=== PATIENT | male | born 1975 | race Caucasian/White ===

== ENCOUNTER 2019-08-21 09:47 | Inpatient (IN) | payer BC, OTHER ==
[2019-08-21] MEDS ORDERED: ACETAMINOPHEN TAB 500 MG TAB PO STA (10:01)
[2019-08-21] MEDS ORDERED: IPRATROPIUM-ALBUTEROL 3 ML NEB INHALATION STA (10:02)
--- NOTE | 2019-08-21 10:04 | ED ---
General Adult HPI - General Chief complaint: Shortness of Breath Stated complaint: BA Time Seen by Provider: 08/21/19 09:55 Source: patient, EMS, RN notes reviewed Mode of arrival: EMS Limitations: no limitations - History of Present Illness Initial comments: Patient is a pleasant 44-year-old male presenting to the emergency department with difficulty breathing. Symptoms have progressed with the past one week. Occasional cough. Patient denies having fever however states he has been chilled. Patient does have history of hypertension and does take diuretic however has been off his diuretic for the past couple of days. Patient is a smoker. Patient is unclear of any history of COPD. - Related Data Home Medications Medication Instructions Recorded Confirmed amLODIPine BESYLATE/BENAZEPRIL 1 cap PO BID 01/27/17 01/27/17 [Lotrel 5-20 mg Capsule] Previous Rx's Medication Instructions Recorded Omeprazole [PriLOSEC] 40 mg PO AC-BRKFST #14 capsule. 01/17/17 Allergies Allergy/AdvReac Type Severity Reaction Status Date / Time fexofenadine HCl Allergy HIGH BP Verified 08/21/19 10:01 [From Molly-D] pseudoephedrine HCl Allergy High BP Verified 08/21/19 10:01 [From Molly-D] Review of Systems ROS Statement: Those systems with pertinent positive or pertinent negative responses have been documented in the HPI. ROS Other: All systems not noted in ROS Statement are negative. Constitutional: Reports: as per HPI, chills Eyes: Denies: eye pain ENT: Denies: ear pain Respiratory: Reports: dyspnea Cardiovascular: Denies: chest pain Endocrine: Reports: fatigue Gastrointestinal: Denies: abdominal pain Genitourinary: Denies: dysuria Musculoskeletal: Denies: back pain Skin: Denies: rash Neurological: Denies: weakness Past Medical History Past Medical History: Heart Failure, GERD/Reflux, Hypertension, Seizure Disorder Additional Past Medical History / Comment(s): seizure as young child x1., states hospitalized 01/16/17-01/17/17 for blood in stool. denies current bleeding History of Any Multi-Drug Resistant Organisms: None Reported Past Surgical History: Orthopedic Surgery Additional Past Surgical History / Comment(s): right knee arthroscopy. Past Anesthesia/Blood Transfusion Reactions: No Reported Reaction Past Psychological History: No Psychological Hx Reported Smoking Status: Current every day smoker Past Alcohol Use History: Daily Past Drug Use History: Marijuana - Past Family History Mother Family Medical History: Hypertension Additional Family Medical History / Comment(s): from cancer General Exam Limitations: no limitations General appearance: alert Head exam: Present: normocephalic Eye exam: Present: normal appearance ENT exam: Present: normal oropharynx Neck exam: Present: normal inspection Respiratory exam: Present: wheezes Cardiovascular Exam: Present: regular rate, normal rhythm GI/Abdominal exam: Present: soft. Absent: tenderness Extremities exam: Present: pedal edema (+1 bilateral). Absent: calf tenderness Neurological exam: Present: alert Psychiatric exam: Present: normal affect, normal mood Skin exam: Present: normal color Course Vital Signs 08/21/19 08/21/19 08/21/19 09:57 10:17 10:46 Temperature 99.6 F 99.0 F Pulse Rate 99 95 Respiratory 20 24 20 Rate Blood Pressure 136/101 124/80 O2 Sat by Pulse 94 L 92 L Oximetry 08/21/19 08/21/19 10:53 11:02 Temperature Pulse Rate 81 84 Respiratory Rate Blood Pressure O2 Sat by Pulse Oximetry - Reevaluation(s) Reevaluation #1: 08/21/19 11:41 There is concern for sepsis diagnosed at 11:40 AM. Blood culture and lactic acid ordered. IV antibiotics will be ordered. EKG Findings - EKG Comments: EKG Findings:: Normal sinus rhythm 97. OH 134. QRS 94. QT 318. QTC 403. Right axis. Septal Q waves. No acute ST change. Medical Decision Making - Medical Decision Making Patient reevaluated and resting comfortably in bed. Patient updated on results and plan. Case was discussed in detail with Dr. Omalley who will admit. Patient states he does see Dr. Omalley still. Patient also states he has been decreasing alcohol intake recently. Alcohol withdrawal may be present also. There is moderate suspicion for coronavirus. Testing has been ordered. - Lab Data Result diagrams: 08/21/19 10:10 08/21/19 10:10 Lab Results 08/21/19 08/21/19 08/21/19 Range/Units 10:02 10:10 10:10 WBC 6.0 (3.8-10.6) k/uL RBC 6.52 H (4.30-5.90) m/uL Hgb 20.2 H* (13.0-17.5) gm/dL Hct 66.2 H* (39.0-53.0) % MCV 101.6 H (80.0-100.0) fL MCH 31.0 (25.0-35.0) pg MCHC 30.5 L (31.0-37.0) g/dL RDW 17.3 H (11.5-15.5) % Plt Count 192 (150-450) k/uL Neutrophils % 74 % Lymphocytes % 14 % Monocytes % 9 % Eosinophils % 1 % Basophils % 1 % Neutrophils # 4.5 (1.3-7.7) k/uL Lymphocytes # 0.8 L (1.0-4.8) k/uL Monocytes # 0.5 (0-1.0) k/uL Eosinophils # 0.1 (0-0.7) k/uL Basophils # 0.0 (0-0.2) k/uL Manual Slide Review Performed Hypochromasia Moderate Poikilocytosis (manual Present Anisocytosis Slight Macrocytosis Moderate PT (9.0-12.0) sec INR (<1.2) APTT (22.0-30.0) sec Sodium 129 L (137-145) mmol/L Potassium 6.2 H* (3.5-5.1) mmol/L Chloride 86 L (98-107) mmol/L Carbon Dioxide 35 H (22-30) mmol/L Anion Gap 8 mmol/L BUN 23 H (9-20) mg/dL Creatinine 0.64 L (0.66-1.25) mg/dL Est GFR (CKD-EPI)AfAm >90 (>60 ml/min/1.73 sqM) Est GFR (CKD-EPI)NonAf >90 (>60 ml/min/1.73 sqM) Glucose 105 H (74-99) mg/dL Plasma Lactic Acid Tk (0.7-2.0) mmol/L Calcium 9.1 (8.4-10.2) mg/dL Magnesium 2.1 (1.6-2.3) mg/dL Total Bilirubin 1.1 (0.2-1.3) mg/dL AST 28 (17-59) U/L ALT 28 (4-49) U/L Alkaline Phosphatase 51 (38-126) U/L Lactate Dehydrogenase 615 (313-618) U/L C-Reactive Protein 32.1 H (<10.0) mg/L NT-Pro-B Natriuret Pep 2480 pg/mL Total Protein 7.1 (6.3-8.2) g/dL Albumin 4.2 (3.5-5.0) g/dL 08/21/19 08/21/19 Range/Units 10:10 10:54 WBC (3.8-10.6) k/uL RBC (4.30-5.90) m/uL Hgb (13.0-17.5) gm/dL Hct (39.0-53.0) % MCV (80.0-100.0) fL MCH (25.0-35.0) pg MCHC (31.0-37.0) g/dL RDW (11.5-15.5) % Plt Count (150-450) k/uL Neutrophils % % Lymphocytes % % Monocytes % % Eosinophils % % Basophils % % Neutrophils # (1.3-7.7) k/uL Lymphocytes # (1.0-4.8) k/uL Monocytes # (0-1.0) k/uL Eosinophils # (0-0.7) k/uL Basophils # (0-0.2) k/uL Manual Slide Review Hypochromasia Poikilocytosis (manual Anisocytosis Macrocytosis PT 10.1 (9.0-12.0) sec INR 1.0 (<1.2) APTT 22.9 (22.0-30.0) sec Sodium (137-145) mmol/L Potassium (3.5-5.1) mmol/L Chloride (98-107) mmol/L Carbon Dioxide (22-30) mmol/L Anion Gap mmol/L BUN (9-20) mg/dL Creatinine (0.66-1.25) mg/dL Est GFR (CKD-EPI)AfAm (>60 ml/min/1.73 sqM) Est GFR (CKD-EPI)NonAf (>60 ml/min/1.73 sqM) Glucose (74-99) mg/dL Plasma Lactic Acid Tk 1.2 (0.7-2.0) mmol/L Calcium (8.4-10.2) mg/dL Magnesium (1.6-2.3) mg/dL Total Bilirubin (0.2-1.3) mg/dL AST (17-59) U/L ALT (4-49) U/L Alkaline Phosphatase (38-126) U/L Lactate Dehydrogenase (313-618) U/L C-Reactive Protein (<10.0) mg/L NT-Pro-B Natriuret Pep pg/mL Total Protein (6.3-8.2) g/dL Albumin (3.5-5.0) g/dL - Radiology Data Radiology results: image reviewed (Checks x-ray does show by basilar and perihil ar infiltrates.) Critical Care Time Critical Care Time: Yes Total Critical Care Time: 31 Disposition Clinical Impression: Pneumonia, Sepsis Disposition: ADMITTED IP TO THIS [facility] Condition: Serious Is patient prescribed a controlled substance at d/c from ED?: No Referrals: None,Stated [Primary Care Provider] - 1-2 days Decision Time: 11:42
[2019-08-21 10:26] LABS: Anisocytosis Slight; Basophils % (A) 1 %; Eosinophils # (A) 0.1 k/uL (0-0.7); Eosinophils % (A) 1 %; Hypochromasia Moderate; Lymphocytes # (A) 0.8 k/uL (1.0-4.8); Lymphocytes % (A) 14 %; MCHC 30.5 g/dL (31.0-37.0); MCV 101.6 fL (80.0-100.0); Macrocytosis Moderate; Mean Platelet Volume 7.2; Monocytes # (A) 0.5 k/uL (0-1.0); Monocytes % (A) 9 %; Neutrophils # (A) 4.5 k/uL (1.3-7.7); Neutrophils % (A) 74 %; Platelet Count 192 k/uL (150-450); RBC 6.52 m/uL (4.30-5.90); RDW 17.3 % (11.5-15.5)
[2019-08-21 10:43] LABS: HCT 66.2 % (39.0-53.0); HGB 20.2 gm/dL (13.0-17.5)
[2019-08-21 10:54] LABS: ALT 28 U/L (4-49); AST 28 U/L (17-59); African American GFR (CKD) >90 (>60 ml/min/1.73 sqM); Albumin 4.2 g/dL (3.5-5.0); Alkaline Phosphatase 51 U/L (38-126); Anion Gap 8 mmol/L; Blood Urea Nitrogen 23 mg/dL (9-20); C Reactive Protein 32.1 mg/L (<10.0); Calcium 9.1 mg/dL (8.4-10.2); Carbon Dioxide 35 mmol/L (22-30); Chloride 86 mmol/L (98-107); Glucose 105 mg/dL (74-99); LDH 615 U/L (313-618); Magnesium 2.1 mg/dL (1.6-2.3); Non-African American GFR(CKD) >90 (>60 ml/min/1.73 sqM); Sodium 129 mmol/L (137-145); Total Bilirubin 1.1 mg/dL (0.2-1.3); Total Protein 7.1 g/dL (6.3-8.2)
[2019-08-21 10:55] LABS: Poikilocytosis (M) Present
--- NOTE | 2019-08-21 11:07 | XR ---
EXAMINATION TYPE: XR chest 1V portable DATE OF EXAM: 08/21/2019 COMPARISON: 10/02/2010 HISTORY: Chest pain TECHNIQUE: Single frontal view of the chest is obtained. FINDINGS: Perihilar and basilar infiltrates suggested. The cardiac silhouette size is within normal limits. The osseous structures are intact. IMPRESSION: 1. Perihilar and basilar infiltrates suggested. Correlate for developing pneumonia.
[2019-08-21 11:10] LABS: Potassium 6.2 mmol/L (3.5-5.1)
[2019-08-21 11:37] LABS: Prothrombin Time 10.1 sec (9.0-12.0)
[2019-08-21 11:38] LABS: Partial Thromboplastin Time 22.9 sec (22.0-30.0)
[2019-08-21] MEDS ORDERED: IPRATROPIUM-ALBUTEROL 3 ML NEB INHALATION PRN (11:42)
[2019-08-21] MEDS ORDERED: AZITHROMYCIN 500 MG in SODIUM CHLORIDE 0.9% 250 ML IVPB STA (11:42)
[2019-08-21] MEDS ORDERED: PNEUMONIA PROTOCOL UTILIZED 1 EACH MISC PO PRN (11:42)
[2019-08-21] MEDS ORDERED: LORazepam 2 MG/ML INJ IV PRN (11:45)
[2019-08-21] MEDS: SODIUM CHLORIDE 0.9% 1,000 ML IV SCH (12:03)
[2019-08-21] MEDS ORDERED: ONDANSETRON 4 MG/2 ML VIAL IVP STA (13:01)
[2019-08-21] MEDS: LORazepam 2 MG/ML INJ IV PRN ×2 (14:21→15:41)
[2019-08-21 14:53] LABS: Allen Test Performed? Yes
[2019-08-21] MEDS ORDERED: SUCCINYLCHOLINE CHLORIDE VIAL 200 MG/10 ML VIAL IV STA (14:59)
[2019-08-21] MEDS ORDERED: MIDAZOLAM 2 MG/2 ML VIAL IV STA (14:59)
--- NOTE | 2019-08-21 15:33 | ED ---
Medical Decision Making - Medical Decision Making Patient was witnessed diaphoretic and purplish discoloration. Patient was not protecting his airway. He was question if patient possibly had seizure with alcohol withdrawal. Patient was transferred to trauma bay 2 and intubated without difficulty. Case was discussed with Dr. Fish who will consult with critical care. Dr. Omalley has been paged for update. - Lab Data Result diagrams: 08/21/19 10:10 08/21/19 10:10 Lab Results 08/21/19 08/21/19 08/21/19 Range/Units 10:02 10:10 10:10 WBC 6.0 (3.8-10.6) k/uL RBC 6.52 H (4.30-5.90) m/uL Hgb 20.2 H* (13.0-17.5) gm/dL Hct 66.2 H* (39.0-53.0) % MCV 101.6 H (80.0-100.0) fL MCH 31.0 (25.0-35.0) pg MCHC 30.5 L (31.0-37.0) g/dL RDW 17.3 H (11.5-15.5) % Plt Count 192 (150-450) k/uL Neutrophils % 74 % Lymphocytes % 14 % Monocytes % 9 % Eosinophils % 1 % Basophils % 1 % Neutrophils # 4.5 (1.3-7.7) k/uL Lymphocytes # 0.8 L (1.0-4.8) k/uL Monocytes # 0.5 (0-1.0) k/uL Eosinophils # 0.1 (0-0.7) k/uL Basophils # 0.0 (0-0.2) k/uL Manual Slide Review Performed Hypochromasia Moderate Poikilocytosis (manual Present Anisocytosis Slight Macrocytosis Moderate PT (9.0-12.0) sec INR (<1.2) APTT (22.0-30.0) sec Sodium 129 L (137-145) mmol/L Potassium 6.2 H* (3.5-5.1) mmol/L Chloride 86 L (98-107) mmol/L Carbon Dioxide 35 H (22-30) mmol/L Anion Gap 8 mmol/L BUN 23 H (9-20) mg/dL Creatinine 0.64 L (0.66-1.25) mg/dL Est GFR (CKD-EPI)AfAm >90 (>60 ml/min/1.73 sqM) Est GFR (CKD-EPI)NonAf >90 (>60 ml/min/1.73 sqM) Glucose 105 H (74-99) mg/dL Plasma Lactic Acid Tk (0.7-2.0) mmol/L Calcium 9.1 (8.4-10.2) mg/dL Magnesium 2.1 (1.6-2.3) mg/dL Total Bilirubin 1.1 (0.2-1.3) mg/dL AST 28 (17-59) U/L ALT 28 (4-49) U/L Alkaline Phosphatase 51 (38-126) U/L Lactate Dehydrogenase 615 (313-618) U/L C-Reactive Protein 32.1 H (<10.0) mg/L NT-Pro-B Natriuret Pep 2480 pg/mL Total Protein 7.1 (6.3-8.2) g/dL Albumin 4.2 (3.5-5.0) g/dL 08/21/19 08/21/19 Range/Units 10:10 10:54 WBC (3.8-10.6) k/uL RBC (4.30-5.90) m/uL Hgb (13.0-17.5) gm/dL Hct (39.0-53.0) % MCV (80.0-100.0) fL MCH (25.0-35.0) pg MCHC (31.0-37.0) g/dL RDW (11.5-15.5) % Plt Count (150-450) k/uL Neutrophils % % Lymphocytes % % Monocytes % % Eosinophils % % Basophils % % Neutrophils # (1.3-7.7) k/uL Lymphocytes # (1.0-4.8) k/uL Monocytes # (0-1.0) k/uL Eosinophils # (0-0.7) k/uL Basophils # (0-0.2) k/uL Manual Slide Review Hypochromasia Poikilocytosis (manual Anisocytosis Macrocytosis PT 10.1 (9.0-12.0) sec INR 1.0 (<1.2) APTT 22.9 (22.0-30.0) sec Sodium (137-145) mmol/L Potassium (3.5-5.1) mmol/L Chloride (98-107) mmol/L Carbon Dioxide (22-30) mmol/L Anion Gap mmol/L BUN (9-20) mg/dL Creatinine (0.66-1.25) mg/dL Est GFR (CKD-EPI)AfAm (>60 ml/min/1.73 sqM) Est GFR (CKD-EPI)NonAf (>60 ml/min/1.73 sqM) Glucose (74-99) mg/dL Plasma Lactic Acid Tk 1.2 (0.7-2.0) mmol/L Calcium (8.4-10.2) mg/dL Magnesium (1.6-2.3) mg/dL Total Bilirubin (0.2-1.3) mg/dL AST (17-59) U/L ALT (4-49) U/L Alkaline Phosphatase (38-126) U/L Lactate Dehydrogenase (313-618) U/L C-Reactive Protein (<10.0) mg/L NT-Pro-B Natriuret Pep pg/mL Total Protein (6.3-8.2) g/dL Albumin (3.5-5.0) g/dL Disposition Clinical Impression: Pneumonia, Sepsis Disposition: ADMITTED IP TO THIS HOSP Condition: Serious Is patient prescribed a controlled substance at d/c from ED?: No Procedures - [place] Protocol (Time Out) Nurse: Jing Crespo C - Intubation Paralytic: Succinylcholine Laryngoscope: Colon Size: 4 ET Tube Size: 8 Tube Secured Location: lips Tube Placement Confirmation: visualized tube passing through cords, equal breath sounds bilaterally, no breath sounds over epigastrium, confirmation by capnometry Patient Tolerated Procedure: well, no complications
--- NOTE | 2019-08-21 15:48 | XR ---
EXAMINATION TYPE: XR chest 1V portable DATE OF EXAM: 08/21/2019 COMPARISON: 08/21/2019 HISTORY: Chest pain TECHNIQUE: Single frontal view of the chest is obtained. FINDINGS: Patchy perihilar and basilar infiltrates are noted. Endotracheal tube is appropriately placed. NG tub e is seen coursing into the stomach. The cardiac silhouette size is within normal limits. The osseous structures are intact. IMPRESSION: 1. Patchy perihilar and basilar infiltrates are noted. Endotracheal tube is appropriately placed. NG tube is seen coursing into the stomach.
--- NOTE | 2019-08-21 16:33 | CT ---
EXAMINATION TYPE: CT brain wo con DATE OF EXAM: 08/21/2019 COMPARISON: CT brain 09/17/2011 HISTORY: Patient intubated at time of scan CT DLP: 1198 mGycm. Automated Exposure Control for Dose Reduction was Utilized. TECHNIQUE: CT scan of the head is performed without contrast. FINDINGS: There is no acute intracranial hemorrhage, mass effect, or midline shift identified. The ventricles and sulci are within normal limits in size. The globes are intact and the visualized sin uses are are markable show some inflammatory change in the ethmoid air cells, right maxillary sinus. White matter low-attenuation is scattered within supratentorial location. IMPRESSION: Nonspecific white matter demyelination, consider MRI.
[2019-08-21] MEDS ORDERED: CISATRACURIUM 2 MG/ML 5 ML VIAL IV ONE (16:34)
--- NOTE | 2019-08-21 16:36 | CT ---
EXAMINATION TYPE: CT angio chest DATE OF EXAM: 08/21/2019 COMPARISON: Chest x-ray same date HISTORY: Patient intubated at time of scan CT DLP: 862.4 mGycm Automated exposure control for dose reduction was used. CONTRAST: CTA scan of the thorax is performed with IV Contrast, patient injected with 100 mL of Isovue 370, pul monary embolism protocol. MIP images are created and reviewed. 3D reconstructed images are created on an independent workstation and reviewed. FINDINGS: Endotracheal tube is present within the tracheal air column, an NG tube is present, distal tip is coiled within the stomach. There is motion on the exam. LUNGS: There are bilateral pleural effusions, probable dependent atelectatic changes, correlate to ex clude pneumonia, some upper lobe emphysematous changes are present. AORTA: No additional significant abnormality is seen. MEDIASTINUM: There is satisfactory enhancement of the pulmonary artery and its branches, there is no CT evidence for pulmonary embolism. There are no greater than 1 cm hilar or mediastinal lymph nodes. No pericardial effusion is seen. Prominence of pulmonary artery could be indicative of pulmonary h ypertension OTHER: No additional significant abnormality is seen. IMPRESSION: EMPHYSEMA BILATERAL PLEURAL EFFUSIONS, ASSOCIATED ATELECTASIS, CORRELATE TO EXCLUDE PNEUMONIA. POSSIB LE PULMONARY ARTERY HYPERTENSION.
[2019-08-21] MEDS ORDERED: LORazepam 2 MG/ML INJ IV STA ×2 (16:40→16:42)
--- NOTE | 2019-08-21 17:05 | XR ---
EXAMINATION TYPE: XR chest 1V confirm [facility] DATE OF EXAM: 08/21/2019 CLINICAL HISTORY: Line placement. TECHNIQUE: Single AP portable supine view of the chest is obtained. COMPARISON: Chest x-ray and CTA chest from one day earlier. FINDINGS: Stable endotracheal and orogastric tubes. New left internal jugular central venous cathete r terminating in SVC. No pneumothorax identified. Chronic emphysematous and parenchymal fibrotic dodd ges with central vascular congestion and mild cardiomegaly along with mild interstitial edema. No pne umothorax noted after central line placement. IMPRESSION: 1. New left internal jugular central venous catheter terminating in SVC. No pneumothorax noted after placement. 2. Suspect CHF exacerbation as there is mild cardiomegaly with mild central vascular congestion and m ild interstitial edema on background chronic emphysematous and parenchymal fibrotic changes.
--- NOTE | 2019-08-21 17:07 | P.CNPUL ---
History of Present Illness Consult date: 08/21/19 Reason for consult: dyspnea, COPD History of present illness: A 44-year-old male patient, comes in to the ED because of worsening shortness of breath of one-week duration. He had cough increased dyspnea chest tightness and wheezing. He is a chronic smoker. He is also a chronic drinker/alcoholic. He has history of seizures. He has history of hypertension. He has history of COPD. He has never been seen in the office. Not much of information is available on this patient. His white cell count was at 6 with a hemoglobin of 20.2 and note that the patient has history of elevated hemoglobins which has been in the range of 17. He had a sodium of 129 with a potassium level of 6.2 with a serum bicarb of 35 and BUN of 23 with a creatinine of 0.6. His proBNP level is 2480. During his stay in the emergency, the patient became subseque ntly more diaphoretic and purplish and he became significantly unresponsive when he was unable to protect his airway. He was placed on on the percent nonrebreather facemask. A blood gas was done that showed a pCO2 of above 100 and a pH of 7.0. At that point the patient was intubated and placed on a mechanical ventilation. There was a question of seizure activity related to alcohol withdrawal as the patient stated that he was gradually cutting down on his alcohol intake. Nevertheless, this was not witnessed. Post intubation, the patient was given a CAT scan of the brain that showed possibility of nonspecific white matter demyelination. The CT angiogram of the chest showed no this of any pulmonary embolism. However, there is evidence of pulmonary hypertension and atelectatic changes/consolidation of the lung bases with small effusions. His pro calcitonin level is 0.07. The patient is actively bronchospastic and wheezy on a mechanical ventilator. His peak air pressure was around 34. He was an assist-control mode of ventilation at the rate of 12 with tidal volume of 500 and FiO2 of 100% with a PEEP of 5. Chest x-ray post intubation showed some perihilar infiltration. I saw the patient emergency. He was already on propofol running at 50 g per KG per minute. He was in a normal sinus rhythm with a systolic blood pressure in the mid 90s. No significant orotracheal se cretions. He was having excessive drooling and salivation. I did not witness any seizure activity. No posterior neck. No rigidity. No fever. Review of Systems ROS unobtainable: due to endotracheal tube Past Medical History Past Medical History: Heart Failure, GERD/Reflux, Hypertension, Seizure Disorder Additional Past Medical History / Comment(s): seizure as young child x1., states hospitalized 01/16/17-01/17/17 for blood in stool. denies current bleeding History of Any Multi-Drug Resistant Organisms: None Reported Past Surgical History: Orthopedic Surgery Additional Past Surgical History / Comment(s): right knee arthroscopy. Past Anesthesia/Blood Transfusion Reactions: No Reported Reaction Past Psychological History: No Psychological Hx Reported Smoking Status: Current every day smoker Past Alcohol Use History: Daily Past Drug Use History: Marijuana - Past Family History Mother Family Medical History: Hypertension Additional Family Medical History / Comment(s): from cancer Medications and Allergies Home Medications Medication Instructions Recorded Confirmed Type amLODIPine BESYLATE/BENAZEPRIL 1 cap PO BID 01/27/17 08/21/19 History [Lotrel 5-20 mg Capsule] Hydrochlorothiazide [Hydrodiuril] 25 mg PO DAILY 08/21/19 08/21/19 History Allergies Allergy/AdvReac Type Severity Reaction Status Date / Time fexofenadine HCl Allergy HIGH BP Verified 08/21/19 13:00 [From Molly-D] pseudoephedrine HCl Allergy High BP Verified 08/21/19 13:00 [From Molly-D] Physical Exam Vitals: Vital Signs Temp Pulse Resp BP Pulse Ox 08/21/19 16:06 83 20 105/83 98 08/21/19 15:50 97.0 F L 84 20 105/67 99 08/21/19 14:44 89 L 08/21/19 14:29 108 H 22 124/88 88 L 08/21/19 13:55 98.8 F 110 H 22 112/83 70 L 08/21/19 11:39 90 22 131/90 93 L 08/21/19 11:02 84 08/21/19 10:53 81 08/21/19 10:46 99.0 F 95 20 124/80 92 L 08/21/19 10:17 24 08/21/19 09:57 99.6 F 99 20 136/101 94 L Intake and Output 08/21/19 08/21/19 08/21/19 06:59 14:59 22:59 Intake Total 7.133 Output Total 30 Balance -22.867 Intake: Intake, IV Titration 7.133 Amount Propofol 1,000 mg In 7.133 Empty Bag 1 bag @ Titrate IV .Q0M [facility] Rx#: [id number] Output: Urine 30 Uretheral (Nogueira) 30 Other: Weight 83.915 kg The patient is intubated on a mechanical ventilator sedated with propofol. The patient asynchronous with the mechanical ventilator. At times he still gets restless and he was given additional 4 mg of Ativan while insertion of a triple- lumen catheter in his left IJ Head exam was generally normal. There was no scleral icterus or corneal arcus. Mucous membranes were moist. Neck was supple and without jugular venous distension, thyromegaly, or carotid b ruits. Carotids were easily palpable bilaterally. There was no adenopathy. His lips are somewhat cyanotic. He has a left IJ triple catheter in place. Orogastric and orotracheal tube are both in place. Lungs are diminished and there is diffuse expiratory wheezes throughout the lung his bilaterally and scattered expiratory rhonchi Cardiac exam revealed the PMI to be normally situated and sized. The rhythm was regular and no extrasystoles were noted during several minutes of auscultation. The first and second heart sounds were normal and physiologic splitting of the second heart sound was noted. There were no murmurs, rubs, clicks, or gallops. Abdominal exam revealed normal bowel sounds. The abdomen was soft, non-tender, and without masses, organomegaly, or appreciable enlargement of the abdominal aorta. Extremities revealed no edema no cyanosis or clubbing. There is areas of psoriatic patches on his soles groin and palms of the hands. Neurologically the patient is sedated. Pupils are equal and reactive to light. Neck is supple and there is no neck stiffness. Unable to assess any motor or sensory function. DTRs are +1 symmetric in all 4 extremities. No Babinski. No clonus. Results - Laboratory Findings CBC and BMP: 08/21/19 10:10 08/21/19 10:10 PT/INR, D-dimer PT 10.1 sec (9.0-12.0) 08/21/19 10:54 INR 1.0 (<1.2) 08/21/19 10:54 Abnormal lab findings: Abnormal Labs 08/21/19 08/21/19 08/21/19 10:10 10:10 10:55 RBC 6.52 H Hgb 20.2 H* Hct 66.2 H* MCV 101.6 H MCHC 30.5 L RDW 17.3 H Lymphocytes # 0.8 L Sodium 129 L Potassium 6.2 H* Chloride 86 L Carbon Dioxide 35 H BUN 23 H Creatinine 0.64 L Glucose 105 H Ferritin 14.8 L C-Reactive Protein 32.1 H - Diagnostic Findings Chest x-ray: image reviewed Assessment and Plan Plan: 1 acute on chronic hypoxic and hypercapnic respiratory failure. The patient developed severe respiratory acidosis and hypoxemia and he became unresponsive in the emergency department and subsequently was intubated and placed on a mechanical ventilator. CT angios and shows no evidence of any pulmonary embolism. There is lower lobe consolidation along with small bilateral pleural effusion. Consider aspiration pneumonia. Consider seizure activity has another contributing factors to his respiratory failure. Note that he is a COPD exacerbation. He has chronic hypoxic and hypercapnic respiratory failure due to COPD and possible obstructive sleep apnea 2 chronic hypoxemia. There are signs of chronic hypoxemia on this patient including pulmonary hypertension and perihilar fullness indicative of pulmonary hypertension and chronic elevation of the hemoglobin which is consistent with secondary erythrocytosis. The reasons as mentioned above. 3 COPD 4 suspect obstructive sleep apnea 5 chronic hypercapnic respiratory failure with secondary metabolic alkalosis with a serum bicarb of 35 6 secondary erythrocytosis likely secondary chronic hypoxemia 7 mild hypokalemia with a potassium level of 6.2 without any EKG changes 8 suspect right-sided heart failure/pulmonary hypertension/cor pulmonale. ProBNP level is slightly elevated 9 acute COPD exacerbation, currently bronchospastic and wheezy with elevated pea k airway pressures on a mechanical ventilator 10 chronic alcoholism 11 chronic smoking 12 seizures by history. Rule out breakthrough seizures. Currently on propofol drip. 13 hypertension Plan Continue vent support Repeat the blood gases in the ICU Put the patient on DuoNeb nebulized treatment [id number] in addition to IV Solu-Medrol Cover the patient with IV Zosyn for aspiration pneumonia and discontinue the rest of the antibiotics Obtain a 2-D echocardiogram IV fluids with normal state rate of 75 mL an hour. The patient be given a bolus for now and repeat potassium will be obtained accordingly. This will be a bolus of normal saline. This will be a total of 2 L. Check alcohol level Check urine drug screen Neurology consultation regarding the possibility of seizures and obtain an EEG Heparin subcu for DVT prophylaxis Covid 19 nasal swab We'll continue to follow. Condition is critical for now. Time with Patient: Greater than 30
--- NOTE | 2019-08-21 17:09 | P.PCN ---
Date of Procedure: 08/21/19 Preoperative Diagnosis: Acute respiratory failure Postoperative Diagnosis: Acute respiratory failure Procedure(s) Performed: Triple-lumen catheter insertion Anesthesia: local Surgeon: Alphonse Fish Pathology: none sent Condition: critical Disposition: ICU Operative Findings: Indication: Hemodynamic monitoring/Intravenous access. A time-out was completed verifying correct patient, procedure, site, positioning, and implant(s) or special equipment if applicable. The patient was placed in a dependent position appropriate for central line placement based on the vein to be cannulated. The patients left neck was prepped and draped in sterile fashion. 1% Lidocaine was used to anesthetize the surrounding skin area. A triple lumen 9F Cordis catheter was introduced into the left IJ vein using Seldinger technique. The catheter was threaded smoothly over the guide wire and appropriate blood return was obtained. Each lumen of the catheter was evacuated of air and flushed with sterile saline. The catheter was then sutured in place to the skin and a sterile dressing applied. Perfusion to the extremity distal to the point of catheter insertion was checked and found to be adequate. The patient tolerated the procedure well and there were no complications. Chest x-ray shows no evidence of any pneumothorax
[2019-08-21] MEDS: SODIUM CHLORIDE 0.9% 2,000 ML IV ONE ×2 (17:26→17:39)
[2019-08-21] MEDS: CISATRACURIUM 200 MG in SODIUM CHLORIDE 0.9% 180 ML IV SCH (17:40)
[2019-08-21] MEDS: PIPERACILLIN-TAZOBACTAM 3.375 GM in SODIUM CHLORIDE 0.9% 100 ML IVPB SCH ×2 (17:40→23:27)
[2019-08-21 18:25] LABS: Glucose,Whole Blood 83 mg/dL (75-99)
[2019-08-21] MEDS: THIAMINE 100 MG TAB PO SCH (18:25)
[2019-08-21] MEDS: methylPREDNISolone SOD SUCCI 125 MG/2 ML VIAL IV SCH ×2 (18:27→23:26)
[2019-08-21 18:32] LABS: Amphetamine Screen,Urine Not Detected (NotDetected); Barbiturate Screen,Urine Not Detected (NotDetected); Benzodiazepines Screen,Urine Detected (NotDetected); Cocaine Screen,Urine Not Detected (NotDetected); Methadone Screen, Urine Not Detected (NotDetected); Opiate Screen,Urine Not Detected (NotDetected); Oxycodone Screen, Urine Not Detected (NotDetected); Phencyclidine Screen,Urine Not Detected (NotDetected); Tricyclic Antidepressant,Urine Not Detected (NotDetected); Urn Cannabinoid Scrn Detected (NotDetected)
[2019-08-21 19:29] LABS: ABG HCO3 34 mmol/L (21-25); ABG Oxygen Saturation 99.6 % (94-97); ABG PCO2 58 mmHg (35-45); ABG PH 7.38 (7.35-7.45); ABG PO2 106 mmHg (83-108); ABG TCO2 36 mmol/L (19-24); Allen Test Performed? Yes
[2019-08-21 20:02] LABS: ALT 24 U/L (4-49); AST 30 U/L (17-59); African American GFR (CKD) >90 (>60 ml/min/1.73 sqM); Albumin 3.1 g/dL (3.5-5.0); Alkaline Phosphatase 46 U/L (38-126); Anion Gap 4 mmol/L; Blood Urea Nitrogen 23 mg/dL (9-20); Calcium 7.7 mg/dL (8.4-10.2); Carbon Dioxide 33 mmol/L (22-30); Chloride 92 mmol/L (98-107); Glucose 84 mg/dL (74-99); Non-African American GFR(CKD) >90 (>60 ml/min/1.73 sqM); Potassium 5.5 mmol/L (3.5-5.1); Sodium 129 mmol/L (137-145); Total Bilirubin 0.9 mg/dL (0.2-1.3); Total Protein 5.5 g/dL (6.3-8.2)
[2019-08-21] MEDS: BUDESONIDE 1 MG/2 ML NEBU INHALATION SCH (20:35)
[2019-08-21] MEDS: IPRATROPIUM-ALBUTEROL 3 ML NEB INHALATION SCH (20:35)
[2019-08-21] MEDS: FORMOTEROL FUMARATE 20 MCG/2 ML NEBU INHALATION SCH (20:35)
[2019-08-21 21:28] LABS: ABG PCO2 120 mmHg (35-45); ABG PO2 81 mmHg (83-108)
[2019-08-21 21:29] LABS: ABG HCO3 22 mmol/L (21-25); ABG Oxygen Saturation 87.9 % (94-97)
[2019-08-21] MEDS: HEPARIN SODIUM,PORCINE 5,000 UNIT/ML 1 ML VIAL SQ SCH (23:26)
[2019-08-22] MEDS: IPRATROPIUM-ALBUTEROL 3 ML NEB INHALATION SCH ×6 (01:02→19:55)
[2019-08-22 05:49] LABS: ABG Base Excess 7.4 mmol/L; ABG HCO3 33 mmol/L (21-25); ABG Oxygen Saturation 96.3 % (94-97); ABG PCO2 55 mmHg (35-45); ABG PH 7.38 (7.35-7.45); ABG PO2 84 mmHg (83-108); ABG TCO2 34 mmol/L (19-24); Allen Test Performed? Yes
[2019-08-22] MEDS: methylPREDNISolone SOD SUCCI 125 MG/2 ML VIAL IV SCH ×4 (06:06→23:37)
[2019-08-22 06:10] LABS: Glucose,Whole Blood 141 mg/dL (75-99)
[2019-08-22 06:40] LABS: Anisocytosis Slight; Hypochromasia Moderate; MCH 31.8 pg (25.0-35.0); MCHC 31.5 g/dL (31.0-37.0); Macrocytosis Slight; Mean Platelet Volume 7.4; Platelet Count 176 k/uL (150-450); RDW 17.3 % (11.5-15.5); WBC 6.5 k/uL (3.8-10.6)
[2019-08-22 06:45] LABS: HCT 62.6 % (39.0-53.0); HGB 19.7 gm/dL (13.0-17.5)
[2019-08-22 06:50] LABS: African American GFR (CKD) >90 (>60 ml/min/1.73 sqM); Anion Gap 6 mmol/L; Blood Urea Nitrogen 25 mg/dL (9-20); Calcium 8.1 mg/dL (8.4-10.2); Carbon Dioxide 27 mmol/L (22-30); Chloride 96 mmol/L (98-107); Glucose 133 mg/dL (74-99); Magnesium 1.9 mg/dL (1.6-2.3); Non-African American GFR(CKD) >90 (>60 ml/min/1.73 sqM); Phosphorus 3.2 mg/dL (2.5-4.5); Sodium 129 mmol/L (137-145)
[2019-08-22 06:58] LABS: Potassium 5.8 mmol/L (3.5-5.1)
[2019-08-22] MEDS: FORMOTEROL FUMARATE 20 MCG/2 ML NEBU INHALATION SCH ×2 (07:38→19:55)
[2019-08-22] MEDS: BUDESONIDE 1 MG/2 ML NEBU INHALATION SCH ×2 (07:39→19:55)
[2019-08-22] MEDS: THIAMINE 100 MG TAB PO SCH ×2 (08:21→17:41)
[2019-08-22] MEDS: HEPARIN SODIUM,PORCINE 5,000 UNIT/ML 1 ML VIAL SQ SCH ×3 (08:21→23:37)
[2019-08-22] MEDS: PIPERACILLIN-TAZOBACTAM 3.375 GM in SODIUM CHLORIDE 0.9% 100 ML IVPB SCH ×3 (08:21→23:52)
[2019-08-22] MEDS: SODIUM CHLORIDE 0.9% 1,000 ML IV SCH ×3 (08:22→17:49)
[2019-08-22] MEDS: CISATRACURIUM 200 MG in SODIUM CHLORIDE 0.9% 180 ML IV SCH (08:23)
--- NOTE | 2019-08-22 08:45 | XR ---
EXAMINATION TYPE: XR chest 1V portable DATE OF EXAM: 08/22/2019 COMPARISON: 08/21/2019 INDICATION: Tube placement TECHNIQUE: Single frontal view of the chest is obtained. FINDINGS: The heart size is normal. The pulmonary vasculature is normal. There is a right lower lobe infiltrate silhouetting the right diaphragm. Diaphragm is not well visual ized. Costophrenic angle may be out of the [id number]. Endotracheal tube tip is above the farheen. Left central venous catheter tip is in the region of the s uperior vena cava. Nasogastric tube transverses the [id number] with tip within the abdomen. IMPRESSION: 1. Developing right lower lobe atelectasis or pneumonia. 2. Infiltrate within the retrocardiac region. 3. Multiple lines and catheters.
[2019-08-22 08:56] LABS: Amylase 60 U/L (30-110)
[2019-08-22] MEDS ORDERED: AZITHROMYCIN 500 MG TAB PO SCH (09:00)
--- NOTE | 2019-08-22 10:05 | P.CNNES ---
History of Present Illness Consult date: 08/22/19 Requesting physician: Ann Botello Reason for Consult: Possible seizure History of Present Illness: History was obtained from medical records, Since the patient since patient is intubated and on sedation (propofol 50mg/hr and Nimbex was discontinued in AM). This is a 44-year-old gentleman with history of ?seizure disorder, COPD, , HTN, heart failure and chronic heart failure that presented to the emergency departm ent on 08/21/2023 difficulty breathing. He has a cough that increased and dyspnea and chest tightness as well as wheezing. His symptoms as progressed for the past 1 week. He denies any fever but states he has chills. He is a chronic smoker. Per Medical records while the patient was in the emergency department he subsequently became more diaphoretic and purplish and became more significantly unresponsive when he was unable to protect his airway. He was placed on the non-rebreather mask. His ABG was done and shows pCO2 of above 100 and a pH of 7.0. The patient then was intubated and placed on mechanical ventilation. It's reported that it's unsure if this was a seizure activity related to alcohol withdrawal since the patient is gradually cutting down. No seizures were witnessed in the emergency department. CT of the head without contrast was done on 08/21/2019 and was reported as nonspecific white matter mild matter within the supratentorial location, and this nonspecific white matter demyelination and to consider MRI. His initial TEMPERATURE was 99.6. Upon contacting the patient's father he denies that patient has history of seizure but will inquire that information. He stated that his son ran out of diuretic and became short of breath. The patient does have chronic alcohol use per father but he is not sure if he was cutting down or not. Per the patient's ICU nurse, she has not witnessed any seizure activity or any report of seizure activity since he has been in ICU. Review of Systems Review of system: The 12 point system was reviewed and apparent positive and negative per HPI. Past Medical History Past Medical History: Heart Failure, GERD/Reflux, Hypertension, Seizure Disorder Additional Past Medical History / Comment(s): seizure as young child x1., states hospitalized 01/16/17-01/17/17 for blood in stool. denies current bleeding History of Any Multi-Drug Resistant Organisms: None Reported Past Surgical History: Orthopedic Surgery Additional Past Surgical History / Comment(s): right knee arthroscopy. Past Anesthesia/Blood Transfusion Reactions: No Reported Reaction Past Psychological History: No Psychological Hx Reported Past Alcohol Use History: Daily Past Drug Use History: Marijuana - Past Family History Mother Family Medical History: Hypertension Additional Family Medical History / Comment(s): from cancer Medications and Allergies Home Medications Medication Instructions Recorded Confirmed Type amLODIPine BESYLATE/BENAZEPRIL 1 cap PO BID 01/27/17 08/21/19 History [Lotrel 5-20 mg Capsule] Hydrochlorothiazide [Hydrodiuril] 25 mg PO DAILY 08/21/19 08/21/19 History Allergies Allergy/AdvReac Type Severity Reaction Status Date / Time fexofenadine HCl Allergy HIGH BP Verified 08/21/19 13:00 [From IWT] pseudoephedrine HCl Allergy High BP Verified 08/21/19 13:00 [From IWT] Physical Examination - Vital Signs Vital Signs: Vital Signs Temp Pulse Resp BP Pulse Ox 08/22/19 07:40 66 08/22/19 07:00 65 16 102/65 94 L 08/22/19 06:00 72 16 105/68 94 L 08/22/19 05:00 66 16 109/68 96 08/22/19 04:55 69 08/22/19 04:47 71 08/22/19 04:00 98.5 F 68 29 H 101/72 96 08/22/19 03:00 66 16 97/66 94 L 08/22/19 02:00 62 16 99/68 95 08/22/19 01:28 62 08/22/19 01:02 64 08/22/19 01:00 64 16 92/62 96 08/22/19 00:00 98.8 F 66 16 102/72 94 L 08/21/19 23:00 64 16 88/65 96 08/21/19 22:00 64 16 87/61 94 L 08/21/19 21:08 66 16 08/21/19 21:00 98.1 F 66 16 92/69 96 08/21/19 20:57 64 16 08/21/19 20:56 64 16 08/21/19 20:36 64 16 08/21/19 20:00 63 16 104/75 97 08/21/19 19:00 63 16 94/68 99 08/21/19 18:02 98.4 F 66 16 103/69 97 08/21/19 17:44 71 20 105/81 98 08/21/19 17:05 75 97/66 97 08/21/19 16:06 83 20 105/83 98 08/21/19 15:50 97.0 F L 84 20 105/67 99 08/21/19 15:00 124/88 08/21/19 14:44 89 L 08/21/19 14:29 108 H 22 124/88 88 L 08/21/19 13:55 98.8 F 110 H 22 112/83 70 L 08/21/19 12:00 24 131/90 08/21/19 11:39 90 22 131/90 93 L 08/21/19 11:02 84 08/21/19 11:00 89 15 124/80 95 08/21/19 10:53 81 08/21/19 10:46 99.0 F 95 20 124/80 92 L 08/21/19 10:17 24 08/21/19 10:00 136/101 93 L 08/21/19 09:57 99.6 F 99 20 136/101 94 L 08/21/19 09:55 93 L Intake and Output 08/21/19 08/22/19 08/22/19 22:59 06:59 14:59 Intake Total 2667.133 1001.707 187.693 Output Total 290 245 35 Balance 2377.133 756.707 152.693 Intake: IV 300 800 100 Piperacillin-Tazobactam 3 100 .375 gm In Sodium Chloride 0.9% 100 ml @ 25 mls/hr IVPB Q8HR [facility] Rx# :[id number] Sodium Chloride 0.9% 1, 300 700 100 000 ml @ 100 mls/hr IV . Q10H [facility] Rx#:[id number] Intake, IV Titration 2367.133 201.707 87.693 Amount Cisatracurium 200 mg In 101.707 Sodium Chloride 0.9% 180 ml @ 2 MCG/KG/MIN 10.07 mls/hr IV .[id number] [facility] Rx #:[id number] Piperacillin-Tazobactam 3 100 .375 gm In Sodium Chloride 0.9% 100 ml @ 25 mls/hr IVPB Q8HR [facility] Rx# :[id number] Propofol 1,000 mg In 167.133 100 87.693 Empty Bag 1 bag @ Titrate IV .Q0M [facility] Rx#: [id number] Sodium Chloride 0.9% 1, 100 000 ml @ 100 mls/hr IV . Q10H [facility] Rx#:[id number] Sodium Chloride 0.9% 2, 2000 000 ml @ 999 mls/hr IV . Q2H1M [facility] Rx#:[id number] Output: Urine 290 245 35 Uretheral (Nogueira) 30 Other: Voiding Method Indwelling Catheter Indwelling Catheter Weight 103.8 kg - Additional findings Physical Exam: Is limited since patient is intubated and on sedation. Chest: Regular rate and rhythm. No mumur. Respiratory: Clear lungs to auscultation throughout. HEENT: Normocephalic, atraumatic, no kernig sign. Neurological: Comatose and not opening to eyes with painful stimuli. Pupils are 2mm bilaterally and slugishly reactive to light bilaterally. No facial weakness noted. Motor: Could not be assessed because of his condition. No abnormal movement noted throughout. Reflexes: 2+ throughout except at ankles 1+ bilaterally. Plantars: Mute bilaterally. Results - Laboratory Findings CBC and BMP: 08/22/19 06:19 08/22/19 06:19 Abnormal Lab Findings: Abnormal Labs 08/21/19 08/21/19 08/21/19 10:10 10:10 10:55 RBC 6.52 H Hgb 20.2 H* Hct 66.2 H* MCV 101.6 H MCHC 30.5 L RDW 17.3 H Lymphocytes # 0.8 L ABG pH ABG pCO2 ABG pO2 ABG HCO3 ABG Total CO2 ABG O2 Saturation Sodium 129 L Potassium 6.2 H* Chloride 86 L Carbon Dioxide 35 H BUN 23 H Creatinine 0.64 L Glucose 105 H POC Glucose (mg/dL) Calcium Ferritin 14.8 L C-Reactive Protein 32.1 H Total Protein Albumin U Benzodiazepines Scrn U Marijuana (THC) Screen 08/21/19 08/21/19 08/21/19 14:46 17:46 18:10 RBC Hgb Hct MCV MCHC RDW Lymphocytes # ABG pH 7.00 L* ABG pCO2 120 H* ABG pO2 81 L ABG HCO3 ABG Total CO2 ABG O2 Saturation 87.9 L Sodium 129 L Potassium 5.5 H Chloride 92 L Carbon Dioxide 33 H BUN 23 H Creatinine Glucose POC Glucose (mg/dL) Calcium 7.7 L Ferritin C-Reactive Protein Total Protein 5.5 L Albumin 3.1 L U Benzodiazepines Scrn Detected H U Marijuana (THC) Screen Detected H 08/21/19 08/22/19 08/22/19 19:27 05:42 06:09 RBC Hgb Hct MCV MCHC RDW Lymphocytes # ABG pH ABG pCO2 58 H 55 H ABG pO2 ABG HCO3 34 H 33 H ABG Total CO2 36 H 34 H ABG O2 Saturation 99.6 H Sodium Potassium Chloride Carbon Dioxide BUN Creatinine Glucose POC Glucose (mg/dL) 141 H Calcium Ferritin C-Reactive Protein Total Protein Albumin U Benzodiazepines Scrn U Marijuana (THC) Screen 08/22/19 08/22/19 06:19 06:19 RBC 6.20 H Hgb 19.7 H* Hct 62.6 H* MCV 101.0 H MCHC RDW 17.3 H Lymphocytes # ABG pH ABG pCO2 ABG pO2 ABG HCO3 ABG Total CO2 ABG O2 Saturation Sodium 129 L Potassium 5.8 H Chloride 96 L Carbon Dioxide BUN 25 H Creatinine 0.64 L Glucose 133 H POC Glucose (mg/dL) Calcium 8.1 L Ferritin C-Reactive Protein Total Protein Albumin U Benzodiazepines Scrn U Marijuana (THC) Screen - Diagnostic Findings Additional findings: His sodium level during the his hospital visit was initially 129 at it's been 129 throughout throughout this admission his baseline sodium is 136-140 ETOH level less than 10 The cornea virus PCR was not detected. PT is 10.1, INR is 1.0, PTT is 22.9. Chest x-ray on 08/21/2019 showed perihilar and basal infiltrate suggested. Correlate for developing pneumonia. Assessment and Plan Assessment: This is a 44-year-old gentleman with a history of ?seizure disorder that is documented but per patient's father he is not aware patient has history of seizure, chronic alcohol use, COPD, hypertension, heart failure that ran out of diuretic and presented to the emergency department on 08/21/2023 difficulty breathing. Per Medical records while the patient was in the emergency depar tment he subsequently became more diaphoretic and purplish and became more significantly unresponsive when he was unable to protect his airway. It's reported that it's unsure if this was a seizure activity related to alcohol withdrawal since the patient is gradually cutting down. No seizures were witnessed in the emergency department. CT of the head without contrast was done on 08/21/2019 and was reported as nonspecific white matter mild matter within the supratentorial location, and this nonspecific white matter demyelination and to consider MRI. Questionable seizure (non-witnessed) and if it was a seizure, then likely provoked since patient has metabolic deneragement: Has hyponatremia (Na is 129 and baseline is 136-140), hypocalcemia, COPD exacerbation, chronic alcohol use and attempting to cut down. Acute severe COPD exacerbation Acute on chronic hypoxic hypercapnic respiratory failure Chronic hypercapnic respiratory failure was secondary metabolic alkalosis Plan: Recommend correcting the metabolic deneragement. We will obtain EEG to rule out electrographic seizure. Recommend [facility] protocol for alcohol withdrawl,defer to primary team. Regarding the supratentorial lesion seen on the CT of the head, can obtain MRI of the brain once stable. Patient's father will verify with the rest of family if patient does have history of seizure disorder. Patient is on thiamine daily. Regarding the patient's respiratory issues will defer to the pulmonary team. Thank you for the consult. Kaiden Carty MD Neurohospitalist Time with Patient: Less than 30
[2019-08-22] MEDS: LORazepam 2 MG/ML INJ IV PRN ×2 (11:45→23:37)
[2019-08-22 11:54] LABS: Glucose,Whole Blood 150 mg/dL (75-99)
[2019-08-22] MEDS ORDERED: LORazepam 2 MG/ML INJ IV PRN (12:42)
--- NOTE | 2019-08-22 13:43 | ECHOF ---
Referral Reason:shortness of breath, resp failure MEASUREMENTS -------- HEIGHT: 167.6 cm WEIGHT: 103.4 kg BP: 105/68 RVIDd: 5.1 cm (< 3.3) IVSd: 1.0 cm (0.6 - 1.1) LVIDd: 4.3 cm (3.9 - 5.3) LVPWd: 1.2 cm (0.6 - 1.1) IVSs: 1.4 cm LVIDs: 3.1 cm LVPWs: 1.5 cm LAESV Index (A-L): 30.48 ml/m Ao Diam: 3.3 cm (2.0 - 3.7) AV Cusp: 2.3 cm (1.5 - 2.6) MV EXCURSION: 15.892 mm (> 18.000) MV EF SLOPE: 78 mm/s (70 - 150) EPSS: 0.4 cm MV E Sandor: 0.68 m/s MV DecT: 241 ms MV A Sandor: 0.53 m/s MV E/A Ratio: 1.28 RAP: 20.00 mmHg RVSP: 54.92 mmHg FINDINGS -------- Sinus rhythm. This was a technically adequate study. Pt. on a vent. The left ventricular size is normal. There is borderline concentric left ventricular hypertrophy. Overall left ventricular systolic function is normal with, an EF between 55 - 60 %. The right ventricle is severely enlarged. LA is midly dilated 29-33ml/m2. The right atrium is mildly enlarged. Interatrial and interventricular septum intact. The aortic valve is trileaflet, and appears structurally normal. No aortic stenosis or regurgitation. The mitral valve is normal. Mild mitral regurgitation is present. Mild tricuspid regurgitation present. There is moderate pulmonary hypertension. The right ventric ular systolic pressure, as measured by Doppler, is 54.92mmHg. The pulmonic valve was not well visualized. There is no pulmonic regurgitation present. The aortic root size is normal. The inferior vena cava is dilated with no significant inspiratory collapse which is consistent estima madhu right atrial pressure of >20 mmHg. There is no pericardial effusion. CONCLUSIONS -------- 1. Pt. on a vent. 2. There is borderline concentric left ventricular hypertrophy. 3. Overall left ventricular systolic function is normal with, an EF between 55 - 60 %. 4. The right ventricle is severely enlarged. 5. LA is midly dilated 29-33ml/m2. 6. The right atrium is mildly enlarged. 7. The aortic valve is trileaflet, and appears structurally normal. No aortic stenosis or regurgitati on. 8. Mild mitral regurgitation is present. 9. Mild tricuspid regurgitation present. 10. There is moderate pulmonary hypertension. 11. The aortic root size is normal. 12. The inferior vena cava is dilated with no significant inspiratory collapse which is consistent es timated right atrial pressure of >20 mmHg. 13. There is no pericardial effusion. GLOVE CUTTER: Serena Solano RDCS
--- NOTE | 2019-08-22 14:08 | P.PN ---
Subjective Progress Note Date: 08/22/19 A 44-year-old male patient is being seen in follow-up after having respiratory failure, being intubated on a mechanical ventilator. Please refer to my earlier consultation note for further details. This morning, the patient is well sedated with propofol which is running at 50 g per KG per minute. Overnight, the Utilized for paralysis and synchrony with the mechanical ventilator and the patient will be given a paralytic holiday this morning. The patient is currently on normal saline running at 100 mL an hour. He is on a mechanical ventilator. He is on assist control mode at the rate of 16 with tidal volume of 500 and FiO2 of 60% with a PEEP of 5. Peak pressures 29. Static pressures. The patient's blood gases showed pH of 7.38 with a pCO2 of 55 and pO2 of 84. Chest x-ray showing consolidation of the right lower lobe along with some bilateral lower lobe pulmonary infiltrates. ET tube is in a good location. The patient is a left IJ triple-lumen catheter in place. He is afebrile is covered with IV Zosyn. No seizure activity has been noted. The patient had a neurology evaluation. Again, the impression is a questionable seizures as no events were witnessed. EEG was ordered looking for any abnormalities to support the possibility of seizure. CAT scan of the brain was noted earlier. MRI of the brain was also recommended once the patient is more stable. The patient other gaxiola is laying comfortably in bed. No other significant events over the past 24 hours. No significant orotracheal secretions. He is hemoglobin is still elevated at 19.7. White cell count is low at 6.5. Sodium is at 129 and a potassium level is improved down to 5.8. Objective - Vital Signs Vital signs: Vital Signs Temp 98 F 08/22/19 12:00 Pulse 71 08/22/19 13:00 Resp 18 08/22/19 13:00 BP 100/62 08/22/19 13:00 Pulse Ox 94 L 08/22/19 13:00 Intake & Output 08/21/19 08/22/19 08/22/19 18:59 06:59 18:59 Intake Total 2267.133 1401.707 940.226 Output Total 180 355 270 Balance 2087.133 1046.707 670.226 Weight 83.915 kg 103.8 kg 103.8 kg Intake: IV 1100 700 Piperacillin-Tazobactam 3 100 100 .375 gm In Sodium Chloride 0.9% 100 ml @ 25 mls/hr IVPB Q8HR [facility] Rx# :[id number] Sodium Chloride 0.9% 1, 1000 600 000 ml @ 100 mls/hr IV . Q10H [facility] Rx#:[id number] Intake, IV Titration 2267.133 301.707 240.226 Amount Cisatracurium 200 mg In 101.707 36.963 Sodium Chloride 0.9% 180 ml @ 2 MCG/KG/MIN 10.07 mls/hr IV .[id number] [facility] Rx #:[id number] Piperacillin-Tazobactam 3 100 .375 gm In Sodium Chloride 0.9% 100 ml @ 25 mls/hr IVPB Q8HR [facility] Rx# :[id number] Propofol 1,000 mg In 67.133 200 203.263 Empty Bag 1 bag @ Titrate IV .Q0M [facility] Rx#: [id number] Sodium Chloride 0.9% 1, 100 000 ml @ 100 mls/hr IV . Q10H [facility] Rx#:[id number] Sodium Chloride 0.9% 2, 2000 000 ml @ 999 mls/hr IV . Q2H1M [facility] Rx#:[id number] Output: Urine 180 355 270 Uretheral (Nogueira) 30 Other: Voiding Method Indwelling Catheter Indwelling Catheter - Exam The patient is intubated on a mechanical ventilator sedated with propofol and the patient was on Nimbex earlier this morning that was taken off and the patient is currently being given a paralytic holiday.. The patient asynchronous with the mechanical ventilator. At times he still gets restless and he was given additional 4 mg of Ativan while insertion of a triple-lumen catheter in his left IJ Head exam was generally normal. There was no scleral icterus or corneal arcus. Mucous membranes were moist. Neck was supple and without jugular venous distension, thyromegaly, or carotid bruits. Carotids were easily palpable bilaterally. There was no adenopathy. His lips are somewhat cyanotic. He has a left IJ triple catheter in place. Orogastric and orotracheal tube are both in place. Lungs are diminished and there is diffuse expiratory wheezes throughout the lung his bilaterally and scattered expiratory rhonchi Cardiac exam revealed the PMI to be normally situated and sized. The rhythm was regular and no extrasystoles were noted during several minutes of auscultation. The first and second heart sounds were normal and physiologic splitting of the second heart sound was noted. There were no murmurs, rubs, clicks, or gallops. Abdominal exam revealed normal bowel sounds. The abdomen was soft, non-tender, and without masses, organomegaly, or appreciable enlargement of the abdominal aorta. Extremities revealed no edema no cyanosis or clubbing. There is areas of psoriatic patches on his soles groin and palms of the hands. Neurologically the patient is sedated. Pupils are equal and reactive to light. Neck is supple and there is no neck stiffness. Unable to assess any motor or sensory function. DTRs are +1 symmetric in all 4 extremities. No Babinski. No clonus. - Labs CBC & Chem 7: 08/22/19 06:19 08/22/19 06:19 Labs: Abnormal Lab Results - Last 24 Hours (Table) 08/21/19 08/21/19 08/21/19 Range/Units 10:55 14:46 17:46 RBC (4.30-5.90) m/uL Hgb (13.0-17.5) gm/dL Hct (39.0-53.0) % MCV (80.0-100.0) fL RDW (11.5-15.5) % ABG pH 7.00 L* (7.35-7.45) ABG pCO2 120 H* (35-45) mmHg ABG pO2 81 L (83-108) mmHg ABG HCO3 (21-25) mmol/L ABG Total CO2 (19-24) mmol/L ABG O2 Saturation 87.9 L (94-97) % Sodium (137-145) mmol/L Potassium (3.5-5.1) mmol/L Chloride (98-107) mmol/L Carbon Dioxide (22-30) mmol/L BUN (9-20) mg/dL Creatinine (0.66-1.25) mg/dL Glucose (74-99) mg/dL POC Glucose (mg/dL) (75-99) mg/dL Calcium (8.4-10.2) mg/dL Ferritin 14.8 L (22.0-322.0) ng/mL Total Protein (6.3-8.2) g/dL Albumin (3.5-5.0) g/dL U Benzodiazepines Scrn Detected H (NotDetected) U Marijuana (THC) Screen Detected H (NotDetected) 08/21/19 08/21/19 08/22/19 Range/Units 18:10 19:27 05:42 RBC (4.30-5.90) m/uL Hgb (13.0-17.5) gm/dL Hct (39.0-53.0) % MCV (80.0-100.0) fL RDW (11.5-15.5) % ABG pH (7.35-7.45) ABG pCO2 58 H 55 H (35-45) mmHg ABG pO2 (83-108) mmHg ABG HCO3 34 H 33 H (21-25) mmol/L ABG Total CO2 36 H 34 H (19-24) mmol/L ABG O2 Saturation 99.6 H (94-97) % Sodium 129 L (137-145) mmol/L Potassium 5.5 H (3.5-5.1) mmol/L Chloride 92 L (98-107) mmol/L Carbon Dioxide 33 H (22-30) mmol/L BUN 23 H (9-20) mg/dL Creatinine (0.66-1.25) mg/dL Glucose (74-99) mg/dL POC Glucose (mg/dL) (75-99) mg/dL Calcium 7.7 L (8.4-10.2) mg/dL Ferritin (22.0-322.0) ng/mL Total Protein 5.5 L (6.3-8.2) g/dL Albumin 3.1 L (3.5-5.0) g/dL U Benzodiazepines Scrn (NotDetected) U Marijuana (THC) Screen (NotDetected) 08/22/19 08/22/19 08/22/19 Range/Units 06:09 06:19 06:19 RBC 6.20 H (4.30-5.90) m/uL Hgb 19.7 H* (13.0-17.5) gm/dL Hct 62.6 H* (39.0-53.0) % MCV 101.0 H (80.0-100.0) fL RDW 17.3 H (11.5-15.5) % ABG pH (7.35-7.45) ABG pCO2 (35-45) mmHg ABG pO2 (83-108) mmHg ABG HCO3 (21-25) mmol/L ABG Total CO2 (19-24) mmol/L ABG O2 Saturation (94-97) % Sodium 129 L (137-145) mmol/L Potassium 5.8 H (3.5-5.1) mmol/L Chloride 96 L (98-107) mmol/L Carbon Dioxide (22-30) mmol/L BUN 25 H (9-20) mg/dL Creatinine 0.64 L (0.66-1.25) mg/dL Glucose 133 H (74-99) mg/dL POC Glucose (mg/dL) 141 H (75-99) mg/dL Calcium 8.1 L (8.4-10.2) mg/dL Ferritin (22.0-322.0) ng/mL Total Protein (6.3-8.2) g/dL Albumin (3.5-5.0) g/dL U Benzodiazepines Scrn (NotDetected) U Marijuana (THC) Screen (NotDetected) 08/22/19 Range/Units 11:51 RBC (4.30-5.90) m/uL Hgb (13.0-17.5) gm/dL Hct (39.0-53.0) % MCV (80.0-100.0) fL RDW (11.5-15.5) % ABG pH (7.35-7.45) ABG pCO2 (35-45) mmHg ABG pO2 (83-108) mmHg ABG HCO3 (21-25) mmol/L ABG Total CO2 (19-24) mmol/L ABG O2 Saturation (94-97) % Sodium (137-145) mmol/L Potassium (3.5-5.1) mmol/L Chloride (98-107) mmol/L Carbon Dioxide (22-30) mmol/L BUN (9-20) mg/dL Creatinine (0.66-1.25) mg/dL Glucose (74-99) mg/dL POC Glucose (mg/dL) 150 H (75-99) mg/dL Calcium (8.4-10.2) mg/dL Ferritin (22.0-322.0) ng/mL Total Protein (6.3-8.2) g/dL Albumin (3.5-5.0) g/dL U Benzodiazepines Scrn (NotDetected) U Marijuana (THC) Screen (NotDetected) Microbiology - Last 24 Hours (Table) 08/21/19 10:41 Blood Culture - Preliminary Blood No Growth after 24 hours 08/21/19 15:45 Gram Stain - Preliminary Sputum Sputum Culture - Preliminary Assessment and Plan Plan: 1 acute on chronic hypoxic and hypercapnic respiratory failure. The patient developed severe respiratory acidosis and hypoxemia and he became unresponsive in the emergency department and subsequently was intubated and placed on a mechanical ventilator. CT angios and shows no evidence of any pulmonary embolism. He has chronic hypoxic and hypercapnic respiratory failure due to COPD and possible obstructive sleep apnea. Noted the patient has development of a right lower lobe pulmonary for today. He was or the covered with IV Zosyn. Consider an underlying aspiration pneumonia contributing to his respiratory failure. Currently he remains intubated on a mechanical ventilator. He remains bronchus spastic and wheezy. He is sedated with propofol. Overnight he was kept on paralytic that was discontinued this morning. 2 chronic hypoxemia. There are signs of chronic hypoxemia on this patient including pulmonary hypertension and perihilar fullness indicative of pulmonary hypertension and chronic elevation of the hemoglobin which is consistent with secondary erythrocytosis. The reasons as mentioned above. 3 COPD 4 suspect obstructive sleep apnea 5 chronic hypercapnic respiratory failure with secondary metabolic alkalosis with a serum bicarb of 35 6 secondary erythrocytosis likely secondary chronic hypoxemia 7 mild hyperkalemia with a potassium level of 6.2 without any EKG changes, current potassium level is down to 5.8. 8 suspect right-sided heart failure/pulmonary hypertension/cor pulmonale. ProBNP level is slightly elevated 9 acute COPD exacerbation, currently bronchospastic and wheezy with elevated peak airway pressures on a mechanical ventilator 10 chronic alcoholism 11 chronic smoking 12 seizures by history. Rule out breakthrough seizures. Currently on propofol drip. 13 hypertension 14 mild hyponatremia with a sodium level of 129 15 questionable seizures. Plan Continue vent support, will drop the tidal volume down to 450. Check a pro-calcitonin level Continue IV Zosyn Continue bronchodilators [id number] Continue IV Solu-Medrol Awaiting a follow-up echocardiogram IV fluids normal saline today to 75 mL an hour Stop that index He is a propofol Utilize Ativan as needed if patient becomes agitated while off the paralytics Neurology consultation is been appreciated and the patient is going to have an EEG done looking for any abnormality to support the possibility of seizure activity. Heparin subcu for DVT prophylaxis Covid 19 nasal swab was negative Initiate enteral feeding for nutritional support We'll continue to follow. Condition is critical for now. This evaluation was done and more than 30 minutes. There is a critically care evaluation.
--- NOTE | 2019-08-22 15:52 | P.HPIM ---
History of Present Illness H&P Date: 08/22/19 Chief Complaint: Worsening shortness of breath Sulfa 44-year-old gentleman with history of chronic hypoxia, COPD, CHF, hypertension, alcohol and nicotine dependence and multiple other medical issues,presented to the ER with worsening shortness of breath 1 week, occasional cough, quit taking his diuretics 2 days ago. Chest x-rays reporting parahilar and basilar infiltrates, possible developing pneumonia, mild central vascular congestion, possible CHF exacerbation. Coronavirus not detected. Pro- calcitonin 0.07 Echo reporting normal LV function, EF 55-60%, moderate pulmonary hypertension. BNP 2480. EKG reporting normal sinus rhythm mild anterior septal infarct, age undetermined. Troponin pending. Toxicology screen detected benzos, marijuana with serum alcohol less than 10. Coronavirus not detected. Brain CT reporting nonspecific white matter demyelinization with white matter low attenuation scattered within supratentorial. Chest CT reported emphysema, bilateral pleural effusions, associated atelectasis and possible pneumonia, possible pulmonary hypertension, negative for PE. Telemetry sinus rhythm. On admission potassium 6.2 now currently 5.8. After arrival to ER, patient became more hypoxic, purple, unresponsive, placed on nonrebreather, ABGs reflected pH of 7, CO2 120, intubated. CO2 35, BUN 23 creatinine 0.6. Hemoglobin 20.2, now 19.7. No seizure activity reported. Information obtained from medical record. Afebrile, T-max 99.6, normal WBC. Review of Systems Review systems unable to obtain as patient on mechanical ventilation, sedated Past Medical History Past Medical History: Heart Failure, GERD/Reflux, Hypertension, Seizure Disorder Additional Past Medical History / Comment(s): seizure as young child x1., states hospitalized 01/16/17-01/17/17 for blood in stool. denies current bleeding History of Any Multi-Drug Resistant Organisms: None Reported Past Surgical History: Orthopedic Surgery Additional Past Surgical History / Comment(s): right knee arthroscopy. Past Anesthesia/Blood Transfusion Reactions: No Reported Reaction Past Psychological History: No Psychological Hx Reported Past Alcohol Use History: Daily Past Drug Use History: Marijuana - Past Family History Mother Family Medical History: Hypertension Additional Family Medical History / Comment(s): from cancer Medications and Allergies Home Medications Medication Instructions Recorded Confirmed Type amLODIPine BESYLATE/BENAZEPRIL 1 cap PO BID 01/27/17 08/21/19 History [Lotrel 5-20 mg Capsule] Hydrochlorothiazide [Hydrodiuril] 25 mg PO DAILY 08/21/19 08/21/19 History Allergies Allergy/AdvReac Type Severity Reaction Status Date / Time fexofenadine HCl Allergy HIGH BP Verified 08/21/19 13:00 [From DocSend] pseudoephedrine HCl Allergy High BP Verified 08/21/19 13:00 [From DocSend] Physical Exam Vitals: Vital Signs Temp Pulse Resp BP Pulse Ox 08/22/19 08:00 98 F 71 16 127/78 96 08/22/19 07:40 66 08/22/19 07:00 65 16 102/65 94 L 08/22/19 06:00 72 16 105/68 94 L 08/22/19 05:00 66 16 109/68 96 08/22/19 04:55 69 08/22/19 04:47 71 08/22/19 04:00 98.5 F 68 29 H 101/72 96 08/22/19 03:00 66 16 97/66 94 L 08/22/19 02:00 62 16 99/68 95 08/22/19 01:28 62 08/22/19 01:02 64 08/22/19 01:00 64 16 92/62 96 08/22/19 00:00 98.8 F 66 16 102/72 94 L 08/21/19 23:00 64 16 88/65 96 08/21/19 22:00 64 16 87/61 94 L 08/21/19 21:08 66 16 08/21/19 21:00 98.1 F 66 16 92/69 96 08/21/19 20:57 64 16 08/21/19 20:56 64 16 08/21/19 20:36 64 16 08/21/19 20:00 63 16 104/75 97 08/21/19 19:00 63 16 94/68 99 08/21/19 18:02 98.4 F 66 16 103/69 97 08/21/19 17:44 71 20 105/81 98 08/21/19 17:05 75 97/66 97 08/21/19 16:06 83 20 105/83 98 08/21/19 15:50 97.0 F L 84 20 105/67 99 08/21/19 15:00 124/88 08/21/19 14:44 89 L 08/21/19 14:29 108 H 22 124/88 88 L 08/21/19 13:55 98.8 F 110 H 22 112/83 70 L 08/21/19 12:00 24 131/90 08/21/19 11:39 90 22 131/90 93 L 08/21/19 11:02 84 08/21/19 11:00 89 15 124/80 95 08/21/19 10:53 81 08/21/19 10:46 99.0 F 95 20 124/80 92 L 08/21/19 10:17 24 08/21/19 10:00 136/101 93 L 08/21/19 09:57 99.6 F 99 20 136/101 94 L 08/21/19 09:55 93 L Intake and Output 08/21/19 08/22/19 08/22/19 22:59 06:59 14:59 Intake Total 2667.133 1001.707 423.313 Output Total 290 245 95 Balance 2377.133 756.707 328.313 Intake: IV 300 800 300 Piperacillin-Tazobactam 3 100 100 .375 gm In Sodium Chloride 0.9% 100 ml @ 25 mls/hr IVPB Q8HR [facility] Rx# :[id number] Sodium Chloride 0.9% 1, 300 700 200 000 ml @ 100 mls/hr IV . Q10H [facility] Rx#:[id number] Intake, IV Titration 2367.133 201.707 123.313 Amount Cisatracurium 200 mg In 101.707 35.620 Sodium Chloride 0.9% 180 ml @ 2 MCG/KG/MIN 10.07 mls/hr IV .[id number] [facility] Rx #:[id number] Piperacillin-Tazobactam 3 100 .375 gm In Sodium Chloride 0.9% 100 ml @ 25 mls/hr IVPB Q8HR [facility] Rx# :[id number] Propofol 1,000 mg In 167.133 100 87.693 Empty Bag 1 bag @ Titrate IV .Q0M [facility] Rx#: [id number] Sodium Chloride 0.9% 1, 100 000 ml @ 100 mls/hr IV . Q10H [facility] Rx#:[id number] Sodium Chloride 0.9% 2, 2000 000 ml @ 999 mls/hr IV . Q2H1M [facility] Rx#:[id number] Output: Urine 290 245 95 Uretheral (Nogueira) 30 Other: Voiding Method Indwelling Catheter Indwelling Catheter Weight 103.8 kg GENERAL: Patient lying in bed, maintained on mechanical ventilation, sedated on diprovan, paralyzed on Nimbex HEENT: Pupils are round and equally reacting to light. EOMI. No scleral icterus. No conjunctival pallor. Normocephalic, atraumatic. No pharyngeal erythema. No thyromegaly. CARDIOVASCULAR: S1 and S2 present. No murmurs, rubs, or gallops. PULMONARY: Chest is clear to auscultation, diffuse left basilar inspiratory wheeze ABDOMEN: Soft, nontender, nondistended, normoactive bowel sounds. No palpable organomegaly. MUSCULOSKELETAL: No joint swelling or deformity. EXTREMITIES: No cyanosis, clubbing, or pedal edema. NEUROLOGICAL: Unable to assess as patient on mechanical ventilation and sedated SKIN: No rashes. Evidence of psoriasis. Results CBC & Chem 7: 08/22/19 06:19 08/22/19 06:19 Labs: Abnormal Lab Results - Last 24 Hours (Table) 08/21/19 08/21/19 08/21/19 Range/Units 10:10 10:10 10:55 RBC 6.52 H (4.30-5.90) m/uL Hgb 20.2 H* (13.0-17.5) gm/dL Hct 66.2 H* (39.0-53.0) % MCV 101.6 H (80.0-100.0) fL MCHC 30.5 L (31.0-37.0) g/dL RDW 17.3 H (11.5-15.5) % Lymphocytes # 0.8 L (1.0-4.8) k/uL ABG pH (7.35-7.45) ABG pCO2 (35-45) mmHg ABG pO2 (83-108) mmHg ABG HCO3 (21-25) mmol/L ABG Total CO2 (19-24) mmol/L ABG O2 Saturation (94-97) % Sodium 129 L (137-145) mmol/L Potassium 6.2 H* (3.5-5.1) mmol/L Chloride 86 L (98-107) mmol/L Carbon Dioxide 35 H (22-30) mmol/L BUN 23 H (9-20) mg/dL Creatinine 0.64 L (0.66-1.25) mg/dL Glucose 105 H (74-99) mg/dL POC Glucose (mg/dL) (75-99) mg/dL Calcium (8.4-10.2) mg/dL Ferritin 14.8 L (22.0-322.0) ng/mL C-Reactive Protein 32.1 H (<10.0) mg/L Total Protein (6.3-8.2) g/dL Albumin (3.5-5.0) g/dL U Benzodiazepines Scrn (NotDetected) U Marijuana (THC) Screen (NotDetected) 08/21/19 08/21/19 08/21/19 Range/Units 14:46 17:46 18:10 RBC (4.30-5.90) m/uL Hgb (13.0-17.5) gm/dL Hct (39.0-53.0) % MCV (80.0-100.0) fL MCHC (31.0-37.0) g/dL RDW (11.5-15.5) % Lymphocytes # (1.0-4.8) k/uL ABG pH 7.00 L* (7.35-7.45) ABG pCO2 120 H* (35-45) mmHg ABG pO2 81 L (83-108) mmHg ABG HCO3 (21-25) mmol/L ABG Total CO2 (19-24) mmol/L ABG O2 Saturation 87.9 L (94-97) % Sodium 129 L (137-145) mmol/L Potassium 5.5 H (3.5-5.1) mmol/L Chloride 92 L (98-107) mmol/L Carbon Dioxide 33 H (22-30) mmol/L BUN 23 H (9-20) mg/dL Creatinine (0.66-1.25) mg/dL Glucose (74-99) mg/dL POC Glucose (mg/dL) (75-99) mg/dL Calcium 7.7 L (8.4-10.2) mg/dL Ferritin (22.0-322.0) ng/mL C-Reactive Protein (<10.0) mg/L Total Protein 5.5 L (6.3-8.2) g/dL Albumin 3.1 L (3.5-5.0) g/dL U Benzodiazepines Scrn Detected H (NotDetected) U Marijuana (THC) Screen Detected H (NotDetected) 08/21/19 08/22/19 08/22/19 Range/Units 19:27 05:42 06:09 RBC (4.30-5.90) m/uL Hgb (13.0-17.5) gm/dL Hct (39.0-53.0) % MCV (80.0-100.0) fL MCHC (31.0-37.0) g/dL RDW (11.5-15.5) % Lymphocytes # (1.0-4.8) k/uL ABG pH (7.35-7.45) ABG pCO2 58 H 55 H (35-45) mmHg ABG pO2 (83-108) mmHg ABG HCO3 34 H 33 H (21-25) mmol/L ABG Total CO2 36 H 34 H (19-24) mmol/L ABG O2 Saturation 99.6 H (94-97) % Sodium (137-145) mmol/L Potassium (3.5-5.1) mmol/L Chloride (98-107) mmol/L Carbon Dioxide (22-30) mmol/L BUN (9-20) mg/dL Creatinine (0.66-1.25) mg/dL Glucose (74-99) mg/dL POC Glucose (mg/dL) 141 H (75-99) mg/dL Calcium (8.4-10.2) mg/dL Ferritin (22.0-322.0) ng/mL C-Reactive Protein (<10.0) mg/L Total Protein (6.3-8.2) g/dL Albumin (3.5-5.0) g/dL U Benzodiazepines Scrn (NotDetected) U Marijuana (THC) Screen (NotDetected) 08/22/19 08/22/19 Range/Units 06:19 06:19 RBC 6.20 H (4.30-5.90) m/uL Hgb 19.7 H* (13.0-17.5) gm/dL Hct 62.6 H* (39.0-53.0) % MCV 101.0 H (80.0-100.0) fL MCHC (31.0-37.0) g/dL RDW 17.3 H (11.5-15.5) % Lymphocytes # (1.0-4.8) k/uL ABG pH (7.35-7.45) ABG pCO2 (35-45) mmHg ABG pO2 (83-108) mmHg ABG HCO3 (21-25) mmol/L ABG Total CO2 (19-24) mmol/L ABG O2 Saturation (94-97) % Sodium 129 L (137-145) mmol/L Potassium 5.8 H (3.5-5.1) mmol/L Chloride 96 L (98-107) mmol/L Carbon Dioxide (22-30) mmol/L BUN 25 H (9-20) mg/dL Creatinine 0.64 L (0.66-1.25) mg/dL Glucose 133 H (74-99) mg/dL POC Glucose (mg/dL) (75-99) mg/dL Calcium 8.1 L (8.4-10.2) mg/dL Ferritin (22.0-322.0) ng/mL C-Reactive Protein (<10.0) mg/L Total Protein (6.3-8.2) g/dL Albumin (3.5-5.0) g/dL U Benzodiazepines Scrn (NotDetected) U Marijuana (THC) Screen (NotDetected) Microbiology - Last 24 Hours (Table) 08/21/19 15:45 Gram Stain - Preliminary Sputum Sputum Culture - Preliminary Assessment and Plan Assessment: Acute on chronic hypoxic ,hypercapnic respiratory failure, multifactorial secondary to acute COPD exacerbation, possible acute on chronic CHF exacerbation, pneumonia, alcohol abuse; ventilator dependent, status post paralytics Questionable seizures, non-witnessed, possible breakthrough seizures, possible alcohol-related seizures, in a patient with history of seizure disorder. Possible DTs Hyperkalemia Hyponatremia,nild Hypocalcemia Acute COPD exacerbation Metabolic alkalosis Possible Acute on chronic CHF exacerbation, diastolic dysfunction, EF 55-60% Moderate pulmonary hypertension Supratentorial lesion reported per CT, MRI recommended when more stable Possible obstructive sleep apnea Possible right lower lobe pneumonia, suspect aspiration Alcohol dependence, and drinks 8-12 beers several days during the week nicotine dependence Marijuana use Hypertension Gastroesophageal reflux disease Obesity, BMI 36.9 Plan: Continue on current medication regime ,monitoring and symptomatic treatment. Pulmonary and neurology consults in place with recommendations noted and appreciated. EEG pending Paralytic holiday being discussed as per physical geographer. CAMERONPA protocol. Seizure precautions. Continue on nebulized bronchodilators ATC, IV antibiotics of Zosyn. Prognosis guarded given multiple complex medical issues. The impression and plan of care has been dictated as directed. : I performed a history and examination of this patient, discussed the same with the dictator. I agree with the dictator's note ,documented as a scribe. Any additional findings or plans will be noted.
--- NOTE | 2019-08-22 17:02 | EEG ---
ELECTROENCEPHALOGRAM REPORT EEG REPORT: DATE OF SERVICE: 08/22/2019 CLINICAL HISTORY: This is a 44-year-old gentleman with a history of questionable seizure disorder documented which the father denies, history of alcohol use and documented that the patient is cutting down on alcohol who presented to the ED because of shortness of breath. In the ED, there was a questionable subclinical seizure episode. This EEG report is obtained to evaluate for seizure and epileptiform activity. The EEG type is 21 channel routine recording. DESCRIPTION: Wakefulness and drowsiness is obtained. During the wakefulness stage, there is no clear posture dominant rhythm. The background consists of mostly of 6.5 to 7 Hz. That is low voltage. Patient has low to moderate voltage of 0.5 to 1.5 Hz delta activity intermixed with theta activity. There is frequent diffuse 0.5 to 1.5 delta intermixed with theta activity. There is excessive fast activity seen. There is no intra-ictal activity seen. ACTIVATION PROCEDURE: During photic stimulation, it did not evoke a postural driving response. Hyperventilation was not performed because of patient's clinical history. EEG DIAGNOSIS: This is an abnormal routine EEG due to: 1. Frequent diffuse 0.5 to 1.5 delta intermixed with theta activity. 2. Background slowing. 3. Excessive fast activity CLINICAL INTERPRETATION: This is an abnormal drowsy routine EEG that is suggestive of moderate encephalopathy of unspecified etiology. The excessive fast activity is likely due to medication effect. There is no epileptiform or seizure activity during this recording. Clinical correlation is recommended. TERRELL / NAVEEN: [id number] / ABUREY
[2019-08-22 18:04] LABS: Glucose,Whole Blood 147 mg/dL (75-99)
[2019-08-22] MEDS: CHLORHEXIDINE GLUCONATE 15 ML CUP MUCOUS MEM SCH (19:56)
[2019-08-22 23:45] LABS: Glucose,Whole Blood 140 mg/dL (75-99)
[2019-08-23] MEDS: IPRATROPIUM-ALBUTEROL 3 ML NEB INHALATION SCH ×7 (01:16→23:53)
[2019-08-23] MEDS: LORazepam 2 MG/ML INJ IV PRN ×3 (02:43→22:07)
[2019-08-23 04:34] LABS: ALT 19 U/L (4-49); AST 20 U/L (17-59); African American GFR (CKD) >90 (>60 ml/min/1.73 sqM); Alkaline Phosphatase 34 U/L (38-126); Anion Gap 4 mmol/L; Blood Urea Nitrogen 20 mg/dL (9-20); Calcium 8.2 mg/dL (8.4-10.2); Carbon Dioxide 30 mmol/L (22-30); Chloride 97 mmol/L (98-107); Glucose 137 mg/dL (74-99); Non-African American GFR(CKD) >90 (>60 ml/min/1.73 sqM); Potassium 4.9 mmol/L (3.5-5.1); Sodium 131 mmol/L (137-145); Total Bilirubin 0.6 mg/dL (0.2-1.3); Total Protein 5.4 g/dL (6.3-8.2)
[2019-08-23 05:09] LABS: Anisocytosis Slight; Hypochromasia Moderate; MCH 32.5 pg (25.0-35.0); MCV 101.4 fL (80.0-100.0); Macrocytosis Moderate; Mean Platelet Volume 7.9; Platelet Count 162 k/uL (150-450); RBC 5.89 m/uL (4.30-5.90); RDW 17.5 % (11.5-15.5); WBC 7.5 k/uL (3.8-10.6)
[2019-08-23] MEDS: SODIUM CHLORIDE 0.9% 1,000 ML IV SCH ×2 (05:17→13:15)
[2019-08-23 05:18] LABS: HCT 59.7 % (39.0-53.0); HGB 19.1 gm/dL (13.0-17.5)
[2019-08-23] MEDS: methylPREDNISolone SOD SUCCI 125 MG/2 ML VIAL IV SCH ×4 (05:38→23:08)
[2019-08-23 05:43] LABS: Glucose,Whole Blood 141 mg/dL (75-99)
[2019-08-23 05:50] LABS: Lymphocytes # (M) 0.23 k/uL (1.0-4.8); Monocytes # (M) 0.15 k/uL (0-1.0); Neutrophils # (M) 7.13 k/uL (1.3-7.7); Neutrophils % (M) 95 %; Nucleated Red Blood Cells 0 /100 WBC (0-0); Total Cells Counted 100
[2019-08-23 06:04] LABS: ABG Base Excess 10.4 mmol/L; ABG HCO3 36 mmol/L (21-25); ABG PCO2 62 mmHg (35-45); ABG PH 7.37 (7.35-7.45); ABG PO2 95 mmHg (83-108); ABG TCO2 38 mmol/L (19-24); Allen Test Performed? Yes
[2019-08-23] MEDS: THIAMINE 100 MG TAB PO SCH ×2 (06:35→17:16)
--- NOTE | 2019-08-23 07:10 | XR ---
EXAMINATION TYPE: XR chest 1V portable DATE OF EXAM: 08/23/2019 COMPARISON: 08/22/2019 HISTORY: SOB, Follow Up FINDINGS: Indwelling tubes and catheters are unchanged. No change in bibasilar opacities. Stable appearance of the cardio-mediastinal structures at this time. Pleural effusion unchanged. IMPRESSION: 1. Stable portable chest. Clinical correlation and follow up until resolution is recommended.
[2019-08-23] MEDS: BUDESONIDE 1 MG/2 ML NEBU INHALATION SCH ×2 (08:08→20:30)
[2019-08-23] MEDS: FORMOTEROL FUMARATE 20 MCG/2 ML NEBU INHALATION SCH ×2 (08:08→20:30)
[2019-08-23] MEDS: CHLORHEXIDINE GLUCONATE 15 ML CUP MUCOUS MEM SCH ×2 (08:41→19:44)
[2019-08-23] MEDS: PIPERACILLIN-TAZOBACTAM 3.375 GM in SODIUM CHLORIDE 0.9% 100 ML IVPB SCH ×3 (08:41→23:08)
[2019-08-23] MEDS: HEPARIN SODIUM,PORCINE 5,000 UNIT/ML 1 ML VIAL SQ SCH ×3 (08:41→23:08)
--- NOTE | 2019-08-23 13:43 | P.PN ---
Subjective Progress Note Date: 08/23/19 This is a 44-year-old gentleman with history of chronic hypoxia, COPD, CHF, hypertension, alcohol and nicotine dependence and multiple other medical issues,presented to the ER with worsening shortness of breath 1 week, occasional cough, quit taking his diuretics 2 days ago. Chest x-rays reporting parahilar and basilar infiltrates, possible developing pneumonia, mild central vascular congestion, possible CHF exacerbation. Coronavirus not detected. Pro- calcitonin 0.07 Echo reporting normal LV function, EF 55-60%, moderate pulmonary hypertension. BNP 2480. EKG reporting normal sinus rhythm mild anterior septal infarct, age undetermined. Troponin pending. Toxicology screen detected benzos, marijuana with serum alcohol less than 10. Coronavirus not detected. Brain CT reporting nonspecific white matter demyelinization with white matter low attenuation scattered within supratentorial. Chest CT reported emphysema, bilateral pleural effusions, associated atelectasis and possible pneumonia, possible pulmonary hypertension, negative for PE. Telemetry sinus rhythm. On admission potassium 6.2 now currently 5.8. After arrival to ER, patient became more hypoxic, purple, unresponsive, placed on nonrebreather, ABGs reflected pH of 7, CO2 120, intubated. CO2 35, BUN 23 creatinine 0.6. Hemoglobin 20.2, now 19.7. No seizure activity reported. Information obtained from medical record. Afebrile, T-max 99.6, normal WBC. 08/23/2019 sedation holiday this morning with CPAP trial. Patient initially calm, appropriate, moved all extremities, follows commands ,off sedation. developed coughing, gagging, tachycardia, hypertension and hypoxia requiring re- sedation. While off of sedation,mild tremors noted per staff, possible DTs. FiO2 decreased to 40%/+5 PEEP. Chest x-ray reported stable with pleural effusions unchanged. EGD reported abnormal drowsy EEG suggestive of moderate encephalopathy of unspecified etiology, no evidence of former seizure activity. Sodium up to 131, hemoglobin 19. Tolerating tube feeds at goal with minimal to no residuals. Telemetry sinus rhythm to sinus tach. Objective - Vital Signs Vital signs: Vital Signs Temp 98.4 F 08/23/19 04:00 Pulse 80 08/23/19 09:00 Resp 18 08/23/19 09:00 BP 103/63 08/23/19 09:00 Pulse Ox 88 L 08/23/19 09:00 Intake & Output 08/22/19 08/23/19 08/23/19 18:59 06:59 18:59 Intake Total 2094.656 2010 589.884 Output Total 715 1025 155 Balance 1379.656 985 434.884 Weight 103.8 kg 108.9 kg Intake: IV 1400 1260 300 Piperacillin-Tazobactam 3 200 100 .375 gm In Sodium Chloride 0.9% 100 ml @ 25 mls/hr IVPB Q8HR [facility] Rx# :[id number] Sodium Chloride 0.9% 1, 1200 1160 300 000 ml @ 10 mls/hr IV . Q24H [facility] Rx#:[id number] Intake, IV Titration 424.656 300 169.884 Amount Cisatracurium 200 mg In 36.963 Sodium Chloride 0.9% 180 ml @ 2 MCG/KG/MIN 10.07 mls/hr IV .[id number] [facility] Rx #:[id number] Propofol 1,000 mg In 387.693 300 169.884 Empty Bag 1 bag @ Titrate IV .Q0M [facility] Rx#: [id number] Tube Feeding 210 360 90 Other 60 90 30 Output: Urine 715 1025 155 Other: Voiding Method Indwelling Catheter Indwelling Catheter - Exam GENERAL: Patient lying in bed, maintained on mechanical ventilation, sedated on diprovan HEENT: Pupils are round and equally reacting to light. EOMI. No scleral icterus. No conjunctival pallor. Normocephalic, atraumatic. No pharyngeal erythema. No thyromegaly. CARDIOVASCULAR: S1 and S2 present. No murmurs, rubs, or gallops. PULMONARY: Chest is clear to auscultation, bilateral bases diminished. ABDOMEN: Soft, nontender, nondistended, normoactive bowel sounds. No palpable organomegaly. EXTREMITIES: No cyanosis, clubbing, or pedal edema. NEUROLOGICAL: Unable to assess as patient on mechanical ventilation and sedated SKIN: No rashes. Evidence of psoriasis. - Labs CBC & Chem 7: 08/23/19 03:37 08/23/19 03:37 Labs: Abnormal Lab Results - Last 24 Hours (Table) 08/22/19 08/22/19 08/22/19 Range/Units 06:19 11:51 18:02 Hgb (13.0-17.5) gm/dL Hct (39.0-53.0) % MCV (80.0-100.0) fL RDW (11.5-15.5) % Lymphocytes # (Manual) (1.0-4.8) k/uL ABG pCO2 (35-45) mmHg ABG HCO3 (21-25) mmol/L ABG Total CO2 (19-24) mmol/L Sodium (137-145) mmol/L Chloride (98-107) mmol/L Creatinine (0.66-1.25) mg/dL Glucose (74-99) mg/dL POC Glucose (mg/dL) 150 H 147 H (75-99) mg/dL Calcium (8.4-10.2) mg/dL Alkaline Phosphatase (38-126) U/L Total Protein (6.3-8.2) g/dL Albumin (3.5-5.0) g/dL Procalcitonin 0.12 H (0.02-0.09) ng/mL 08/22/19 08/23/19 08/23/19 Range/Units 23:44 03:37 03:37 Hgb 19.1 H* (13.0-17.5) gm/dL Hct 59.7 H* (39.0-53.0) % MCV 101.4 H (80.0-100.0) fL RDW 17.5 H (11.5-15.5) % Lymphocytes # (Manual) 0.23 L (1.0-4.8) k/uL ABG pCO2 (35-45) mmHg ABG HCO3 (21-25) mmol/L ABG Total CO2 (19-24) mmol/L Sodium 131 L (137-145) mmol/L Chloride 97 L (98-107) mmol/L Creatinine 0.49 L (0.66-1.25) mg/dL Glucose 137 H (74-99) mg/dL POC Glucose (mg/dL) 140 H (75-99) mg/dL Calcium 8.2 L (8.4-10.2) mg/dL Alkaline Phosphatase 34 L (38-126) U/L Total Protein 5.4 L (6.3-8.2) g/dL Albumin 3.0 L (3.5-5.0) g/dL Procalcitonin (0.02-0.09) ng/mL 08/23/19 08/23/19 Range/Units 05:42 05:57 Hgb (13.0-17.5) gm/dL Hct (39.0-53.0) % MCV (80.0-100.0) fL RDW (11.5-15.5) % Lymphocytes # (Manual) (1.0-4.8) k/uL ABG pCO2 62 H (35-45) mmHg ABG HCO3 36 H (21-25) mmol/L ABG Total CO2 38 H (19-24) mmol/L Sodium (137-145) mmol/L Chloride (98-107) mmol/L Creatinine (0.66-1.25) mg/dL Glucose (74-99) mg/dL POC Glucose (mg/dL) 141 H (75-99) mg/dL Calcium (8.4-10.2) mg/dL Alkaline Phosphatase (38-126) U/L Total Protein (6.3-8.2) g/dL Albumin (3.5-5.0) g/dL Procalcitonin (0.02-0.09) ng/mL Microbiology - Last 24 Hours (Table) 08/21/19 15:45 Gram Stain - Final Sputum Sputum Culture - Final 08/21/19 10:41 Blood Culture - Preliminary Blood No Growth after 24 hours Assessment and Plan Assessment: Acute on chronic hypoxic ,hypercapnic respiratory failure, multifactorial secondary to acute COPD exacerbation, possible acute on chronic CHF exacerbation, pneumonia, alcohol abuse; ventilator dependent, status post paralytics Questionable seizures, non-witnessed, possible breakthrough seizures, possible alcohol-related seizures, in a patient with history of seizure disorder. Acute metabolic encephalopathy secondary to the above Polycythemia Possible DTs Hyperkalemia Hyponatremia,nild Hypocalcemia Acute COPD exacerbation Metabolic alkalosis Possible Acute on chronic CHF exacerbation, diastolic dysfunction, EF 55-60% Moderate pulmonary hypertension Supratentorial lesion reported per CT, MRI recommended when more stable Possible obstructive sleep apnea Possible right lower lobe pneumonia, suspect aspiration Alcohol dependence, and drinks 8-12 beers several days during the week nicotine dependence Marijuana use Hypertension Gastroesophageal reflux disease Obesity, BMI 36.9 Plan: Continue on current medication regime ,monitoring and symptomatic treatment. Maintain nebulized bronchodilators ATC, IV antibiotics of Zosyn. JAK2 lab ordered regarding polycythemia. Prognosis guarded given multiple complex medical issues. The impression and plan of care has been dictated as directed. : I performed a history and examination of this patient, discussed the same with the dictator. I agree with the dictator's note ,documented as a scribe. Any additional findings or plans will be noted.
--- NOTE | 2019-08-23 14:14 | P.PN ---
Subjective Progress Note Date: 08/23/19 On 08/23/2019, the patient is being seen for a follow-up in the intensive care unit. The patient remains intubated on a mechanical ventilator. The patient remains on assist control mode of ventilation at the rate of 16 with a tidal volume of 450 and FiO2 of 50% and a PEEP of 5. Morning blood gases showed a pH of 7.37 with a pCO2 of 62 and pO2 of 95. The peak airway pressure was around 2016 chest x-ray showing no significant interval changes and there is some limited bilateral pulmonary infiltrates in lung bases right more than left. Still on IV Zosyn. Still bronchospastic and wheezy although less compared to yesterday. No major orotracheal secretions. The patient is on sedation with propofol at the rate of 60 g per KG per minute. IV fluids running at 0.9 saline at the rate of 100 mL an hour. The patient had no seizure activity and the EEG was done that showed no epileptiform focus. The patient's hemoglobin remains elevated above 19. The potassium level is improved. Note that I give the patient aspiration holiday today. He was able to wake up and he was able to follow some simple commands. Nevertheless, he was unable to give me good weaning parameters. Rapid shallow breathing index was quite elevated and the patient was not able to generate enough tidal volume that he was becoming tachypneic and biking and 2. I had recently come back again. The same will be done tomorrow and his weaning parameters will be checked on a daily basis. He remains on a combination of bronchodilators, steroids, and IV Zosyn as a broad- spectrum antibiotic coverage. He is also on enteral feeding for nutritional support and the patient is receiving vital high protein at the rate of 30 mL an hour. Echocardiogram was done and the patient has a normal ejection fraction. Objective - Vital Signs Vital signs: Vital Signs Temp 98.4 F 08/23/19 04:00 Pulse 85 08/23/19 13:00 Resp 16 08/23/19 13:00 BP 108/65 08/23/19 10:00 Pulse Ox 90 L 08/23/19 13:00 Intake & Output 08/22/19 08/23/19 08/23/19 18:59 06:59 18:59 Intake Total 2094.656 2010 806.021 Output Total 715 1025 405 Balance 1379.656 985 401.021 Weight 103.8 kg 108.9 kg Intake: IV 1400 1260 340 Piperacillin-Tazobactam 3 200 100 .375 gm In Sodium Chloride 0.9% 100 ml @ 25 mls/hr IVPB Q8HR [facility] Rx# :[id number] Sodium Chloride 0.9% 1, 1200 1160 340 000 ml @ 10 mls/hr IV . Q24H [facility] Rx#:[id number] Intake, IV Titration 424.656 300 196.021 Amount Cisatracurium 200 mg In 36.963 Sodium Chloride 0.9% 180 ml @ 2 MCG/KG/MIN 10.07 mls/hr IV .[id number] [facility] Rx #:[id number] Propofol 1,000 mg In 387.693 300 196.021 Empty Bag 1 bag @ Titrate IV .Q0M [facility] Rx#: [id number] Tube Feeding 210 360 210 Other 60 90 60 Output: Urine 715 1025 405 Other: Voiding Method Indwelling Catheter Indwelling Catheter ABP, PAP, CO, CI - Last Documented Arterial Blood Pressure 107/57 - Exam The patient is intubated on a mechanical ventilator sedated with propofol and the patient was on Nimbex earlier this morning that was taken off and the patient is currently being given a paralytic holiday.. The patient asynchronous with the mechanical ventilator. At times he still gets restless and he was given additional 4 mg of Ativan while insertion of a triple-lumen catheter in his left IJ Head exam was generally normal. There was no scleral icterus or corneal arcus. Mucous membranes were moist. Neck was supple and without jugular venous distension, thyromegaly, or carotid bruits. Carotids were easily palpable bilaterally. There was no adenopathy. His lips are somewhat cyanotic. He has a left IJ triple catheter in place. Orogastric and orotracheal tube are both in place. Lungs are diminished and there is diffuse expiratory wheezes throughout the lung his bilaterally and scattered expiratory rhonchi Cardiac exam revealed the PMI to be normally situated and sized. The rhythm was regular and no extrasystoles were noted during several minutes of auscultation. The first and second heart sounds were normal and physiologic splitting of the second heart sound was noted. There were no murmurs, rubs, clicks, or gallops. Abdominal exam revealed normal bowel sounds. The abdomen was soft, non-tender, and without masses, organomegaly, or appreciable enlargement of the abdominal aorta. Extremities revealed no edema no cyanosis or clubbing. There is areas of psoriatic patches on his soles groin and palms of the hands. Neurologically the patient is sedated. Pupils are equal and reactive to light. Neck is supple and there is no neck stiffness. Unable to assess any motor or sensory function. DTRs are +1 symmetric in all 4 extremities. No Babinski. No clonus. - Labs CBC & Chem 7: 08/23/19 03:37 08/23/19 03:37 Labs: Abnormal Lab Results - Last 24 Hours (Table) 08/22/19 08/22/19 08/22/19 Range/Units 06:19 18:02 23:44 Hgb (13.0-17.5) gm/dL Hct (39.0-53.0) % MCV (80.0-100.0) fL RDW (11.5-15.5) % Lymphocytes # (Manual) (1.0-4.8) k/uL ABG pCO2 (35-45) mmHg ABG HCO3 (21-25) mmol/L ABG Total CO2 (19-24) mmol/L Sodium (137-145) mmol/L Chloride (98-107) mmol/L Creatinine (0.66-1.25) mg/dL Glucose (74-99) mg/dL POC Glucose (mg/dL) 147 H 140 H (75-99) mg/dL Calcium (8.4-10.2) mg/dL Alkaline Phosphatase (38-126) U/L Total Protein (6.3-8.2) g/dL Albumin (3.5-5.0) g/dL Procalcitonin 0.12 H (0.02-0.09) ng/mL 08/23/19 08/23/19 08/23/19 Range/Units 03:37 03:37 05:42 Hgb 19.1 H* (13.0-17.5) gm/dL Hct 59.7 H* (39.0-53.0) % MCV 101.4 H (80.0-100.0) fL RDW 17.5 H (11.5-15.5) % Lymphocytes # (Manual) 0.23 L (1.0-4.8) k/uL ABG pCO2 (35-45) mmHg ABG HCO3 (21-25) mmol/L ABG Total CO2 (19-24) mmol/L Sodium 131 L (137-145) mmol/L Chloride 97 L (98-107) mmol/L Creatinine 0.49 L (0.66-1.25) mg/dL Glucose 137 H (74-99) mg/dL POC Glucose (mg/dL) 141 H (75-99) mg/dL Calcium 8.2 L (8.4-10.2) mg/dL Alkaline Phosphatase 34 L (38-126) U/L Total Protein 5.4 L (6.3-8.2) g/dL Albumin 3.0 L (3.5-5.0) g/dL Procalcitonin (0.02-0.09) ng/mL 08/23/19 Range/Units 05:57 Hgb (13.0-17.5) gm/dL Hct (39.0-53.0) % MCV (80.0-100.0) fL RDW (11.5-15.5) % Lymphocytes # (Manual) (1.0-4.8) k/uL ABG pCO2 62 H (35-45) mmHg ABG HCO3 36 H (21-25) mmol/L ABG Total CO2 38 H (19-24) mmol/L Sodium (137-145) mmol/L Chloride (98-107) mmol/L Creatinine (0.66-1.25) mg/dL Glucose (74-99) mg/dL POC Glucose (mg/dL) (75-99) mg/dL Calcium (8.4-10.2) mg/dL Alkaline Phosphatase (38-126) U/L Total Protein (6.3-8.2) g/dL Albumin (3.5-5.0) g/dL Procalcitonin (0.02-0.09) ng/mL Microbiology - Last 24 Hours (Table) 08/21/19 10:41 Blood Culture - Preliminary Blood No Growth after 48 hours 08/21/19 15:45 Gram Stain - Final Sputum Sputum Culture - Final Assessment and Plan Plan: 1 acute on chronic hypoxic and hypercapnic respiratory failure. The patient is currently on an acute COPD exacerbation. He is less bronchospastic and wheezy. This patient developed severe respiratory acidosis and hypoxemia and he became unresponsive in the emergency department and subsequently was intubated and placed on a mechanical ventilator. CT angios and shows no evidence of any pulmonary embolism. He has chronic hypoxic and hypercapnic respiratory failure due to COPD and possible obstructive sleep apnea. Noted the patient has development of a right lower lobe pulmonary for today. He was or the covered with IV Zosyn. Consider an underlying aspiration pneumonia contributing to his respiratory failure. The chest x-ray finding shows limited bibasilar pulmonary infiltrates right more than left. Echocardiogram is within normal. The patient is hemodynamically stable. Less focused bronchospastic and wheezy on today's evaluation. 2 chronic hypoxemia. There are signs of chronic hypoxemia on this patient including pulmonary hypertension and perihilar fullness indicative of pulmonary hypertension and chronic elevation of the hemoglobin which is consistent with secondary erythrocytosis. The reasons as mentioned above. 3 COPD, currently in COPD exacerbation. 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 ProBNP level is slightly elevated 9 acute COPD exacerbation, currently bronchospastic and wheezy with elevated peak airway pressures on a mechanical ventilator 10 chronic alcoholism 11 chronic smoking 12 seizures by history. Rule out breakthrough seizures. the EEG was negative for any seizure activity and the patient was given a sedation holiday and he was able to arouse and follow commands. Nevertheless his weaning parameters were poor. Currently , he is back on propofol drip. 13 hypertension 14 mild hyponatremia, improved 15 questionable seizures not verified on EEG. , Plan Daily sedation holidays Daily weaning parameters Unable to wean him any further because of his weak and poor weaning parameters a is the most rated today. Continue IV Zosyn Continue bronchodilators [id number] Continue IV Solu-Medrol echocardiogram was within normal limits. IV fluids normal saline and this will be kept on a 10 mL an hour. He is a propofol for sedation Neurology is on the case and the EEG was negative for any seizure activity Enteral feeding for nutritional support through vital high protein which is currently at goal Heparin subcu for DVT prophylaxis Covid 19 nasal swab was negative Check the JAK2 2 mutation Initiate enteral feeding for nutritional support We'll continue to follow. Condition is critical for now. This evaluation was done and more than 30 minutes. There is a critically care evaluation. Time with Patient: Greater than 30
--- NOTE | 2019-08-23 16:46 | P.PCN ---
Date of Procedure: 08/23/19 Preoperative Diagnosis: Respiratory failure Postoperative Diagnosis: Respiratory failure Procedure(s) Performed: Arterial line insertion Anesthesia: local Surgeon: Alphonse Fish Estimated Blood Loss (ml): 0 Pathology: none sent Condition: critical Disposition: ICU Operative Findings: Indication: Hemodynamic monitoring. A time-out was completed verifying correct patient, procedure, site, positioning, and implant(s) or special equipment if applicable. Allens test was performed to ensure adequate perfusion. The patients LEFT wrist was prepped and draped in sterile fashion. 1% Lidocaine was used to anesthetize the area. An 18G Arrow arterial line was introduced into the left radial artery. The catheter was threaded over the guide wire and the needle was removed with appropriate pulsatile blood return. Blood loss was minimal. The catheter was then sutured in place to the skin and a sterile dressing applied. Perfusion to the extremity distal to the point of catheter insertion was checked and found to be adequate. The patient tolerated the procedure well and there were no complications.
--- NOTE | 2019-08-23 19:39 | P.PN ---
Subjective Progress Note Date: 08/23/19 Principal diagnosis: possible seizure, alcohol use and possible withdrawll The patient was seen at bedside. He remains to be intubated and currently on sedations, IV Propofol 60mcg/kg/min. Per the patient's nurse when the patient was off sedation he acknowledged his name and was following commands. There were some brief tremors in upper extremities, or shoulder or feet that happened while on or off sedation that were rate and lasted 30 seconds that nurse stated resolved on its own. No jerking of extremities. Objective - Vital Signs Vital signs: Vital Signs Temp 98.4 F 08/23/19 04:00 Pulse 92 08/23/19 10:00 Resp 17 08/23/19 10:00 BP 108/65 08/23/19 10:00 Pulse Ox 90 L 08/23/19 10:00 Intake & Output 08/22/19 08/23/19 08/23/19 18:59 06:59 18:59 Intake Total 2094.656 2010 616.021 Output Total 715 1025 155 Balance 1379.656 985 461.021 Weight 103.8 kg 108.9 kg Intake: IV 1400 1260 300 Piperacillin-Tazobactam 3 200 100 .375 gm In Sodium Chloride 0.9% 100 ml @ 25 mls/hr IVPB Q8HR [facility] Rx# :[id number] Sodium Chloride 0.9% 1, 1200 1160 300 000 ml @ 10 mls/hr IV . Q24H [facility] Rx#:[id number] Intake, IV Titration 424.656 300 196.021 Amount Cisatracurium 200 mg In 36.963 Sodium Chloride 0.9% 180 ml @ 2 MCG/KG/MIN 10.07 mls/hr IV .[id number] [facility] Rx #:[id number] Propofol 1,000 mg In 387.693 300 196.021 Empty Bag 1 bag @ Titrate IV .Q0M [facility] Rx#: [id number] Tube Feeding 210 360 90 Other 60 90 30 Output: Urine 715 1025 155 Other: Voiding Method Indwelling Catheter Indwelling Catheter - Exam Is limited since patient is intubated and on sedation. Chest: Regular rate and rhythm. No mumur. Respiratory: Clear lungs to auscultation throughout. HEENT: Normocephalic, atraumatic, no kernig sign. Neurological: Comatose and not opening to eyes with painful stimuli. Pupils are 2mm bilaterally and slugishly reactive to light bilaterally. No facial weakness noted. Motor: Could not be assessed because of his condition. No abnormal movement noted throughout. Reflexes: 2+ throughout except at ankles 1+ bilaterally. Plantars: Mute bilaterally. - Labs CBC & Chem 7: 08/23/19 03:37 08/23/19 03:37 Labs: Abnormal Lab Results - Last 24 Hours (Table) 08/22/19 08/22/19 08/22/19 Range/Units 06:19 11:51 18:02 Hgb (13.0-17.5) gm/dL Hct (39.0-53.0) % MCV (80.0-100.0) fL RDW (11.5-15.5) % Lymphocytes # (Manual) (1.0-4.8) k/uL ABG pCO2 (35-45) mmHg ABG HCO3 (21-25) mmol/L ABG Total CO2 (19-24) mmol/L Sodium (137-145) mmol/L Chloride (98-107) mmol/L Creatinine (0.66-1.25) mg/dL Glucose (74-99) mg/dL POC Glucose (mg/dL) 150 H 147 H (75-99) mg/dL Calcium (8.4-10.2) mg/dL Alkaline Phosphatase (38-126) U/L Total Protein (6.3-8.2) g/dL Albumin (3.5-5.0) g/dL Procalcitonin 0.12 H (0.02-0.09) ng/mL 08/22/19 08/23/19 08/23/19 Range/Units 23:44 03:37 03:37 Hgb 19.1 H* (13.0-17.5) gm/dL Hct 59.7 H* (39.0-53.0) % MCV 101.4 H (80.0-100.0) fL RDW 17.5 H (11.5-15.5) % Lymphocytes # (Manual) 0.23 L (1.0-4.8) k/uL ABG pCO2 (35-45) mmHg ABG HCO3 (21-25) mmol/L ABG Total CO2 (19-24) mmol/L Sodium 131 L (137-145) mmol/L Chloride 97 L (98-107) mmol/L Creatinine 0.49 L (0.66-1.25) mg/dL Glucose 137 H (74-99) mg/dL POC Glucose (mg/dL) 140 H (75-99) mg/dL Calcium 8.2 L (8.4-10.2) mg/dL Alkaline Phosphatase 34 L (38-126) U/L Total Protein 5.4 L (6.3-8.2) g/dL Albumin 3.0 L (3.5-5.0) g/dL Procalcitonin (0.02-0.09) ng/mL 08/23/19 08/23/19 Range/Units 05:42 05:57 Hgb (13.0-17.5) gm/dL Hct (39.0-53.0) % MCV (80.0-100.0) fL RDW (11.5-15.5) % Lymphocytes # (Manual) (1.0-4.8) k/uL ABG pCO2 62 H (35-45) mmHg ABG HCO3 36 H (21-25) mmol/L ABG Total CO2 38 H (19-24) mmol/L Sodium (137-145) mmol/L Chloride (98-107) mmol/L Creatinine (0.66-1.25) mg/dL Glucose (74-99) mg/dL POC Glucose (mg/dL) 141 H (75-99) mg/dL Calcium (8.4-10.2) mg/dL Alkaline Phosphatase (38-126) U/L Total Protein (6.3-8.2) g/dL Albumin (3.5-5.0) g/dL Procalcitonin (0.02-0.09) ng/mL Microbiology - Last 24 Hours (Table) 08/21/19 15:45 Gram Stain - Final Sputum Sputum Culture - Final 08/21/19 10:41 Blood Culture - Preliminary Blood No Growth after 24 hours Assessment and Plan Assessment: This is a 44-year-old gentleman with a history of ?seizure disorder that is d ocumented but per patient's father he is not aware patient has history of seizure, chronic alcohol use, COPD, hypertension, heart failure that ran out of diuretic and presented to the emergency department on 08/21/2023 difficulty breathing. Per Medical records while the patient was in the emergency department he subsequently became more diaphoretic and purplish and became more significantly unresponsive when he was unable to protect his airway. It's reported that it's unsure if this was a seizure activity related to alcohol withdrawal since the patient is gradually cutting down. No seizures were witnessed in the emergency department. CT of the head without contrast was done on 08/21/2019 and was reported as nonspecific white matter mild matter within the supratentorial location, and this nonspecific white matter demyelination and to consider MRI. Questionable seizure (non-witnessed) and if it was a seizure, then likely provoked since patient has metabolic deneragement: Has hyponatremia (Na is 129 and baseline is 136-140), hypocalcemia, COPD exacerbation, chronic alcohol use and attempting to cut down. Routine EEG (08/22/2019): Moderate encephalopathy of unspecified etiology. Excessive fast activity likely due medication. No epileptiform or seizure noted. Acute severe COPD exacerbation Acute on chronic hypoxic hypercapnic respiratory failure Chronic hypercapnic respiratory failure was secondary metabolic alkalosis Plan: -Routine EEG (08/22/2019): Moderate encephalopathy of unspecified etiology. Excessive fast activity likely due medication. No epileptiform or seizure noted. Per nurse once off sedation patient was altert, was aware of self and following commands. There was questionable tremor of bilateral upper and lower extremity that is brief lasting about 30 seconds. Notifed nurse if further episode to notify me. If continues to have these ?tremor or any jerking then we will get another EEG. Recommend correcting the metabolic deneragement. Recommend CIWA protocol for alcohol withdrawl,defer to primary team. Regarding the supratentorial lesion seen on the CT of the head, can obtain MRI of the brain once stable. Patient's father will verify with the rest of family if patient does have history of seizure disorder. Patient is on thiamine daily. Regarding the patient's respiratory issues will defer to the pulmonary team.Recommend correcting the metabolic deneragement. Recommend CIWA protocol for alcohol withdrawl,defer to primary team. Regarding the supratentorial lesion seen on the CT of the head, can obtain MRI of the brain once stable. Patient's father will verify with the rest of family if patient does have history of seizure disorder. Patient is on thiamine daily. Regarding the patient's respiratory issues will defer to the pulmonary team. Time with Patient: Greater than 30
[2019-08-23 23:25] LABS: Glucose,Whole Blood 116 mg/dL (75-99)
[2019-08-24] MEDS: LORazepam 2 MG/ML INJ IV PRN ×2 (00:09→02:12)
[2019-08-24] MEDS: IPRATROPIUM-ALBUTEROL 3 ML NEB INHALATION SCH ×6 (03:54→23:23)
[2019-08-24 05:13] LABS: Anisocytosis Slight; Basophils % (A) 0 %; Eosinophils # (A) 0.1 k/uL (0-0.7); Eosinophils % (A) 1 %; Hypochromasia Moderate; Lymphocytes # (A) 0.3 k/uL (1.0-4.8); Lymphocytes % (A) 3 %; MCH 32.1 pg (25.0-35.0); MCHC 31.6 g/dL (31.0-37.0); MCV 101.7 fL (80.0-100.0); Macrocytosis Moderate; Mean Platelet Volume 7.1; Monocytes # (A) 0.5 k/uL (0-1.0); Monocytes % (A) 5 %; Neutrophils # (A) 9.2 k/uL (1.3-7.7); Neutrophils % (A) 91 %; Platelet Count 177 k/uL (150-450); RDW 17.5 % (11.5-15.5); WBC 10.1 k/uL (3.8-10.6)
[2019-08-24 05:14] LABS: HGB 19.2 gm/dL (13.0-17.5)
[2019-08-24 05:20] LABS: ABG Base Excess 12.3 mmol/L; ABG HCO3 37 mmol/L (21-25); ABG Oxygen Saturation 94.9 % (94-97); ABG PCO2 60 mmHg (35-45); ABG PO2 77 mmHg (83-108); ABG TCO2 39 mmol/L (19-24); Allen Test Performed? Yes
[2019-08-24 05:38] LABS: African American GFR (CKD) >90 (>60 ml/min/1.73 sqM); Anion Gap 3 mmol/L; Blood Urea Nitrogen 20 mg/dL (9-20); Calcium 8.6 mg/dL (8.4-10.2); Carbon Dioxide 34 mmol/L (22-30); Chloride 97 mmol/L (98-107); Glucose 124 mg/dL (74-99); Non-African American GFR(CKD) >90 (>60 ml/min/1.73 sqM); Sodium 134 mmol/L (137-145)
[2019-08-24] MEDS: methylPREDNISolone SOD SUCCI 125 MG/2 ML VIAL IV SCH ×4 (05:48→23:04)
[2019-08-24] MEDS: THIAMINE 100 MG TAB PO SCH ×2 (06:16→16:54)
[2019-08-24 07:12] LABS: Glucose,Whole Blood 118 mg/dL (75-99)
--- NOTE | 2019-08-24 07:39 | XR ---
EXAMINATION TYPE: XR chest 1V portable DATE OF EXAM: 08/24/2019 COMPARISON: Prior chest x-ray 08/23/2019 HISTORY: Intubated TECHNIQUE: Single frontal view of the chest is obtained. FINDINGS: Endotracheal tube and NG tube are overlying appropriate positions, left jugular central ve nous catheter is noted with the distal tip overlying the superior cava. There is no pneumothorax. Bib asilar increased density persists with perihilar vascular indistinctness, heart size is stable. IMPRESSION: Findings are similar to prior exam. Correlate for volume overload, congestive heart fail ure, pneumonia, possible small effusions.
[2019-08-24] MEDS: FORMOTEROL FUMARATE 20 MCG/2 ML NEBU INHALATION SCH ×2 (07:53→19:53)
[2019-08-24] MEDS: BUDESONIDE 1 MG/2 ML NEBU INHALATION SCH ×2 (07:53→19:53)
[2019-08-24] MEDS ORDERED: FUROSEMIDE 10 MG/ML 4 ML VIAL IV STA (08:17)
[2019-08-24] MEDS: PIPERACILLIN-TAZOBACTAM 3.375 GM in SODIUM CHLORIDE 0.9% 100 ML IVPB SCH ×3 (09:07→23:17)
[2019-08-24] MEDS: HEPARIN SODIUM,PORCINE 5,000 UNIT/ML 1 ML VIAL SQ SCH ×3 (09:08→23:04)
[2019-08-24] MEDS: CHLORHEXIDINE GLUCONATE 15 ML CUP MUCOUS MEM SCH (10:39)
[2019-08-24 11:50] LABS: Glucose,Whole Blood 119 mg/dL (75-99)
[2019-08-24] MEDS: SODIUM CHLORIDE 0.9% 1,000 ML IV SCH (12:27)
--- NOTE | 2019-08-24 12:57 | P.PN ---
Subjective Progress Note Date: 08/24/19 On 08/23/2019, the patient is being seen for a follow-up in the intensive care unit. The patient remains intubated on a mechanical ventilator. The patient remains on assist control mode of ventilation at the rate of 16 with a tidal volume of 450 and FiO2 of 50% and a PEEP of 5. Morning blood gases showed a pH of 7.37 with a pCO2 of 62 and pO2 of 95. The peak airway pressure was around 2016 chest x-ray showing no significant interval changes and there is some limited bilateral pulmonary infiltrates in lung bases right more than left. Still on IV Zosyn. Still bronchospastic and wheezy although less compared to yesterday. No major orotracheal secretions. The patient is on sedation with propofol at the rate of 60 g per KG per minute. IV fluids running at 0.9 saline at the rate of 100 mL an hour. The patient had no seizure activity and the EEG was done that showed no epileptiform focus. The patient's hemoglobin remains elevated above 19. The potassium level is improved. Note that I give the patient aspiration holiday today. He was able to wake up and he was able to follow some simple commands. Nevertheless, he was unable to give me good weaning parameters. Rapid shallow breathing index was quite elevated and the patient was not able to generate enough tidal volume that he was becoming tachypneic and biking and 2. I had recently come back again. The same will be done tomorrow and his weaning parameters will be checked on a daily basis. He remains on a combination of bronchodilators, steroids, and IV Zosyn as a broad- spectrum antibiotic coverage. He is also on enteral feeding for nutritional support and the patient is receiving vital high protein at the rate of 30 mL an hour. Echocardiogram was done and the patient has a normal ejection fraction. On 08/24/2019, the patient remains intubated on a mechanical ventilator. This morning, the patient seems to be quite comfortable. He is on propofol running at maintenance KG per minute. I kept on his IV fluids to KVO yesterday. His assist-control mode of ventilation at the rate of 16 with a tidal volume of 450 with an FiO2 of 40% and a PEEP of 5. Peak air pressure was around 28 with metastatic tumor pressure of 15. The blood gases from today showed a pH of 7.4 with a pCO2 of 60 and pO2 of 77. The chest x-ray shows stable bilateral pulmonary infiltrates unchanged compared to yesterday. The patient is tolerating enteral feeding for nutritional support. No fever. Cultures of been all negative for now. Hemodynamically stable on no pressors. Echo of the heart was within normal limits. No other significant events overnight. Objective - Vital Signs Vital signs: Vital Signs Temp 99.1 F 08/24/19 00:00 Pulse 104 H 08/24/19 12:07 Resp 29 H 08/24/19 10:00 BP 111/71 08/24/19 07:00 Pulse Ox 90 L 08/24/19 10:00 Intake & Output 08/23/19 08/24/19 08/24/19 18:59 06:59 18:59 Intake Total 5352.688 8281.281 347.863 Output Total 625 1005 1905 Balance 701.021 89.281 -1557.137 Weight 106.8 kg Intake: IV 580 290 180 Piperacillin-Tazobactam 3 100 100 100 .375 gm In Sodium Chloride 0.9% 100 ml @ 25 mls/hr IVPB Q8HR [facility] Rx# :[id number] Sodium Chloride 0.9% 1, 480 190 80 000 ml @ 10 mls/hr IV . Q24H [facility] Rx#:[id number] Intake, IV Titration 296.021 354.281 77.863 Amount Propofol 1,000 mg In 296.021 354.281 77.863 Empty Bag 1 bag @ Titrate IV .Q0M [facility] Rx#: [id number] Tube Feeding 360 360 60 Other 90 90 30 Output: Urine 625 1005 1905 Other: Voiding Method Indwelling Catheter Indwelling Catheter ABP, PAP, CO, CI - Last Documented Arterial Blood Pressure 132/70 - Exam The patient is intubated on a mechanical ventilator sedated with propofol and the patient was on Nimbex earlier this morning that was taken off and the patient is currently being given a paralytic holiday.. The patient asynchronous with the mechanical ventilator. At times he still gets restless and he was given additional 4 mg of Ativan while insertion of a triple-lumen catheter in his left IJ Head exam was generally normal. There was no scleral icterus or corneal arcus. Mucous membranes were moist. Neck was supple and without jugular venous distension, thyromegaly, or carotid bruits. Carotids were easily palpable bilaterally. There was no adenopathy. His lips are somewhat cyanotic. He has a left IJ triple catheter in place. Orogastric and orotracheal tube are both in place. Lungs are diminished and there is diffuse expiratory wheezes throughout the lung his bilaterally and scattered expiratory rhonchi Cardiac exam revealed the PMI to be normally situated and sized. The rhythm was regular and no extrasystoles were noted during several minutes of auscultation. The first and second heart sounds were normal and physiologic splitting of the second heart sound was noted. There were no murmurs, rubs, clicks, or gallops. Abdominal exam revealed normal bowel sounds. The abdomen was soft, non-tender, and without masses, organomegaly, or appreciable enlargement of the abdominal aorta. Extremities revealed no edema no cyanosis or clubbing. There is areas of psoriatic patches on his soles groin and palms of the hands. Neurologically the patient is sedated. Pupils are equal and reactive to light. Neck is supple and there is no neck stiffness. Unable to assess any motor or sensory function. DTRs are +1 symmetric in all 4 extremities. No Babinski. No clonus. - Labs CBC & Chem 7: 08/24/19 04:45 08/24/19 04:45 Labs: Abnormal Lab Results - Last 24 Hours (Table) 08/23/19 08/24/19 08/24/19 Range/Units 23:22 04:45 04:45 RBC 6.00 H (4.30-5.90) m/uL Hgb 19.2 H* (13.0-17.5) gm/dL Hct 61.0 H* (39.0-53.0) % MCV 101.7 H (80.0-100.0) fL RDW 17.5 H (11.5-15.5) % Neutrophils # 9.2 H (1.3-7.7) k/uL Lymphocytes # 0.3 L (1.0-4.8) k/uL ABG pCO2 (35-45) mmHg ABG pO2 (83-108) mmHg ABG HCO3 (21-25) mmol/L ABG Total CO2 (19-24) mmol/L Sodium 134 L (137-145) mmol/L Chloride 97 L (98-107) mmol/L Carbon Dioxide 34 H (22-30) mmol/L Creatinine 0.54 L (0.66-1.25) mg/dL Glucose 124 H (74-99) mg/dL POC Glucose (mg/dL) 116 H (75-99) mg/dL 08/24/19 08/24/19 08/24/19 Range/Units 05:15 07:10 11:48 RBC (4.30-5.90) m/uL Hgb (13.0-17.5) gm/dL Hct (39.0-53.0) % MCV (80.0-100.0) fL RDW (11.5-15.5) % Neutrophils # (1.3-7.7) k/uL Lymphocytes # (1.0-4.8) k/uL ABG pCO2 60 H (35-45) mmHg ABG pO2 77 L (83-108) mmHg ABG HCO3 37 H (21-25) mmol/L ABG Total CO2 39 H (19-24) mmol/L Sodium (137-145) mmol/L Chloride (98-107) mmol/L Carbon Dioxide (22-30) mmol/L Creatinine (0.66-1.25) mg/dL Glucose (74-99) mg/dL POC Glucose (mg/dL) 118 H 119 H (75-99) mg/dL Microbiology - Last 24 Hours (Table) 08/21/19 10:41 Blood Culture - Preliminary Blood No Growth after 72 hours Assessment and Plan Plan: 1 acute on chronic hypoxic and hypercapnic respiratory failure. The patient is currently on an acute COPD exacerbation. CT angios and shows no evidence of any pulmonary embolism. He has chronic hypoxic and hypercapnic respiratory failure due to COPD and possible obstructive sleep apnea. Echo of the heart was within normal limits. The patient on IV Zosyn. The patient is on a combination of bronchodilators and steroids. The patient will be given a sedation holiday. Weaning parameters will be checked and his candidacy for weaning will be further assessed. I'm going to start him also on Lasix and a dose of 40 mg of the given to him today. 2 chronic hypoxemia. There are signs of chronic hypoxemia on this patient including pulmonary hypertension and perihilar fullness indicative of pulmonary hypertension and chronic elevation of the hemoglobin which is consistent with secondary erythrocytosis. The reasons as mentioned above. 3 COPD, currently in COPD exacerbation, improving 4 suspect obstructive sleep apnea 5 chronic hypercapnic respiratory failure with secondary metabolic alkalosis 6 secondary erythrocytosis likely secondary chronic hypoxemia 7 mild hyperkalemia , improved 8 hypertension 9 chronic alcoholism 11 chronic smoking 12 history of seizures, EEG has been negative during this current admission patient is being seen by neurology. Plan We'll proceed with sedation holiday and check weaning parameters for the possibility of extubation today. Review the dose of Lasix 40 mg IV push Continue IV Zosyn Continue bronchodilators [id number] Continue IV Solu-Medrol echocardiogram was within normal limits. IV fluids normal saline and this will be kept on a 10 mL an hour Neurology is on the case and the EEG was negative for any seizure activity Enteral feeding for nutritional support through vital high protein which is currently at goal Heparin subcu for DVT prophylaxis Covid 19 nasal swab was negative Check the JAK2 2 mutation and we are awaiting the results Possible extubation today and keep the tube feeds on hold We'll continue to follow. Condition is critical for now. This evaluation was done and more than 30 minutes. There is a critically care evaluation. Time with Patient: Greater than 30
--- NOTE | 2019-08-24 16:36 | EEG ---
ELECTROENCEPHALOGRAM REPORT DATE OF SERVICE: 08/24/2019. TECHNIQUE: This is a 21-channel EEG with EKG and with time-lock video. CLINICAL DATA: This is a 44-year-old gentleman with reported history of heavy alcohol use and tobacco use who presented to the hospital on 08/21/2019 for shortness of breath. The patient had worsening of his breathing in the ED and there was a question of seizure, but no clinical seizure was witnessed. This EEG was ordered to evaluate for seizure activity. DESCRIPTION: Wakefulness, drowsiness and stage II are obtained. During wakefulness, there is a poorly modulated, low to moderate voltage of 6 to 7 Hz that is symmetrical and poorly sustained. During drowsiness, there is attenuation of the background. Stage II sleep was captured during this study. There are runs of moderate to high voltage of 1 to 1.5 Hz generalized rhythmic delta activity with frontal predominance. There are also occasional runs of diffuse 1 to 2 Hz of low-voltage delta slowing during the study. There is also excessive fast activity recorded. There is also rare sharply contoured theta activity that is followed by delta slowing that looks suspicious but does not fit the criteria for epileptiform discharge. Interictal and ictal are not seen. ACTIVATION PROCEDURE: Photic stimulation did not produce a driving response. Hyperventilation was not done. EEG DIAGNOSIS: This is an abnormal routine EEG due to the presence of: 1. Occasional diffuse 1 to 2 Hz delta slowing. 2. Runs of generalized rhythmic delta activity with frontal predominance. 3. Background slowing. CLINICAL INTERPRETATION: This is an abnormal routine awake, drowsy and asleep EEG and is suggestive of moderate encephalopathy of unspecified etiology. The excessive fast activity is likely due to medication effect. There is no epileptiform or seizure noted on the study. RECOMMENDATION: Recommend repeating a routine EEG within one week. MMODL / IJN: [id number] /
--- NOTE | 2019-08-24 17:44 | P.PN ---
Subjective Progress Note Date: 08/24/19 This is a 44-year-old gentleman with history of chronic hypoxia, COPD, CHF, hypertension, alcohol and nicotine dependence and multiple other medical issues,presented to the ER with worsening shortness of breath 1 week, occasional cough, quit taking his diuretics 2 days ago. Chest x-rays reporting parahilar and basilar infiltrates, possible developing pneumonia, mild central vascular congestion, possible CHF exacerbation. Coronavirus not detected. Pro- calcitonin 0.07 Echo reporting normal LV function, EF 55-60%, moderate pulmonary hypertension. BNP 2480. EKG reporting normal sinus rhythm mild anterior septal infarct, age undetermined. Troponin pending. Toxicology screen detected benzos, marijuana with serum alcohol less than 10. Coronavirus not detected. Brain CT reporting nonspecific white matter demyelinization with white matter low attenuation scattered within supratentorial. Chest CT reported emphysema, bilateral pleural effusions, associated atelectasis and possible pneumonia, possible pulmonary hypertension, negative for PE. Telemetry sinus rhythm. On admission potassium 6.2 now currently 5.8. After arrival to ER, patient became more hypoxic, purple, unresponsive, placed on nonrebreather, ABGs reflected pH of 7, CO2 120, intubated. CO2 35, BUN 23 creatinine 0.6. Hemoglobin 20.2, now 19.7. No seizure activity reported. Information obtained from medical record. Afebrile, T-max 99.6, normal WBC. 08/23/2019 sedation holiday this morning with CPAP trial. Patient initially calm, appropriate, moved all extremities, follows commands ,off sedation. developed coughing, gagging, tachycardia, hypertension and hypoxia requiring re- sedation. While off of sedation,mild tremors noted per staff, possible DTs. FiO2 decreased to 40%/+5 PEEP. Chest x-ray reported stable with pleural effusions unchanged. EGD reported abnormal drowsy EEG suggestive of moderate encephalopathy of unspecified etiology, no evidence of former seizure activity. Sodium up to 131, hemoglobin 19. Tolerating tube feeds at goal with minimal to no residuals. Telemetry sinus rhythm to sinus tach. 08/24/2019 evaluated by neurology with recommendations noted. Scheduled for repeat EEG. Remains vent dependent with FiO2 40%/+5 of PEEP continues on diprovan drip. Tolerating tube feeds at goal with minimal to no residuals. Chest x-ray similar to prior. Afebrile, sputum and blood cultures negative. Objective - Vital Signs Vital signs: Vital Signs Temp 98.4 F 08/24/19 12:00 Pulse 98 08/24/19 16:07 Resp 16 08/24/19 16:00 BP 144/99 08/24/19 16:00 Pulse Ox 97 08/24/19 16:00 Intake & Output 08/23/19 08/24/19 08/24/19 18:59 06:59 18:59 Intake Total 8026.530 2552.281 427.863 Output Total 625 1005 2955 Balance 701.021 89.281 -2527.137 Weight 106.8 kg Intake: IV 580 290 260 Piperacillin-Tazobactam 3 100 100 100 .375 gm In Sodium Chloride 0.9% 100 ml @ 25 mls/hr IVPB Q8HR [facility] Rx# :[id number] Sodium Chloride 0.9% 1, 480 190 160 000 ml @ 10 mls/hr IV . Q24H [facility] Rx#:[id number] Intake, IV Titration 296.021 354.281 77.863 Amount Propofol 1,000 mg In 296.021 354.281 77.863 Empty Bag 1 bag @ Titrate IV .Q0M [facility] Rx#: [id number] Tube Feeding 360 360 60 Other 90 90 30 Output: Urine 625 1005 2955 Other: Voiding Method Indwelling Catheter Indwelling Catheter Indwelling Catheter ABP, PAP, CO, CI - Last Documented Arterial Blood Pressure 124/71 - Exam GENERAL: Patient lying in bed, maintained on mechanical ventilation, sedated on diprovan HEENT: Pupils are round and equally reacting to light. EOMI. No scleral icterus. No conjunctival pallor. Normocephalic, atraumatic. No pharyngeal erythema. No thyromegaly. CARDIOVASCULAR: S1 and S2 present. No murmurs, rubs, or gallops. PULMONARY: Chest is clear to auscultation, bilateral bases diminished, scattered rhonchi with occasional expiratory wheezing. ABDOMEN: Soft, nontender, nondistended, normoactive bowel sounds. No palpable organomegaly. EXTREMITIES: Trace edema all extremities , wearing boots NEUROLOGICAL: Unable to assess as patient on mechanical ventilation and sedated SKIN: No rashes. Warm and dry. Microbiology 08/21/19 10:41 Blood Blood Culture - Preliminary No Growth after 72 hours 08/21/19 15:45 Sputum Gram Stain - Final 08/21/19 15:45 Sputum Sputum Culture - Final - Labs CBC & Chem 7: 08/24/19 04:45 08/24/19 04:45 Labs: Abnormal Lab Results - Last 24 Hours (Table) 08/23/19 08/24/19 08/24/19 Range/Units 23:22 04:45 04:45 RBC 6.00 H (4.30-5.90) m/uL Hgb 19.2 H* (13.0-17.5) gm/dL Hct 61.0 H* (39.0-53.0) % MCV 101.7 H (80.0-100.0) fL RDW 17.5 H (11.5-15.5) % Neutrophils # 9.2 H (1.3-7.7) k/uL Lymphocytes # 0.3 L (1.0-4.8) k/uL ABG pCO2 (35-45) mmHg ABG pO2 (83-108) mmHg ABG HCO3 (21-25) mmol/L ABG Total CO2 (19-24) mmol/L Sodium 134 L (137-145) mmol/L Chloride 97 L (98-107) mmol/L Carbon Dioxide 34 H (22-30) mmol/L Creatinine 0.54 L (0.66-1.25) mg/dL Glucose 124 H (74-99) mg/dL POC Glucose (mg/dL) 116 H (75-99) mg/dL 08/24/19 08/24/19 08/24/19 Range/Units 05:15 07:10 11:48 RBC (4.30-5.90) m/uL Hgb (13.0-17.5) gm/dL Hct (39.0-53.0) % MCV (80.0-100.0) fL RDW (11.5-15.5) % Neutrophils # (1.3-7.7) k/uL Lymphocytes # (1.0-4.8) k/uL ABG pCO2 60 H (35-45) mmHg ABG pO2 77 L (83-108) mmHg ABG HCO3 37 H (21-25) mmol/L ABG Total CO2 39 H (19-24) mmol/L Sodium (137-145) mmol/L Chloride (98-107) mmol/L Carbon Dioxide (22-30) mmol/L Creatinine (0.66-1.25) mg/dL Glucose (74-99) mg/dL POC Glucose (mg/dL) 118 H 119 H (75-99) mg/dL Microbiology - Last 24 Hours (Table) 08/21/19 10:41 Blood Culture - Preliminary Blood No Growth after 72 hours Assessment and Plan Assessment: Acute on chronic hypoxic ,hypercapnic respiratory failure, multifactorial secondary to acute COPD exacerbation, possible acute on chronic CHF exacerbation, pneumonia, alcohol abuse; ventilator dependent, status post paralytics Questionable seizures, non-witnessed, possible breakthrough seizures, possible alcohol-related seizures, in a patient with history of seizure disorder. Acute metabolic encephalopathy secondary to the above Polycythemia Possible DTs Hyperkalemia Hyponatremia,nild Hypocalcemia Acute COPD exacerbation Metabolic alkalosis Possible Acute on chronic CHF exacerbation, diastolic dysfunction, EF 55-60% Moderate pulmonary hypertension Supratentorial lesion reported per CT, MRI recommended when more stable Possible obstructive sleep apnea Possible right lower lobe pneumonia, suspect aspiration Alcohol dependence, and drinks 8-12 beers several days during the week nicotine dependence Marijuana use Hypertension Gastroesophageal reflux disease Obesity, BMI 36.9 Plan: Continue on current medication regime ,monitoring and symptomatic treatment. Repeat EEG pending . Neuro recommending MRI when stable .Sedation holiday being discussed by prep cook. Continue on nebulized bronchodilators , IV steroids, antibiotics. Prognosis guarded given multiple complex medical is sues. The impression and plan of care has been dictated as directed. : I performed a history and examination of this patient, discussed the same with the dictator. I agree with the dictator's note ,documented as a scribe. Any additional findings or plans will be noted.
[2019-08-24 17:58] LABS: Glucose,Whole Blood 141 mg/dL (75-99)
--- NOTE | 2019-08-24 19:08 | P.PN ---
Subjective Progress Note Date: 08/24/19 Principal diagnosis: Possible seizure, alcohol use and possible withdrawll The patient was seen at bedside. He remains to be intubated and currently on sedations, IV Propofol 60mcg/kg/min. Per the patient's nurse patient had no further episode of tremors of the upper and lower extremity or shoulder from the night nurse the patient sedation was stopped in the morning and he is planned to be extubated. Patient nodded no to him having history of seizures. He did not the that he was a heavy drinker and that he was tried cutting down recently. And that he is not on any seizure medication. Objective - Vital Signs Vital signs: Vital Signs Temp 98.4 F 08/24/19 12:00 Pulse 103 H 08/24/19 18:00 Resp 14 08/24/19 18:00 BP 136/109 08/24/19 18:00 Pulse Ox 90 L 08/24/19 18:00 Intake & Output 08/23/19 08/24/19 08/24/19 18:59 06:59 18:59 Intake Total 7651.283 1152.281 607.863 Output Total 625 1005 3230 Balance 701.021 89.281 -2622.137 Weight 106.8 kg Intake: IV 580 290 440 Piperacillin-Tazobactam 3 100 100 200 .375 gm In Sodium Chloride 0.9% 100 ml @ 25 mls/hr IVPB Q8HR [facility] Rx# :[id number] Sodium Chloride 0.9% 1, 480 190 240 000 ml @ 10 mls/hr IV . Q24H [facility] Rx#:[id number] Intake, IV Titration 296.021 354.281 77.863 Amount Propofol 1,000 mg In 296.021 354.281 77.863 Empty Bag 1 bag @ Titrate IV .Q0M [facility] Rx#: [id number] Tube Feeding 360 360 60 Other 90 90 30 Output: Urine 625 1005 3230 Other: Voiding Method Indwelling Catheter Indwelling Catheter Indwelling Catheter ABP, PAP, CO, CI - Last Documented Arterial Blood Pressure 124/71 - Exam Sedation was stopped: Chest: Regular rate and rhythm. No mumur. Respiratory: Intubated. Clear lungs to auscultation throughout. HEENT: Normocephalic, atraumatic. Neurological: Patient was appropriately nodding or showing a thumbs up to questions. He critically nods to his name the president of the [employer], in the state we are currently in. He was able to follow simple commands opening his eyes gripping my fingers. Pupils are 2-3mm bilaterally and slugishly reactive to light bilaterally. No facial weakness noted. Motor: Gait defered. Was moving all extremities [id number] without any difficulty. No abnormal movement noted throughout. Reflexes: 2+ throughout except at ankles 1+ bilaterally. Plantars: Mute bilaterally. - Labs CBC & Chem 7: 08/24/19 04:45 08/24/19 04:45 Labs: Abnormal Lab Results - Last 24 Hours (Table) 08/23/19 08/24/19 08/24/19 Range/Units 23:22 04:45 04:45 RBC 6.00 H (4.30-5.90) m/uL Hgb 19.2 H* (13.0-17.5) gm/dL Hct 61.0 H* (39.0-53.0) % MCV 101.7 H (80.0-100.0) fL RDW 17.5 H (11.5-15.5) % Neutrophils # 9.2 H (1.3-7.7) k/uL Lymphocytes # 0.3 L (1.0-4.8) k/uL ABG pCO2 (35-45) mmHg ABG pO2 (83-108) mmHg ABG HCO3 (21-25) mmol/L ABG Total CO2 (19-24) mmol/L Sodium 134 L (137-145) mmol/L Chloride 97 L (98-107) mmol/L Carbon Dioxide 34 H (22-30) mmol/L Creatinine 0.54 L (0.66-1.25) mg/dL Glucose 124 H (74-99) mg/dL POC Glucose (mg/dL) 116 H (75-99) mg/dL 08/24/19 08/24/19 08/24/19 Range/Units 05:15 07:10 11:48 RBC (4.30-5.90) m/uL Hgb (13.0-17.5) gm/dL Hct (39.0-53.0) % MCV (80.0-100.0) fL RDW (11.5-15.5) % Neutrophils # (1.3-7.7) k/uL Lymphocytes # (1.0-4.8) k/uL ABG pCO2 60 H (35-45) mmHg ABG pO2 77 L (83-108) mmHg ABG HCO3 37 H (21-25) mmol/L ABG Total CO2 39 H (19-24) mmol/L Sodium (137-145) mmol/L Chloride (98-107) mmol/L Carbon Dioxide (22-30) mmol/L Creatinine (0.66-1.25) mg/dL Glucose (74-99) mg/dL POC Glucose (mg/dL) 118 H 119 H (75-99) mg/dL 08/24/19 Range/Units 17:57 RBC (4.30-5.90) m/uL Hgb (13.0-17.5) gm/dL Hct (39.0-53.0) % MCV (80.0-100.0) fL RDW (11.5-15.5) % Neutrophils # (1.3-7.7) k/uL Lymphocytes # (1.0-4.8) k/uL ABG pCO2 (35-45) mmHg ABG pO2 (83-108) mmHg ABG HCO3 (21-25) mmol/L ABG Total CO2 (19-24) mmol/L Sodium (137-145) mmol/L Chloride (98-107) mmol/L Carbon Dioxide (22-30) mmol/L Creatinine (0.66-1.25) mg/dL Glucose (74-99) mg/dL POC Glucose (mg/dL) 141 H (75-99) mg/dL Microbiology - Last 24 Hours (Table) 08/21/19 10:41 Blood Culture - Preliminary Blood No Growth after 72 hours Assessment and Plan Assessment: This is a 44-year-old gentleman with a history of chronic heavy alcohol use and tobacco use that has been cutting down on his alcohol recently. He does not have history of seizure. Per Medical records while the patient was in the emergency department he subsequently became more diaphoretic and purplish and became more significantly unresponsive when he was unable to protect his airway. It's reported that it's unsure if this was a seizure activity related to al cohol withdrawal since the patient is gradually cutting down. No seizures were witnessed in the emergency department. CT of the head without contrast was done on 08/21/2019 and was reported as nonspecific white matter mild matter within the supratentorial location, and this nonspecific white matter demyelination and to consider MRI. Questionable seizure (non-witnessed) and if it was a seizure, then likely provoked since patient has metabolic deneragement: Has hyponatremia (Na is 129 and baseline is 136-140), hypocalcemia, COPD exacerbation, chronic alcohol use and attempting to cut down. Routine EEG (08/22/2019): Moderate encephalopathy of unspecified etiology. Excessive fast activity likely due medication. No epileptiform or seizure noted. Acute severe COPD exacerbation Acute on chronic hypoxic hypercapnic respiratory failure Chronic hypercapnic respiratory failure was secondary metabolic alkalosis Plan: -Routine EEG (08/22/2019): Moderate encephalopathy of unspecified etiology. Excessive fast activity likely due medication. No epileptiform or seizure noted. Per nurse once off sedation patient was altert, was aware of self and following commands. There was questionable tremor of bilateral upper and lower extremity that is brief lasting about 30 seconds and was following commands during episodes. We will get another routine EEG today. EtOH withdrawl management: defer to primary team. Regarding the supratentorial lesion seen on the CT of the head, can obtain MRI of the brain once stable. Patient's father will verify with the rest of family if patient does have history of seizure disorder. Patient is on thiamine daily. Regarding the patient's respiratory issues will defer to the pulmonary team.Recommend correcting the metabolic deneragement. We will continue to follow Kaiden Carty MD Neurohospitalist Time with Patient: Greater than 30
[2019-08-25] MEDS: IPRATROPIUM-ALBUTEROL 3 ML NEB INHALATION SCH ×5 (02:48→19:09)
[2019-08-25] MEDS: THIAMINE 100 MG TAB PO SCH ×2 (05:43→17:29)
[2019-08-25] MEDS: methylPREDNISolone SOD SUCCI 125 MG/2 ML VIAL IV SCH (05:43)
[2019-08-25 05:50] LABS: Glucose,Whole Blood 123 mg/dL (75-99)
[2019-08-25 05:55] LABS: Anisocytosis Slight; Basophils # (A) 0.1 k/uL (0-0.2); Basophils % (A) 1 %; Eosinophils # (A) 0.1 k/uL (0-0.7); Eosinophils % (A) 1 %; Hypochromasia Moderate; Lymphocytes # (A) 0.3 k/uL (1.0-4.8); Lymphocytes % (A) 3 %; MCH 30.7 pg (25.0-35.0); MCHC 30.6 g/dL (31.0-37.0); MCV 100.3 fL (80.0-100.0); Macrocytosis Slight; Mean Platelet Volume 7.1; Monocytes # (A) 0.4 k/uL (0-1.0); Monocytes % (A) 4 %; Neutrophils # (A) 8.1 k/uL (1.3-7.7); Neutrophils % (A) 90 %; Platelet Count 152 k/uL (150-450); RBC 6.23 m/uL (4.30-5.90); RDW 17.4 % (11.5-15.5); WBC 8.9 k/uL (3.8-10.6)
[2019-08-25 06:04] LABS: African American GFR (CKD) >90 (>60 ml/min/1.73 sqM); Anion Gap 2 mmol/L; Blood Urea Nitrogen 24 mg/dL (9-20); Calcium 8.4 mg/dL (8.4-10.2); Carbon Dioxide 38 mmol/L (22-30); Chloride 94 mmol/L (98-107); Glucose 115 mg/dL (74-99); Non-African American GFR(CKD) >90 (>60 ml/min/1.73 sqM); Potassium 5.2 mmol/L (3.5-5.1); Sodium 134 mmol/L (137-145)
[2019-08-25 06:08] LABS: HCT 62.5 % (39.0-53.0); HGB 19.1 gm/dL (13.0-17.5)
[2019-08-25] MEDS: BUDESONIDE 1 MG/2 ML NEBU INHALATION SCH ×2 (07:17→19:09)
[2019-08-25] MEDS: FORMOTEROL FUMARATE 20 MCG/2 ML NEBU INHALATION SCH ×2 (07:17→19:08)
[2019-08-25] MEDS ORDERED: FUROSEMIDE 10 MG/ML 2 ML VIAL IV ONE (07:56)
--- NOTE | 2019-08-25 07:59 | XR ---
EXAMINATION TYPE: XR chest 1V portable DATE OF EXAM: 08/25/2019 COMPARISON: 08/24/2019 INDICATION: Tube placement TECHNIQUE: Single frontal view of the chest is obtained. FINDINGS: The heart size is normal. The pulmonary vasculature is normal. Small left pleural effusion is present. Increasing from comparison mild left lower lobe infiltrate ma y be present. IMPRESSION: 1. Small increasing left pleural effusion with mild left lower lobe infiltrate.
[2019-08-25] MEDS: HEPARIN SODIUM,PORCINE 5,000 UNIT/ML 1 ML VIAL SQ SCH ×2 (08:15→17:28)
[2019-08-25] MEDS: PIPERACILLIN-TAZOBACTAM 3.375 GM in SODIUM CHLORIDE 0.9% 100 ML IVPB SCH ×2 (08:15→17:29)
--- NOTE | 2019-08-25 09:46 | P.PN ---
Subjective Progress Note Date: 08/25/19 Principal diagnosis: Questionable seizure, alcohol use and possible withdrawll The patient was extubated yesterday. He is doing better. No shaking or jerking episodes noted by nursing staff and he is appropriately following commands. Patient feels he is doing well. He did acknowledge that he was trying to cut down on alcohol. Again acknowledge he did not have history of seizure. Denies headache, vision change, weakness and numbness. Objective - Vital Signs Vital signs: Vital Signs Temp 97.8 F 08/25/19 08:00 Pulse 96 08/25/19 08:00 Resp 22 08/25/19 08:00 BP 129/95 08/25/19 08:00 Pulse Ox 91 L 08/25/19 08:00 Intake & Output 08/24/19 08/25/19 08/25/19 18:59 06:59 18:59 Intake Total 607.863 510 10 Output Total 3230 895 90 Balance -2622.137 -385 -80 Weight 103.2 kg Intake: IV 440 270 10 Piperacillin-Tazobactam 3 200 100 .375 gm In Sodium Chloride 0.9% 100 ml @ 25 mls/hr IVPB Q8HR [facility] Rx# :[id number] Sodium Chloride 0.9% 1, 240 170 10 000 ml @ 10 mls/hr IV . Q24H [facility] Rx#:[id number] Intake, IV Titration 77.863 Amount Propofol 1,000 mg In 77.863 Empty Bag 1 bag @ Titrate IV .Q0M [facility] Rx#: [id number] Oral 240 Tube Feeding 60 Other 30 Output: Urine 3230 895 90 Other: Voiding Method Indwelling Catheter Indwelling Catheter ABP, PAP, CO, CI - Last Documented Arterial Blood Pressure 124/71 - Exam GENERAL: The patient is lying in bed and is not in acute distress. CHEST: The heart rate is regular rate rhythm. No murmurs to auscultation. LUNG: Clear to auscultation bilaterally no wheezing noted throughout. Not labored breathing. ABDOMEN/GI: Bowel sounds present in all 4 quadrants. No tenderness to palpation throughout. NEUROLOGICAL: Higher mental function: The patient is awake, alert, oriented to self, place and time. Patient is following commands. No aphasia and no neglect. Cranial nerves: The pupils are round, equal and reactive to light and accommodation. Visual [place] are full to confrontation throughout. Extraocular movement is intact no nystagmus is noted. Facial sensation is normal to touch throughout. The facial strength is normal throughout. Hearing is normal bilaterally to hand rub. Tongue is midline and moved [id number] without any difficulty. No dysarthria is noted. Shoulder shrug is normal bilaterally. Motor: The strength is 5 over 5 throughout. Normal tone and bulk. Cerebellum: Normal finger to nose bilaterally. Sensation: Sensation is normal to touch throughout. Reflexes (right/left): 2+ throughout.. Plantars are downgoing bilaterally. - Labs CBC & Chem 7: 08/25/19 05:38 08/25/19 05:38 Labs: Abnormal Lab Results - Last 24 Hours (Table) 08/24/19 08/24/19 08/25/19 Range/Units 11:48 17:57 05:38 RBC 6.23 H (4.30-5.90) m/uL Hgb 19.1 H* (13.0-17.5) gm/dL Hct 62.5 H* (39.0-53.0) % MCV 100.3 H (80.0-100.0) fL MCHC 30.6 L (31.0-37.0) g/dL RDW 17.4 H (11.5-15.5) % Neutrophils # 8.1 H (1.3-7.7) k/uL Lymphocytes # 0.3 L (1.0-4.8) k/uL Sodium (137-145) mmol/L Potassium (3.5-5.1) mmol/L Chloride (98-107) mmol/L Carbon Dioxide (22-30) mmol/L BUN (9-20) mg/dL Creatinine (0.66-1.25) mg/dL Glucose (74-99) mg/dL POC Glucose (mg/dL) 119 H 141 H (75-99) mg/dL 08/25/19 08/25/19 Range/Units 05:38 05:48 RBC (4.30-5.90) m/uL Hgb (13.0-17.5) gm/dL Hct (39.0-53.0) % MCV (80.0-100.0) fL MCHC (31.0-37.0) g/dL RDW (11.5-15.5) % Neutrophils # (1.3-7.7) k/uL Lymphocytes # (1.0-4.8) k/uL Sodium 134 L (137-145) mmol/L Potassium 5.2 H (3.5-5.1) mmol/L Chloride 94 L (98-107) mmol/L Carbon Dioxide 38 H (22-30) mmol/L BUN 24 H (9-20) mg/dL Creatinine 0.53 L (0.66-1.25) mg/dL Glucose 115 H (74-99) mg/dL POC Glucose (mg/dL) 123 H (75-99) mg/dL Microbiology - Last 24 Hours (Table) 08/21/19 10:41 Blood Culture - Preliminary Blood No Growth after 72 hours Assessment and Plan Assessment: This is a 44-year-old gentleman with a history of chronic heavy alcohol use and tobacco use that has been cutting down on his alcohol recently. He does not have history of seizure. Per Medical records while the patient was in the emergency department he subsequently became more diaphoretic and purplish and became more significantly unresponsive when he was unable to protect his airway. It's reported that it's unsure if this was a seizure activity related to alcohol withdrawal since the patient is gradually cutting down. No seizures were witnessed in the emergency department. CT of the head without contrast was done on 08/21/2019 and was reported as nonspecific white matter mild matter within the supratentorial location, and this nonspecific white matter demy elination and to consider MRI. Questionable seizure (non-witnessed) and if it was a seizure, then likely provoked since patient has metabolic deneragement: Has hyponatremia (Na is 129 and baseline is 136-140), hypocalcemia, COPD exacerbation, chronic alcohol use and attempting to cut down. Patient does not have history of prior seizure (confirmed by patient and his PCP). Hyponatremia--improving (currently 134) Acute severe COPD exacerbation Acute on chronic hypoxic hypercapnic respiratory failure Chronic hypercapnic respiratory failure was secondary metabolic alkalosis Plan: -Routine EEG (08/22/2019): Moderate encephalopathy of unspecified etiology. Excessive fast activity likely due medication. No epileptiform or seizure noted. - Routine EEG (08/24/2019): Moderate encephalopathy of unspecified etiology. No epileptiform or seizure activity. Recommend repeating within one week. EtOH withdrawl management: defer to primary team. Regarding the supratentorial lesion seen on the CT of the head and reported as nonspecific demylination. I have reviewed the images and I did not see anything alarming. We can obtain MRI of the brain once stable. If cannot be done as inpatient then can be obtained as outpatient. Patient is on thiamine daily. Regarding the patient's respiratory issues will defer to the pulmonary team. We will continue to follow Kaiden Carty MD Neurohospitalist Time with Patient: Greater than 30
[2019-08-25 10:28] VITALS: BMI 36.7
--- NOTE | 2019-08-25 11:00 | P.PN ---
Subjective Progress Note Date: 08/25/19 This is a 44-year-old gentleman with history of chronic hypoxia, COPD, CHF, hypertension, alcohol and nicotine dependence and multiple other medical issues,presented to the ER with worsening shortness of breath 1 week, occasional cough, quit taking his diuretics 2 days ago. Chest x-rays reporting parahilar and basilar infiltrates, possible developing pneumonia, mild central vascular congestion, possible CHF exacerbation. Coronavirus not detected. Pro- calcitonin 0.07 Echo reporting normal LV function, EF 55-60%, moderate pulmonary hypertension. BNP 2480. EKG reporting normal sinus rhythm mild anterior septal infarct, age undetermined. Troponin pending. Toxicology screen detected benzos, marijuana with serum alcohol less than 10. Coronavirus not detected. Brain CT reporting nonspecific white matter demyelinization with white matter low attenuation scattered within supratentorial. Chest CT reported emphysema, bilateral pleural effusions, associated atelectasis and possible pneumonia, possible pulmonary hypertension, negative for PE. Telemetry sinus rhythm. On admission potassium 6.2 now currently 5.8. After arrival to ER, patient became more hypoxic, purple, unresponsive, placed on nonrebreather, ABGs reflected pH of 7, CO2 120, intubated. CO2 35, BUN 23 creatinine 0.6. Hemoglobin 20.2, now 19.7. No seizure activity reported. Information obtained from medical record. Afebrile, T-max 99.6, normal WBC. 08/23/2019 sedation holiday this morning with CPAP trial. Patient initially calm, appropriate, moved all extremities, follows commands ,off sedation. developed coughing, gagging, tachycardia, hypertension and hypoxia requiring re- sedation. While off of sedation,mild tremors noted per staff, possible DTs. FiO2 decreased to 40%/+5 PEEP. Chest x-ray reported stable with pleural effusions unchanged. EGD reported abnormal drowsy EEG suggestive of moderate encephalopathy of unspecified etiology, no evidence of former seizure activity. Sodium up to 131, hemoglobin 19. Tolerating tube feeds at goal with minimal to no residuals. Telemetry sinus rhythm to sinus tach. 08/24/2019 evaluated by neurology with recommendations noted. Scheduled for repeat EEG. Remains vent dependent with FiO2 40%/+5 of PEEP continues on diprovan drip. Tolerating tube feeds at goal with minimal to no residuals. Chest x-ray similar to prior. Afebrile, sputum and blood cultures negative. 08/25/2019 extubated yesterday, maintaining O2 sats in the 90s on 5 L nasal cannula. Significant clinical improvement. No tremors, no shakiness. Following commands, moving all extremities. No seizure activity reported. Denies lightheadedness, dizziness or focal deficits. Repeat EEG reported moderate encephalopathy of unspecified etiology, excessive fast activity likely due to medication effect with no seizure activity noted. Telemetry sinus rhythm. Denies chest pain, palpitations or shortness of breath. Reports he lost his insurance coverage around March, social work to be consulted to assist. Patient denies history of seizures. Denies excessive alcohol intake, no recreational drug use with the exception of occasional THC. Objective - Vital Signs Vital signs: Vital Signs Temp 98.8 F 08/25/19 04:00 Pulse 78 08/25/19 07:35 Resp 14 08/25/19 07:00 BP 127/90 08/25/19 07:00 Pulse Ox 91 L 08/25/19 07:00 Intake & Output 08/24/19 08/25/19 08/25/19 18:59 06:59 18:59 Intake Total 607.863 510 10 Output Total 3230 895 90 Balance -2622.137 -385 -80 Weight 103.2 kg Intake: IV 440 270 10 Piperacillin-Tazobactam 3 200 100 .375 gm In Sodium Chloride 0.9% 100 ml @ 25 mls/hr IVPB Q8HR [facility] Rx# :[id number] Sodium Chloride 0.9% 1, 240 170 10 000 ml @ 10 mls/hr IV . Q24H [facility] Rx#:[id number] Intake, IV Titration 77.863 Amount Propofol 1,000 mg In 77.863 Empty Bag 1 bag @ Titrate IV .Q0M [facility] Rx#: [id number] Oral 240 Tube Feeding 60 Other 30 Output: Urine 3230 895 90 Other: Voiding Method Indwelling Catheter Indwelling Catheter ABP, PAP, CO, CI - Last Documented Arterial Blood Pressure 124/71 - Exam GENERAL: Patient sitting up in bed, no acute distress, alert and oriented 3, speech fluent and appropriate, no tremors. HEENT: Pupils are round and equally reacting to light. EOMI. No scleral icterus. No conjunctival pallor. Normocephalic, atraumatic. Oral mucosa moist CARDIOVASCULAR: S1 and S2 present. No murmurs, rubs, or gallops. PULMONARY: Chest is clear to auscultation, bilateral bases diminished ABDOMEN: Soft, nontender, nondistended, normoactive bowel sounds. No palpable organomegaly. EXTREMITIES: Trace edema all extremities , wearing boots NEUROLOGICAL: Cranial nerves II through XII grossly intact, moves all extremities, strength and sensation grossly intact SKIN: No rashes. Warm and dry. - Labs CBC & Chem 7: 08/25/19 05:38 08/25/19 05:38 Labs: Abnormal Lab Results - Last 24 Hours (Table) 08/24/19 08/24/19 08/25/19 Range/Units 11:48 17:57 05:38 RBC 6.23 H (4.30-5.90) m/uL Hgb 19.1 H* (13.0-17.5) gm/dL Hct 62.5 H* (39.0-53.0) % MCV 100.3 H (80.0-100.0) fL MCHC 30.6 L (31.0-37.0) g/dL RDW 17.4 H (11.5-15.5) % Neutrophils # 8.1 H (1.3-7.7) k/uL Lymphocytes # 0.3 L (1.0-4.8) k/uL Sodium (137-145) mmol/L Potassium (3.5-5.1) mmol/L Chloride (98-107) mmol/L Carbon Dioxide (22-30) mmol/L BUN (9-20) mg/dL Creatinine (0.66-1.25) mg/dL Glucose (74-99) mg/dL POC Glucose (mg/dL) 119 H 141 H (75-99) mg/dL 08/25/19 08/25/19 Range/Units 05:38 05:48 RBC (4.30-5.90) m/uL Hgb (13.0-17.5) gm/dL Hct (39.0-53.0) % MCV (80.0-100.0) fL MCHC (31.0-37.0) g/dL RDW (11.5-15.5) % Neutrophils # (1.3-7.7) k/uL Lymphocytes # (1.0-4.8) k/uL Sodium 134 L (137-145) mmol/L Potassium 5.2 H (3.5-5.1) mmol/L Chloride 94 L (98-107) mmol/L Carbon Dioxide 38 H (22-30) mmol/L BUN 24 H (9-20) mg/dL Creatinine 0.53 L (0.66-1.25) mg/dL Glucose 115 H (74-99) mg/dL POC Glucose (mg/dL) 123 H (75-99) mg/dL Microbiology - Last 24 Hours (Table) 08/21/19 10:41 Blood Culture - Preliminary Blood No Growth after 72 hours Assessment and Plan Assessment: Acute on chronic hypoxic ,hypercapnic respiratory failure, multifactorial secondary to acute COPD exacerbation, possible acute on chronic CHF exacerbation, pneumonia, alcohol abuse; status post ventilator dependent, status post paralytics Questionable seizures, non-witnessed, possible breakthrough seizures, possible alcohol-related seizures, in a patient without history of seizure disorder. Acute metabolic encephalopathy secondary to the above, improving Polycythemia Possible DTs Hyperkalemia Hyponatremia,nild Hypocalcemia Acute COPD exacerbation Metabolic alkalosis Possible Acute on chronic CHF exacerbation, diastolic dysfunction, EF 55-60% Moderate pulmonary hypertension Supratentorial lesion reported per CT, MRI recommended when more stable Possible obstructive sleep apnea Possible right lower lobe pneumonia, suspect aspiration Alcohol dependence, and drinks 8-12 beers several days during the week nicotine dependence Marijuana use Hypertension Gastroesophageal reflux disease Obesity, BMI 36.9 Plan: Continue on current medication regime ,monitoring and symptomatic treatment. Neuro recommending MRI. Aggressive pulmonary toileting with incentive spirometer ordered/reinforce in addition to nebulized bronchodilators , IV steroids, antibiotics. Patient has been cleared by zoning assistant for transfer out of ICU to [facility] with telemetry. Social work consulted regarding financial/insurance issues as mentioned above in addition to potential subacute rehab. Prognosis guarded given multiple complex medical issues. Discharge planning in progress within the next 48 hours. The impression and plan of care has been dictated as directed. : I performed a history and examination of this patient, discussed the same with the dictator. I agree with the dictator's note ,documented as a scribe. Any additional findings or plans will be noted.
[2019-08-25 11:45] LABS: Glucose,Whole Blood 118 mg/dL (75-99)
--- NOTE | 2019-08-25 12:22 | P.PN ---
Subjective Progress Note Date: 08/25/19 On 08/23/2019, the patient is being seen for a follow-up in the intensive care unit. The patient remains intubated on a mechanical ventilator. The patient remains on assist control mode of ventilation at the rate of 16 with a tidal volume of 450 and FiO2 of 50% and a PEEP of 5. Morning blood gases showed a pH of 7.37 with a pCO2 of 62 and pO2 of 95. The peak airway pressure was around 2016 chest x-ray showing no significant interval changes and there is some limited bilateral pulmonary infiltrates in lung bases right more than left. Still on IV Zosyn. Still bronchospastic and wheezy although less compared to yesterday. No major orotracheal secretions. The patient is on sedation with propofol at the rate of 60 g per KG per minute. IV fluids running at 0.9 saline at the rate of 100 mL an hour. The patient had no seizure activity and the EEG was done that showed no epileptiform focus. The patient's hemoglobin remains elevated above 19. The potassium level is improved. Note that I give the patient aspiration holiday today. He was able to wake up and he was able to follow some simple commands. Nevertheless, he was unable to give me good weaning parameters. Rapid shallow breathing index was quite elevated and the patient was not able to generate enough tidal volume that he was becoming tachypneic and biking and 2. I had recently come back again. The same will be done tomorrow and his weaning parameters will be checked on a daily basis. He remains on a combination of bronchodilators, steroids, and IV Zosyn as a broad- spectrum antibiotic coverage. He is also on enteral feeding for nutritional support and the patient is receiving vital high protein at the rate of 30 mL an hour. Echocardiogram was done and the patient has a normal ejection fraction. On 08/24/2019, the patient remains intubated on a mechanical ventilator. This morning, the patient seems to be quite comfortable. He is on propofol running at maintenance KG per minute. I kept on his IV fluids to KVO yesterday. His assist-control mode of ventilation at the rate of 16 with a tidal volume of 450 with an FiO2 of 40% and a PEEP of 5. Peak air pressure was around 28 with metastatic tumor pressure of 15. The blood gases from today showed a pH of 7.4 with a pCO2 of 60 and pO2 of 77. The chest x-ray shows stable bilateral pulmonary infiltrates unchanged compared to yesterday. The patient is tolerating enteral feeding for nutritional support. No fever. Cultures of been all negative for now. Hemodynamically stable on no pressors. Echo of the heart was within normal limits. No other significant events overnight. On 08/25/2019, the patient extubated and the patient is doing well without any significant complaints. No seizure activity. He is awake and alert 3. Chest x-ray shows some small effusion and infiltrates of the lung bases bilaterally. The patient is currently on 5 L about 2 by nasal cannula with a pulse of 93%. Fluid balance is -3 L as the patient was given a dose of Lasix yesterday. He was extubated yesterday without any major difficulties. He is less br onchospastic and wheezy. He admits to drinking 9 beers a day. No signs of any delirium tremens. No encephalopathy. No confusion. He also smokes one pack of cigarettes on a daily basis. No chest pain. No hemoptysis. No pleurisy. Objective - Vital Signs Vital signs: Vital Signs Temp 97.8 F 08/25/19 08:00 Pulse 86 08/25/19 11:44 Resp 22 08/25/19 08:00 BP 143/96 08/25/19 09:00 Pulse Ox 91 L 08/25/19 08:00 Intake & Output 08/24/19 08/25/19 08/25/19 18:59 06:59 18:59 Intake Total 607.863 510 140 Output Total 3230 895 1360 Balance -2622.137 -385 -1220 Weight 103.2 kg 103.2 kg Intake: IV 440 270 140 Piperacillin-Tazobactam 3 200 100 100 .375 gm In Sodium Chloride 0.9% 100 ml @ 25 mls/hr IVPB Q8HR [facility] Rx# :[id number] Sodium Chloride 0.9% 1, 240 170 40 000 ml @ 10 mls/hr IV . Q24H [facility] Rx#:[id number] Intake, IV Titration 77.863 Amount Propofol 1,000 mg In 77.863 Empty Bag 1 bag @ Titrate IV .Q0M [facility] Rx#: [id number] Oral 240 Tube Feeding 60 Other 30 Output: Urine 3230 895 1360 Other: Voiding Method Indwelling Catheter Indwelling Catheter Indwelling Catheter ABP, PAP, CO, CI - Last Documented Arterial Blood Pressure 124/71 - Exam The patient is calm and comfortable not in acute distress on 5 L of oxygen by nasal cannula. No his of excessive muscle breathing at this point in time. Head exam was generally normal. There was no scleral icterus or corneal arcus. Mucous membranes were moist. Neck was supple and without jugular venous distension, thyromegaly, or carotid bruits. Carotids were easily palpable bilaterally. There was no adenopathy. His lips are somewhat cyanotic. He has a left IJ triple catheter in place. Lungs are diminished and there is diffuse expiratory wheezes throughout the lung his bilaterally and scattered expiratory rhonchi Cardiac exam revealed the PMI to be normally situated and sized. The rhythm was regular and no extrasystoles were noted during several minutes of auscultation. The first and second heart sounds were normal and physiologic splitting of the second heart sound was noted. There were no murmurs, rubs, clicks, or gallops. Abdominal exam revealed normal bowel sounds. The abdomen was soft, non-tender, and without masses, organomegaly, or appreciable enlargement of the abdominal aorta. Extremities revealed no edema no cyanosis or clubbing. There is areas of ps oriatic patches on his soles groin and palms of the hands. Neurologically the patient is awake and oriented 3 without any focal neurological deficits. - Labs CBC & Chem 7: 08/25/19 05:38 08/25/19 05:38 Labs: Abnormal Lab Results - Last 24 Hours (Table) 08/24/19 08/25/19 08/25/19 Range/Units 17:57 05:38 05:38 RBC 6.23 H (4.30-5.90) m/uL Hgb 19.1 H* (13.0-17.5) gm/dL Hct 62.5 H* (39.0-53.0) % MCV 100.3 H (80.0-100.0) fL MCHC 30.6 L (31.0-37.0) g/dL RDW 17.4 H (11.5-15.5) % Neutrophils # 8.1 H (1.3-7.7) k/uL Lymphocytes # 0.3 L (1.0-4.8) k/uL Sodium 134 L (137-145) mmol/L Potassium 5.2 H (3.5-5.1) mmol/L Chloride 94 L (98-107) mmol/L Carbon Dioxide 38 H (22-30) mmol/L BUN 24 H (9-20) mg/dL Creatinine 0.53 L (0.66-1.25) mg/dL Glucose 115 H (74-99) mg/dL POC Glucose (mg/dL) 141 H (75-99) mg/dL 08/25/19 08/25/19 Range/Units 05:48 11:44 RBC (4.30-5.90) m/uL Hgb (13.0-17.5) gm/dL Hct (39.0-53.0) % MCV (80.0-100.0) fL MCHC (31.0-37.0) g/dL RDW (11.5-15.5) % Neutrophils # (1.3-7.7) k/uL Lymphocytes # (1.0-4.8) k/uL Sodium (137-145) mmol/L Potassium (3.5-5.1) mmol/L Chloride (98-107) mmol/L Carbon Dioxide (22-30) mmol/L BUN (9-20) mg/dL Creatinine (0.66-1.25) mg/dL Glucose (74-99) mg/dL POC Glucose (mg/dL) 123 H 118 H (75-99) mg/dL Microbiology - Last 24 Hours (Table) 08/21/19 10:41 Blood Culture - Preliminary Blood No Growth after 72 hours Assessment and Plan Plan: 1 acute on chronic hypoxic and hypercapnic respiratory failure. The patient is currently on an acute COPD exacerbation. Patient has been extubated to 5 L of oxygen by nasal cannula. The patient doing well and he is recovering from hi s respiratory failure. 2 chronic hypoxemia. There are signs of chronic hypoxemia on this patient i ncluding pulmonary hypertension and perihilar fullness indicative of pulmonary hypertension and chronic elevation of the hemoglobin which is consistent with secondary erythrocytosis. The reasons as mentioned above. 3 COPD, currently in COPD exacerbation, improving 4 suspect obstructive sleep apnea 5 chronic hypercapnic respiratory failure with secondary metabolic alkalosis 6 secondary erythrocytosis likely secondary chronic hypoxemia 7 mild hyperkalemia , improved 8 hypertension 9 chronic alcoholism 11 chronic smoking 12 history of seizures, EEG has been negative during this current admission patient is being seen by neurology. Plan Remove the triple-lumen cath will give the patient peripheral line Give the patient 20 mg of IV Lasix 1 Wean down the Solu-Medrol to 40 mg every 12 hours Continued IV Zosyn Advance diet Provide an incentive spirometer We'll transfer to a medical surgical floor today.
--- NOTE | 2019-08-25 14:32 | MR ---
EXAMINATION TYPE: MR brain wo con DATE OF EXAM: 08/25/2019 2:26 PM COMPARISON: NONE HISTORY: Nonspecific demyelination Multiplanar and multispin-echo imaging of the brain was performed . The ventricles, basal cisterns and sulci overlying the cerebral convexities are within normal limits. There is no evidence for midline shift or mass effect. Acute intracranial hemorrhage or extra-axial collection is not evident. Noted bilaterally are approximately 3-4 tiny nonspecific foci of increased signal within each cerebra l hemisphere. Differential diagnostic possibilities include chronic small vessel ischemic change, dem yelination, sequela of chronic migraine headaches and Lyme's disease and vasculitis to name a few. Co rrelate clinically. No acute edema is identified. The paranasal sinuses and mastoid air cells are well-aerated. IMPRESSION: Nonspecific tiny white matter lesions.
[2019-08-25 16:59] LABS: Glucose,Whole Blood 106 mg/dL (75-99)
[2019-08-25] MEDS: SODIUM CHLORIDE 0.9% 1,000 ML IV SCH (17:29)
[2019-08-25] MEDS: methylPREDNISolone SOD SUCCI 40 MG/ML 1 ML VIAL IV SCH (20:29)
[2019-08-25 22:15] LABS: Glucose,Whole Blood 116 mg/dL (75-99)
[2019-08-26] MEDS: PIPERACILLIN-TAZOBACTAM 3.375 GM in SODIUM CHLORIDE 0.9% 100 ML IVPB SCH ×4 (00:25→22:05)
[2019-08-26] MEDS: HEPARIN SODIUM,PORCINE 5,000 UNIT/ML 1 ML VIAL SQ SCH ×4 (00:25→22:04)
[2019-08-26 07:00] LABS: Glucose,Whole Blood 131 mg/dL (75-99)
[2019-08-26] MEDS: methylPREDNISolone SOD SUCCI 40 MG/ML 1 ML VIAL IV SCH ×2 (07:31→22:04)
[2019-08-26] MEDS: THIAMINE 100 MG TAB PO SCH ×2 (07:31→17:05)
[2019-08-26] MEDS: IPRATROPIUM-ALBUTEROL 3 ML NEB INHALATION SCH ×4 (07:36→21:10)
[2019-08-26] MEDS: FORMOTEROL FUMARATE 20 MCG/2 ML NEBU INHALATION SCH ×2 (07:36→21:10)
[2019-08-26] MEDS: BUDESONIDE 1 MG/2 ML NEBU INHALATION SCH ×2 (07:36→21:10)
[2019-08-26 11:36] LABS: Glucose,Whole Blood 90 mg/dL (75-99)
--- NOTE | 2019-08-26 13:04 | P.PN ---
Subjective Progress Note Date: 08/26/19 Principal diagnosis: Acute on chronic hypoxic and hypercapnic respiratory failure secondary to an acute exacerbation of chronic obstructive pulmonary disease The patient is seen today 08/26/2019 on the regular medical floor. He was extubated 2 days ago. He is currently awake and alert in no acute distress. Breathing easier today. Maintaining O2 saturations in the 90s on 3 L/m per nasal cannula. He is continued on DuoNeb inhalations, Pulmicort and Perforomist inhalations, IV Solu-Medrol, antibiotics in the form of Zosyn. Blood culture reveals no growth. Sputum culture reveals no growth. MRI of the brain revealed tiny nonspecific white matter lesions. Objective - Vital Signs Vital signs: Vital Signs Temp 98.3 F 08/26/19 00:15 Pulse 82 08/26/19 11:45 Resp 16 08/26/19 11:45 BP 157/96 08/26/19 00:15 Pulse Ox 93 L 08/26/19 07:30 Intake & Output 08/25/19 08/26/19 08/26/19 18:59 06:59 18:59 Intake Total 320 40 Output Total 7 825 Balance -2337 -015 Weight 103.2 kg 98.5 kg Intake: IV 320 40 Piperacillin-Tazobactam 3 200 .375 gm In Sodium Chloride 0.9% 100 ml @ 25 mls/hr IVPB Q8HR [facility] Rx# :[id number] Sodium Chloride 0.9% 1, 120 40 000 ml @ 10 mls/hr IV . Q24H [facility] Rx#:[id number] Output: Urine 2036 825 Other: Voiding Method Indwelling Catheter Indwelling Catheter # Bowel Movements 1 ABP, PAP, CO, CI - Last Documented Arterial Blood Pressure 124/71 - Exam The patient is calm and comfortable not in acute distress on 3 L of oxygen by nasal cannula. No his of excessive muscle breathing at this point in time. Head exam was generally normal. There was no scleral icterus or corneal arcus. Mucous membranes were moist. Neck was supple and without jugular venous distension, thyromegaly, or carotid bruits. Carotids were easily palpable bilaterally. There was no adenopathy. Lungs are diminished and there is expiratory wheezes throughout the lung his bilaterally and scattered expiratory rhonchi Cardiac exam revealed the PMI to be normally situated and sized. The rhythm was regular and no extrasystoles were noted during several minutes of auscultation. The first and second heart sounds were normal and physiologic splitting of the second heart sound was noted. There were no murmurs, rubs, clicks, or gallops. Abdominal exam revealed normal bowel sounds. The abdomen was soft, non-tender, and without masses, organomegaly, or appreciable enlargement of the abdominal aorta. Extremities revealed no edema no cyanosis or clubbing. There is areas of psoriatic patches on his soles groin and palms of the hands. Neurologically the patient is awake and oriented 3 without any focal neurological deficits. - Labs CBC & Chem 7: 08/25/19 05:38 08/25/19 05:38 Labs: Abnormal Lab Results - Last 24 Hours (Table) 08/25/19 08/25/19 08/26/19 Range/Units 16:58 22:13 06:59 POC Glucose (mg/dL) 106 H 116 H 131 H (75-99) mg/dL Microbiology - Last 24 Hours (Table) 08/21/19 10:41 Blood Culture - Preliminary Blood No Growth after 120 hours Assessment and Plan Assessment: 1 acute on chronic hypoxic and hypercapnic respiratory failure secondary to an acute COPD exacerbation. Patient has been extubated to 3 L of oxygen by nasal cannula. The patient doing well and he is recovering from his respiratory failure. 2 chronic hypoxemia. There are signs of chronic hypoxemia on this patient including pulmonary hypertension and perihilar fullness indicative of pulmonary hypertension and chronic elevation of the hemoglobin which is consistent with secondary erythrocytosis. The reasons as mentioned above. 3 COPD, currently in COPD exacerbation, improving 4 suspect obstructive sleep apnea 5 chronic hypercapnic respiratory failure with secondary metabolic alkalosis 6 secondary erythrocytosis likely secondary chronic hypoxemia 7 mild hyperkalemia , improved 8 hypertension 9 chronic alcoholism 11 chronic smoking 12 history of seizures, EEG has been negative during this current admission patient is being seen by neurology. Plan The patient was seen and evaluated by Dr. Fish He is doing well from the pulmonary standpoint Continue the current treatment plan Increase his activity as tolerated Titrate down the FiO2 as tolerated He is again educated regarding the importance of complete smoking cessation Remains in the CIWA protocol, encouraged regarding alcohol cessation We will continue to follow I, the cosigning physician, performed a history & physical examination of the patient. Lungs sounds with bilateral end expiratory wheeze, few expiratory rhonchi, diminished Maintaining good O2 saturations in the 90s on 3 L/m per nasa l cannula. I discussed the assessment and plan of care with my nurse practitioner, Alisa Oconnell. I attest to the above note as dictated by her.
--- NOTE | 2019-08-26 16:38 | P.PN ---
Subjective Patient is admitted the first acute on chronic Epigastric failure secondary to COPD exacerbation patient is extubated 2 days ago. Patient is presently on 3 L oxygen saturating well patient has fairly good air entry into bilateral lung [place] patient usually doesn't use any oxygen patient is also on Zosyn. Patient was evaluated by neurology for possible seizures MRA was often which was within normal limits. The seizure was questionable and all the workup is negative for seizures. Patient apparently has alcohol abuse history and patient may have had a withdrawal seizure as per the assessment from neurology and patient was also bit hyponatremic which was hypovolemic hyponatremia which improved. Patient shortness of breath significantly improved. Constitutional: Denied any fatigue denied any fever. Cardio vascular: denied any chest pain, palpitations Gastrointestinal denied any nausea vomiting Pulmonary: As mentioned in the interval history Neurologic denied any new focal deficits All inpatient medications were reviewed and appropriate changes in these medications as dictated in the interval history and assessment and plan. Objective - Vital Signs Vital signs: Vital Signs Temp 98.9 F 08/26/19 14:34 Pulse 84 08/26/19 15:35 Resp 18 08/26/19 15:35 BP 147/92 08/26/19 14:34 Pulse Ox 92 L 08/26/19 14:34 Intake & Output 08/25/19 08/26/19 08/26/19 18:59 06:59 18:59 Intake Total 320 40 Output Total 2037 825 Balance -3577 -205 Weight 103.2 kg 98.5 kg Intake: IV 320 40 Piperacillin-Tazobactam 3 200 .375 gm In Sodium Chloride 0.9% 100 ml @ 25 mls/hr IVPB Q8HR [facility] Rx# :[id number] Sodium Chloride 0.9% 1, 120 40 000 ml @ 10 mls/hr IV . Q24H [facility] Rx#:[id number] Output: Urine 7 825 Other: Voiding Method Indwelling Catheter Indwelling Catheter Toilet Urinal # Bowel Movements 1 ABP, PAP, CO, CI - Last Documented Arterial Blood Pressure 124/71 - Exam PHYSICAL EXAMINATION: GENERAL: The patient is alert and oriented x3, not in any acute distress. Well developed, well nourished. HEENT: Pupils are round and equally reacting to light. EOMI. No scleral icterus. No conjunctival pallor. Normocephalic, atraumatic. No pharyngeal erythema. No thyromegaly. CARDIOVASCULAR: S1 and S2 present. No murmurs, rubs, or gallops. PULMONARY: Expiratory wheezing on exam it is mild and significantly good air entry into bilateral lung [place] ABDOMEN: Soft, nontender, nondistended, normoactive bowel sounds. No palpable organomegaly. MUSCULOSKELETAL: No joint swelling or deformity. EXTREMITIES: No cyanosis, clubbing, or pedal edema. NEUROLOGICAL: Gross neurological examination did not reveal any focal deficits. SKIN: No rashes. - Labs CBC & Chem 7: 08/25/19 05:38 08/25/19 05:38 Labs: Abnormal Lab Results - Last 24 Hours (Table) 08/25/19 08/25/19 08/26/19 Range/Units 16:58 22:13 06:59 POC Glucose (mg/dL) 106 H 116 H 131 H (75-99) mg/dL Microbiology - Last 24 Hours (Table) 08/21/19 10:41 Blood Culture - Preliminary Blood No Growth after 120 hours Assessment and Plan Plan: -Acute on chronic hypercapnic respiratory failure secondary to COPD exacerbation patient is status post extubation couple days ago is on 3 dysfunction which will be continued --Possible sleep apnea -Acute toxic and metabolic encephalopathy which resolved -Polycythemia secondary to chronic hypoxemia -Hypertension -Hyperlipidemia hyponatremia which improved -Chronic alcoholism -Continued nicotine use counseling was provided -Possibility of alcohol withdrawal seizures patient underwent extensive workup all of which is negative
[2019-08-26 16:47] LABS: Glucose,Whole Blood 115 mg/dL (75-99)
[2019-08-26] MEDS: SODIUM CHLORIDE 0.9% 1,000 ML IV SCH (17:06)
[2019-08-26 19:51] LABS: Glucose,Whole Blood 119 mg/dL (75-99)
[2019-08-27 07:11] LABS: Glucose,Whole Blood 104 mg/dL (75-99)
[2019-08-27] MEDS: HEPARIN SODIUM,PORCINE 5,000 UNIT/ML 1 ML VIAL SQ SCH ×3 (07:50→23:04)
[2019-08-27] MEDS: methylPREDNISolone SOD SUCCI 40 MG/ML 1 ML VIAL IV SCH (07:50)
[2019-08-27] MEDS: PIPERACILLIN-TAZOBACTAM 3.375 GM in SODIUM CHLORIDE 0.9% 100 ML IVPB SCH (07:50)
[2019-08-27] MEDS: THIAMINE 100 MG TAB PO SCH ×2 (07:50→15:14)
[2019-08-27] MEDS: BUDESONIDE 1 MG/2 ML NEBU INHALATION SCH ×2 (09:04→20:17)
[2019-08-27] MEDS: IPRATROPIUM-ALBUTEROL 3 ML NEB INHALATION SCH ×4 (09:05→20:18)
[2019-08-27] MEDS: FORMOTEROL FUMARATE 20 MCG/2 ML NEBU INHALATION SCH ×2 (09:05→20:17)
[2019-08-27 11:20] LABS: Glucose,Whole Blood 93 mg/dL (75-99)
--- NOTE | 2019-08-27 12:25 | P.PN ---
Subjective Progress Note Date: 08/27/19 Principal diagnosis: Acute on chronic hypoxic and hypercapnic respiratory failure secondary to an acute exacerbation of chronic obstructive pulmonary disease The patient is seen today 08/26/2019 on the regular medical floor. He was extubated 2 days ago. He is currently awake and alert in no acute distress. Breathing easier today. Maintaining O2 saturations in the 90s on 3 L/m per nasal cannula. He is continued on DuoNeb inhalations, Pulmicort and Perforomist inhalations, IV Solu-Medrol, antibiotics in the form of Zosyn. Blood culture reveals no growth. Sputum culture reveals no growth. MRI of the brain revealed tiny nonspecific white matter lesions. The patient is seen today 08/27/2019 in follow-up on the regular medical floor. He is currently sitting up in a chair at the bedside. Awake and alert in no acute distress. He's up ambulating. Up in the shower. Breathing continues to improve. Not quite back to his baseline. Still dyspneic on minimal exertion. Maintaining O2 saturations in the 90s on 2 L/m per nasal cannula. He's afebrile. Blood and sputum cultures reveal no growth. He remains on bronchodilators, IV Solu-Medrol. Objective - Vital Signs Vital signs: Vital Signs Temp 97.9 F 08/27/19 07:00 Pulse 80 08/27/19 11:57 Resp 18 08/27/19 07:00 BP 146/91 08/27/19 07:00 Pulse Ox 90 L 08/27/19 07:00 Intake & Output 08/26/19 08/27/19 08/27/19 18:59 06:59 18:59 Weight 97.8 kg Other: Voiding Method Toilet Toilet Urinal Urinal ABP, PAP, CO, CI - Last Documented Arterial Blood Pressure 124/71 - Exam The patient is calm and comfortable not in acute distress on 2 L of oxygen by nasal cannula. Sitting up in a chair at the bedside. No use of excessive muscle breathing at this point in time. Head exam was generally normal. There was no scleral icterus or corneal arcus. Mucous membranes were moist. Neck was supple and without jugular venous distension, thyromegaly, or carotid bruits. Carotids were easily palpable bilaterally. There was no adenopathy. Lungs are diminished and there is expiratory wheezes throughout the lung his bilaterally and scattered expiratory rhonchi Cardiac exam revealed the PMI to be normally situated and sized. The rhythm was regular and no extrasystoles were noted during several minutes of auscultation. The first and second heart sounds were normal and physiologic splitting of the second heart sound was noted. There were no murmurs, rubs, clicks, or gallops. Abdominal exam revealed normal bowel sounds. The abdomen was soft, non-tender, and without masses, organomegaly, or appreciable enlargement of the abdominal aorta. Extremities revealed no edema no cyanosis or clubbing. There is areas of psoriatic patches on his soles groin and palms of the hands. Neurologically the patient is awake and oriented 3 without any focal neurological deficits. - Labs CBC & Chem 7: 08/25/19 05:38 08/25/19 05:38 Labs: Abnormal Lab Results - Last 24 Hours (Table) 08/26/19 08/26/19 08/27/19 Range/Units 16:43 19:50 07:09 POC Glucose (mg/dL) 115 H 119 H 104 H (75-99) mg/dL Microbiology - Last 24 Hours (Table) 08/21/19 10:41 Blood Culture - Preliminary Blood No Growth after 120 hours Assessment and Plan Assessment: 1 acute on chronic hypoxic and hypercapnic respiratory failure secondary to an acute COPD exacerbation. Patient has been extubated. The patient is doing well and he is recovering from his respiratory failure, not quite back to his baseline. Down to 2 L/min per nasal cannula. 2 chronic hypoxemia. There are signs of chronic hypoxemia on this patient including pulmonary hypertension and perihilar fullness indicative of pulmonary hypertension and chronic elevation of the hemoglobin which is consistent with secondary erythrocytosis. The reasons as mentioned above. 3 COPD, currently in COPD exacerbation, improving 4 suspect obstructive sleep apnea 5 chronic hypercapnic respiratory failure with secondary metabolic alkalosis 6 secondary erythrocytosis likely secondary chronic hypoxemia 7 mild hyperkalemia , improved 8 hypertension 9 chronic alcoholism 11 chronic smoking 12 history of seizures, EEG has been negative during this current admission patient is being seen by neurology. Plan The patient was seen and evaluated by Dr. Fish Continue the current treatment plan Increase his activity as tolerated Titrate down the FiO2 as tolerated He is again educated regarding the importance of complete smoking cessation Remains in the CIWA protocol, encouraged regarding alcohol cessation We will continue to follow I, the cosigning physician, performed a history & physical examination of the patient. Lungs sounds with bilateral end expiratory wheeze, few expiratory rhonchi, diminished Maintaining good O2 saturations in the 90s on 2 L/m per nasal cannula. I discussed the assessment and plan of care with my nurse practitioner, Alisa Oconnell. I attest to the above note as dictated by her.
[2019-08-27] MEDS: methylPREDNISolone SOD SUCCI 125 MG/2 ML VIAL IV SCH ×3 (12:44→23:04)
[2019-08-27] MEDS: SODIUM CHLORIDE 0.9% 1,000 ML IV SCH (13:23)
[2019-08-27 16:39] LABS: Glucose,Whole Blood 111 mg/dL (75-99)
[2019-08-27 20:25] LABS: Glucose,Whole Blood 193 mg/dL (75-99)
[2019-08-28 02:30] VITALS: RESP 20
[2019-08-28] MEDS: methylPREDNISolone SOD SUCCI 125 MG/2 ML VIAL IV SCH ×2 (06:17→12:33)
[2019-08-28 07:37] LABS: Glucose,Whole Blood 110 mg/dL (75-99)
[2019-08-28] MEDS: HEPARIN SODIUM,PORCINE 5,000 UNIT/ML 1 ML VIAL SQ SCH (07:51)
[2019-08-28] MEDS: THIAMINE 100 MG TAB PO SCH (07:51)
[2019-08-28 08:10] VITALS: TEMP 98.6
[2019-08-28 08:32] LABS: Anisocytosis Slight; Hypochromasia Moderate; MCH 32.1 pg (25.0-35.0); MCHC 31.9 g/dL (31.0-37.0); MCV 100.6 fL (80.0-100.0); Macrocytosis Slight; Mean Platelet Volume 7.7; Platelet Count 206 k/uL (150-450); RBC 6.19 m/uL (4.30-5.90); RDW 16.9 % (11.5-15.5); WBC 8.7 k/uL (3.8-10.6)
[2019-08-28 08:33] LABS: HGB 19.9 gm/dL (13.0-17.5)
[2019-08-28 08:34] LABS: HCT 62.2 % (39.0-53.0)
[2019-08-28 08:37] LABS: African American GFR (CKD) >90 (>60 ml/min/1.73 sqM); Anion Gap 4 mmol/L; Blood Urea Nitrogen 21 mg/dL (9-20); Calcium 8.8 mg/dL (8.4-10.2); Carbon Dioxide 37 mmol/L (22-30); Chloride 93 mmol/L (98-107); Glucose 117 mg/dL (74-99); Non-African American GFR(CKD) >90 (>60 ml/min/1.73 sqM); Potassium 4.8 mmol/L (3.5-5.1); Sodium 134 mmol/L (137-145)
[2019-08-28] MEDS: BUDESONIDE 1 MG/2 ML NEBU INHALATION SCH (08:42)
[2019-08-28] MEDS: FORMOTEROL FUMARATE 20 MCG/2 ML NEBU INHALATION SCH (08:42)
[2019-08-28] MEDS: IPRATROPIUM-ALBUTEROL 3 ML NEB INHALATION SCH ×3 (08:42→12:03)
[2019-08-28 08:51] VITALS: BP 155/88
--- NOTE | 2019-08-28 10:41 | XR ---
EXAMINATION TYPE: XR chest 1V portable DATE OF EXAM: 08/28/2019 COMPARISON: Prior chest x-ray 08/25/2019 HISTORY: Cough, aspiration pneumonia TECHNIQUE: Single frontal view of the chest is obtained. FINDINGS: Bibasilar increased attenuation is again noted. There is no evident pneumothorax. Heart si ze is stable. IMPRESSION: Correlate for basilar atelectasis versus pneumonia, possible associated effusion, follow -up recommended.
[2019-08-28 11:55] LABS: Glucose,Whole Blood 130 mg/dL (75-99)
[2019-08-28] MEDS: SODIUM CHLORIDE 0.9% 1,000 ML IV SCH (11:59)
[2019-08-28 12:06] VITALS: PULSE 92
--- NOTE | 2019-08-28 12:24 | P.PN ---
Subjective Progress Note Date: 08/28/19 Principal diagnosis: Acute on chronic hypoxic and hypercapnic respiratory failure secondary to an acute exacerbation of chronic obstructive pulmonary disease The patient is seen today 08/26/2019 on the regular medical floor. He was extubated 2 days ago. He is currently awake and alert in no acute distress. Breathing easier today. Maintaining O2 saturations in the 90s on 3 L/m per nasal cannula. He is continued on DuoNeb inhalations, Pulmicort and Perforomist inhalations, IV Solu-Medrol, antibiotics in the form of Zosyn. Blood culture reveals no growth. Sputum culture reveals no growth. MRI of the brain revealed tiny nonspecific white matter lesions. The patient is seen today 08/27/2019 in follow-up on the regular medical floor. He is currently sitting up in a chair at the bedside. Awake and alert in no acute distress. He's up ambulating. Up in the shower. Breathing continues to improve. Not quite back to his baseline. Still dyspneic on minimal exertion. Maintaining O2 saturations in the 90s on 2 L/m per nasal cannula. He's afebrile. Blood and sputum cultures reveal no growth. He remains on bronchodilators, IV Solu-Medrol. On 08/28/2019 patient seen in follow-up on esophageal medical surgical floor. He is awake and alert, no worsening dyspnea, he does desaturate on room air, and he does qualify for home oxygen as room air pulse ox is 88% at rest. No cough or congestion, lung sounds reveal diminished breath sounds with tiny end expir atory wheezes, overall much improved. No hemoptysis, no complex of chest pain, afebrile. Blood and sputum cultures have shown no growth since admission. Follow-up chest x-ray was obtained today showing basilar atelectasis with possible associated effusion. Follow-up chest x-ray was recommended. No leukocytosis, today's labs show white blood cell count of 8.7, hemoglobin of 19.9, hematocrit 62.2, sodium is 134, potassium is 4.8, chloride is 93, CO2 is 37, B1 is 21, creatinine 0.56. Vital signs have been stable overnight, patient does get dyspneic with exertion, tolerating activity, he is anticipated to go home today. Neurologically he is awake and alert and oriented 3. He is hoping to be able to go home today. Objective - Vital Signs Vital signs: Vital Signs Temp 98.6 F 08/28/19 08:05 Pulse 92 08/28/19 12:05 Resp 20 08/28/19 09:10 BP 155/88 08/28/19 08:51 Pulse Ox 92 L 08/28/19 10:05 Intake & Output 08/27/19 08/28/19 08/28/19 18:59 06:59 18:59 Intake Total 250 Balance 250 Weight 96 kg Intake: Oral 250 Other: Voiding Method Toilet Toilet Urinal Urinal # Voids 1 ABP, PAP, CO, CI - Last Documented Arterial Blood Pressure 124/71 - Exam GENERAL EXAM: Alert, very pleasant, 44-year-old white male, Face is somewhat thalia in appearance, on 2 L of oxygen pulse ox of 93%, comfortable in no apparent distress. HEAD: Normocephalic/atraumatic. EYES: Normal reaction of pupils, equal size. Conjunctiva pink, sclera white. NOSE: Clear with pink turbinates. THROAT: No erythema or exudates. NECK: No masses, no JVD, no thyroid enlargement, no adenopathy. CHEST: No chest wall deformity. Symmetrical expansion. LUNGS: Diminished breath sounds with end expiratory wheezes CVS: Regular rate and rhythm, normal S1 and S2, no gallops, no murmurs, no rubs ABDOMEN: Soft, nontender. No hepatosplenomegaly, normal bowel sounds, no g uarding or rigidity. EXTREMITIES: No clubbing, no edema, no cyanosis, 2+ pulses and upper and lower extremities. MUSCULOSKELETAL: Muscle strength and tone normal. SPINE: No scoliosis or deformity SKIN: No rashes CENTRAL NERVOUS SYSTEM: Alert and oriented -3. No focal deficits, tone is normal in all 4 extremities. PSYCHIATRIC: Alert and oriented -3. Appropriate affect. Intact judgment and insight. - Labs CBC & Chem 7: 08/28/19 07:39 08/28/19 07:39 Labs: Abnormal Lab Results - Last 24 Hours (Table) 08/27/19 08/27/19 08/28/19 Range/Units 16:38 20:23 07:16 RBC (4.30-5.90) m/uL Hgb (13.0-17.5) gm/dL Hct (39.0-53.0) % MCV (80.0-100.0) fL RDW (11.5-15.5) % Sodium (137-145) mmol/L Chloride (98-107) mmol/L Carbon Dioxide (22-30) mmol/L BUN (9-20) mg/dL Creatinine (0.66-1.25) mg/dL Glucose (74-99) mg/dL POC Glucose (mg/dL) 111 H 193 H 110 H (75-99) mg/dL 08/28/19 08/28/19 08/28/19 Range/Units 07:39 07:39 11:50 RBC 6.19 H (4.30-5.90) m/uL Hgb 19.9 H* (13.0-17.5) gm/dL Hct 62.2 H* (39.0-53.0) % MCV 100.6 H (80.0-100.0) fL RDW 16.9 H (11.5-15.5) % Sodium 134 L (137-145) mmol/L Chloride 93 L (98-107) mmol/L Carbon Dioxide 37 H (22-30) mmol/L BUN 21 H (9-20) mg/dL Creatinine 0.56 L (0.66-1.25) mg/dL Glucose 117 H (74-99) mg/dL POC Glucose (mg/dL) 130 H (75-99) mg/dL Microbiology - Last 24 Hours (Table) 08/21/19 10:41 Blood Culture - Final Blood No Growth after 144 hours Assessment and Plan Plan: Assessment: 1 acute on chronic hypoxic and hypercapnic respiratory failure secondary to an acute COPD exacerbation. Patient has been extubated. The patient is doing well and discharge planning is in progress for discharge home today. Down to 2 L/min per nasal cannula. 2 chronic hypoxemia. There are signs of chronic hypoxemia on this patient i ncluding pulmonary hypertension and perihilar fullness indicative of pulmonary hypertension and chronic elevation of the hemoglobin which is consistent with secondary erythrocytosis. The reasons as mentioned above. 3 COPD, currently in COPD exacerbation, improving 4 suspect obstructive sleep apnea 5 chronic hypercapnic respiratory failure with secondary metabolic alkalosis 6 secondary erythrocytosis likely secondary chronic hypoxemia 7 mild hyperkalemia , improved 8 hypertension 9 chronic alcoholism 11 chronic smoking 12 history of seizures, EEG has been negative during this current admission patient is being seen by neurology. Plan: Patient qualifies for home oxygen, no acute events overnight, no fever or chills, follow chest x-ray history was obtained and reviewed with Dr. Lamar, showing basilar atelectasis and possible associated pleural effusion, and patient will need outpatient follow-up chest x-ray in the office. He will need to be seen in the office by Dr. iFsh in follow-up in 3-4 days. Abstaining from smoking and drinking was advised. Patient will be going home on prednisone taper, DuoNeb nebulized treatments, we'll see him in the office and start on maintenance inhalers. I performed a history & physical examination of the patient and discussed their management with my nurse practitioner, Ann Botello. I reviewed the nurse practitioner's note and agree with the documented findings and plan of care. Lung sounds are positive for diminished breath sound minimal wheezing. The findings and the impression was discussed with the patient. I attest to the documentation by the nurse practitioner. Time with Patient: Less than 30
--- NOTE | 2019-08-28 16:27 | P.DS ---
Providers Date of admission: 08/21/19 11:42 Expected date of discharge: 08/28/19 Attending physician: Durga Omalley Consults: 08/21/19 17:04 Consult Physician Routine Consulting Provider: Nathalie Cavanaugh Consult Reason/Comments: possible seizure activity Do you want consulting provider notified?: Yes 08/21/19 17:32 Consult Physician Routine Consulting Provider: Alphonse Fish Consult Reason/Comments: ICU management Do you want consulting provider notified?: Already Contacted Primary care physician: Stated None Hospital Course: Final Diagnoses: Acute on chronic hypoxic ,hypercapnic respiratory failure, multifactorial secondary to acute COPD exacerbation, possible acute on chronic CHF exacerbation, pneumonia, alcohol abuse; status post ventilator dependent, status post paralytics Questionable seizures, non-witnessed, possible breakthrough seizures, possible alcohol-related seizures, in a patient without history of seizure disorder. Acute metabolic encephalopathy secondary to the above, resolved Polycythemia Possible DTs Hyperkalemia Hyponatremia,mild Acute COPD exacerbation Metabolic alkalosis, resolved Possible Acute on chronic CHF exacerbation, diastolic dysfunction, EF 55-60% Moderate pulmonary hypertension Supratentorial lesion reported per CT, MRI recommended when more stable Possible obstructive sleep apnea Possible right lower lobe pneumonia, suspect aspiration Alcohol dependence, and drinks 8-12 beers several days during the week nicotine dependence Marijuana use Hypertension Gastroesophageal reflux disease Obesity, BMI 36.9 Hospital course:This is a 44-year-old gentleman with history of chronic hypoxia, COPD, CHF, hypertension, alcohol and nicotine dependence and multiple other medical issues,presented to the ER with worsening shortness of breath 1 week, occasional cough, quit taking his diuretics 2 days ago. Chest x-rays reporting parahilar and basilar infiltrates, possible developing pneumonia, mild central vascular congestion, possible CHF exacerbation. Coronavirus not detected. Pro- calcitonin 0.07 Echo reporting normal LV function, EF 55-60%, moderate pulmonary hypertension. BNP 2480. EKG reporting normal sinus rhythm mild anterior septal infarct, age undetermined. Troponin pending. Toxicology screen detected benzos, marijuana with serum alcohol less than 10. Coronavirus not detected. Brain CT reporting nonspecific white matter demyelinization with white matter low attenuation scattered within supratentorial. Chest CT reported emphysema, bilateral pleural effusions, associated atelectasis and possible pneumonia, possible pulmonary hypertension, negative for PE. Telemetry sinus rhythm. On admission potassium 6.2 now currently 5.8. After arrival to ER, patient became more hypoxic, purple, unresponsive, placed on nonrebreather, ABGs reflected pH of 7, CO2 120, intubated. CO2 35, BUN 23 creatinine 0.6. Hemoglobin 20.2, now 19.7. No seizure activity reported. Information obtained from medical record. Afebrile, T-max 99.6, normal WBC. 08/23/2019 sedation holiday this morning with CPAP trial. Patient initially calm, appropriate, moved all extremities, follows commands ,off sedation. developed coughing, gagging, tachycardia, hypertension and hypoxia requiring re- sedation. While off of sedation,mild tremors noted per staff, possible DTs. FiO2 decreased to 40%/+5 PEEP. Chest x-ray reported stable with pleural effusions unchanged. EGD reported abnormal drowsy EEG suggestive of moderate encephalopathy of unspecified etiology, no evidence of former seizure activity. Sodium up to 131, hemoglobin 19. Tolerating tube feeds at goal with minimal to no residuals. Telemetry sinus rhythm to sinus tach. 08/24/2019 evaluated by neurology with recommendations noted. Scheduled for repeat EEG. Remains vent dependent with FiO2 40%/+5 of PEEP continues on diprovan drip. Tolerating tube feeds at goal with minimal to no residuals. Chest x-ray similar to prior. Afebrile, sputum and blood cultures negative. 08/25/2019 extubated yesterday, maintaining O2 sats in the 90s on 5 L nasal cannula. Significant clinical improvement. No tremors, no shakiness. Following commands, moving all extremities. No seizure activity reported. Denies lightheadedness, dizziness or focal deficits. Repeat EEG reported moderate encephalopathy of unspecified etiology, excessive fast activity likely due to medication effect with no seizure activity noted. Telemetry sinus rhythm. Denies chest pain, palpitations or shortness of breath. Reports he lost his insurance coverage around March, social work to be consulted to assist. Patient denies history of seizures. Denies excessive alcohol intake, no recreational drug use with the exception of occasional THC. Significant clinical improvement. Cleared by our consults for discharge. Patient is being discharged home in stable condition with guarded prognosis. Please refer to EMR for further details. The impression and plan of care has been dictated as directed. : I performed a history and examination of this patient, discussed the same with the dictator. I agree with the dictator's note ,documented as a scribe. Any a dditional findings or plans will be noted. Patient Condition at Discharge: Stable Plan - Discharge Summary New Discharge Prescriptions: New Folic Acid 1 mg PO DAILY #30 tablet Multivitamins, Thera [Multivitamin (formulary)] 1 tab PO DAILY #30 tablet Thiamine [Vitamin B-1] 100 mg PO DAILY #30 tab predniSONE 10 mg PO DIRECTED #30 tab Omeprazole [PriLOSEC] 20 mg PO AC-BID #60 cap Ipratropium-Albuterol Nebulize [Duoneb 0.5 mg-3 mg/3 ml Soln] 3 ml INHALATION QID 30 Days #5 box Continue amLODIPine BESYLATE/BENAZEPRIL [Lotrel 5-20 MG] 1 cap PO BID Discontinued Hydrochlorothiazide [Hydrodiuril] 25 mg PO DAILY Discharge Medication List amLODIPine BESYLATE/BENAZEPRIL [Lotrel 5-20 MG] 1 cap PO BID 01/27/17 [History] Folic Acid 1 mg PO DAILY #30 tablet 08/28/19 [Rx] Ipratropium-Albuterol Nebulize [Duoneb 0.5 mg-3 mg/3 ml Soln] 3 ml INHALATION QID 30 Days #5 box 08/28/19 [Rx] Multivitamins, Thera [Multivitamin (formulary)] 1 tab PO DAILY #30 tablet 08/28/19 [Rx] Omeprazole [PriLOSEC] 20 mg PO AC-BID #60 cap 08/28/19 [Rx] Thiamine [Vitamin B-1] 100 mg PO DAILY #30 tab 08/28/19 [Rx] predniSONE 10 mg PO DIRECTED #30 tab 08/28/19 [Rx] Follow up Appointment(s)/Referral(s): Keyla Huggins MD [STAFF PHYSICIAN] - 09/01/19 10:30 am Durga Omalley DO [Doctor of Osteopathic Medicine] - 08/31/19 3:00 pm Ambulatory/Diagnostic Orders: Complete Blood Count w/diff [LAB.AMB] Time Frame: 3 Days, Location: None Selected Patient Instructions/Handouts: How to Stop Smoking (DC), Abuse of Alcohol (DC), Pneumonia (DC) Activity/Diet/Wound Care/Special Instructions: Pending chest x-ray and final DC recommendations from pulmonary. 2 L nasal cannula O2 at DC.. HydraDiuril on hold, hyponatremic. No ETOH, No smoking Discharge Disposition: HOME SELF-CARE
--- NOTE | 2019-08-30 01:06 | CDI ---
Documentation Clarification Form Date: 08/30/2019 From: Luis Ott Phone: If you have a question about this query, please contact Coreen Meneses, [employer] at [phone] between 8am and 5pm. Admit Date: 08/21/2019 Discharge Date: 08/28/2019 Patient Name: Rigoberto Starr Visit Number: [id number] ATTENTION: The Clinical Documentation Specialists (CDI) and [facility] Coding Staff appreciate your assistance in clarifying documentation. Please respond to the clarification below the line at the bottom and electronically sign. The CDI & [facility] Coding staff will review the response and follow-up if needed. Please note: Queries are made part of the Legal Health Record. If you have any questions, please contact the author of this message via ITS. Dear Durga Alfredo Do., The patient presented with the Acute on chronic hypoxic ,hypercapnic respiratory failure. History/Risk Factors: Aspiration Pneumonia, Metabolic Encephalopathy, CHF WBC : 6 Vitals signs on admission: Temperature 99.6 F 99.0 F Pulse Rate 99 95 Respiratory 20 24 20 Rate Blood Pressure 136/101 124/80 O2 Sat by Pulse 94 L 92 L Oximetry Treatment: IV antibiotics, Mechanical Ventilation Antibiotics: Zosyn IV Bolus: YES In ED alone Documented "Pneumonia, Sepsis". 08/21/19 11:41 There is concern for sepsis diagnosed at 11:40 AM. In your professional opinion, please clarify if these findings signify one of the following conditions, Condition Sepsis ruled out Sepsis Severe Sepsis Other, please specify Unable to determine Sepsis ruled in. And treated with IV antibiotics and mechanical ventilation. MTDD
== END 2019-08-28 15:25 | disposition home or self-care (01) | DRG 871 ==
LOC: EC 09:47 → 4SSUR 11:42 → 2SICU 16:54 → 4SSUR 08-26 00:14
PROVIDERS: ADMIT Family Medicine; ATTEND Family Medicine
PROC: 5A1945Z Respiratory Ventilation, 24-96 Consecutive Hours (ICD-10-PCS; principal; 2019-08-21)
PROC: 0BH17EZ Insertion of Endotracheal Airway into Trachea, Via Natural or Artificial Opening (ICD-10-PCS; principal; 2019-08-21)
PROC: 02HV33Z Insertion of Infusion Device into Superior Vena Cava, Percutaneous Approach (ICD-10-PCS; 2019-08-21)
PROC: 03HY32Z Insertion of Monitoring Device into Upper Artery, Percutaneous Approach (ICD-10-PCS; 2019-08-23)
PROC: 4A133J1 Monitoring of Arterial Pulse, Peripheral, Percutaneous Approach (ICD-10-PCS; 2019-08-23)
PROC: 4A133B1 Monitoring of Arterial Pressure, Peripheral, Percutaneous Approach (ICD-10-PCS; 2019-08-23)
DX: A41.9 Sepsis, unspecified organism (principal); J96.21 Acute and chronic respiratory failure with hypoxia; J69.0 Pneumonitis due to inhalation of food and vomit; I50.33 Acute on chronic diastolic (congestive) heart failure; G93.41 Metabolic encephalopathy; J96.22 Acute and chronic respiratory failure with hypercapnia; E87.3 Alkalosis; E87.1 Hypo-osmolality and hyponatremia; Z99.11 Dependence on respirator [ventilator] status; J98.11 Atelectasis; F10.231 Alcohol dependence with withdrawal delirium; J43.9 Emphysema, unspecified; K21.9 Gastro-esophageal reflux disease without esophagitis; Z20.828 Contact with and (suspected) exposure to other viral communicable diseases; I27.20 Pulmonary hypertension, unspecified; E66.9 Obesity, unspecified; I11.0 Hypertensive heart disease with heart failure; D75.1 Secondary polycythemia; E83.51 Hypocalcemia; E86.1 Hypovolemia; E87.5 Hyperkalemia; G40.909 Epilepsy, unspecified, not intractable, without status epilepticus; G47.33 Obstructive sleep apnea (adult) (pediatric); F17.210 Nicotine dependence, cigarettes, uncomplicated; F10.20 Alcohol dependence, uncomplicated; F12.90 Cannabis use, unspecified, uncomplicated; T50.905A Adverse effect of unspecified drugs, medicaments and biological substances, initial encounter; Z88.8 Allergy status to other drugs, medicaments and biological substances; Z98.890 Other specified postprocedural states; Z82.49 Family history of ischemic heart disease and other diseases of the circulatory system; Z79.899 Other long term (current) drug therapy; Z68.36 Body mass index [BMI] 36.0-36.9, adult; Z80.9 Family history of malignant neoplasm, unspecified
CPT/HCPCS: 31500; 36415; 36556; 36600; 70450; 70551; 71045; 71275; 80048; 80053; 80306; 80320; 81270; 82150; 82668; 82728; 82805; 83605; 83615; 83690; 83735; 83880; 84100; 84145; 84484; 85025; 85027; 85610; 85730; 86140; 87040; 87070; 87205; 87449; 93005; 93306; 94002; 94003; 94640; 94760; 95816; 96361; 96365; 96366; 96367; 96368; 96374; 96375; 96376; 99291

== ENCOUNTER 2019-09-13 09:43 | Observation (INO) | payer BC, OTHER ==
[2019-09-13] MEDS ORDERED: SODIUM CHLORIDE 0.9% 1,000 ML IV STA ×2 (10:17→10:24)
--- NOTE | 2019-09-13 10:18 | ED ---
SOB HPI - General Chief Complaint: Shortness of Breath Stated Complaint: rash, SOB Source: patient Mode of arrival: wheelchair Limitations: physical limitation - History of Present Illness Initial Comments: Patient is a 44-year-old male with history COPD presenting to emergency [facility] with a chief complaint of hives and shortness of breath. Patient states he has been recently diagnosed with pneumonia COPD. states he saw Dr. Fish yesterday and had a chest x-ray performed. Patient states there is no acute findings. Patient states he does use 2 L of oxygen at home on when necessary basis. She also uses nebulized albuterol treatments daily. Patient reports his primary reason for coming in today was a generalized, itchy rash that is mostly located in his left upper extremity, right lower extremity and on his trunk. Patient states it is not warm, no fevers or chills at home. He also reports today he checked his oxygen level and is left arm and it was in the low 80s, the right arm was in the mid 90s. Patient states he has been feeling please today. He does report dyspnea on exertion. Denies any chest pain, lightheadedness, dizziness, onset of weakness paresthesias. Denies exposure to a covid patient. - Related Data Home Medications Medication Instructions Recorded Confirmed amLODIPine BESYLATE/BENAZEPRIL 1 cap PO BID 01/27/17 09/13/19 [Lotrel 5-20 MG] Ipratropium-Albuterol Nebulize 3 ml INHALATION RT-QID 09/13/19 09/13/19 [Duoneb 0.5 mg-3 mg/3 ml Soln] Previous Rx's Medication Instructions Recorded Folic Acid 1 mg PO DAILY #30 tablet 08/28/19 Multivitamins, Thera [Multivitamin 1 tab PO DAILY #30 tablet 08/28/19 (formulary)] Omeprazole [PriLOSEC] 20 mg PO AC-BID #60 cap 08/28/19 Thiamine [Vitamin B-1] 100 mg PO DAILY #30 tab 08/28/19 Allergies Allergy/AdvReac Type Severity Reaction Status Date / Time fexofenadine HCl AdvReac HIGH BP Verified 09/13/19 11:16 [From Molly-D] pseudoephedrine HCl AdvReac High BP Verified 09/13/19 11:16 [From Molly-D] Review of Systems ROS Statement: Those systems with pertinent positive or pertinent negative responses have been documented in the HPI. ROS Other: All systems not noted in ROS Statement are negative. Past Medical History Past Medical History: Heart Failure, GERD/Reflux, Hypertension, Pneumonia, Seizure Disorder Additional Past Medical History / Comment(s): seizure, gi bleed History of Any Multi-Drug Resistant Organisms: None Reported Past Surgical History: Orthopedic Surgery Additional Past Surgical History / Comment(s): right knee arthroscopy. Past Anesthesia/Blood Transfusion Reactions: No Reported Reaction Past Psychological History: No Psychological Hx Reported Smoking Status: Former smoker Past Alcohol Use History: None Reported Past Drug Use History: Marijuana - Past Family History Mother Family Medical History: Hypertension Additional Family Medical History / Comment(s): from cancer General Exam Limitations: physical limitation General appearance: alert, in no apparent distress Head exam: Present: atraumatic, normocephalic, normal inspection Eye exam: Present: normal appearance, PERRL, EOMI Pupils: Present: normal accommodation ENT exam: Present: normal exam, normal oropharynx, mucous membranes moist, TM's normal bilaterally, normal external ear exam Neck exam: Present: normal inspection, full ROM. Absent: tenderness Respiratory exam: Present: wheezes (Diffuse bilateral wheezing). Absent: respiratory distress Cardiovascular Exam: Present: normal rhythm, tachycardia, normal heart sounds GI/Abdominal exam: Present: soft. Absent: distended, tenderness, guarding Extremities exam: Present: normal inspection, full ROM, normal capillary refill, other (+2 ulnar and radial pulses bilateral. Palpable femoral pulse.). Absent: tenderness, pedal edema, joint swelling, calf tenderness Back exam: Present: normal inspection, full ROM. Absent: tenderness Neurological exam: Present: alert, oriented X3 Psychiatric exam: Present: normal affect, normal mood Skin exam: Present: warm, dry, intact, normal color, urticaria Course Vital Signs 09/13/19 09/13/19 09/13/19 09:54 10:18 11:15 Temperature 98.2 F Pulse Rate 122 H 98 Respiratory 22 18 18 Rate Blood Pressure 93/71 104/81 O2 Sat by Pulse 94 L 93 L Oximetry 09/13/19 09/13/19 11:47 11:54 Temperature Pulse Rate 92 82 Respiratory Rate Blood Pressure O2 Sat by Pulse Oximetry Medical Decision Making - Medical Decision Making Patient is a 44-year-old male presenting to emergency Department with a chief complaint of rash and shortness breath. On exam patient appears to have urticaria that is pruiritic but not painful. No new recent medications. Chest x-ray shows minimal left basilar infiltrate. There appears to be clearing compared to recent imaging. Initially the patient was hypotensive, tachycardic and tachypneic. There was concern for sepsis. Patient was bolused according to ideal body weight. He was also started on Rocephin. CBC reveals no leukocytosis but does show elevated hemoglobin and hematocrit. This appears to be somewhat of his baseline based on his most recent lab work. covid-19t testing pending. Some improvement with DuoNeb and 125 mg orally Medrol. The story would also help with the urticaria. On reevaluation, patient still appears to be saturating in the low 90s along with improved but still persistent expiratory wheeze. Initial troponins negative. Patient will be admitted for COPD exacerbation. Case discussed with Dr. Haider. Admitting physician is . - Lab Data Result diagrams: 09/13/19 10:24 09/13/19 10:24 Lab Results 09/13/19 09/13/19 09/13/19 Range/Units 10:24 10:24 10:24 WBC 7.0 (3.8-10.6) k/uL RBC 6.45 H (4.30-5.90) m/uL Hgb 20.1 H* (13.0-17.5) gm/dL Hct 64.1 H* (39.0-53.0) % MCV 99.3 (80.0-100.0) fL MCH 31.1 (25.0-35.0) pg MCHC 31.4 (31.0-37.0) g/dL RDW 16.2 H (11.5-15.5) % Plt Count 213 (150-450) k/uL Neutrophils % 66 % Lymphocytes % 24 % Monocytes % 5 % Eosinophils % 1 % Basophils % 1 % Neutrophils # 4.6 (1.3-7.7) k/uL Lymphocytes # 1.7 (1.0-4.8) k/uL Monocytes # 0.4 (0-1.0) k/uL Eosinophils # 0.1 (0-0.7) k/uL Basophils # 0.1 (0-0.2) k/uL Anisocytosis Slight Macrocytosis Slight Sodium 133 L (137-145) mmol/L Potassium 5.1 (3.5-5.1) mmol/L Chloride 95 L (98-107) mmol/L Carbon Dioxide 32 H (22-30) mmol/L Anion Gap 6 mmol/L BUN 18 (9-20) mg/dL Creatinine 0.69 (0.66-1.25) mg/dL Est GFR (CKD-EPI)AfAm >90 (>60 ml/min/1.73 sqM) Est GFR (CKD-EPI)NonAf >90 (>60 ml/min/1.73 sqM) Glucose 103 H (74-99) mg/dL Plasma Lactic Acid Tk 1.1 (0.7-2.0) mmol/L Calcium 9.9 (8.4-10.2) mg/dL Total Bilirubin 0.9 (0.2-1.3) mg/dL AST 41 (17-59) U/L ALT 93 H (4-49) U/L Alkaline Phosphatase 56 (38-126) U/L Troponin I (0.000-0.034) ng/mL Total Protein 6.5 (6.3-8.2) g/dL Albumin 4.1 (3.5-5.0) g/dL 09/13/19 Range/Units 10:24 WBC (3.8-10.6) k/uL RBC (4.30-5.90) m/uL Hgb (13.0-17.5) gm/dL Hct (39.0-53.0) % MCV (80.0-100.0) fL MCH (25.0-35.0) pg MCHC (31.0-37.0) g/dL RDW (11.5-15.5) % Plt Count (150-450) k/uL Neutrophils % % Lymphocytes % % Monocytes % % Eosinophils % % Basophils % % Neutrophils # (1.3-7.7) k/uL Lymphocytes # (1.0-4.8) k/uL Monocytes # (0-1.0) k/uL Eosinophils # (0-0.7) k/uL Basophils # (0-0.2) k/uL Anisocytosis Macrocytosis Sodium (137-145) mmol/L Potassium (3.5-5.1) mmol/L Chloride (98-107) mmol/L Carbon Dioxide (22-30) mmol/L Anion Gap mmol/L BUN (9-20) mg/dL Creatinine (0.66-1.25) mg/dL Est GFR (CKD-EPI)AfAm (>60 ml/min/1.73 sqM) Est GFR (CKD-EPI)NonAf (>60 ml/min/1.73 sqM) Glucose (74-99) mg/dL Plasma Lactic Acid Tk (0.7-2.0) mmol/L Calcium (8.4-10.2) mg/dL Total Bilirubin (0.2-1.3) mg/dL AST (17-59) U/L ALT (4-49) U/L Alkaline Phosphatase (38-126) U/L Troponin I <0.012 (0.000-0.034) ng/mL Total Protein (6.3-8.2) g/dL Albumin (3.5-5.0) g/dL - EKG Data EKG Comments: Sinus tachycardia, right axis deviation. Objective rate 107, NC 118, QRS 88, QTC 424. Disposition Clinical Impression: Urticaria, COPD exacerbation, Dyspnea on exertion Disposition: ADMITTED IP TO THIS HOSP Condition: Fair Is patient prescribed a controlled substance at d/c from ED?: No Time of Disposition: 11:58
[2019-09-13] MEDS ORDERED: cefTRIAXone IN SWFI 1,000 MG/10 ML SYRINGE IVP STA (10:20)
[2019-09-13] MEDS ORDERED: SODIUM CHLORIDE 0.9% 800 ML IV STA (10:37)
--- NOTE | 2019-09-13 11:06 | XR ---
EXAMINATION TYPE: XR chest 2V DATE OF EXAM: 09/13/2019 COMPARISON: 08/28/2019 INDICATION: Difficulty breathing, short of breath TECHNIQUE: Frontal and lateral views of the chest are obtained. FINDINGS: The heart size is normal. The pulmonary vasculature is normal. Previous left lower lobe infiltrate is largely resolved. Mild residual may remain. Left basilar infil trate has resolved.. IMPRESSION: 1. There may be some mild infiltrate at the left base. Lung quevedo are otherwise clear. Follow-up can be performed as clinically indicated.
[2019-09-13 11:08] LABS: Anisocytosis Slight; Basophils # (A) 0.1 k/uL (0-0.2); Basophils % (A) 1 %; Eosinophils # (A) 0.1 k/uL (0-0.7); Eosinophils % (A) 1 %; Lymphocytes # (A) 1.7 k/uL (1.0-4.8); Lymphocytes % (A) 24 %; MCH 31.1 pg (25.0-35.0); MCHC 31.4 g/dL (31.0-37.0); MCV 99.3 fL (80.0-100.0); Macrocytosis Slight; Mean Platelet Volume 7.1; Monocytes # (A) 0.4 k/uL (0-1.0); Monocytes % (A) 5 %; Neutrophils # (A) 4.6 k/uL (1.3-7.7); Neutrophils % (A) 66 %; Platelet Count 213 k/uL (150-450); RBC 6.45 m/uL (4.30-5.90); RDW 16.2 % (11.5-15.5)
[2019-09-13 11:16] LABS: ALT 93 U/L (4-49); AST 41 U/L (17-59); African American GFR (CKD) >90 (>60 ml/min/1.73 sqM); Albumin 4.1 g/dL (3.5-5.0); Alkaline Phosphatase 56 U/L (38-126); Anion Gap 6 mmol/L; Blood Urea Nitrogen 18 mg/dL (9-20); Calcium 9.9 mg/dL (8.4-10.2); Carbon Dioxide 32 mmol/L (22-30); Chloride 95 mmol/L (98-107); Glucose 103 mg/dL (74-99); Non-African American GFR(CKD) >90 (>60 ml/min/1.73 sqM); Potassium 5.1 mmol/L (3.5-5.1); Sodium 133 mmol/L (137-145); Total Bilirubin 0.9 mg/dL (0.2-1.3); Total Protein 6.5 g/dL (6.3-8.2)
[2019-09-13] MEDS ORDERED: IPRATROPIUM-ALBUTEROL 3 ML NEB INHALATION STA (11:18)
[2019-09-13 11:26] LABS: HCT 64.1 % (39.0-53.0); HGB 20.1 gm/dL (13.0-17.5)
[2019-09-13] MEDS ORDERED: methylPREDNISolone SOD SUCCI 125 MG/2 ML VIAL IV STA (11:43)
[2019-09-13] MEDS ORDERED: ONDANSETRON 4 MG/2 ML VIAL IVP PRN (11:56)
[2019-09-13] MEDS ORDERED: LORazepam 2 MG/ML INJ IV PRN (11:56)
[2019-09-13] MEDS ORDERED: NALOXONE 0.4 MG/ML 1 ML VIAL IV PRN (11:56)
[2019-09-13 12:47] LABS: INR 0.9 (<1.2); Partial Thromboplastin Time 22.7 sec (22.0-30.0); Prothrombin Time 9.3 sec (9.0-12.0)
[2019-09-13] MEDS ORDERED: IPRATROPIUM-ALBUTEROL 3 ML NEB INHALATION PRN (13:54)
[2019-09-13] MEDS ORDERED: HYDROcodone/APAP 5-325MG 1 EACH TAB PO PRN (13:57)
[2019-09-13] MEDS: FUROSEMIDE 10 MG/ML 4 ML VIAL IV SCH (14:31)
[2019-09-13] MEDS: SODIUM CHLORIDE 0.9% 1,000 ML IV SCH (14:32)
[2019-09-13] MEDS: IPRATROPIUM-ALBUTEROL 3 ML NEB INHALATION SCH ×2 (14:59→19:27)
[2019-09-13] MEDS ORDERED: PIPERACILLIN-TAZOBACTAM 3.375 GM in SODIUM CHLORIDE 0.9% 100 ML IVPB SCH (15:00)
--- NOTE | 2019-09-13 16:22 | P.CNPUL ---
History of Present Illness Consult date: 09/13/19 Reason for consult: dyspnea, COPD History of present illness: This is a 44-year-old male patient with known history of COPD. The patient came into the emergency department because of worsening shortness of breath and some hives. The patient was having difficulties in breathing. He was seen in our office yesterday by my partner and the patient was asked to quit smoking knowing that he was back smoking cigarettes following his most recent hospitalization at was complicated by respiratory failure. The patient was having increased cough and wheezing and shortness of breath. His FEV1 was in the order of 34% of predicted. His pulse ox was in the order of 89% of predicted. His chest x-ray showed no acute pneumonia and a previous left lower lobe pneumonia recovered. However, the patient's condition got worse and upcoming taken to the hospital for further treatment and he was Hospital as for an acute COPD exacerbation.. Also, the patient developed a rash in the left upper extremity and right lower extremity which seems to be an erythematous ALLERGIC reaction and the exact cause is not clear. The area is quite erythematous and pruritic. Typical of hives. Note that I had an opportunity to meet and treat in the hospital for respiratory failure. He was in the hospital between 08/21/2019 and he was discharged home on 08/28/2019. The patient's is known to have COPD. He came into the hospital because of acute hypercapnic and hypoxic respiratory failure. He had to be immediately intubated and placed on a mechanical ventilator. Note that he has significant elevation of his hemoglobin that was suggestive of chronic hypoxemia and secondary erythrocytosis. He also had hypercapnic respiratory failure with chronic metabolic alkalosis consistent with chronic hypercapnic respiratory failure. During the course of his illness, the patient tested negative for COVID 19 infection. I was aware that the patient was a heavy tobacco smoker approximately one pack of cigars a day and he also smokes weed and drank alcohol excessively. I noted that he did have some early signs of delirium tremens and was difficult to sedate him on the respirator. Ultimately all these things settle down and he was gradually weaned off the mechanical ventilator and he was extubated successfully. He was discharged home on oxygen and we are in the process of gradually weaning him off the oxygen. He tells that his pulse oxas stated above 92% even on room air. He is feeling much better. He was gradually regaining his strength. He has not gone to work yet. Unfortunately, he has smoked cigarettes. He is not drinking alcohol for now. He is not smoking weed for now. The patient's had an echo in the hospital that showed an ejection fraction of 55-60%. He had moderate pulmonary hypertension on the echocardiogram with an estimated PA pressure of 54. His hemoglobin is at 19.9 at time of discharge. I checked his JAK2 occasions status that came back negative. The patient also had MRI of the brain at a time of his hospitalization and this came back negative. Time of discharge, he was given a prednisone burst taper and was also given DuoNeb nebulized treatments to use 4 times a day. Review of Systems Constitutional: Reports fatigue, Reports weakness Eyes: denies as per HPI, denies blurred vision, denies bulging eye, denies decreased vision, denies diplopia, denies discharge, denies dry eye, denies irritation, denies itching, denies pain, denies photophobia, denies loss of peripheral vision, denies loss of vision, denies tunnel vision/blind spots Ears: deny: decreased hearing, ear discharge, earache, tinnitus Ears, nose, mouth and throat: Reports as per HPI Breasts: absent: as per HPI, gynecomastia Cardiovascular: Reports decreased exercise tolerance, Reports dyspnea on exertion, Reports shortness of breath Respiratory: Reports cough, Reports dyspnea, Reports wheezing Gastrointestinal: Reports as per HPI Genitourinary: Reports as per HPI Musculoskeletal: Reports as per HPI Integumentary: Reports as per HPI (Hives) Neurological: Reports as per HPI Psychiatric: Reports as per HPI Endocrine: Reports as per HPI Hematologic/Lymphatic: Reports as per HPI Allergic/Immunologic: Reports as per HPI Past Medical History Past Medical History: Heart Failure, COPD, GERD/Reflux, GI Bleed, Hypertension, Pneumonia, Respiratory Disorder, Seizure Disorder Additional Past Medical History / Comment(s): Pt recently admitted to [facility] on 08/21 19 with acute on chronic hypoxic/hypercapnic respiratory failure multifactoral 2ndary to acute on chronic COPD/possible acute on chronic CHF exacerbation/pneumonia/moderate pulmonary htn/alcohol abuse/pt was vented /breakthrough or alcohol withdrawal seizure/possible DTs/polycythemia/hypoerkalemia/hyponatremia/supratentorial lesion per cat scan. Other hx: Home oxygen prn during day and wear oxygen with concentrator at , past pneumonia, lower GI bleed, seizure once as a child and possible alcohol withdrawal/breakthrough seizure August 2019 admission History of Any Multi-Drug Resistant Organisms: None Reported Past Surgical History: Orthopedic Surgery Additional Past Surgical History / Comment(s): right knee arthroscopy, colonosco py/benign polypectomy Past Anesthesia/Blood Transfusion Reactions: No Reported Reaction Smoking Status: Former smoker - Past Family History Mother Family Medical History: Cancer, Hypertension Additional Family Medical History / Comment(s): from ovarian cancer Father Family Medical History: No Reported History Additional Family Medical History / Comment(s): Father is healthy Medications and Allergies Home Medications Medication Instructions Recorded Confirmed Type amLODIPine BESYLATE/BENAZEPRIL 1 cap PO BID 01/27/17 09/13/19 History [Lotrel 5-20 MG] Folic Acid 1 mg PO DAILY #30 tablet 08/28/19 09/13/19 Rx Multivitamins, Thera [Multivitamin 1 tab PO DAILY #30 tablet 08/28/19 09/13/19 Rx (formulary)] Omeprazole [PriLOSEC] 20 mg PO AC-BID #60 cap 08/28/19 09/13/19 Rx Thiamine [Vitamin B-1] 100 mg PO DAILY #30 tab 08/28/19 09/13/19 Rx Ipratropium-Albuterol Nebulize 3 ml INHALATION RT-QID 09/13/19 09/13/19 History [Duoneb 0.5 mg-3 mg/3 ml Soln] Allergies Allergy/AdvReac Type Severity Reaction Status Date / Time fexofenadine HCl AdvReac HIGH BP Verified 09/13/19 11:16 [From Molly-D] pseudoephedrine HCl AdvReac High BP Verified 09/13/19 11:16 [From Molly-D] Physical Exam Vitals: Vital Signs Temp Pulse Pulse Resp BP BP Pulse Ox 09/13/19 15:06 86 09/13/19 15:00 86 09/13/19 14:55 98.2 F 92 18 117/81 90 L 09/13/19 14:35 98.0 F 90 18 119/77 93 L 09/13/19 12:31 91 20 102/68 93 L 09/13/19 11:54 82 09/13/19 11:47 92 08/05/20 11:15 98 18 104/81 93 L 09/13/19 10:18 18 09/13/19 09:54 98.2 F 122 H 22 93/71 94 L Intake and Output 09/13/19 09/13/19 09/13/19 06:59 14:59 22:59 Other: Weight 103.419 kg Physical exam revealed a 44-year-old white male in no distress. HEENT: Anicteric sclerae, pink and moist conjunctivae. Extraocular movements intact, pupils are reactive to light they are round and equal. External inspection of ears and nose showed normal mucosa. Oral mucosa, soft and hard palate tongue and posterior pharynx are intact.Mallampati class III. Neck: Supple no neck masses, no JVD, no thyroid enlargement, no adenopathy. Lungs: Symmetrical expansion,Diminished breath sounds at the bases no crackles or rhonchi or wheezes CVS: Regular rate and rhythm, normal S1 and S2, no gallops, no murmur, no rubs. Abdomen: Soft, nontender, no megaly, no rebound, no guarding, positive bowel sounds. Extremities: Positive clubbing, no edema, no cyanosis, 2+ pulses in upper and lower extremities. Musculoskeletal: Muscle strength and tone normal. Neurologic: Alert and oriented 3, normal affect, no focal neurologic deficits. Psychiatric: Normal mood affect and normal mental status examination. Skin: No rashes. Results - Laboratory Findings CBC and BMP: 09/13/19 10:24 09/13/19 10:24 PT/INR, D-dimer PT 9.3 sec (9.0-12.0) 09/13/19 12:21 INR 0.9 (<1.2) 09/13/19 12:21 Abnormal lab findings: Abnormal Labs 09/13/19 09/13/19 10:24 10:24 RBC 6.45 H Hgb 20.1 H* Hct 64.1 H* RDW 16.2 H Sodium 133 L Chloride 95 L Carbon Dioxide 32 H Glucose 103 H ALT 93 H - Diagnostic Findings Chest x-ray: image reviewed Assessment and Plan Plan: 1 COPD exacerbation with secondary shortness of breath.. The patient was assessed as for an acute COPD exacerbation. His course was Again by intubation mechanical ventilation. He ultimately recovered and he was discharged home and his follow-up spirometry in the office showed an FEV1 of 34% of predicted consistent with severe obstructive airway limitation. His chest x-ray was showing resolution of the previously described left lower lobe pneumonia. He w as extensively counseled for smoking cessation. He was back smoking cigarettes as usual. He was chronic hypoxic. He was gradually improving his oxygenation and was up to 89-90% on room air at rest 2 acute on chronic hypoxic respiratory failure 3 acute rash/hives as the patient has developed an itchy rash mostly located in the left , likely ALLERGIC in nature 4 upper extremity and right lower extremity secondary pulmonary hypertension related to advanced COPD 5 smoker 6 marijuana user 7 hypertension 8 alcoholism 9 obesity Plan DuoNeb nebulized treatments around the clock IV Solu-Medrol, and may use Benadryl if needed Resume home medications Smoking cessation counseling Home O2 We'll continue to follow
[2019-09-13 17:03] LABS: Appearance,Urine Clear (Clear); Bilirubin,Urine Negative (Negative); Blood,Urine Negative (Negative); Color,Urine Colorless; Glucose,Urine (UA) Negative (Negative); Ketones,Urine Negative (Negative); Leukocyte Esterase,Urine Negative (Negative); Nitrite,Urine Negative (Negative); PH, Urine 6.5 (5.0-8.0); Protein,Urine Negative (Negative); Specific Gravity,Urine 1.005 (1.001-1.035); Urobilinogen,Urine <2.0 mg/dL (<2.0)
--- NOTE | 2019-09-13 17:03 | HP ---
HISTORY AND PHYSICAL DATE OF SERVICE: 09/13/2019 HISTORY OF PRESENT ILLNESS: This is a 44-year-old gentleman with a past medical history of multiple medical problems being followed by Dr. Omalley in the outpatient setting. Also had a past medical history of COPD, history of CHF, history of hypertension, history of seizure disorder. The patient was recently admitted to [facility] with acute respiratory failure, patient mechanically ventilated. Patient was paralyzed. The patient also reports some seizure at that time. Patient improved significantly. The patient went home. Now currently the patient is complaining of increased shortness of breath, low oxygen and also was complaining of significant rash and itchy rash, especially both lower limbs, on the left more than the right and as well as the trunk also. There is no history of fever, rigors, chills. No history of headache, loss of consciousness, or seizures at this time. PAST MEDICAL HISTORY: History of CHF, history of GERD, hypertension, pneumonia, seizure disorder, history of DJD. MEDICATIONS: Prior to admission include Lotrel 5/20 p.o. b.i.d., vitamin B1 one hundred mg. p.o. daily, Prilosec 20 mg p.o. b.i.d., DuoNeb q.i.d.., folic acid 1 mg daily. ALLERGIES: AMELIA-D. FAMILY HISTORY: History of hypertension, cancer. SOCIAL HISTORY: History of smoking, continued ongoing and history of alcohol per chart. REVIEW OF SYSTEMS: ENT: No diminished hearing or vision. CARDIOVASCULAR SYSTEM: No angina or palpitation. RESPIRATORY: As mentioned earlier. GI: No nausea. : No dysuria. NERVOUS SYSTEM: No numbness. MUSCULOSKELETAL: As mentioned. ALLERGY/IMMUNOLOGY: No asthma or hayfever. HEMATOLOGY: No anemia. ENDOCRINE: No history of diabetes or hypothyroidism. CONSTITUTIONAL: As mentioned earlier. DERMATOLOGY: Negative. PSYCHIATRY: As mentioned earlier. PHYSICAL EXAMINATION: Alert and oriented x3, pulse is 91, blood pressure 108/68, respiration 20, temperature is normal, pulse ox 93% on 2 L. HEENT: Conjunctivae normal. Oral mucosa moist. NECK: No jugular venous distention. No lymph node enlargement. CARDIOVASCULAR SYSTEM: S1, S2, muffled. RESPIRATION: Breath sounds diminished at the bases, bilateral scattered rhonchi, no crackles. ABDOMEN: Soft, nontender. No mass palpable. LEGS: No edema, no swelling. NERVOUS SYSTEM: As mentioned earlier. Moves all 4 limbs, no motor or sensory deficits. SKIN: No ulcer, no rash. JOINTS: No active deformity or arthropathy. LABS: WBC 7, hemoglobin is 20. Sodium is 133, NT proBNP not available. ASSESSMENT: 1. Shortness of breath, multifactorial. 2. COPD acute exacerbation as well as congestive heart failure acute exacerbation. 3. Possible acute distress pneumonia, rule out COVID-19. 4. Hyponatremia. 5. Polycythemia. 6. History of recent acute hypoxic respiratory failure secondary to COPD. 7. History of CHF, ejection fraction unknown. 8. GERD. 9. Hypertension. 10.History of pneumonia. 11.Seizure disorder. 12.History of gastrointestinal bleed. 13.History of EtOH. 14.History of nicotine dependence. 15.History of THC. 16.Moderate pulmonary hypertension. 17.Supratentorial lesion report in the CAT scan, MRI recommended outpatient. 18.History of sleep apnea. 19.History of gastroesophageal reflux disease. 20.Obesity with body mass index of 36.8. 21.FULL CODE. RECOMMENDATION: In this 44-year-old gentleman who presented with multiple complex medical issues, will monitor the patient closely, continue with the current management and symptomatic treatment. Initiate broad-spectrum IV antibiotics, empiric bronchodilators, steroids, diuretics. Check BNP. Consult Pulmonary: Test COVID-19. Prognosis guarded because of multiple complex medical issues. Further recommendations to follow. A copy of this forwarded to Dr. Omalley who is the primary physician. MMODL / IJN: [id number] /
[2019-09-13 17:04] LABS: Glucose,Whole Blood 147 mg/dL (75-99)
[2019-09-13] MEDS: methylPREDNISolone SOD SUCCI 125 MG/2 ML VIAL IV SCH ×2 (17:20→23:12)
[2019-09-13] MEDS: INSULIN ASPART (NovoLOG) 100 UNIT/ML VIAL SQ SCH ×2 (17:20→20:56)
[2019-09-13] MEDS: amLODIPine 5 MG TAB PO SCH (20:34)
[2019-09-13] MEDS: lisinopriL 20 MG TAB PO SCH (20:34)
[2019-09-13] MEDS: HEPARIN SODIUM,PORCINE 5,000 UNIT/ML 1 ML VIAL SQ SCH (20:34)
[2019-09-13 20:43] LABS: Glucose,Whole Blood 238 mg/dL (75-99)
[2019-09-14] MEDS: methylPREDNISolone SOD SUCCI 125 MG/2 ML VIAL IV SCH (06:13)
[2019-09-14 06:17] LABS: Glucose,Whole Blood 163 mg/dL (75-99)
[2019-09-14 07:18] LABS: Anisocytosis Slight; Basophils % (A) 0 %; Eosinophils % (A) 0 %; HGB 18.2 gm/dL (13.0-17.5); Lymphocytes % (A) 9 %; MCH 30.5 pg (25.0-35.0); MCHC 30.7 g/dL (31.0-37.0); MCV 99.3 fL (80.0-100.0); Macrocytosis Slight; Mean Platelet Volume 6.8; Monocytes # (A) 0.2 k/uL (0-1.0); Monocytes % (A) 2 %; Neutrophils # (A) 9.8 k/uL (1.3-7.7); Neutrophils % (A) 88 %; Platelet Count 214 k/uL (150-450); RBC 5.97 m/uL (4.30-5.90); RDW 16.1 % (11.5-15.5); WBC 11.1 k/uL (3.8-10.6)
[2019-09-14 07:19] LABS: HCT 59.2 % (39.0-53.0)
[2019-09-14 07:35] LABS: ALT 64 U/L (4-49); AST 24 U/L (17-59); African American GFR (CKD) >90 (>60 ml/min/1.73 sqM); Albumin 3.8 g/dL (3.5-5.0); Alkaline Phosphatase 51 U/L (38-126); Anion Gap 6 mmol/L; Blood Urea Nitrogen 22 mg/dL (9-20); Calcium 9.5 mg/dL (8.4-10.2); Carbon Dioxide 32 mmol/L (22-30); Chloride 96 mmol/L (98-107); Glucose 142 mg/dL (74-99); Non-African American GFR(CKD) >90 (>60 ml/min/1.73 sqM); Potassium 5.2 mmol/L (3.5-5.1); Sodium 134 mmol/L (137-145); Total Bilirubin 0.6 mg/dL (0.2-1.3); Total Protein 6.1 g/dL (6.3-8.2)
[2019-09-14] MEDS: IPRATROPIUM-ALBUTEROL 3 ML NEB INHALATION SCH ×4 (07:47→21:46)
[2019-09-14] MEDS: HEPARIN SODIUM,PORCINE 5,000 UNIT/ML 1 ML VIAL SQ SCH ×2 (08:14→22:29)
[2019-09-14] MEDS: FUROSEMIDE 10 MG/ML 4 ML VIAL IV SCH (08:14)
[2019-09-14] MEDS: INSULIN ASPART (NovoLOG) 100 UNIT/ML VIAL SQ SCH ×3 (08:14→17:03)
[2019-09-14] MEDS: THIAMINE 100 MG TAB PO SCH (08:15)
[2019-09-14] MEDS: lisinopriL 20 MG TAB PO SCH ×2 (08:15→22:29)
[2019-09-14] MEDS: amLODIPine 5 MG TAB PO SCH ×2 (08:15→22:29)
[2019-09-14] MEDS: FOLIC ACID 1 MG TAB PO SCH (08:15)
[2019-09-14] MEDS: PANTOPRAZOLE 40 MG TABLET PO SCH (08:15)
[2019-09-14] MEDS: MULTIVITAMINS, THERA 1 EACH TAB PO SCH (08:15)
--- NOTE | 2019-09-14 11:24 | P.PN ---
Subjective Progress Note Date: 09/14/19 This is a 44-year-old male patient with known history of COPD. The patient came into the emergency department because of worsening shortness of breath and some hives. The patient was having difficulties in breathing. He was seen in our office yesterday by my partner and the patient was asked to quit smoking knowing that he was back smoking cigarettes following his most recent hospitalization at was complicated by respiratory failure. The patient was having increased cough and wheezing and shortness of breath. His FEV1 was in the order of 34% of predicted. His pulse ox was in the order of 89% of predicted. His chest x-ray showed no acute pneumonia and a previous left lower lobe pneumonia recovered. However, the patient's condition got worse and upcoming taken to the hospital for further treatment and he was Hospital as for an acute COPD exacerbation.. Also, the patient developed a rash in the left upper extremity and right lower extremity which seems to be an erythematous ALLERGIC reaction and the exact cause is not clear. The area is quite erythematous and pruritic. Typical of hives. Note that I had an opportunity to meet and treat in the hospital for respiratory failure. He was in the hospital between 08/21/2019 and he was discharged home on 08/28/2019. The patient's is known to have COPD. He came into the hospital because of acute hypercapnic and hypoxic respiratory failure. He had to be immediately intubated and placed on a mechanical ventilator. Note that he has significant elevation of his hemoglobin that was suggestive of chronic hypoxemia and secondary erythrocytosis. He also had hypercapnic respiratory failure with chronic metabolic alkalosis consistent with chronic hypercapnic respiratory failure. During the course of his illness, the patient tested negative for COVID 19 infection. I was aware that the patient was a heavy tobacco smoker approximately one pack of cigars a day and he also smokes weed and drank alcohol excessively. I noted that he did have some early signs of delirium tremens and was difficult to sedate him on the respirator. Ultimately all these things settle down and he was gradually weaned off the mechanical ventilator and he was extubated successfully. He was discharged home on oxygen and we are in the process of gradually weaning him off the oxygen. He tells that his pulse oxas stated above 92% even on room air. He is feeling much better. He was gradually regaining his strength. He has not gone to work yet. Unfortunately, he has smoked cigarettes. He is not drinking alcohol for now. He is not smoking weed for now. The patient's had an echo in the hospital that showed an ejection fraction of 55-60%. He had moderate pulmonary hypertension on the echocardiogram with an estimated PA pressure of 54. His hemoglobin is at 19.9 at time of discharge. I checked his JAK2 occasions status that came back negative. The matt beal also had MRI of the brain at a time of his hospitalization and this came back negative. Time of discharge, he was given a prednisone burst taper and was also given DuoNeb nebulized treatments to use 4 times a day. 09/14/2019, I'm seeing the patient for a follow-up. Doing well. No shortness of breath. The rash has near completely subsided on IV Solu-Medrol. No significant cough sputum production chest that is so wheezing. The pulse ox on room air is 91%. No altered mentation. No other side effects related to the treatment. No itching. No tongue swelling. No throat swelling. Objective - Vital Signs Vital signs: Vital Signs Temp 98 F 09/14/19 09:00 Pulse 76 09/14/19 10:54 Resp 16 09/14/19 09:00 BP 135/88 09/14/19 09:00 Pulse Ox 91 L 09/14/19 09:00 Intake & Output 09/13/19 09/14/19 09/14/19 18:59 06:59 18:59 Weight 103.419 kg Other: Voiding Method Toilet # Voids 1 - Exam The patient appeared well nourished and normally developed. Vital signs as documented. Head exam is unremarkable. No scleral icterus or corneal arcus noted. Neck is without jugular venous distension, thyromegaly, or carotid bruits. Carotid upstrokes are brisk bilaterally. Lungs are diminished breath sounds bilaterally along with some few scattered expiratory wheezes Cardiac exam reveals the PMI to be normally sized and situated. Rhythm is regular. First and second heart sounds normal. No murmurs, rubs or gallops. Abdominal exam reveals normal bowel sounds, no masses, no organomegaly and no aortic enlargement. Extremities are nonedematous and both femoral and pedal pulses are normal.Examination of the skin revealed no evidence of significant rashes, suspicious appearing nevi or other concerning lesions.Neurologically, the patient is awake and alert and the patient does not have any focal neurological deficit. Cranial nerves are essentially intact. - Labs CBC & Chem 7: 09/14/19 06:50 09/14/19 06:50 Labs: Abnormal Lab Results - Last 24 Hours (Table) 09/13/19 09/13/19 09/13/19 Range/Units 10:24 17:01 20:37 WBC (3.8-10.6) k/uL RBC 6.45 H (4.30-5.90) m/uL Hgb 20.1 H* (13.0-17.5) gm/dL Hct 64.1 H* (39.0-53.0) % MCHC (31.0-37.0) g/dL RDW 16.2 H (11.5-15.5) % Neutrophils # (1.3-7.7) k/uL Sodium (137-145) mmol/L Potassium (3.5-5.1) mmol/L Chloride (98-107) mmol/L Carbon Dioxide (22-30) mmol/L BUN (9-20) mg/dL Creatinine (0.66-1.25) mg/dL Glucose (74-99) mg/dL POC Glucose (mg/dL) 147 H 238 H (75-99) mg/dL ALT (4-49) U/L Total Protein (6.3-8.2) g/dL 09/14/19 09/14/19 09/14/19 Range/Units 06:12 06:50 06:50 WBC 11.1 H (3.8-10.6) k/uL RBC 5.97 H (4.30-5.90) m/uL Hgb 18.2 H (13.0-17.5) gm/dL Hct 59.2 H* (39.0-53.0) % MCHC 30.7 L (31.0-37.0) g/dL RDW 16.1 H (11.5-15.5) % Neutrophils # 9.8 H (1.3-7.7) k/uL Sodium 134 L (137-145) mmol/L Potassium 5.2 H (3.5-5.1) mmol/L Chloride 96 L (98-107) mmol/L Carbon Dioxide 32 H (22-30) mmol/L BUN 22 H (9-20) mg/dL Creatinine 0.47 L (0.66-1.25) mg/dL Glucose 142 H (74-99) mg/dL POC Glucose (mg/dL) 163 H (75-99) mg/dL ALT 64 H (4-49) U/L Total Protein 6.1 L (6.3-8.2) g/dL Assessment and Plan Plan: 1 COPD exacerbation with secondary shortness of breath.. The patient was assessed as for an acute COPD exacerbation. His course was Again by intubation mechanical ventilation. He ultimately recovered and he was discharged home and his follow-up spirometry in the office showed an FEV1 of 34% of predicted consistent with severe obstructive airway limitation. His chest x-ray was showing resolution of the previously described left lower lobe pneumonia. He was extensively counseled for smoking cessation. He was back smoking cigarettes as usual. He was chronic hypoxic. He was gradually improving his oxygenation and was up to 89-90% on room air at rest 2 acute on chronic hypoxic respiratory failure, stable, improving 3 acute rash/hives as the patient has developed an itchy rash mostly located in the left , likely ALLERGIC in nature, improved with IV Solu-Medrol 4 upper extremity and right lower extremity secondary pulmonary hypertension related to advanced COPD 5 smoker 6 marijuana user 7 hypertension 8 alcoholism 9 obesity Plan DuoNeb nebulized treatments around the clock Switch this patient a prednisone burst taper Resume home medications, and consider the possibility of lisinopril causing this ALLERGIC rash. This is somebody that needs to be washed for Smoking cessation counseling Home O2 Possible discharge today.
[2019-09-14 11:43] LABS: Glucose,Whole Blood 137 mg/dL (75-99)
[2019-09-14] MEDS: predniSONE 20 MG TAB PO SCH (12:14)
[2019-09-14] MEDS: SODIUM CHLORIDE 0.9% 1,000 ML IV SCH (12:15)
[2019-09-14 16:31] LABS: Glucose,Whole Blood 156 mg/dL (75-99)
--- NOTE | 2019-09-14 16:38 | PN ---
PROGRESS NOTE DATE OF SERVICE: 09/14/2019 This 44-year-old gentleman who was admitted with shortness of breath which was multifactorial and COPD, acute exacerbation, as well as possible interstitial pneumonia is being closely monitored. No chest pain. No palpitations. No fever. PHYSICAL EXAMINATION: Alert and oriented x3. Pulse is 100, blood pressure 121/77, respiration 14, temperature 98.6, pulse ox 86% on room air. HEENT: Conjunctivae normal. NECK: No jugular venous distention. CARDIOVASCULAR SYSTEM: S1, S2 muffled. RESPIRATORY SYSTEM: Breath sounds diminished at the bases. A few scattered rhonchi and crackles. ABDOMEN: Soft, non-tender. LEGS: No edema. No swelling. NERVOUS SYSTEM: No focal deficit. LABS: WBC 11.1 and hemoglobin 18.2, sodium 132, potassium 5.2. ASSESSMENT: 1. Shortness of breath, possibly multifactorial, with chronic obstructive pulmonary disease, acute exacerbation, as well as congestive heart failure, acute exacerbation. 2. Possible acute interstitial pneumonia. Rule out COVID-19. 3. Congestive heart failure, acute exacerbation, with acute on chronic diastolic dysfunction; ejection fraction 55% to 60%. 4. Hyponatremia. 5. Polycythemia. 6. History of recent acute hypoxic respiratory failure secondary to chronic obstructive pulmonary disease. 7. History of congestive heart failure; ejection fraction unknown. 8. Gastroesophageal reflux disease. 9. Hypertension. 10.History of pneumonia. 11.History of seizure disorder. 12.History of gastrointestinal bleed. 13.History of ETOH. 14.History of nicotine dependence. 15.History of tetrahydrocannabinol. 16.Moderate pulmonary hypertension. 17.Supratentorial lesion reported on the CT scan. MRI recommended as an outpatient. 18.History of sleep apnea. 19.History of gastroesophageal reflux disease. 20.Obesity with body mass index of 36.8. 21.FULL CODE. RECOMMENDATIONS AND DISCUSSION: I recommend to continue current medications, continue with the monitoring, symptomatic treatment. Continue with the bronchodilators. Continue with the steroids and empiric antibiotics. A 2D echo with Doppler which was done last month showed ejection fraction about 55% to 60%. Once again, the prognosis is guarded because of multiple complex medical issues. Further recommendations to follow. Will continue the diuretics and will repeat a chest x-ray tomorrow. MMODL / IJN: [id number] /
[2019-09-14 22:28] VITALS: RESP 18
[2019-09-15 06:55] LABS: Basophils % (A) 0 %; Eosinophils # (A) 0.2 k/uL (0-0.7); Eosinophils % (A) 1 %; HGB 18.9 gm/dL (13.0-17.5); Lymphocytes # (A) 1.8 k/uL (1.0-4.8); Lymphocytes % (A) 12 %; MCHC 31.4 g/dL (31.0-37.0); MCV 98.7 fL (80.0-100.0); Macrocytosis Slight; Mean Platelet Volume 6.8; Monocytes # (A) 0.7 k/uL (0-1.0); Monocytes % (A) 4 %; Neutrophils # (A) 12.1 k/uL (1.3-7.7); Neutrophils % (A) 81 %; Platelet Count 238 k/uL (150-450); RBC 6.09 m/uL (4.30-5.90); RDW 15.9 % (11.5-15.5); WBC 14.9 k/uL (3.8-10.6)
[2019-09-15 06:56] LABS: HCT 60.2 % (39.0-53.0)
--- NOTE | 2019-09-15 07:09 | XR ---
EXAMINATION TYPE: XR chest 1V portable DATE OF EXAM: 09/15/2019 COMPARISON: 09/13/2019 HISTORY: Difficulty breathing TECHNIQUE: Single frontal view of the chest is obtained. FINDINGS: Bilateral subsegmental consolidation at the lung bases with no overt failure or pneumothor ax. Heart size within normal limits. Cannot exclude a degree of underlying COPD. IMPRESSION: Bibasilar subsegmental atelectasis or early infiltrate correlate clinically.
[2019-09-15 07:23] LABS: ALT 56 U/L (4-49); AST 22 U/L (17-59); African American GFR (CKD) >90 (>60 ml/min/1.73 sqM); Albumin 3.9 g/dL (3.5-5.0); Alkaline Phosphatase 49 U/L (38-126); Anion Gap 5 mmol/L; Blood Urea Nitrogen 24 mg/dL (9-20); Calcium 9.5 mg/dL (8.4-10.2); Carbon Dioxide 31 mmol/L (22-30); Chloride 101 mmol/L (98-107); Glucose 96 mg/dL (74-99); Non-African American GFR(CKD) >90 (>60 ml/min/1.73 sqM); Potassium 4.3 mmol/L (3.5-5.1); Sodium 137 mmol/L (137-145); Total Bilirubin 0.7 mg/dL (0.2-1.3); Total Protein 6.3 g/dL (6.3-8.2)
[2019-09-15] MEDS: IPRATROPIUM-ALBUTEROL 3 ML NEB INHALATION SCH ×2 (07:52→11:15)
[2019-09-15] MEDS: THIAMINE 100 MG TAB PO SCH (08:54)
[2019-09-15] MEDS: amLODIPine 5 MG TAB PO SCH (08:54)
[2019-09-15] MEDS: lisinopriL 20 MG TAB PO SCH (08:54)
[2019-09-15] MEDS: MULTIVITAMINS, THERA 1 EACH TAB PO SCH (08:54)
[2019-09-15] MEDS: predniSONE 20 MG TAB PO SCH (08:55)
[2019-09-15] MEDS: FOLIC ACID 1 MG TAB PO SCH (08:55)
[2019-09-15] MEDS: HEPARIN SODIUM,PORCINE 5,000 UNIT/ML 1 ML VIAL SQ SCH (08:55)
[2019-09-15] MEDS: FUROSEMIDE 10 MG/ML 4 ML VIAL IV SCH (08:55)
[2019-09-15] MEDS: PANTOPRAZOLE 40 MG TABLET PO SCH (08:55)
[2019-09-15 10:42] VITALS: BP 136/91; TEMP 98.2
[2019-09-15 11:26] VITALS: PULSE 96
--- NOTE | 2019-09-15 11:47 | P.PN ---
Subjective Progress Note Date: 09/15/19 This is a 44-year-old male patient with known history of COPD. The patient came into the emergency department because of worsening shortness of breath and some hives. The patient was having difficulties in breathing. He was seen in our office yesterday by my partner and the patient was asked to quit smoking knowing that he was back smoking cigarettes following his most recent hospitalization at was complicated by respiratory failure. The patient was having increased cough and wheezing and shortness of breath. His FEV1 was in the order of 34% of predicted. His pulse ox was in the order of 89% of predicted. His chest x-ray showed no acute pneumonia and a previous left lower lobe pneumonia recovered. However, the patient's condition got worse and upcoming taken to the hospital for further treatment and he was Hospital as for an acute COPD exacerbation.. Also, the patient developed a rash in the left upper extremity and right lower extremity which seems to be an erythematous ALLERGIC reaction and the exact cause is not clear. The area is quite erythematous and pruritic. Typical of hives. Note that I had an opportunity to meet and treat in the hospital for respiratory failure. He was in the hospital between 08/21/2019 and he was discharged home on 08/28/2019. The patient's is known to have COPD. He came into the hospital because of acute hypercapnic and hypoxic respiratory failure. He had to be immediately intubated and placed on a mechanical ventilator. Note that he has significant elevation of his hemoglobin that was suggestive of chronic hypoxemia and secondary erythrocytosis. He also had hypercapnic respiratory failure with chronic metabolic alkalosis consistent with chronic hypercapnic respiratory failure. During the course of his illness, the patient tested negative for COVID 19 infection. I was aware that the patient was a heavy tobacco smoker approximately one pack of cigars a day and he also smokes weed and drank alcohol excessively. I noted that he did have some early signs of delirium tremens and was difficult to sedate him on the respirator. Ultimately all these things settle down and he was gradually weaned off the mechanical ventilator and he was extubated successfully. He was discharged home on oxygen and we are in the process of gradually weaning him off the oxygen. He tells that his pulse oxas stated above 92% even on room air. He is feeling much better. He was gradually regaining his strength. He has not gone to work yet. Unfortunately, he has smoked cigarettes. He is not drinking alcohol for now. He is not smoking weed for now. The patient's had an echo in the hospital that showed an ejection fraction of 55-60%. He had moderate pulmonary hypertension on the echocardiogram with an estimated PA pressure of 54. His hemoglobin is at 19.9 at time of discharge. I checked his JAK2 occasions status that came back negative. The matt beal also had MRI of the brain at a time of his hospitalization and this came back negative. Time of discharge, he was given a prednisone burst taper and was also given DuoNeb nebulized treatments to use 4 times a day. 09/14/2019, I'm seeing the patient for a follow-up. Doing well. No shortness of breath. The rash has near completely subsided on IV Solu-Medrol. No significant cough sputum production chest that is so wheezing. The pulse ox on room air is 91%. No altered mentation. No other side effects related to the treatment. No itching. No tongue swelling. No throat swelling. 09/15/2019, the patient is doing extremely well. No specific complaints. Pulse ox is ranging between 91-90% on room air. He is on a prednisone burst taper. Rashes subsided. No other significant events. Discharge planning is in progress. Objective - Vital Signs Vital signs: Vital Signs Temp 98.2 F 09/15/19 09:00 Pulse 106 H 09/15/19 09:00 Resp 18 09/15/19 09:00 BP 136/91 09/15/19 09:00 Pulse Ox 93 L 09/15/19 09:00 Intake & Output 09/14/19 09/15/19 09/15/19 18:59 06:59 18:59 Intake Total 120 Balance 120 Intake: Intake, IV Titration 120 Amount Sodium Chloride 0.9% 1, 120 000 ml @ 20 mls/hr IV . Q24H DUANE Rx#:[id number] Other: Voiding Method Toilet # Voids 1 - Exam The patient appeared well nourished and normally developed. Vital signs as documented. Head exam is unremarkable. No scleral icterus or corneal arcus noted. Neck is without jugular venous distension, thyromegaly, or carotid bruits. Carotid upstrokes are brisk bilaterally. Lungs are diminished breath sounds bilaterally along with some few scattered expiratory wheezes Cardiac exam reveals the PMI to be normally sized and situated. Rhythm is regular. First and second heart sounds normal. No murmurs, rubs or gallops. Abdominal exam reveals normal bowel sounds, no masses, no organomegaly and no aortic enlargement. Extremities are nonedematous and both femoral and pedal pulses are normal.Examination of the skin revealed no evidence of significant rashes, suspicious appearing nevi or other concerning lesions.Neurologically, the patient is awake and alert and the patient does not have any focal neurological deficit. Cranial nerves are essentially intact. - Labs CBC & Chem 7: 09/15/19 06:43 09/15/19 06:43 Labs: Abnormal Lab Results - Last 24 Hours (Table) 09/14/19 09/14/19 09/15/19 Range/Units 11:40 16:28 06:43 WBC 14.9 H (3.8-10.6) k/uL RBC 6.09 H (4.30-5.90) m/uL Hgb 18.9 H (13.0-17.5) gm/dL Hct 60.2 H* (39.0-53.0) % RDW 15.9 H (11.5-15.5) % Neutrophils # 12.1 H (1.3-7.7) k/uL Carbon Dioxide (22-30) mmol/L BUN (9-20) mg/dL Creatinine (0.66-1.25) mg/dL POC Glucose (mg/dL) 137 H 156 H (75-99) mg/dL ALT (4-49) U/L 09/15/19 Range/Units 06:43 WBC (3.8-10.6) k/uL RBC (4.30-5.90) m/uL Hgb (13.0-17.5) gm/dL Hct (39.0-53.0) % RDW (11.5-15.5) % Neutrophils # (1.3-7.7) k/uL Carbon Dioxide 31 H (22-30) mmol/L BUN 24 H (9-20) mg/dL Creatinine 0.49 L (0.66-1.25) mg/dL POC Glucose (mg/dL) (75-99) mg/dL ALT 56 H (4-49) U/L Microbiology - Last 24 Hours (Table) 09/13/19 10:24 Blood Culture - Preliminary Blood No Growth after 24 hours Assessment and Plan Plan: 1 COPD exacerbation with secondary shortness of breath.. The patient was assessed as for an acute COPD exacerbation. His course was Again by intubation mechanical ventilation. He ultimately recovered and he was discharged home and his follow-up spirometry in the office showed an FEV1 of 34% of predicted consistent with severe obstructive airway limitation. His chest x-ray was showing resolution of the previously described left lower lobe pneumonia. He was extensively counseled for smoking cessation. He was back smoking cigarettes as usual. He was chronic hypoxic. He was gradually improving his oxygenation and was up to 91-93% at room air during rest 2 acute on chronic hypoxic respiratory failure, stable, improving 3 acute rash/hives as the patient has developed an itchy rash mostly located in the left , likely ALLERGIC in nature, improved with IV Solu-Medrol and the patient has been switched to oral prednisone burst taper 4 upper extremity and right lower extremity secondary pulmonary hypertension related to advanced COPD 5 smoker 6 marijuana user 7 hypertension 8 alcoholism 9 obesity Plan DuoNeb nebulized treatments around the clock Complete the course of a prednisone burst taper Resume home medications, and consider the possibility of lisinopril causing this ALLERGIC rash. This is somebody that needs to be washed for Smoking cessation counseling Home O2 especially with activity and getting sleep discharge today.
--- NOTE | 2019-09-16 10:21 | P.DS ---
Providers Date of admission: 09/13/19 12:25 Expected date of discharge: 09/15/19 Attending physician: Durga Omalley Consults: 09/13/19 13:54 Consult Physician Routine Consulting Provider: Alphonse Fish Consult Reason/Comments: copd Do you want consulting provider notified?: Yes Primary care physician: Durga Omalley [facility] Course: Final diagnosis Shortness of breath, possibly mulifactorial, with COPD, acute exacerbation, as well as congestive heart failure acute exacerbation Possible acute interstitial pneumonia, ruled out Covid 19, testing was negative Congestive heart failure, acute exacerbation, with acute on chronic diastolic dysfunction, ejection fraction 55-60% Hyponatremia polycythemia History of recent acute hypoxic respiratory failure secondary to COPD History of CHF GERD hypertension History of pneumonia History of seizure disorder History of GI bleed History of ETOH History of nicotine dependence History of THC use History of sleep apnea Moderate pulmonary hypertension Supratentorial lesion reported on CT, recommend outpatient MRI Obesity with a BMI of 36.8 Full code Discharge disposition Patient is being discharged in a stable condition with guarded prognosis to home. Patient will follow-up with Dr. Omalley upon discharge. Patient also instructed to follow up with Dr. Fish in the outpatient setting. Patient will continue on a prednisone taper. Total time taken is greater than 35 minutes. History of present illness This is a 44-year-old male who was recently admitted with shortness of breath, multifactorial and COPD acute exacerbation and was being closely monitored. Patient was also noted to have possible interstitial pneumonia. Patient was evaluated by pulmonary and maintained on IV steroids that were transitioned to oral prednisone and breathing inhalational treatments. Patient was also maintained on IV lasix. Patient will follow up with pulmonary in the outpatient setting. Covid 19 testing was negative. Currently no reports of chest pain, palpitations, or worsening shortness of breath. Patient is afebrile. No reports of nausea or vomiting and patient is tolerating diet. On exam vital signs are stable. Temp is 98.2F, pulse is 106, respirations are 18, blood pressure 136/91, oxygen saturation is 93% on room air. Cardio S1, S2 are present. Respiratory shows diminished breath sounds at the bases with some mild expiratory wheezing noted. Abdomen is soft and nontender. Nervous system shows no focal deficits. Please refer to medication reconciliation sheet for a list of medications. Patient Condition at Discharge: Fair Plan - Discharge Summary Discharge Rx Participant: No New Discharge Prescriptions: New Ipratropium-Albuterol Nebulize [Duoneb 0.5 mg-3 mg/3 ml Soln] 3 ml INHALATION RT-QID PRN ml PRN Reason: Shortness Of Breath Or Wheezing predniSONE 10 mg PO DIRECTED #30 tab Continue amLODIPine BESYLATE/BENAZEPRIL [Lotrel 5-20 MG] 1 cap PO BID Folic Acid 1 mg PO DAILY #30 tablet Multivitamins, Thera [Multivitamin (formulary)] 1 tab PO DAILY #30 tablet Thiamine [Vitamin B-1] 100 mg PO DAILY #30 tab Omeprazole [PriLOSEC] 20 mg PO AC-BID #60 cap Ipratropium-Albuterol Nebulize [Duoneb 0.5 mg-3 mg/3 ml Soln] 3 ml INHALATION RT-QID Discharge Medication List amLODIPine BESYLATE/BENAZEPRIL [Lotrel 5-20 MG] 1 cap PO BID 01/27/17 [History] Folic Acid 1 mg PO DAILY #30 tablet 08/28/19 [Rx] Multivitamins, Thera [Multivitamin (formulary)] 1 tab PO DAILY #30 tablet 08/28/19 [Rx] Omeprazole [PriLOSEC] 20 mg PO AC-BID #60 cap 08/28/19 [Rx] Thiamine [Vitamin B-1] 100 mg PO DAILY #30 tab 08/28/19 [Rx] Ipratropium-Albuterol Nebulize [Duoneb 0.5 mg-3 mg/3 ml Soln] 3 ml INHALATION RT-QID 09/13/19 [History] Ipratropium-Albuterol Nebulize [Duoneb 0.5 mg-3 mg/3 ml Soln] 3 ml INHALATION RT-QID PRN ml 09/15/19 [Rx] predniSONE 10 mg PO DIRECTED #30 tab 09/15/19 [Rx] Follow up Appointment(s)/Referral(s): Durga Omalley DO [Primary Care Provider] - 1-2 days Alphonse Fish MD [STAFF PHYSICIAN] - 2 Weeks Patient Instructions/Handouts: COPD (Chronic Obstructive Pulmonary Disease) (GEN), Chronic Lung Disease and Infection Prevention (GEN) Activity/Diet/Wound Care/Special Instructions: Activity limited until follow up follow up with primary care provider upon discharge follow up with pulmonary continue with prednisone taper Discharge Disposition: HOME SELF-CARE
== END 2019-09-15 12:17 | disposition home or self-care (01) ==
LOC: EC 09:43 → 1SOBS 12:25
PROVIDERS: ADMIT Family Medicine; ATTEND Family Medicine
DX: J44.1 Chronic obstructive pulmonary disease with (acute) exacerbation (principal); I50.33 Acute on chronic diastolic (congestive) heart failure; E87.1 Hypo-osmolality and hyponatremia; L50.9 Urticaria, unspecified; D75.1 Secondary polycythemia; R91.8 Other nonspecific abnormal finding of lung field; K21.9 Gastro-esophageal reflux disease without esophagitis; I11.0 Hypertensive heart disease with heart failure; I27.20 Pulmonary hypertension, unspecified; G93.9 Disorder of brain, unspecified; J96.21 Acute and chronic respiratory failure with hypoxia; F10.20 Alcohol dependence, uncomplicated; E66.9 Obesity, unspecified; F17.290 Nicotine dependence, other tobacco product, uncomplicated; F17.210 Nicotine dependence, cigarettes, uncomplicated; M19.90 Unspecified osteoarthritis, unspecified site; Z68.36 Body mass index [BMI] 36.0-36.9, adult; Z20.828 Contact with and (suspected) exposure to other viral communicable diseases; Z79.899 Other long term (current) drug therapy; Z88.8 Allergy status to other drugs, medicaments and biological substances; Z87.01 Personal history of pneumonia (recurrent); Z86.69 Personal history of other diseases of the nervous system and sense organs; Z87.19 Personal history of other diseases of the digestive system; Z98.890 Other specified postprocedural states; Z87.09 Personal history of other diseases of the respiratory system; Z86.010 Personal history of colon polyps; Z82.49 Family history of ischemic heart disease and other diseases of the circulatory system; Z80.9 Family history of malignant neoplasm, unspecified; Y90.9 Presence of alcohol in blood, level not specified
CPT/HCPCS: 96372 ×3; 96376 ×3; 96361; 96374; 96375; 99285; 36415; 94640 ×6; 93005; 83880; 80053 ×3; 83605; 84484; 85025 ×3; 85610; 85730; 81003; 87040; 71045; 71046; G0378 ×3; U0003; J1644 ×3; J1940 ×3; J2930 ×2; J0696; J7512 ×2

== ENCOUNTER → 2020-04-23 | Outpatient (CLI) | payer OTHER ==
--- NOTE | 2020-04-23 13:13 | XR ---
EXAMINATION TYPE: XR lumbar spine 2 or 3V DATE OF EXAM: 04/23/2020 COMPARISON: None HISTORY: Pain TECHNIQUE: 3 view lumbar spine FINDINGS: Disc heights are preserved. Vertebral body heights are preserved. Alignment is normal. Ther e are 5 lumbar-type vertebral bodies. The pedicles are intact. IMPRESSION: 1. Normal three-view lumbar spine
== END ==
LOC: RADXRMAIN 12:47
PROVIDERS: ATTEND Family Medicine
DX: M54.5 Low back pain (principal)
CPT/HCPCS: 72100

== ENCOUNTER → 2020-09-21 | Outpatient (CLI) | payer OTHER ==
--- NOTE | 2020-09-22 03:30 | MR ---
EXAMINATION TYPE: MR knee LT wo con DATE OF EXAM: 09/21/2020 COMPARISON: None HISTORY: Prior outside images loaded to PACS, left knee pain, no known injury Multiplanar multiecho imaging of the left knee without contrast. The anterior and posterior cruciate ligaments are intact. There is some spurring at the tibial tuberc le. Fragmentation of the tibial tubercle. There is 3 cm area of increased signal on the proton densit y images involving large area of the medial tibial condyle. This is a patchy distribution. This has c orresponding decreased patchy signal on the T1 images. The medial and lateral menisci appear intact. There is no evidence of a tear. There is very small kne e joint effusion. The patella is intact. There is no evidence of a fracture line. The collateral liga ments appear intact. There is 1 cm area of mixed signal in the posterior aspect of the medial femoral condyle. IMPRESSION: Mixed signal lesion posterior aspect of the medial tibial condyle could relate to bone infarct. No fr acture line seen. Tibial plateau intact. Similar smaller lesion in the posterior aspect of the medial femoral condyle. No evidence of ligamentous or meniscal tear.
== END | disposition home or self-care (01) ==
LOC: RADMRIMAIN 10:41
PROVIDERS: ATTEND Orthopaedic Surgery
DX: M89.8X0 Other specified disorders of bone, multiple sites (principal)

== ENCOUNTER 2022-12-29 19:40 | Inpatient (IN) | payer MEDICARE, OTHER ==
[2022-12-29] MEDS ORDERED: methylPREDNISolone SOD SUCCI 125 MG/2 ML VIAL IV STA (20:07)
[2022-12-29] MEDS ORDERED: IPRATROPIUM 0.5 MG/2.5 ML NEBU INHALATION STA (20:07)
[2022-12-29] MEDS ORDERED: ALBUTEROL NEBULIZED 2.5 MG/3 ML INHALATION STA (20:07)
--- NOTE | 2022-12-29 20:09 | ED ---
SOB HPI - General Chief Complaint: Shortness of Breath Stated Complaint: SOB Time Seen by Provider: 12/29/22 19:43 Source: patient, EMS, RN notes reviewed, old records reviewed Mode of arrival: EMS Limitations: no limitations - History of Present Illness Initial Comments: This is a 47-year-old male to the emergency department for evaluation. Patient presents today for evaluation regards to persistent shortness of breath severe and significant worsening over weeks patient states that his oxygen has been significantly low at home in the 70s breath. MD Complaint: shortness of breath, cough, "asthma attack", anxiety -: week(s) Severity: severe Severity scale (1-10): 10 Consistency: constant Improves With: nothing Worsens With: nothing Known History Of: COPD, asthma Context: recent URI, recent illness Associated Symptoms: cough Treatments Prior to Arrival: none - Related Data Home Medications Medication Instructions Recorded Confirmed amLODIPine BESYLATE/BENAZEPRIL 1 cap PO BID 01/27/17 12/29/22 [Lotrel 5-20 MG] Ipratropium-Albuterol Nebulize 3 ml INHALATION RT-QID 09/13/19 12/29/22 [Duoneb 0.5 mg-3 mg/3 ml Soln] Atorvastatin [Lipitor] 10 mg PO HS 12/29/22 12/29/22 Budesonide/Formoterol Fumarate 2 puff INHALATION RT-BID 12/29/22 12/29/22 [Symbicort 160-4.5 Mcg Inhaler] Furosemide [Lasix] 20 mg PO DAILY 12/29/22 12/29/22 Omeprazole [PriLOSEC] 20 mg PO DAILY 12/29/22 12/29/22 Tiotropium [place] [Spiriva] 18 mcg INHALATION RT-DAILY 12/29/22 12/29/22 Previous Rx's Medication Instructions Recorded Ipratropium-Albuterol Nebulize 3 ml INHALATION RT-QID PRN ml 09/15/19 [Duoneb 0.5 mg-3 mg/3 ml Soln] Allergies Allergy/AdvReac Type Severity Reaction Status Date / Time fexofenadine HCl AdvReac HIGH BP Verified 12/29/22 23:44 [From Molly-D] Penicillins AdvReac Unknown Verified 12/29/22 23:44 pseudoephedrine HCl AdvReac High BP Verified 12/29/22 23:44 [From Molly-Mariajose] Review of Systems ROS Statement: Those systems with pertinent positive or pertinent negative responses have been documented in the HPI. ROS Other: All systems not noted in ROS Statement are negative. Past Medical History Past Medical History: Heart Failure, COPD, GERD/Reflux, GI Bleed, Hypertension, Pneumonia, Respiratory Disorder, Seizure Disorder Additional Past Medical History / Comment(s): Pt recently admitted to [facility] on 08/21 19 with acute on chronic hypoxic/hypercapnic respiratory failure multifa ctoral 2ndary to acute on chronic COPD/possible acute on chronic CHF exacerbation/pneumonia/moderate pulmonary htn/alcohol abuse/pt was vented/breakthrough or alcohol withdrawal seizure/possible DTs/p olycythemia/hypoerkalemia/hyponatremia/supratentorial lesion per cat scan. Other hx: Home oxygen prn during day and wear oxygen with concentrator at HS, past pneumonia, lower GI bleed, seizure once as a child and possible alcohol withdrawal/breakthrough seizure August 2019 admission History of Any Multi-Drug Resistant Organisms: None Reported Past Surgical History: Orthopedic Surgery Additional Past Surgical History / Comment(s): right knee arthroscopy, colonoscopy/benign polypectomy Past Anesthesia/Blood Transfusion Reactions: No Reported Reaction Past Psychological History: No Psychological Hx Reported Smoking Status: Current every day smoker Past Alcohol Use History: None Reported Past Drug Use History: None Reported - Past Family History Mother Family Medical History: Cancer, Hypertension Additional Family Medical History / Comment(s): from ovarian cancer Father Family Medical History: No Reported History Additional Family Medical History / Comment(s): Father is healthy General Exam Limitations: no limitations General appearance: alert, anxious, in distress, obese Head exam: Present: atraumatic, normocephalic, normal inspection Eye exam: Present: normal appearance, PERRL, EOMI. Absent: scleral icterus, conjunctival injection, periorbital swelling ENT exam: Present: normal exam, mucous membranes moist Neck exam: Present: normal inspection. Absent: tenderness, meningismus, lymphadenopathy Respiratory exam: Present: respiratory distress, wheezes, accessory muscle use, decreased breath sounds, prolonged expiratory. Absent: rales, rhonchi, stridor Cardiovascular Exam: Present: regular rate, normal rhythm, normal heart sounds. Absent: systolic murmur, diastolic murmur, rubs, gallop, clicks GI/Abdominal exam: Present: soft, normal bowel sounds. Absent: distended, tenderness, guarding, rebound, rigid Extremities exam: Present: normal inspection, full ROM, normal capillary refill. Absent: tenderness, pedal edema, joint swelling, calf tenderness Back exam: Present: normal inspection Neurological exam: Present: alert, oriented X3, CN II-XII intact Psychiatric exam: Present: normal affect, normal mood Skin exam: Present: warm, dry, intact, normal color. Absent: rash Course Vital Signs 12/29/22 12/29/22 12/29/22 19:41 19:48 20:35 Temperature 98.7 F Pulse Rate 96 90 Pulse Rate [ Pulse Oximetery ] Respiratory 26 H Rate Blood Pressure 117/57 Blood Pressure [Right Arm] O2 Sat by Pulse 90 L 90 L Oximetry Fraction of Inspired Oxygen (FIO2) 12/29/22 12/29/22 12/29/22 20:44 21:00 22:30 Temperature Pulse Rate 87 83 92 Pulse Rate [ Pulse Oximetery ] Respiratory 24 Rate Blood Pressure 99/71 Blood Pressure [Right Arm] O2 Sat by Pulse 89 L Oximetry Fraction of Inspired Oxygen (FIO2) 12/29/22 12/29/22 12/30/22 22:40 23:00 04:00 Temperature 98.8 F Pulse Rate 91 95 89 Pulse Rate [ Pulse Oximetery ] Respiratory 18 20 Rate Blood Pressure 111/73 111/61 Blood Pressure [Right Arm] O2 Sat by Pulse 91 L 92 L Oximetry Fraction of Inspired Oxygen (FIO2) 12/30/22 12/30/22 12/30/22 09:52 11:36 11:49 Temperature Pulse Rate 79 112 H 98 Pulse Rate [ Pulse Oximetery ] Respiratory 18 Rate Blood Pressure 119/65 Blood Pressure [Right Arm] O2 Sat by Pulse 91 L Oximetry Fraction of Inspired Oxygen (FIO2) 12/30/22 12/30/22 12/30/22 12:15 12:19 12:20 Temperature Pulse Rate Pulse Rate [ Pulse Oximetery ] Respiratory Rate Blood Pressure Blood Pressure [Right Arm] O2 Sat by Pulse 82 L Oximetry Fraction of 50 50 Inspired Oxygen (FIO2) 12/30/22 12/30/22 12/30/22 12:27 15:02 15:41 Temperature Pulse Rate 87 88 100 Pulse Rate [ Pulse Oximetery ] Respiratory 18 18 Rate Blood Pressure 104/69 93/59 Blood Pressure [Right Arm] O2 Sat by Pulse 94 L 96 Oximetry Fraction of 50 Inspired Oxygen (FIO2) 12/30/22 12/30/22 12/30/22 15:51 16:22 16:25 Temperature 98 F Pulse Rate 92 Pulse Rate [ 78 Pulse Oximetery ] Respiratory 18 18 Rate Blood Pressure Blood Pressure 110/59 [Right Arm] O2 Sat by Pulse 94 L 92 L Oximetry Fraction of 50 Inspired Oxygen (FIO2) 12/30/22 12/30/22 12/30/22 19:36 19:47 22:01 Temperature 98.2 F Pulse Rate 82 85 Pulse Rate [ Pulse Oximetery ] Respiratory Rate Blood Pressure Blood Pressure [Right Arm] O2 Sat by Pulse Oximetry Fraction of Inspired Oxygen (FIO2) 12/30/22 22:03 Temperature 98.4 F Pulse Rate Pulse Rate [ Pulse Oximetery ] Respiratory Rate Blood Pressure Blood Pressure [Right Arm] O2 Sat by Pulse Oximetry Fraction of Inspired Oxygen (FIO2) - Reevaluation(s) Reevaluation #1: 12/29/22 22:00 Medical records reviewed Reevaluation #2: 12/29/22 22:01 Patient has mild improvement here in the ER Reevaluation #3: 12/29/22 22:01 Patient results questions answered Reevaluation #4: 12/29/22 22:01 Was pt. sent in by a medical professional or institution ([facility], [employer], urgent care, hospital, or care home...) When possible be specific @ -no Did you speak to anyone other than the patient for history (EMS, parent, family, police, friend...)? What history was obtained from this source @ -no Did you review nursing and triage notes (agree or disagree)? Why? @ -agree Are old charts reviewed (outside hosp., previous admission, EMS record, old EKG, old radiological studies, urgent care reports/EKG's, care home records)? Report findings @ -yes Differential Diagnosis (chest pain, altered mental status, abdominal pain women, abdominal pain men, vaginal bleeding, weakness, fever, dyspnea, syncope, headache, dizziness, GI bleed, back pain, seizure, CVA, palpatations, mental health, musculoskeletal)? @ -prior EKG interpreted by me (3pts min.). @ -yes X-rays interpreted by me (1pt min.). @ -yes CT interpreted by me (1pt min.). @ -no U/S interpreted by me (1pt. min.). @ -no What testing was considered but not performed or refused? (CT, X-rays, U/S, labs)? Why? @ -none What meds were considered but not given or refused? Why? @ -none Did you discuss the management of the patient with other professionals (professionals i.e. , PA, [employer], lab, RT, psych nurse, social insurance analyst, sole seamer, teacher, hotel security officer, case supervisor)? Give summary @ -no Was smoking cessation discussed for >3mins.? @ -no Was critical care preformed (if so, how long)? @ -yes31 Were there social determinants of health that impacted care today? How? (Homelessness, low income, unemployed, alcoholism, drug addiction, transportation, low edu. Level, literacy, decrease access to med. care, usp, rehab)? @ -none Was there de-escalation of care discussed even if they declined (Discuss DNR or withdrawal of care, Hospice)? DNR status @ -no What co-morbidities impacted this encounter? (DM, HTN, Smoking, COPD, CAD, Cancer, CVA, ARF, Chemo, Hep., AIDS, mental health diagnosis, sleep apnea, morbid obesity)? @ -none Was patient admitted / discharged? Hospital course, mention meds given and route, prescriptions, significant lab abnormalities, going to OR and other per tinent info. @ - 47 male to the emergency department for evaluation of significant severe hypoxia from COPD respiratory failure. Patient will be admitted for significant supportive care Admitted Undiagnosed new problem with uncertain prognosis? @ -no Drug Therapy requiring intensive monitoring for toxicity (Heparin, Nitro, Insulin, Cardizem)? @ -no Were any procedures done? @ -no Diagnosis/symptom? @ -COPD and hypoxia Acute, or Chronic, or Acute on Chronic? @ -Acute Uncomplicated (without systemic symptoms) or Complicated (systemic symptoms)? @ -Complicated Side effects of treatment? @ -no Exacerbation, Progression, or Severe Exacerbation? @ -exacerbation Poses a threat to life or bodily function? How? (Chest pain, [place], [place], pneumonia, PE, COPD, DKA, ARF, appy, cholecystitis, CVA, Diverticulitis, Homicidal, Suicidal, threat to staff... and all critical care pts) @ -yes for significant hypoxia and respiratory failure Reevaluation #5: 12/29/22 22:01 Differential Dyspnea: Coronary syndrome, arrhythmia, tamponade, asthma, COPD, pulmonary embolism, pneumonia, pneumothorax, pulmonary effusion, anaphylaxis, diabetic ketoacidosis, flailed chest, pulmonary contusion, diaphragmatic rupture, anemia, neuromuscular, this is not meant to be an all-inclusive list. - Consultations Consultation #1: Spoke with [facility] were agrees to admit this patient for Dr. Omalley Medical Decision Making - Medical Decision Making 47 male to the emergency department for evaluation of significant severe hypoxia from COPD respiratory failure. Patient will be admitted for significant supportive care - Lab Data Result diagrams: 01/04/23 05:35 01/04/23 05:35 Lab Results 12/29/22 12/29/22 12/29/22 Range/Units 20:17 20:17 20:17 WBC 9.1 (3.8-10.6) k/uL RBC 5.05 (4.30-5.90) m/uL Hgb 17.5 (13.0-17.5) gm/dL Hct 53.7 H (39.0-53.0) % MCV 106.2 H (80.0-100.0) fL MCH 34.7 (25.0-35.0) pg MCHC 32.6 (31.0-37.0) g/dL RDW 15.5 (11.5-15.5) % Plt Count 266 (150-450) k/uL MPV 7.9 Neutrophils % 74 % Lymphocytes % 18 % Monocytes % 5 % Eosinophils % 1 % Basophils % 0 % Neutrophils # 6.7 (1.3-7.7) k/uL Lymphocytes # 1.6 (1.0-4.8) k/uL Monocytes # 0.5 (0-1.0) k/uL Eosinophils # 0.1 (0-0.7) k/uL Basophils # 0.0 (0-0.2) k/uL Manual Slide Review Performed Hypochromasia Slight Anisocytosis (manual) Present Macrocytosis Moderate PT 10.9 (10.0-12.5) sec INR 1.0 (<1.2) APTT 26.0 (22.0-30.0) sec D-Dimer 0.80 H (<0.60) mg/L FEU Sodium 135 L (137-145) mmol/L Potassium 5.0 (3.5-5.1) mmol/L Chloride 85 L (98-107) mmol/L Carbon Dioxide 38 H (22-30) mmol/L Anion Gap 12 mmol/L BUN 14 (9-20) mg/dL Creatinine 0.86 (0.66-1.25) mg/dL Est GFR (CKD-EPI)AfAm >90 (>60 ml/min/1.73 sqM) Est GFR (CKD-EPI)NonAf >90 (>60 ml/min/1.73 sqM) Glucose 103 H (74-99) mg/dL Calcium 8.9 (8.4-10.2) mg/dL Magnesium 1.7 (1.6-2.3) mg/dL Total Bilirubin 0.7 (0.2-1.3) mg/dL AST 27 (17-59) U/L ALT 22 (4-49) U/L Alkaline Phosphatase 72 (38-126) U/L Troponin I (0.000-0.034) ng/mL NT-Pro-B Natriuret Pep 53 pg/mL Total Protein 7.1 (6.3-8.2) g/dL Albumin 4.2 (3.5-5.0) g/dL 12/29/22 Range/Units 20:17 WBC (3.8-10.6) k/uL RBC (4.30-5.90) m/uL Hgb (13.0-17.5) gm/dL Hct (39.0-53.0) % MCV (80.0-100.0) fL MCH (25.0-35.0) pg MCHC (31.0-37.0) g/dL RDW (11.5-15.5) % Plt Count (150-450) k/uL MPV Neutrophils % % Lymphocytes % % Monocytes % % Eosinophils % % Basophils % % Neutrophils # (1.3-7.7) k/uL Lymphocytes # (1.0-4.8) k/uL Monocytes # (0-1.0) k/uL Eosinophils # (0-0.7) k/uL Basophils # (0-0.2) k/uL Manual Slide Review Hypochromasia Anisocytosis (manual) Macrocytosis PT (10.0-12.5) sec INR (<1.2) APTT (22.0-30.0) sec D-Dimer (<0.60) mg/L FEU Sodium (137-145) mmol/L Potassium (3.5-5.1) mmol/L Chloride (98-107) mmol/L Carbon Dioxide (22-30) mmol/L Anion Gap mmol/L BUN (9-20) mg/dL Creatinine (0.66-1.25) mg/dL Est GFR (CKD-EPI)AfAm (>60 ml/min/1.73 sqM) Est GFR (CKD-EPI)NonAf (>60 ml/min/1.73 sqM) Glucose (74-99) mg/dL Calcium (8.4-10.2) mg/dL Magnesium (1.6-2.3) mg/dL Total Bilirubin (0.2-1.3) mg/dL AST (17-59) U/L ALT (4-49) U/L Alkaline Phosphatase (38-126) U/L Troponin I <0.012 (0.000-0.034) ng/mL NT-Pro-B Natriuret Pep pg/mL Total Protein (6.3-8.2) g/dL Albumin (3.5-5.0) g/dL - EKG Data -: EKG Interpreted by Me (EKG is sinus 93 TX 144 QRS 80 QTC 367) - Radiology Data Radiology results: report reviewed (Chest x-ray severe COPD CT angios chest), image reviewed Critical Care Time Critical Care Time: Yes Total Critical Care Time: 31 Disposition Clinical Impression: COPD exacerbation, Dyspnea on exertion, Hypoxia, Acute exacerbation of COPD with asthma Disposition: ADMITTED IP TO THIS HOSP Condition: Serious Is patient prescribed a controlled substance at d/c from ED?: No Time of Disposition: 21:52
[2022-12-29 20:48] LABS: Basophils % (A) 0 %; Eosinophils # (A) 0.1 k/uL (0-0.7); Eosinophils % (A) 1 %; HCT 53.7 % (39.0-53.0); HGB 17.5 gm/dL (13.0-17.5); Hypochromasia Slight; Lymphocytes # (A) 1.6 k/uL (1.0-4.8); Lymphocytes % (A) 18 %; MCH 34.7 pg (25.0-35.0); MCHC 32.6 g/dL (31.0-37.0); MCV 106.2 fL (80.0-100.0); Macrocytosis Moderate; Mean Platelet Volume 7.9; Monocytes # (A) 0.5 k/uL (0-1.0); Monocytes % (A) 5 %; Neutrophils # (A) 6.7 k/uL (1.3-7.7); Neutrophils % (A) 74 %; Platelet Count 266 k/uL (150-450); RBC 5.05 m/uL (4.30-5.90); RDW 15.5 % (11.5-15.5); WBC 9.1 k/uL (3.8-10.6)
[2022-12-29 20:51] LABS: ALT 22 U/L (4-49); AST 27 U/L (17-59); African American GFR (CKD) >90 (>60 ml/min/1.73 sqM); Albumin 4.2 g/dL (3.5-5.0); Alkaline Phosphatase 72 U/L (38-126); Blood Urea Nitrogen 14 mg/dL (9-20); Calcium 8.9 mg/dL (8.4-10.2); Chloride 85 mmol/L (98-107); Glucose 103 mg/dL (74-99); Magnesium 1.7 mg/dL (1.6-2.3); Non-African American GFR(CKD) >90 (>60 ml/min/1.73 sqM); Sodium 135 mmol/L (137-145); Total Bilirubin 0.7 mg/dL (0.2-1.3); Total Protein 7.1 g/dL (6.3-8.2)
[2022-12-29 20:57] LABS: Anion Gap 12 mmol/L
[2022-12-29 21:00] LABS: NT-Pro-B-Type Natriuretic Pept 53 pg/mL
[2022-12-29 21:04] LABS: Carbon Dioxide 38 mmol/L (22-30)
[2022-12-29 21:12] LABS: Prothrombin Time 10.9 sec (10.0-12.5)
--- NOTE | 2022-12-29 21:23 | XR ---
EXAMINATION TYPE: XR chest 1V portable DATE OF EXAM: 12/29/2022 8:58 PM CLINICAL INDICATION:Male, 47 years old with history of sob; COMPARISON: Chest radiographs from 09/15/2019 TECHNIQUE: XR chest 1V portable Frontal view of the chest. FINDINGS: Lungs/Pleura: There is no evidence of pleural effusion, focal consolidation, or pneumothorax. Pulmonary vascularity: Unremarkable. Heart/mediastinum: Cardiomediastinal silhouette is unremarkable. Musculoskeletal: No acute osseous pathology. IMPRESSION: No acute cardiopulmonary disease/process.
[2022-12-29 22:00] LABS: Anisocytosis (M) Present
[2022-12-29] MEDS ORDERED: IPRATROPIUM-ALBUTEROL 3 ML NEB INHALATION STA (22:20)
[2022-12-29] MEDS ORDERED: NALOXONE 0.4 MG/ML 1 ML VIAL IV PRN (22:21)
[2022-12-29] MEDS ORDERED: MORPHINE SULFATE 4 MG/ML SYRINGE IV PRN (22:21)
[2022-12-29] MEDS: SODIUM CHLORIDE 0.9% 1,000 ML IV SCH (22:43)
--- NOTE | 2022-12-30 00:14 | CT ---
EXAM: CT Angiography Chest With Intravenous Contrast CLINICAL HISTORY: ITS.REASON CT Reason: PE TECHNIQUE: Axial computed tomographic angiography images of the chest with intravenous contrast. CTDI is 38 mGy and DLP is 1135.4 mGy-cm. This CT exam was performed using one or more of the following dose reduction techniques: automated exposure control, adjustment of the mA and/or kV according to patient size, and/or use of iterative reconstruction technique. MIP reconstructed images were created and reviewed. COMPARISON: CT chest on 08/21/2019 FINDINGS: Pulmonary arteries: No definite pulmonary embolus identified. Evaluation of the distal pulmonary arterial branches is limited by motion artifact. Aorta: No acute findings. No aortic aneurysm or dissection. Lungs: Mild prominence of the bronchial [place] may represent bronchitis. Emphysematous changes. Lower lung atelectasis. No mass. Pleural space: Unremarkable. No significant effusion. No pneumothorax. Heart: Small pericardial effusion. No cardiomegaly. No evidence of RV dysfunction. Bones/joints: Chronic mild superior endplate depression of T5. Degenerative changes of the spine. No acute fracture. No dislocation. Soft tissues: Unremarkable. Lymph nodes: Unremarkable. No enlarged lymph nodes. Spleen: Small splenule. Stomach and bowel: Nonspecific nodular density along the proximal stomach, slightly decreased in size compared to prior exam. IMPRESSION: 1. No aortic aneurysm or dissection. 2. Mild prominence of the bronchial [place] may represent bronchitis. 3. No definite pulmonary embolus identified. Evaluation of the distal pulmonary arterial branches is limited by motion artifact. 4. Emphysematous changes. 5. Nonspecific nodular density along the proximal stomach, slightly decreased in size compared to prior exam.
[2022-12-30] MEDS: ALBUTEROL NEBULIZED 2.5 MG/3 ML INHALATION SCH ×2 (00:29→04:00)
[2022-12-30] MEDS: methylPREDNISolone SOD SUCCI 125 MG/2 ML VIAL IV SCH ×4 (01:21→20:42)
[2022-12-30] MEDS ORDERED: ALBUTEROL NEBULIZED 2.5 MG/3 ML INHALATION PRN (04:03)
[2022-12-30] MEDS ORDERED: IPRATROPIUM-ALBUTEROL 3 ML NEB INHALATION PRN (04:44)
--- NOTE | 2022-12-30 05:05 | P.CNPUL ---
History of Present Illness Consult date: 12/30/22 Requesting physician: Devonte Mart Reason for consult: dyspnea, hypoxemia Chief complaint: fall History of present illness: I am seeing this patient in new consultation today 12/30/2022 in the emergency room for shortness of breath and hypoxia. Patient is a 47-year-old white male with past medical history significant for severe oxygen dependent COPD, chronic ongoing tobacco dependence, hypertension, hyperlipidemia, pulmonary hypertension, "leaky valve", and alcoholism. He does follow in the pulmonary office with Dr. Fish for management of his severe COPD, he has an FEV1 36% o f predicted. His PCP is Dr. Omalley. Patient states that yesterday evening, he fell in the bathroom and could not get up. He denies losing consciousness or hitting his head. He states that his legs "just gave out" and he was lightheaded. He was also short of breath and apparently hypoxic. Patient is currently sitting up in bed, on 5 L/m nasal cannula, in no acute distress. He denies any change in his chronic cough, hemoptysis, chest pain. Denies sick contacts. Chest CTA on arrival did not show any pulmonary embolism or aortic aneurysm/dissection. There is mild prominence of the bronchial ragsdale which may represent bronchitis and chronic emphysematous changes. There is also nonspecific nodular density along the proximal stomach, slightly decreased in size compared to prior exam.CBC on arrival is unremarkable. No leukocytosis. BMP on arrival shows sodium 135, potassium 5, chloride 85, serum bicarbonate 38, BUN 14, creatinine 0.86, glucose 103. Normal saline is infusing at 75 ML's per hour. Troponins less than 0.0122. NT proBNP not elevated. ECG shows normal sinus rhythm without any acute ischemic changes. Vital signs are stable. Patient will be admitted to the cardiac stepdown unit. Review of Systems REVIEW OF SYSTEMS: CONSTITUTIONAL: Denies any recent significant weight loss or weight gain. EYES: Denies change in vision. EARS, NOSE, MOUTH, THROAT: Denies headaches, denies sore throat. CARDIOVASCULAR: Denies chest pain, palpitations or syncopal episodes. RESPIRATORY: see HPI GASTROINTESTINAL: Denies change in appetite, abdominal pain, nausea and vomiting, or diarrhea GENITOURINARY: Denies hematuria, denies infections. MUSKULOSKELETAL: Denies pain, denies swelling. INTEGUMENTARY: Denies rash, denies eczema. NEUROLOGICAL: Denies recent memory loss, no recent seizure activity. reports occasional tremors PSYCHIATRIC: Denies anxiety, denies depression. HEMATOLOGIC/LYMPHATIC: Denies anemia, denies enlarged lymph node Past Medical History Past Medical History: Heart Failure, COPD, GERD/Reflux, GI Bleed, Hypertension, Pneumonia, Respiratory Disorder, Seizure Disorder Additional Past Medical History / Comment(s): Pt recently admitted to [facility] on 08/21 19 with acute on chronic hypoxic/hypercapnic respiratory failure multifactoral 2ndary to acute on chronic COPD/possible acute on chronic CHF exacerbation/pneumonia/moderate pulmonary htn/alcohol abuse/pt was vented/breakthrough or alcohol withdrawal seizure/possible DTs/polycythemia/hypoerkalemia/hyponatremia/supratentorial lesion per cat scan. Other hx: Home oxygen prn during day and wear oxygen with concentrator at HS, past pneumonia, lower GI bleed, seizure once as a child and possible alcohol withdrawal/breakthrough seizure August 2019 admission History of Any Multi-Drug Resistant Organisms: None Reported Past Surgical History: Orthopedic Surgery Additional Past Surgical History / Comment(s): right knee arthroscopy, colonoscopy/benign polypectomy Past Anesthesia/Blood Transfusion Reactions: No Reported Reaction Past Psychological History: No Psychological Hx Reported Smoking Status: Current every day smoker Past Alcohol Use History: None Reported Past Drug Use History: None Reported - Past Family History Mother Family Medical History: Cancer, Hypertension Additional Family Medical History / Comment(s): from ovarian cancer Father Family Medical History: No Reported History Additional Family Medical History / Comment(s): Father is healthy Medications and Allergies Home Medications Medication Instructions Recorded Confirmed Type amLODIPine BESYLATE/BENAZEPRIL 1 cap PO BID 01/27/17 12/29/22 History [Lotrel 5-20 MG] Ipratropium-Albuterol Nebulize 3 ml INHALATION RT-QID 09/13/19 12/29/22 History [Duoneb 0.5 mg-3 mg/3 ml Soln] Ipratropium-Albuterol Nebulize 3 ml INHALATION RT-QID PRN ml 09/15/19 12/29/22 Rx [Duoneb 0.5 mg-3 mg/3 ml Soln] Atorvastatin [Lipitor] 10 mg PO HS 12/29/22 12/29/22 History Budesonide/Formoterol Fumarate 2 puff INHALATION RT-BID 12/29/22 12/29/22 History [Symbicort 160-4.5 Mcg Inhaler] Furosemide [Lasix] 20 mg PO DAILY 12/29/22 12/29/22 History Omeprazole [PriLOSEC] 20 mg PO DAILY 12/29/22 12/29/22 History Tiotropium [place] [Spiriva] 18 mcg INHALATION RT-DAILY 12/29/22 12/29/22 History Allergies Allergy/AdvReac Type Severity Reaction Status Date / Time fexofenadine HCl AdvReac HIGH BP Verified 12/29/22 23:44 [From [facility]] Penicillins AdvReac Unknown Verified 12/29/22 23:44 pseudoephedrine HCl AdvReac High BP Verified 12/29/22 23:44 [From Zesty] Physical Exam Vitals: Vital Signs Temp Pulse Resp BP Pulse Ox 12/30/22 04:00 98.8 F 89 20 111/61 92 L 12/29/22 23:00 95 18 111/73 91 L 12/29/22 22:40 91 12/29/22 22:30 92 12/29/22 21:00 83 24 99/71 89 L 12/29/22 20:44 87 12/29/22 20:35 90 12/29/22 19:48 90 L 12/29/22 19:41 98.7 F 96 26 H 117/57 90 L Intake and Output 12/29/22 12/29/22 12/30/22 14:59 22:59 06:59 Other: Weight 113.398 kg GENERAL EXAM: Alert, 47-year-old obese white male, comfortable in no apparent distress. HEAD: Normocephalic and atraumatic EYES: Normal reaction of pupils, equal size. NOSE: Clear with pink turbinates. THROAT: No erythema or exudates. NECK: No masses, no JVD. CHEST: No chest wall deformity. LUNGS: Equal air entry with no crackles, wheeze, rhonchi or dullness. On 5 L/m nasal cannula. No conversational dyspnea or accessory muscle use. CVS: S1 and S2 normal with no audible murmur, regular rhythm. No extra heart sounds ABDOMEN: obese abdomen, no hepatosplenomegaly, active bowel sounds, no guarding or rigidity. SPINE: No scoliosis or deformity SKIN: No rashes CENTRAL NERVOUS SYSTEM: No focal deficits, tone is normal in all 4 extremities. EXTREMITIES: There is no peripheral edema, clubbing, or cyanosis. Peripheral pulses are intact. Results - Laboratory Findings CBC and BMP: 12/29/22 20:17 12/29/22 20:17 PT/INR, D-dimer PT 10.9 sec (10.0-12.5) 12/29/22 20: INR 1.0 (<1.2) 12/29/22 20:17 D-Dimer 0.80 mg/L FEU (<0.60) H 12/29/22 20:17 Abnormal lab findings: Abnormal Labs 12/29/22 12/29/22 12/29/22 20:17 20:17 20:17 Hct 53.7 H MCV 106.2 H D-Dimer 0.80 H Sodium 135 L Chloride 85 L Carbon Dioxide 38 H Glucose 103 H - Diagnostic Findings Chest x-ray: image reviewed CT scan - chest: image reviewed Assessment and Plan Assessment: Suspected acute COPD exacerbation, Chest CTA on arrival did not show any pulmona ry embolism or aortic aneurysm/dissection. There is mild prominence of the bronchial rags[place] which may represent bronchitis and chronic emphysematous changes. Acute on chronic hypoxemic respiratory failure, secondary to above Chronic ongoing tobacco dependence, continues to smoke 1 pack per day Fall and generalized weakness History of pulmonary hypertension Benign essential hypertension Hyperlipidemia Previous history of alcoholism Obesity, with a BMI of 38 kg/m plan: patient's medications, labs, imaging reviewed Continue supplemental oxygen Continue combination of Symbicort inhaler, Duonebs [id number], and IV Solu-Medrol. rule out COVID19 Smoking cessation counseling performed. Nicotine replacement offered. We will continue to follow I have personally seen and examined the patient, performed the documentation and the assessment and plan as written. Number of minutes spent on the visit:20 Time with Patient: Greater than 30
[2022-12-30 07:10] LABS: Basophils % (A) 0 %; Eosinophils % (A) 0 %; HGB 17.9 gm/dL (13.0-17.5); Hypochromasia Slight; Lymphocytes # (A) 0.9 k/uL (1.0-4.8); Lymphocytes % (A) 8 %; MCH 33.5 pg (25.0-35.0); MCHC 31.5 g/dL (31.0-37.0); MCV 106.4 fL (80.0-100.0); Macrocytosis Moderate; Mean Platelet Volume 7.5; Monocytes # (A) 0.3 k/uL (0-1.0); Monocytes % (A) 2 %; Neutrophils % (A) 90 %; Platelet Count 287 k/uL (150-450); RBC 5.35 m/uL (4.30-5.90); RDW 14.9 % (11.5-15.5); WBC 12.2 k/uL (3.8-10.6)
[2022-12-30 07:18] LABS: HCT 56.9 % (39.0-53.0)
[2022-12-30 07:28] LABS: ALT 23 U/L (4-49); AST 26 U/L (17-59); African American GFR (CKD) >90 (>60 ml/min/1.73 sqM); Albumin 4.2 g/dL (3.5-5.0); Alkaline Phosphatase 73 U/L (38-126); Blood Urea Nitrogen 23 mg/dL (9-20); Chloride 84 mmol/L (98-107); Glucose 149 mg/dL (74-99); Non-African American GFR(CKD) >90 (>60 ml/min/1.73 sqM); Phosphorus 3.8 mg/dL (2.5-4.5); Potassium 5.4 mmol/L (3.5-5.1); Sodium 134 mmol/L (137-145); Total Bilirubin 0.6 mg/dL (0.2-1.3); Total Protein 7.2 g/dL (6.3-8.2)
[2022-12-30 07:34] LABS: Anion Gap 13 mmol/L; Carbon Dioxide 37 mmol/L (22-30)
[2022-12-30] MEDS ORDERED: ALBUTEROL NEBULIZED 2.5 MG/3 ML INHALATION SCH (08:00)
[2022-12-30] MEDS: IPRATROPIUM-ALBUTEROL 3 ML NEB INHALATION SCH ×4 (08:51→19:35)
[2022-12-30] MEDS: SYMBICORT 160-4.5 MCG INHALER INHALATION SCH ×3 (08:51→19:35)
[2022-12-30] MEDS ORDERED: NON FORMULARY DRUG (Amlodipine Besylate/Benazepril [Lotrel 5-20 Mg] 1 EACH Capsule) PO SCH (09:30)
[2022-12-30] MEDS: FUROSEMIDE 20 MG TAB PO SCH (10:36)
[2022-12-30] MEDS: amLODIPine 5 MG TAB PO SCH ×2 (10:36→20:42)
[2022-12-30] MEDS: lisinopriL 20 MG TAB PO SCH ×2 (10:36→20:42)
[2022-12-30] MEDS: DOXYCYCLINE 100 MG CAP PO SCH ×2 (10:36→20:42)
[2022-12-30] MEDS: NICOTINE 21MG/24HR PATCH TRANSDERM SCH (10:40)
[2022-12-30] MEDS: PANTOPRAZOLE 40 MG/10 ML VIAL IV SCH (10:40)
[2022-12-30] MEDS: SODIUM CHLORIDE 0.9% 1,000 ML IV SCH (12:56)
--- NOTE | 2022-12-30 13:21 | P.HPIM ---
History of Present Illness H&P Date: 12/30/22 History of present illness; Patient is a 47-year-old gentleman with past medical history significant for severe COPD, chronic hypoxic respiratory failure, chronic ongoing tobacco dependence, hypertension, hyperlipidemia, pulmonary hypertension and alcoholism Who presented to the ER for worsening shortness of breath for the last few weeks. Patient stated that he has been noticing increasing shortness of breath on rest as well as exertion. Patient is using oxygen at home but even with oxygen his oxygen saturation is dipping into the 70s. Denies any chest pain. no fever or chills. Denies any complaint of nausea vomiting or abdominal pain. Patient stated that he was so weak because of shortness of breath that he fell in his bathroom at home. Because of these symptoms, patient came to the ER Initial lab work done in the ER showed WBC 9.1, hemoglobin 17.5, platelet count 266, sodium 135, potassium 5, BUN 14, creatinine 0.86, troponin 0.012 EKG done in the ER heart rate 93, normal sinus rhythm, no ST segment elevation, no T-wave inversion. Chest CTA done showed no aortic aneurysm or dissection, no definite PE. Chest x-ray done in the ER showed no acute cardiopulmonary disease Patient admitted to medicine service REVIEW OF SYSTEMS: CONSTITUTIONAL: No fever, complaining of generalized weakness HEENT: No recent visual problems or hearing problems. Denied any sore throat. CARDIOVASCULAR: As mentioned in HPI PULMONARY: As mentioned in HPI GASTROINTESTINAL: No diarrhea, no nausea, no vomiting, no abdominal pain. NEUROLOGICAL: No headaches, no weakness, no numbness. HEMATOLOGICAL: Denies any bleeding or petechiae. GENITOURINARY: Denies any burning micturition, frequency, or urgency. MUSCULOSKELETAL/RHEUMATOLOGICAL: Denies any joint pain, swelling, or any muscle pain. ENDOCRINE: Denies any polyuria or polydipsia. The rest of the 14-point review of systems is negative. PHYSICAL EXAMINATION: GENERAL: The patient is alert and oriented x3, not in any acute distress. Well developed, well nourished. HEENT: Pupils are round and equally reacting to light. EOMI. No scleral icterus. No conjunctival pallor. Normocephalic, atraumatic. No pharyngeal erythema. No thyromegaly. CARDIOVASCULAR: S1 and S2 present. No murmurs, rubs, or gallops. PULMONARY: Coarse breath sounds bilaterally, no wheezing or crackles. ABDOMEN: Soft, nontender, nondistended, normoactive bowel sounds. No palpable organomegaly. MUSCULOSKELETAL: No joint swelling or deformity. EXTREMITIES: No cyanosis, clubbing, or pedal edema. NEUROLOGICAL: Gross neurological examination did not reveal any focal deficits. SKIN: No rashes. Assessment and plan Acute on chronic hypoxic respiratory failure Acute COPD exacerbation Hypertension Hyperlipidemia Fall Generalized weakness History of pulmonary hypertension History of alcoholism Monitor vital signs Monitor CBC Monitor CMP Continue telemetry monitoring Encourage use of I-S Aggressive bronchopulmonary hygiene Continue breathing treatment continue IV Solu-Medrol Continue doxycycline Resume Lipitor Resume Lotrel Consult pulmonology Labs and medication were reviewed.. Continue same treatment. Continue with symptomatic treatment. Resume home medication. Monitor labs and vitals. DVT and GI prophylaxis. Further recommendations as per clinical course of the patient Dictation was produced using [employer] dictation software. please excuse any grammatical, word or spelling errors. Past Medical History Past Medical History: Heart Failure, COPD, GERD/Reflux, GI Bleed, Hypertension, Pneumonia, Respiratory Disorder, Seizure Disorder Additional Past Medical History / Comment(s): Pt recently admitted to [facility] on 08/20 20 with acute on chronic hypoxic/hypercapnic respiratory failure multifactoral 2ndary to acute on chronic COPD/possible acute on chronic CHF exacerbation/pneumonia/moderate pulmonary htn/alcohol abuse/pt was vented/breakthrough or alcohol withdrawal seizure/possible DTs/polycythe connie/hypoerkalemia/hyponatremia/supratentorial lesion per cat scan. Other hx: Home oxygen prn during day and wear oxygen with concentrator at , past pneumonia, lower GI bleed, seizure once as a child and possible alcohol withdrawal/breakthrough seizure August 2019 admission History of Any Multi-Drug Resistant Organisms: None Reported Past Surgical History: Orthopedic Surgery Additional Past Surgical History / Comment(s): right knee arthroscopy, colonoscopy/benign polypectomy Past Anesthesia/Blood Transfusion Reactions: No Reported Reaction Past Psychological History: No Psychological Hx Reported Smoking Status: Current every day smoker Past Alcohol Use History: None Reported Past Drug Use History: None Reported - Past Family History Mother Family Medical History: Cancer, Hypertension Additional Family Medical History / Comment(s): from ovarian cancer Father Family Medical History: No Reported History Additional Family Medical History / Comment(s): Father is healthy Medications and Allergies Home Medications Medication Instructions Recorded Confirmed Type amLODIPine BESYLATE/BENAZEPRIL 1 cap PO BID 01/27/17 12/29/22 History [Lotrel 5-20 MG] Ipratropium-Albuterol Nebulize 3 ml INHALATION RT-QID 09/13/19 12/29/22 History [Duoneb 0.5 mg-3 mg/3 ml Soln] Ipratropium-Albuterol Nebulize 3 ml INHALATION RT-QID PRN ml 09/15/19 12/29/22 Rx [Duoneb 0.5 mg-3 mg/3 ml Soln] Atorvastatin [Lipitor] 10 mg PO HS 12/29/22 12/29/22 History Budesonide/Formoterol Fumarate 2 puff INHALATION RT-BID 12/29/22 12/29/22 History [Symbicort 160-4.5 Mcg Inhaler] Furosemide [Lasix] 20 mg PO DAILY 12/29/22 12/29/22 History Omeprazole [PriLOSEC] 20 mg PO DAILY 12/29/22 12/29/22 History Tiotropium [place] [Spiriva] 18 mcg INHALATION RT-DAILY 12/29/22 12/29/22 History Allergies Allergy/AdvReac Type Severity Reaction Status Date / Time fexofenadine HCl AdvReac HIGH BP Verified 12/29/22 23:44 [From [facility]] Penicillins AdvReac Unknown Verified 12/29/22 23:44 pseudoephedrine HCl AdvReac High BP Verified 12/29/22 23:44 [From [employer]] Physical Exam Vitals: Vital Signs Temp Pulse Resp BP Pulse Ox 12/30/22 04:00 98.8 F 89 20 111/61 92 L 12/29/22 23:00 95 18 111/73 91 L 12/29/22 22:40 91 12/29/22 22:30 92 12/29/22 21:00 83 24 99/71 89 L 12/29/22 20:44 87 12/29/22 20:35 90 12/29/22 19:48 90 L 12/29/22 19:41 98.7 F 96 26 H 117/57 90 L Intake and Output 12/29/22 12/30/22 12/30/22 22:59 06:59 14:59 Other: Weight 113.398 kg Results CBC & Chem 7: 12/30/22 06:18 12/30/22 06:18 Labs: Abnormal Lab Results - Last 24 Hours (Table) 12/29/22 12/29/22 12/29/22 Range/Units 20:17 20:17 20:17 WBC (3.8-10.6) k/uL Hgb (13.0-17.5) gm/dL Hct 53.7 H (39.0-53.0) % MCV 106.2 H (80.0-100.0) fL Neutrophils # (1.3-7.7) k/uL Lymphocytes # (1.0-4.8) k/uL D-Dimer 0.80 H (<0.60) mg/L FEU Sodium 135 L (137-145) mmol/L Potassium (3.5-5.1) mmol/L Chloride 85 L (98-107) mmol/L Carbon Dioxide 38 H (22-30) mmol/L BUN (9-20) mg/dL Glucose 103 H (74-99) mg/dL 12/30/22 12/30/22 Range/Units 06:18 06:18 WBC 12.2 H (3.8-10.6) k/uL Hgb 17.9 H (13.0-17.5) gm/dL Hct 56.9 H (39.0-53.0) % MCV 106.4 H (80.0-100.0) fL Neutrophils # 11.0 H (1.3-7.7) k/uL Lymphocytes # 0.9 L (1.0-4.8) k/uL D-Dimer (<0.60) mg/L FEU Sodium 134 L (137-145) mmol/L Potassium 5.4 H (3.5-5.1) mmol/L Chloride 84 L (98-107) mmol/L Carbon Dioxide 37 H (22-30) mmol/L BUN 23 H (9-20) mg/dL Glucose 149 H (74-99) mg/dL
[2022-12-30] MEDS ORDERED: ACETAMINOPHEN TAB 325 MG TAB PO PRN (18:43)
[2022-12-30] MEDS: ATORVASTATIN 10 MG TAB PO SCH (20:42)
[2022-12-31] MEDS: SODIUM CHLORIDE 0.9% 1,000 ML IV SCH (01:19)
[2022-12-31] MEDS: methylPREDNISolone SOD SUCCI 125 MG/2 ML VIAL IV SCH ×4 (02:53→19:56)
[2022-12-31] MEDS ORDERED: SODIUM ZIRCONIUM CYCLOSILICATE 10 GM PACKET PO ONE (03:09)
[2022-12-31 07:49] LABS: African American GFR (CKD) >90 (>60 ml/min/1.73 sqM); Blood Urea Nitrogen 31 mg/dL (9-20); Calcium 8.9 mg/dL (8.4-10.2); Chloride 87 mmol/L (98-107); Glucose 154 mg/dL (74-99); Non-African American GFR(CKD) >90 (>60 ml/min/1.73 sqM); Potassium 5.9 mmol/L (3.5-5.1); Sodium 134 mmol/L (137-145)
[2022-12-31 07:55] LABS: Anion Gap 8 mmol/L
[2022-12-31] MEDS: DOXYCYCLINE 100 MG CAP PO SCH ×2 (08:03→19:55)
[2022-12-31] MEDS: NICOTINE 21MG/24HR PATCH TRANSDERM SCH (08:03)
[2022-12-31] MEDS: lisinopriL 20 MG TAB PO SCH (08:03)
[2022-12-31] MEDS: amLODIPine 5 MG TAB PO SCH ×2 (08:03→19:55)
[2022-12-31] MEDS: FUROSEMIDE 20 MG TAB PO SCH (08:03)
[2022-12-31] MEDS: PANTOPRAZOLE 40 MG/10 ML VIAL IV SCH (08:04)
[2022-12-31 08:09] LABS: Carbon Dioxide 39 mmol/L (22-30)
[2022-12-31] MEDS ORDERED: SODIUM POLYSTYRENE SULFONATE 15 GM/60 ML BOTTLE PO ONE (08:54)
[2022-12-31] MEDS ORDERED: ALBUTEROL NEB (CONC) 2.5 MG/0.5 ML INHALATION ONE (08:54)
[2022-12-31] MEDS ORDERED: CALCIUM GLUCONATE IN NACL 1 GM in SALINE 1 100ML.BAG IVPB ONE (08:54)
[2022-12-31] MEDS ORDERED: INSULIN REGULAR 100 UNIT/ML VIAL (IV) IV ONE ×2 (08:54→14:11)
[2022-12-31] MEDS ORDERED: DEXTROSE 50% SYRINGE 50 ML IVP ONE ×2 (08:54→14:11)
[2022-12-31] MEDS: IPRATROPIUM-ALBUTEROL 3 ML NEB INHALATION SCH ×4 (09:09→20:34)
[2022-12-31] MEDS: SYMBICORT 160-4.5 MCG INHALER INHALATION SCH ×2 (09:09→20:34)
--- NOTE | 2022-12-31 11:57 | P.PN ---
Subjective Progress Note Date: 12/31/22 I am seeing this patient in new consultation today 12/30/2022 in the emergency room for shortness of breath and hypoxia. Patient is a 47-year-old white male with past medical history significant for severe oxygen dependent COPD, chronic ongoing tobacco dependence, hypertension, hyperlipidemia, pulmonary hypertension, "leaky valve", and alcoholism. He does follow in the pulmonary office with Dr. Fish for management of his severe COPD, he has an FEV1 36% of predicted. His PCP is Dr. Omalley. Patient states that yesterday evening, he fell in the bathroom and could not get up. He denies losing consciousness or hitting his head. He states that his legs "just gave out" and he was lightheaded. He was also short of breath and apparently hypoxic. Patient is currently sitting up in bed, on 5 L/m nasal cannula, in no acute distress. He denies any change in his chronic cough, hemoptysis, chest pain. Denies sick contacts. Chest CTA on arrival did not show any pulmonary embolism or aortic aneurysm/dissection. There is mild prominence of the bronchial ragsdale which may represent bronchitis and chronic emphysematous changes. There is also nonspecific nodular density along the proximal stomach, slightly decreased in size compared to prior exam.CBC on arrival is unremarkable. No leukocytosis. BMP on arrival shows sodium 135, potassium 5, chloride 85, serum bicarbonate 38, BUN 14, creatinine 0.86, glucose 103. Normal saline is infusing at 75 ML's per hour. Troponins less than 0.0122. NT proBNP not elevated. ECG shows normal sinus rhythm without any acute ischemic changes. Vital signs are stable. Patient will be admitted to the cardiac stepdown unit. The patient is seen today 12/31/2022 in follow-up on the selective care unit. He is currently resting in bed. Awake and alert in no acute distress. He is still short of breath with conversation, shortness of breath with exertion. He is utilizing BiPAP 14/6 and 50% FiO2 throughout the night and during the day while napping. Currently with O2 saturations in the 90s on 5 L/m per nasal cannula. Afebrile. Hemodynamically stable. Sodium 134. Potassium 5.9. Bicarb 39. BUN 31. Creatinine 0.83. Glucose 154. Viral screen was negative. Pro-calcitonin negative at 0.07. He is continued on DuoNeb inhalations, Symbicort, Solu-Medrol. Empiric antibiotics in the form of doxycycline. NicoDerm patch in place. Remains on oral diuretics. Objective - Vital Signs Vital signs: Vital Signs Temp 98.2 F 12/31/22 11:37 Pulse 100 12/31/22 11:37 Resp 18 12/31/22 11:37 BP 125/43 12/31/22 11:37 Pulse Ox 94 L 12/31/22 11:37 FiO2 50 12/30/22 16:22 Intake & Output 12/30/22 12/31/22 12/31/22 18:59 06:59 18:59 Intake Total 1140 Output Total 1200 600 Balance -1200 540 Weight 113.398 kg Intake: Oral 1140 Output: Urine 1200 600 Other: Voiding Method Toilet Toilet Urinal Urinal # Voids 3 # Bowel Movements 1 - Exam GENERAL EXAM: Alert, pleasant 47-year-old morbidly obese male, 5 L nasal cannula, comfortable in no apparent distress. HEAD: Normocephalic and atraumatic EYES: Normal reaction of pupils, equal size. NOSE: Clear with pink turbinates. THROAT: No erythema or exudates. NECK: No masses, no JVD. CHEST: No chest wall deformity. LUNGS: Equal air entry with bilateral end expiratory wheezing, diminished. CVS: S1 and S2 normal with no audible murmur, regular rhythm. No extra heart sounds ABDOMEN: obese abdomen, no hepatosplenomegaly, active bowel sounds, no guarding or rigidity. SPINE: No scoliosis or deformity SKIN: No rashes CENTRAL NERVOUS SYSTEM: No focal deficits, tone is normal in all 4 extremities. EXTREMITIES: There is trace peripheral edema, clubbing, or cyanosis. Peripheral pulses are intact. - Labs CBC & Chem 7: 12/30/22 06:18 12/31/22 07:10 Labs: Abnormal Lab Results - Last 24 Hours (Table) 12/31/22 Range/Units 07:10 Sodium 134 L (137-145) mmol/L Potassium 5.9 H (3.5-5.1) mmol/L Chloride 87 L (98-107) mmol/L Carbon Dioxide 39 H (22-30) mmol/L BUN 31 H (9-20) mg/dL Glucose 154 H (74-99) mg/dL Assessment and Plan Assessment: Suspected acute COPD exacerbation, Chest CTA on arrival did not show any pulmonary embolism or aortic aneurysm/dissection. There is mild prominence of the bronchial ragsdale which may represent bronchitis and chronic emphysematous changes. Procalcitonin within normal limits Acute on chronic hypoxemic respiratory failure, secondary to above Chronic ongoing tobacco dependence, continues to smoke 1 pack per day Fall and generalized weakness History of pulmonary hypertension Benign essential hypertension Hyperlipidemia Previous history of alcoholism Obesity, with a BMI of 38 kg/m Plan: The patient was seen and evaluated Labs and medications reviewed Continue bronchodilators, steroids Continue empiric antibiotics Titrate the FiO2 as tolerated Educated regarding the importance of complete smoking cessation NicoDerm patch in place We'll continue to follow I have personally seen and examined the patient, performed the documentation and the assessment and plan as written. Number of minutes spent on the visit: 10.
--- NOTE | 2022-12-31 14:11 | P.PN ---
Subjective Progress Note Date: 12/31/22 Patient is a 47-year-old gentleman with past medical history significant for severe COPD, chronic hypoxic respiratory failure, chronic ongoing tobacco dependence, hypertension, hyperlipidemia, pulmonary hypertension and alcoholism Who presented to the ER for worsening shortness of breath for the last few weeks. Patient stated that he has been noticing increasing shortness of breath on rest as well as exertion. Patient is using oxygen at home but even with oxygen his oxygen saturation is dipping into the 70s. Denies any chest pain. no fever or chills. Denies any complaint of nausea vomiting or abdominal pain. Patient stated that he was so weak because of shortness of breath that he fell in his bathroom at home. Because of these symptoms, patient came to the ER Initial lab work done in the ER showed WBC 9.1, hemoglobin 17.5, platelet count 266, sodium 135, potassium 5, BUN 14, creatinine 0.86, troponin 0.012 EKG done in the ER heart rate 93, normal sinus rhythm, no ST segment elevation, no T-wave inversion. Chest CTA done showed no aortic aneurysm or dissection, no definite PE. Chest x-ray done in the ER showed no acute cardiopulmonary disease Patient admitted to medicine service 12/31. Patient seen and examined. Lab work done this morning shows sodium 134, potassium 5.9, BUN 31, creatinine 0.83. States breathing has improved. Continues to be on 5 L of oxygen. Vital signs stable REVIEW OF SYSTEMS: CONSTITUTIONAL: No fever, no malaise,. CARDIOVASCULAR: No chest pain, no palpitations, no syncope. PULMONARY: As mentioned above GASTROINTESTINAL: No diarrhea, no nausea, no vomiting, no abdominal pain. NEUROLOGICAL: No headaches, no weakness, PHYSICAL EXAMINATION: GENERAL: The patient is alert and oriented x3, not in any acute distress. Well developed, well nourished. HEENT: Pupils are round and equally reacting to light. EOMI. No scleral icterus. No conjunctival pallor. Normocephalic, atraumatic. No pharyngeal erythema. No thyromegaly. CARDIOVASCULAR: S1 and S2 present. No murmurs, rubs, or gallops. PULMONARY: Coarse breath sounds bilaterally, no wheezing or crackles. ABDOMEN: Soft, nontender, nondistended, normoactive bowel sounds. No palpable organomegaly. MUSCULOSKELETAL: No joint swelling or deformity. EXTREMITIES: No cyanosis, clubbing, or pedal edema. NEUROLOGICAL: Gross neurological examination did not reveal any focal deficits. SKIN: No rashes. Assessment and plan Acute on chronic hypoxic respiratory failure Acute COPD exacerbation Hypertension Hyperlipidemia Fall Generalized weakness History of pulmonary hypertension History of alcoholism Monitor vital signs Monitor CBC Monitor CMP Encourage use of I-S Aggressive bronchopulmonary hygiene Continue breathing treatment continue IV Solu-Medrol Continue doxycycline Regarding hyperkalemia, potassium shift nurse ordered in the form of insulin, dextrose, Kayexalate In regards to hypertension, DC lisinopril because of hyperkalemia. Continue amlodipine Regards to hyperlipidemia , continue Lipitor Pulmonology following Labs and medication were reviewed.. Continue same treatment. Continue with symptomatic treatment. Resume home medication. Monitor labs and vitals. DVT and GI prophylaxis. Further recommendations as per clinical course of the patient Dictation was produced using [employer] dictation software. please excuse any grammatical, word or spelling errors. Objective - Vital Signs Vital signs: Vital Signs Temp 98.3 F 12/31/22 04:00 Pulse 79 12/31/22 04:00 Resp 18 12/31/22 04:00 BP 115/55 12/31/22 04:00 Pulse Ox 93 L 12/31/22 04:00 FiO2 50 12/30/22 16:22 Intake & Output 12/30/22 12/31/22 12/31/22 18:59 06:59 18:59 Output Total 1200 Balance -1200 Weight 113.398 kg Output: Urine 1200 Other: Voiding Method Toilet Urinal # Voids 3 - Labs CBC & Chem 7: 12/30/22 06:18 12/31/22 12:26 Labs: Abnormal Lab Results - Last 24 Hours (Table) 12/31/22 Range/Units 07:10 Sodium 134 L (137-145) mmol/L Potassium 5.9 H (3.5-5.1) mmol/L Chloride 87 L (98-107) mmol/L Carbon Dioxide 39 H (22-30) mmol/L BUN 31 H (9-20) mg/dL Glucose 154 H (74-99) mg/dL
--- NOTE | 2022-12-31 14:17 | CA ---
Transthoracic Echo Report Name: Rigoberto Starr Age: 47 Gender: M : 1975 Exam Date: 12/30/2022 14:46 Exam Location: [facility] Ht (in): 68 Wt (lb): 280 Ordering Physician: Nathan Hansen Attending/Referring Phys: Director Adult Mirna Saravia RDCS Procedure CPT: Indications: evaluate LV function Cardiac Hx: Technical Quality: Fair Contrast 1: Total Dose (mL): Contrast 2: Total Dose (mL): MEASUREMENTS (Male / Female) Normal Values 2D ECHO LV Diastolic Diameter PLAX 4.6 cm 4.2 - 5.9 / 3.9 - 5.3 cm LV Systolic Diameter PLAX 3.0 cm IVS Diastolic Thickness 1.6 cm 0.6 - 1.0 / 0.6 - 0.9 cm LVPW Diastolic Thickness 1.6 cm 0.6 - 1.0 / 0.6 - 0.9 cm LV Relative Wall Thickness 0.7 RV Internal Dim ED PLAX 3.6 cm LA Systolic Diameter LX 3.9 cm 3.0 - 4.0 / 2.7 - 3.8 cm LV Diastolic Volume MOD 4C 126.6 cm??? LV Systolic Volume MOD 4C 44.3 cm??? LV Ejection Fraction MOD 4C 65.0 % LV Cardiac Index MOD 4C 2408.0 cm???/min???m??? LV Diastolic Length 4C 9.1 cm LV Systolic Length 4C 7.4 cm LV Diastolic Volume MOD 2C 117.6 cm??? LV Systolic Volume MOD 2C 42.9 cm??? LV Ejection Fraction MOD 2C 63.5 % LV Cardiac Index MOD 2C 2184.1 cm???/min???m??? LV Diastolic Length 2C 9.6 cm LV Systolic Length 2C 7.4 cm LA Volume 63.5 cm??? 18 - 58 / 22 - 52 cm??? LA Volume Index 25.1 cm???/m??? 16 - 28 cm???/m??? M-MODE Aortic Root Diameter MM 3.2 cm MV E Point Septal Separation 0.2 cm AV Cusp Separation MM 2.1 cm DOPPLER AV Peak Velocity 222.8 cm/s AV Peak Gradient 19.9 mmHg AV Mean Velocity 146.1 cm/s AV Mean Gradient 9.5 mmHg AV Velocity Time Integral 42.5 cm MV Area PHT 3.9 cm??? Mitral E Point Velocity 102.8 cm/s Mitral A Point Velocity 60.3 cm/s Mitral E to A Ratio 1.7 MV Deceleration Time 194.9 ms MV E' Velocity 13.9 cm/s Mitral E to MV E' Ratio 7.4 TR Peak Velocity 279.9 cm/s TR Peak Gradient 31.3 mmHg Right Ventricular Systolic Press 36.3 mmHg FINDINGS Left Ventricle Left ventricular ejection fraction is estimated at 55-60 %. Left ventricular cavity size normal. Moderate concentric left ventricular hypertrophy. Right Ventricle Mild right ventricular dilatation. Mild pulmonary hypertension. Right Atrium Normal right atrial size. Left Atrium Normal left atrial size. Mitral Valve Structurally normal mitral valve. Trace to mild mitral regurgitation. Aortic Valve Aortic valve not well visualized. Gradiet on AOV max 20 mmHg and mean 10 mmHg Tricuspid Valve Structurally normal tricuspid valve. Mild tricuspid regurgitation. Pulmonic Valve Structurally normal pulmonic valve. No pulmonic regurgitation. Pericardium No pericardial effusion. Aorta Normal size aortic root and proximal ascending aorta. CONCLUSIONS Normal LV systolic function Mild pulmonary hypertension Mild RV enlargement Poorly visualized aortic valve. Mild aortic stenosis by gradient Previewed by: Dr. Moses Herring MD (Electronically Signed) Final Date: 31 December 2022 14:17
[2022-12-31] MEDS: ATORVASTATIN 10 MG TAB PO SCH (19:55)
[2023-01-01] MEDS: methylPREDNISolone SOD SUCCI 125 MG/2 ML VIAL IV SCH ×4 (01:39→19:46)
[2023-01-01] MEDS: NICOTINE 21MG/24HR PATCH TRANSDERM SCH (08:18)
[2023-01-01] MEDS: PANTOPRAZOLE 40 MG/10 ML VIAL IV SCH (08:18)
[2023-01-01] MEDS: amLODIPine 5 MG TAB PO SCH ×2 (08:19→19:46)
[2023-01-01] MEDS: FUROSEMIDE 20 MG TAB PO SCH (08:19)
[2023-01-01] MEDS: DOXYCYCLINE 100 MG CAP PO SCH ×2 (08:19→19:45)
[2023-01-01] MEDS: SYMBICORT 160-4.5 MCG INHALER INHALATION SCH ×2 (08:41→20:29)
[2023-01-01] MEDS: IPRATROPIUM-ALBUTEROL 3 ML NEB INHALATION SCH ×4 (08:41→20:28)
[2023-01-01 10:29] LABS: ALT 21 U/L (4-49); AST 20 U/L (17-59); African American GFR (CKD) >90 (>60 ml/min/1.73 sqM); Alkaline Phosphatase 53 U/L (38-126); Anion Gap 6 mmol/L; Blood Urea Nitrogen 31 mg/dL (9-20); Calcium 9.2 mg/dL (8.4-10.2); Carbon Dioxide 38 mmol/L (22-30); Chloride 90 mmol/L (98-107); Glucose 252 mg/dL (74-99); Non-African American GFR(CKD) >90 (>60 ml/min/1.73 sqM); Potassium 5.5 mmol/L (3.5-5.1); Sodium 134 mmol/L (137-145); Total Bilirubin 0.5 mg/dL (0.2-1.3); Total Protein 6.7 g/dL (6.3-8.2)
[2023-01-01 10:52] LABS: Basophils # (A) 0.1 k/uL (0-0.2); Basophils % (A) 0 %; Eosinophils % (A) 0 %; HCT 53.6 % (39.0-53.0); Hypochromasia Moderate; Lymphocytes # (A) 0.4 k/uL (1.0-4.8); Lymphocytes % (A) 3 %; MCHC 31.8 g/dL (31.0-37.0); MCV 106.9 fL (80.0-100.0); Macrocytosis Marked; Mean Platelet Volume 8.1; Monocytes # (A) 0.4 k/uL (0-1.0); Monocytes % (A) 3 %; Neutrophils # (A) 14.4 k/uL (1.3-7.7); Neutrophils % (A) 94 %; Platelet Count 249 k/uL (150-450); RBC 5.02 m/uL (4.30-5.90); RDW 15.5 % (11.5-15.5); WBC 15.4 k/uL (3.8-10.6)
[2023-01-01] MEDS ORDERED: DEXTROSE 50% SYRINGE 50 ML IVP ONE (13:06)
[2023-01-01] MEDS ORDERED: INSULIN REGULAR 100 UNIT/ML VIAL (IV) IV ONE (13:06)
[2023-01-01] MEDS ORDERED: SODIUM POLYSTYRENE SULFONATE 15 GM/60 ML BOTTLE PO ONE (13:06)
--- NOTE | 2023-01-01 13:08 | P.PN ---
Subjective Progress Note Date: 01/01/23 Patient is a 47-year-old gentleman with past medical history significant for severe COPD, chronic hypoxic respiratory failure, chronic ongoing tobacco dependence, hypertension, hyperlipidemia, pulmonary hypertension and alcoholism Who presented to the ER for worsening shortness of breath for the last few weeks. Patient stated that he has been noticing increasing shortness of breath on rest as well as exertion. Patient is using oxygen at home but even with oxygen his oxygen saturation is dipping into the 70s. Denies any chest pain. no fever or chills. Denies any complaint of nausea vomiting or abdominal pain. Patient stated that he was so weak because of shortness of breath that he fell in his bathroom at home. Because of these symptoms, patient came to the ER Initial lab work done in the ER showed WBC 9.1, hemoglobin 17.5, platelet count 266, sodium 135, potassium 5, BUN 14, creatinine 0.86, troponin 0.012 EKG done in the ER heart rate 93, normal sinus rhythm, no ST segment elevation, no T-wave inversion. Chest CTA done showed no aortic aneurysm or dissection, no definite PE. Chest x-ray done in the ER showed no acute cardiopulmonary disease Patient admitted to medicine service 12/31. Patient seen and examined. Lab work done this morning shows sodium 134, potassium 5.9, BUN 31, creatinine 0.83. States breathing has improved. Continues to be on 5 L of oxygen. Vital signs stable 01/01. Patient seen and examined. Breathing is improving. States he feels better compared to yesterday. Denies any chest pain. Lab work done this morning showed WBC 15.4, hemoglobin 17, sodium 134, potassium 5.5, currently on 5 L of oxygen. REVIEW OF SYSTEMS: CONSTITUTIONAL: No fever, no malaise,. CARDIOVASCULAR: No chest pain, no palpitations, no syncope. PULMONARY: As mentioned above GASTROINTESTINAL: No diarrhea, no nausea, no vomiting, no abdominal pain. NEUROLOGICAL: No headaches, no weakness, PHYSICAL EXAMINATION: GENERAL: The patient is alert and oriented x3, not in any acute distress. Well developed, well nourished. HEENT: Pupils are round and equally reacting to light. EOMI. No scleral icterus. No conjunctival pallor. Normocephalic, atraumatic. No pharyngeal erythema. No thyromegaly. CARDIOVASCULAR: S1 and S2 present. No murmurs, rubs, or gallops. PULMONARY: Coarse breath sounds bilaterally, no wheezing or crackles. ABDOMEN: Soft, nontender, nondistended, normoactive bowel sounds. No palpable organomegaly. MUSCULOSKELETAL: No joint swelling or deformity. EXTREMITIES: No cyanosis, clubbing, or pedal edema. NEUROLOGICAL: Gross neurological examination did not reveal any focal deficits. SKIN: No rashes. Assessment and plan Acute on chronic hypoxic respiratory failure Acute COPD exacerbation Hypertension Hyperlipidemia Fall Generalized weakness History of pulmonary hypertension History of alcoholism Monitor vital signs Monitor CBC Monitor CMP Encourage use of I-S Aggressive bronchopulmonary hygiene Continue breathing treatment continue IV Solu-Medrol Continue doxycycline Regarding hyperkalemia, potassium this morning is 5.5, potassium shiftrs ordered again In regards to hypertension, DC lisinopril because of hyperkalemia. Continue amlodipine Regards to hyperlipidemia , continue Lipitor Pulmonology following Labs and medication were reviewed.. Continue same treatment. Continue with symptomatic treatment. Resume home medication. Monitor labs and vitals. DVT and GI prophylaxis. Further recommendations as per clinical course of the patient Dictation was produced using [employer] dictation software. please excuse any grammatical, word or spelling errors. Objective - Vital Signs Vital signs: Vital Signs Temp 98.2 F 01/01/23 11:47 Pulse 90 01/01/23 12:14 Resp 20 01/01/23 11:47 BP 114/68 01/01/23 11:47 Pulse Ox 94 L 01/01/23 11:47 FiO2 50 01/01/23 00:00 Intake & Output 12/31/22 01/01/23 01/01/23 18:59 06:59 18:59 Intake Total 2998 360 Output Total 600 1475 Balance 2398 -1475 360 Weight 130.9 kg Intake: Oral 2998 360 Output: Urine 600 1475 Other: Voiding Method Toilet Toilet Urinal Urinal # Voids 2 1 # Bowel Movements 1 - Labs CBC & Chem 7: 01/01/23 09:53 01/01/23 09:53 Labs: Abnormal Lab Results - Last 24 Hours (Table) 12/31/22 01/01/23 01/01/23 Range/Units 12:26 09:53 09:53 WBC 15.4 H (3.8-10.6) k/uL Hct 53.6 H (39.0-53.0) % MCV 106.9 H (80.0-100.0) fL Neutrophils # 14.4 H (1.3-7.7) k/uL Lymphocytes # 0.4 L (1.0-4.8) k/uL Macrocytosis Marked A Sodium 134 L (137-145) mmol/L Potassium 5.8 H 5.5 H (3.5-5.1) mmol/L Chloride 90 L (98-107) mmol/L Carbon Dioxide 38 H (22-30) mmol/L BUN 31 H (9-20) mg/dL Glucose 252 H (74-99) mg/dL
--- NOTE | 2023-01-01 14:31 | P.PN ---
Subjective Progress Note Date: 01/01/23 I am seeing this patient in new consultation today 12/30/2022 in the emergency room for shortness of breath and hypoxia. Patient is a 47-year-old white male with past medical history significant for severe oxygen dependent COPD, chronic ongoing tobacco dependence, hypertension, hyperlipidemia, pulmonary hypertension, "leaky valve", and alcoholism. He does follow in the pulmonary office with Dr. Fish for management of his severe COPD, he has an FEV1 36% of predicted. His PCP is Dr. Omalley. Patient states that yesterday evening, he fell in the bathroom and could not get up. He denies losing consciousness or hitting his head. He states that his legs "just gave out" and he was lightheaded. He was also short of breath and apparently hypoxic. Patient is currently sitting up in bed, on 5 L/m nasal cannula, in no acute distress. He denies any change in his chronic cough, hemoptysis, chest pain. Denies sick contacts. Chest CTA on arrival did not show any pulmonary embolism or aortic aneurysm/dissection. There is mild prominence of the bronchial [place] which may represent bronchitis and chronic emphysematous changes. There is also nonspecific nodular density along the proximal stomach, slightly decreased in size compared to prior exam.CBC on arrival is unremarkable. No leukocytosis. BMP on arrival shows sodium 135, potassium 5, chloride 85, serum bicarbonate 38, BUN 14, creatinine 0.86, glucose 103. Normal saline is infusing at 75 ML's per hour. Troponins less than 0.0122. NT proBNP not elevated. ECG shows normal sinus rhythm without any acute ischemic changes. Vital signs are stable. Patient will be admitted to the cardiac stepdown unit. The patient is seen today 12/31/2022 in follow-up on the selective care unit. He is currently resting in bed. Awake and alert in no acute distress. He is still short of breath with conversation, shortness of breath with exertion. He is utilizing BiPAP 14/6 and 50% FiO2 throughout the night and during the day while napping. Currently with O2 saturations in the 90s on 5 L/m per nasal cannula. Afebrile. Hemodynamically stable. Sodium 134. Potassium 5.9. Bicarb 39. BUN 31. Creatinine 0.83. Glucose 154. Viral screen was negative. Pro-calcitonin negative at 0.07. He is continued on DuoNeb inhalations, Symbicort, Solu-Medrol. Empiric antibiotics in the form of doxycycline. NicoDerm patch in place. Remains on oral diuretics. The patient is seen today 01/01/2023 in follow-up on the selective care unit. He is currently resting comfortably in bed. Awake and alert in no acute distress. Feeling a bit better today compared to yesterday. Still requiring 6 L high flow nasal cannula to maintain O2 saturation in the 90s. He does have home oxygen at 2 L/m per nasal cannula. He has utilized the [facility] and 50% FiO2. He is continued on DuoNeb inhalations, Symbicort, Solu- Medrol. Empiric antibiotics in the form of doxycycline. Remains on oral diuretics. NicoDerm patch in place. White count 15.4. Hemoglobin 17.0. Platelets 249. Sodium 134. Potassium 5.5. Bicarb 30. BUN 31. Creatinine 0.70. Objective - Vital Signs Vital signs: Vital Signs Temp 98.2 F 01/01/23 11:47 Pulse 90 01/01/23 12:14 Resp 20 01/01/23 11:47 BP 114/68 01/01/23 11:47 Pulse Ox 94 L 01/01/23 11:47 FiO2 50 01/01/23 00:00 Intake & Output 12/31/22 01/01/23 01/01/23 18:59 06:59 18:59 Intake Total 2998 720 Output Total 600 1475 Balance 2398 -1475 720 Weight 130.9 kg Intake: Oral 2998 720 Output: Urine 600 1475 Other: Voiding Method Toilet Toilet Urinal Urinal # Voids 2 1 # Bowel Movements 1 - Exam GENERAL EXAM: Alert, 47-year-old morbidly obese male, on 6 L nasal cannula, comfortable in no apparent distress. HEAD: Normocephalic and atraumatic EYES: Normal reaction of pupils, equal size. NOSE: Clear with pink turbinates. THROAT: No erythema or exudates. NECK: No masses, no JVD. CHEST: No chest wall deformity. LUNGS: Equal air entry with bilateral expiratory wheezing, diminished. CVS: S1 and S2 normal with no audible murmur, regular rhythm. No extra heart sounds ABDOMEN: obese abdomen, no hepatosplenomegaly, active bowel sounds, no guarding or rigidity. SPINE: No scoliosis or deformity SKIN: No rashes CENTRAL NERVOUS SYSTEM: No focal deficits, tone is normal in all 4 extremities. EXTREMITIES: There is trace peripheral edema, clubbing, or cyanosis. Peripheral pulses are intact. - Labs CBC & Chem 7: 01/01/23 09:53 01/01/23 09:53 Labs: Abnormal Lab Results - Last 24 Hours (Table) 01/01/23 01/01/23 Range/Units 09:53 09:53 WBC 15.4 H (3.8-10.6) k/uL Hct 53.6 H (39.0-53.0) % MCV 106.9 H (80.0-100.0) fL Neutrophils # 14.4 H (1.3-7.7) k/uL Lymphocytes # 0.4 L (1.0-4.8) k/uL Macrocytosis Marked A Sodium 134 L (137-145) mmol/L Potassium 5.5 H (3.5-5.1) mmol/L Chloride 90 L (98-107) mmol/L Carbon Dioxide 38 H (22-30) mmol/L BUN 31 H (9-20) mg/dL Glucose 252 H (74-99) mg/dL Assessment and Plan Assessment: Suspected acute COPD exacerbation, Chest CTA on arrival did not show any pulmonary embolism or aortic aneurysm/dissection. There is mild prominence of the bronchial r[place] which may represent bronchitis and chronic emphysematous changes. Procalcitonin within normal limits Acute on chronic hypoxemic respiratory failure, secondary to above Chronic ongoing tobacco dependence, continues to smoke 1 pack per day Fall and generalized weakness History of pulmonary hypertension Benign essential hypertension Hyperlipidemia Previous history of alcoholism Obesity, with a BMI of 44 kg/m Plan: The patient was seen and evaluated Labs and medications reviewed Continue bronchodilators, steroids Continue empiric antibiotics Titrate down the FiO2 as tolerated Increase his activity as tolerated NicoDerm patch in place We'll continue to follow I have personally seen and examined the patient, performed the documentation and the assessment and plan as written. Number of minutes spent on the visit: 10.
[2023-01-01] MEDS: ATORVASTATIN 10 MG TAB PO SCH (19:45)
[2023-01-02] MEDS: methylPREDNISolone SOD SUCCI 125 MG/2 ML VIAL IV SCH ×4 (02:08→20:51)
[2023-01-02 06:52] LABS: Basophils % (A) 0 %; Eosinophils % (A) 0 %; HCT 51.8 % (39.0-53.0); HGB 16.3 gm/dL (13.0-17.5); Hypochromasia Slight; Lymphocytes # (A) 0.4 k/uL (1.0-4.8); Lymphocytes % (A) 3 %; MCH 33.3 pg (25.0-35.0); MCHC 31.5 g/dL (31.0-37.0); MCV 105.5 fL (80.0-100.0); Macrocytosis Moderate; Mean Platelet Volume 8.3; Monocytes # (A) 0.6 k/uL (0-1.0); Monocytes % (A) 5 %; Neutrophils # (A) 11.1 k/uL (1.3-7.7); Neutrophils % (A) 91 %; Platelet Count 266 k/uL (150-450); RBC 4.91 m/uL (4.30-5.90); RDW 15.7 % (11.5-15.5); WBC 12.3 k/uL (3.8-10.6)
[2023-01-02 07:03] LABS: ALT 29 U/L (4-49); AST 28 U/L (17-59); African American GFR (CKD) >90 (>60 ml/min/1.73 sqM); Albumin 3.8 g/dL (3.5-5.0); Alkaline Phosphatase 51 U/L (38-126); Anion Gap 6 mmol/L; Blood Urea Nitrogen 29 mg/dL (9-20); Calcium 8.9 mg/dL (8.4-10.2); Carbon Dioxide 39 mmol/L (22-30); Chloride 90 mmol/L (98-107); Glucose 147 mg/dL (74-99); Non-African American GFR(CKD) >90 (>60 ml/min/1.73 sqM); Sodium 135 mmol/L (137-145); Total Bilirubin 0.5 mg/dL (0.2-1.3); Total Protein 6.4 g/dL (6.3-8.2)
[2023-01-02] MEDS: SYMBICORT 160-4.5 MCG INHALER INHALATION SCH ×2 (08:11→21:36)
[2023-01-02] MEDS: IPRATROPIUM-ALBUTEROL 3 ML NEB INHALATION SCH ×4 (08:11→21:36)
[2023-01-02] MEDS: NICOTINE 21MG/24HR PATCH TRANSDERM SCH (09:48)
[2023-01-02] MEDS: DOXYCYCLINE 100 MG CAP PO SCH ×2 (09:48→20:50)
[2023-01-02] MEDS: amLODIPine 5 MG TAB PO SCH ×2 (09:48→20:50)
[2023-01-02] MEDS: FUROSEMIDE 20 MG TAB PO SCH (09:48)
[2023-01-02] MEDS: PANTOPRAZOLE 40 MG/10 ML VIAL IV SCH (12:00)
--- NOTE | 2023-01-02 13:18 | P.PN ---
Subjective Progress Note Date: 01/02/23 Patient is a 47-year-old gentleman with past medical history significant for severe COPD, chronic hypoxic respiratory failure, chronic ongoing tobacco dependence, hypertension, hyperlipidemia, pulmonary hypertension and alcoholism Who presented to the ER for worsening shortness of breath for the last few weeks. Patient stated that he has been noticing increasing shortness of breath on rest as well as exertion. Patient is using oxygen at home but even with oxygen his oxygen saturation is dipping into the 70s. Denies any chest pain. no fever or chills. Denies any complaint of nausea vomiting or abdominal pain. Patient stated that he was so weak because of shortness of breath that he fell in his bathroom at home. Because of these symptoms, patient came to the ER Initial lab work done in the ER showed WBC 9.1, hemoglobin 17.5, platelet count 266, sodium 135, potassium 5, BUN 14, creatinine 0.86, troponin 0.012 EKG done in the ER heart rate 93, normal sinus rhythm, no ST segment elevation, no T-wave inversion. Chest CTA done showed no aortic aneurysm or dissection, no definite PE. Chest x-ray done in the ER showed no acute cardiopulmonary disease Patient admitted to medicine service 12/31. Patient seen and examined. Lab work done this morning shows sodium 134, potassium 5.9, BUN 31, creatinine 0.83. States breathing has improved. Continues to be on 5 L of oxygen. Vital signs stable 01/01. Patient seen and examined. Breathing is improving. States he feels better compared to yesterday. Denies any chest pain. Lab work done this morning showed WBC 15.4, hemoglobin 17, sodium 134, potassium 5.5, currently on 5 L of oxygen. 01/02. Patient seen and examined. WBC 12.3, hemoglobin 16.3, platelet count was 2, sodium 135, potassium 5, BUN 29, creatinine 0.7. Continues to be on 5 L of oxygen. States breathing is improving, gets more short of breath on exertion. REVIEW OF SYSTEMS: CONSTITUTIONAL: No fever, no malaise,. CARDIOVASCULAR: No chest pain, no palpitations, no syncope. PULMONARY: As mentioned above GASTROINTESTINAL: No diarrhea, no nausea, no vomiting, no abdominal pain. NEUROLOGICAL: No headaches, no weakness, PHYSICAL EXAMINATION: GENERAL: The patient is alert and oriented x3, not in any acute distress. Well developed, well nourished. HEENT: Pupils are round and equally reacting to light. EOMI. No scleral icterus. No conjunctival pallor. Normocephalic, atraumatic. No pharyngeal erythema. No thyromegaly. CARDIOVASCULAR: S1 and S2 present. No murmurs, rubs, or gallops. PULMONARY: Coarse breath sounds bilaterally, no wheezing or crackles. ABDOMEN: Soft, nontender, nondistended, normoactive bowel sounds. No palpable organomegaly. MUSCULOSKELETAL: No joint swelling or deformity. EXTREMITIES: No cyanosis, clubbing, or pedal edema. NEUROLOGICAL: Gross neurological examination did not reveal any focal deficits. SKIN: No rashes. Assessment and plan Acute on chronic hypoxic respiratory failure Acute COPD exacerbation Hypertension Hyperlipidemia Fall Generalized weakness History of pulmonary hypertension History of alcoholism Monitor vital signs Monitor CBC Monitor CMP Encourage use of I-S Aggressive bronchopulmonary hygiene Continue breathing treatment continue IV Solu-Medrol Continue doxycycline Regarding hyperkalemia, hyperkalemia improved In regards to hypertension, DC lisinopril because of hyperkalemia. Continue amlodipine Regards to hyperlipidemia , continue Lipitor Pulmonology following Labs and medication were reviewed.. Continue same treatment. Continue with symptomatic treatment. Resume home medication. Monitor labs and vitals. DVT and GI prophylaxis. Further recommendations as per clinical course of the patient Dictation was produced using [employer] dictation software. please excuse any grammatical, word or spelling errors. Objective - Vital Signs Vital signs: Vital Signs Temp 97.8 F 01/02/23 06:58 Pulse 95 01/02/23 08:25 Resp 16 01/02/23 06:58 BP 124/74 01/02/23 06:58 Pulse Ox 95 01/02/23 06:58 FiO2 50 01/01/23 00:00 Intake & Output 01/01/23 01/02/23 01/02/23 18:59 06:59 18:59 Intake Total 838 Balance 838 Weight 132.7 kg Intake: Oral 838 Other: Voiding Method Toilet Urinal # Voids 4 2 - Labs CBC & Chem 7: 01/02/23 06:03 01/02/23 06:03 Labs: Abnormal Lab Results - Last 24 Hours (Table) 01/01/23 01/01/23 01/02/23 Range/Units 09:53 09:53 06:03 WBC 15.4 H 12.3 H (3.8-10.6) k/uL Hct 53.6 H (39.0-53.0) % MCV 106.9 H 105.5 H (80.0-100.0) fL RDW 15.7 H (11.5-15.5) % Neutrophils # 14.4 H 11.1 H (1.3-7.7) k/uL Lymphocytes # 0.4 L 0.4 L (1.0-4.8) k/uL Macrocytosis Marked A Sodium 134 L (137-145) mmol/L Potassium 5.5 H (3.5-5.1) mmol/L Chloride 90 L (98-107) mmol/L Carbon Dioxide 38 H (22-30) mmol/L BUN 31 H (9-20) mg/dL Glucose 252 H (74-99) mg/dL 01/02/23 Range/Units 06:03 WBC (3.8-10.6) k/uL Hct (39.0-53.0) % MCV (80.0-100.0) fL RDW (11.5-15.5) % Neutrophils # (1.3-7.7) k/uL Lymphocytes # (1.0-4.8) k/uL Macrocytosis Sodium 135 L (137-145) mmol/L Potassium (3.5-5.1) mmol/L Chloride 90 L (98-107) mmol/L Carbon Dioxide 39 H (22-30) mmol/L BUN 29 H (9-20) mg/dL Glucose 147 H (74-99) mg/dL
--- NOTE | 2023-01-02 14:09 | P.PN ---
Subjective Progress Note Date: 01/02/23 I am seeing this patient in new consultation today 12/30/2022 in the emergency room for shortness of breath and hypoxia. Patient is a 47-year-old white male with past medical history significant for severe oxygen dependent COPD, chronic ongoing tobacco dependence, hypertension, hyperlipidemia, pulmonary hypertension, "leaky valve", and alcoholism. He does follow in the pulmonary office with Dr. Fish for management of his severe COPD, he has an FEV1 36% of predicted. His PCP is Dr. Omalley. Patient states that yesterday evening, he fell in the bathroom and could not get up. He denies losing consciousness or hitting his head. He states that his legs "just gave out" and he was lightheaded. He was also short of breath and apparently hypoxic. Patient is currently sitting up in bed, on 5 L/m nasal cannula, in no acute distress. He denies any change in his chronic cough, hemoptysis, chest pain. Denies sick contacts. Chest CTA on arrival did not show any pulmonary embolism or aortic aneurysm/dissection. There is mild prominence of the bronchial rags[place] which may represent bronchitis and chronic emphysematous changes. There is also nonspecific nodular density along the proximal stomach, slightly decreased in size compared to prior exam.CBC on arrival is unremarkable. No leukocytosis. BMP on arrival shows sodium 135, potassium 5, chloride 85, serum bicarbonate 38, BUN 14, creatinine 0.86, glucose 103. Normal saline is infusing at 75 ML's per hour. Troponins less than 0.0122. NT proBNP not elevated. ECG shows normal sinus rhythm without any acute ischemic changes. Vital signs are stable. Patient will be admitted to the cardiac stepdown unit. The patient is seen today 12/31/2022 in follow-up on the selective care unit. He is currently resting in bed. Awake and alert in no acute distress. He is still short of breath with conversation, shortness of breath with exertion. He is utilizing BiPAP 14/6 and 50% FiO2 throughout the night and during the day while napping. Currently with O2 saturations in the 90s on 5 L/m per nasal cannula. Afebrile. Hemodynamically stable. Sodium 134. Potassium 5.9. Bicarb 39. BUN 31. Creatinine 0.83. Glucose 154. Viral screen was negative. Pro-calcitonin negative at 0.07. He is continued on DuoNeb inhalations, Symbicort, Solu-Medrol. Empiric antibiotics in the form of doxycycline. NicoDerm patch in place. Remains on oral diuretics. The patient is seen today 01/01/2023 in follow-up on the selective care unit. He is currently resting comfortably in bed. Awake and alert in no acute distress. Feeling a bit better today compared to yesterday. Still requiring 6 L high flow nasal cannula to maintain O2 saturation in the 90s. He does have home oxygen at 2 L/m per nasal cannula. He has utilized the BiPAP in the eveni ngs 14/ and 50% FiO2. He is continued on DuoNeb inhalations, Symbicort, Solu- Medrol. Empiric antibiotics in the form of doxycycline. Remains on oral diuretics. NicoDerm patch in place. White count 15.4. Hemoglobin 17.0. Platelets 249. Sodium 134. Potassium 5.5. Bicarb 30. BUN 31. Creatinine 0.70. The patient is seen today 01/02/2023 in follow-up on the regular medical floor. He is awake and alert in no acute distress. Resting comfortably in bed. Denies any worsening shortness of breath, cough or congestion. Still not feeling back to his baseline. He is continued on DuoNeb inhalations, Symbicort, Solu-Medrol, empiric antibiotics in the form of doxycycline. He is on oral diuretics. NicoDerm patches in place. White count 12.3. Hemoglobin 16.3. Platelets 266. Sodium 135. Potassium 5.0. Bicarb 39. BUN 29. Creatinine 0.70. Glucose 147. Objective - Vital Signs Vital signs: Vital Signs Temp 98.4 F 01/02/23 13:13 Pulse 91 01/02/23 13:13 Resp 18 01/02/23 13:13 BP 126/79 01/02/23 13:13 Pulse Ox 94 L 01/02/23 13:13 FiO2 50 01/01/23 00:00 Intake & Output 01/01/23 01/02/23 01/02/23 18:59 06:59 18:59 Intake Total 838 Balance 838 Weight 132.7 kg Intake: Oral 838 Other: Voiding Method Toilet Toilet Urinal Urinal # Voids 4 2 - Exam GENERAL EXAM: Alert, 47-year-old morbidly obese male, on 5 L nasal cannula, in no apparent distress. HEAD: Normocephalic and atraumatic EYES: Normal reaction of pupils, equal size. NOSE: Clear with pink turbinates. THROAT: No erythema or exudates. NECK: No masses, no JVD. CHEST: No chest wall deformity. LUNGS: Equal air entry with bilateral expiratory wheezing, diminished. CVS: S1 and S2 normal with no audible murmur, regular rhythm. No extra heart sounds ABDOMEN: obese abdomen, no hepatosplenomegaly, active bowel sounds, no guarding or rigidity. SPINE: No scoliosis or deformity SKIN: No rashes CENTRAL NERVOUS SYSTEM: No focal deficits, tone is normal in all 4 extremities. EXTREMITIES: There is trace peripheral edema, clubbing, or cyanosis. Peripheral pulses are intact. - Labs CBC & Chem 7: 01/02/23 06:03 01/02/23 06:03 Labs: Abnormal Lab Results - Last 24 Hours (Table) 01/02/23 01/02/23 Range/Units 06:03 06:03 WBC 12.3 H (3.8-10.6) k/uL MCV 105.5 H (80.0-100.0) fL RDW 15.7 H (11.5-15.5) % Neutrophils # 11.1 H (1.3-7.7) k/uL Lymphocytes # 0.4 L (1.0-4.8) k/uL Sodium 135 L (137-145) mmol/L Chloride 90 L (98-107) mmol/L Carbon Dioxide 39 H (22-30) mmol/L BUN 29 H (9-20) mg/dL Glucose 147 H (74-99) mg/dL Assessment and Plan Assessment: Suspected acute COPD exacerbation, Chest CTA on arrival did not show any pulmonary embolism or aortic aneurysm/dissection. There is mild prominence of the bronchial [place] which may represent bronchitis and chronic emphysematous changes. Procalcitonin within normal limits Acute on chronic hypoxemic respiratory failure, secondary to above Chronic ongoing tobacco dependence, continues to smoke 1 pack per day Fall and generalized weakness History of pulmonary hypertension Benign essential hypertension Hyperlipidemia Previous history of alcoholism Obesity, with a BMI of 44 kg/m Plan: The patient was seen and evaluated Labs and medications reviewed Continue current treatment plan Titrate down the FiO2 as tolerated Increase his activity as tolerated We'll continue to follow I have personally seen and examined the patient, performed the documentation and the assessment and plan as written. Number of minutes spent on the visit: 10.
[2023-01-02] MEDS: ATORVASTATIN 10 MG TAB PO SCH (20:50)
[2023-01-03] MEDS: methylPREDNISolone SOD SUCCI 125 MG/2 ML VIAL IV SCH ×5 (01:41→20:24)
[2023-01-03] MEDS: SYMBICORT 160-4.5 MCG INHALER INHALATION SCH ×2 (07:39→18:07)
[2023-01-03] MEDS: IPRATROPIUM-ALBUTEROL 3 ML NEB INHALATION SCH ×4 (07:39→18:07)
[2023-01-03] MEDS: NICOTINE 21MG/24HR PATCH TRANSDERM SCH (09:18)
[2023-01-03] MEDS: FUROSEMIDE 20 MG TAB PO SCH (09:18)
[2023-01-03] MEDS: amLODIPine 5 MG TAB PO SCH ×2 (09:18→20:25)
[2023-01-03] MEDS: DOXYCYCLINE 100 MG CAP PO SCH ×2 (09:19→20:25)
[2023-01-03] MEDS: PANTOPRAZOLE 40 MG/10 ML VIAL IV SCH (11:27)
--- NOTE | 2023-01-03 12:52 | P.PN ---
Subjective Progress Note Date: 01/03/23 Patient is a 47-year-old gentleman with past medical history significant for severe COPD, chronic hypoxic respiratory failure, chronic ongoing tobacco dependence, hypertension, hyperlipidemia, pulmonary hypertension and alcoholism Who presented to the ER for worsening shortness of breath for the last few weeks. Patient stated that he has been noticing increasing shortness of breath on rest as well as exertion. Patient is using oxygen at home but even with oxygen his oxygen saturation is dipping into the 70s. Denies any chest pain. no fever or chills. Denies any complaint of nausea vomiting or abdominal pain. Patient stated that he was so weak because of shortness of breath that he fell in his bathroom at home. Because of these symptoms, patient came to the ER Initial lab work done in the ER showed WBC 9.1, hemoglobin 17.5, platelet count 266, sodium 135, potassium 5, BUN 14, creatinine 0.86, troponin 0.012 EKG done in the ER heart rate 93, normal sinus rhythm, no ST segment elevation, no T-wave inversion. Chest CTA done showed no aortic aneurysm or dissection, no definite PE. Chest x-ray done in the ER showed no acute cardiopulmonary disease Patient admitted to medicine service 12/31. Patient seen and examined. Lab work done this morning shows sodium 134, potassium 5.9, BUN 31, creatinine 0.83. States breathing has improved. Continues to be on 5 L of oxygen. Vital signs stable 01/01. Patient seen and examined. Breathing is improving. States he feels better compared to yesterday. Denies any chest pain. Lab work done this morning showed WBC 15.4, hemoglobin 17, sodium 134, potassium 5.5, currently on 5 L of oxygen. 01/02. Patient seen and examined. WBC 12.3, hemoglobin 16.3, platelet count was 2, sodium 135, potassium 5, BUN 29, creatinine 0.7. Continues to be on 5 L of oxygen. States breathing is improving, gets more short of breath on exertion. 01/03. Patient seen and examined. States breathing remains unchanged compared to yesterday. No shortness of breath at rest. Encourage patient to ambulate and get out of the bed. Vital signs stable, oxygen at 5 L REVIEW OF SYSTEMS: CONSTITUTIONAL: No fever, no malaise,. CARDIOVASCULAR: No chest pain, no palpitations, no syncope. PULMONARY: As mentioned above GASTROINTESTINAL: No diarrhea, no nausea, no vomiting, no abdominal pain. NEUROLOGICAL: No headaches, no weakness, PHYSICAL EXAMINATION: GENERAL: The patient is alert and oriented x3, not in any acute distress. Well developed, well nourished. HEENT: Pupils are round and equally reacting to light. EOMI. No scleral icterus. No conjunctival pallor. Normocephalic, atraumatic. No pharyngeal erythema. No thyromegaly. CARDIOVASCULAR: S1 and S2 present. No murmurs, rubs, or gallops. PULMONARY: Coarse breath sounds bilaterally, no wheezing or crackles. ABDOMEN: Soft, nontender, nondistended, normoactive bowel sounds. No palpable organomegaly. MUSCULOSKELETAL: No joint swelling or deformity. EXTREMITIES: No cyanosis, clubbing, or pedal edema. NEUROLOGICAL: Gross neurological examination did not reveal any focal deficits. SKIN: No rashes. Assessment and plan Acute on chronic hypoxic respiratory failure Acute COPD exacerbation Hypertension Hyperlipidemia Fall Generalized weakness History of pulmonary hypertension History of alcoholism Monitor vital signs Monitor CBC Monitor CMP Encourage use of I-S Aggressive bronchopulmonary hygiene Continue breathing treatment continue IV Solu-Medrol Continue doxycycline Regarding hyperkalemia, hyperkalemia improved In regards to hypertension, DC lisinopril because of hyperkalemia. Continue amlodipine Regards to hyperlipidemia , continue Lipitor Pulmonology following Labs and medication were reviewed.. Continue same treatment. Continue with symptomatic treatment. Resume home medication. Monitor labs and vitals. DVT and GI prophylaxis. Further recommendations as per clinical course of the patient Dictation was produced using [employer] dictation software. please excuse any grammatical, word or spelling errors. Objective - Vital Signs Vital signs: Vital Signs Temp 98.0 F 01/03/23 07:01 Pulse 88 01/03/23 07:52 Resp 20 01/03/23 07:01 BP 119/71 01/03/23 07:01 Pulse Ox 92 L 01/03/23 07:40 FiO2 50 01/01/23 00:00 Intake & Output 01/02/23 01/03/23 01/03/23 18:59 06:59 18:59 Intake Total 3240 Balance 3240 Weight 132.7 kg Intake: Oral 3240 Other: Voiding Method Toilet Toilet Urinal Urinal # Voids 7 3 - Labs CBC & Chem 7: 01/02/23 06:03 01/02/23 06:03
--- NOTE | 2023-01-03 15:06 | P.PN ---
Subjective Progress Note Date: 01/03/23 I am seeing this patient in new consultation today 12/30/2022 in the emergency room for shortness of breath and hypoxia. Patient is a 47-year-old white male with past medical history significant for severe oxygen dependent COPD, chronic ongoing tobacco dependence, hypertension, hyperlipidemia, pulmonary hypertension, "leaky valve", and alcoholism. He does follow in the pulmonary office with Dr. Fish for management of his severe COPD, he has an FEV1 36% of predicted. His PCP is Dr. Omalley. Patient states that yesterday evening, he fell in the bathroom and could not get up. He denies losing consciousness or hitting his head. He states that his legs "just gave out" and he was lightheaded. He was also short of breath and apparently hypoxic. Patient is currently sitting up in bed, on 5 L/m nasal cannula, in no acute distress. He denies any change in his chronic cough, hemoptysis, chest pain. Denies sick contacts. Chest CTA on arrival did not show any pulmonary embolism or aortic aneurysm/dissection. There is mild prominence of the bronchial [place] which may represent bronchitis and chronic emphysematous changes. There is also nonspecific nodular density along the proximal stomach, slightly decreased in size compared to prior exam.CBC on arrival is unremarkable. No leukocytosis. BMP on arrival shows sodium 135, potassium 5, chloride 85, serum bicarbonate 38, BUN 14, creatinine 0.86, glucose 103. Normal saline is infusing at 75 ML's per hour. Troponins less than 0.0122. NT proBNP not elevated. ECG shows normal sinus rhythm without any acute ischemic changes. Vital signs are stable. Patient will be admitted to the cardiac stepdown unit. The patient is seen today 12/31/2022 in follow-up on the selective care unit. He is currently resting in bed. Awake and alert in no acute distress. He is still short of breath with conversation, shortness of breath with exertion. He is utilizing BiPAP 14/6 and 50% FiO2 throughout the night and during the day while napping. Currently with O2 saturations in the 90s on 5 L/m per nasal cannula. Afebrile. Hemodynamically stable. Sodium 134. Potassium 5.9. Bicarb 39. BUN 31. Creatinine 0.83. Glucose 154. Viral screen was negative. Pro-calcitonin negative at 0.07. He is continued on DuoNeb inhalations, Symbicort, Solu-Medrol. Empiric antibiotics in the form of doxycycline. NicoDerm patch in place. Remains on oral diuretics. The patient is seen today 01/01/2023 in follow-up on the selective care unit. He is currently resting comfortably in bed. Awake and alert in no acute distress. Feeling a bit better today compared to yesterday. Still requiring 6 L high flow nasal cannula to maintain O2 saturation in the 90s. He does have home oxygen at 2 L/m per nasal cannula. He has utilized the BiPAP in the [facility] ngs 22/07 and 50% FiO2. He is continued on DuoNeb inhalations, Symbicort, Solu- Medrol. Empiric antibiotics in the form of doxycycline. Remains on oral diuretics. NicoDerm patch in place. White count 15.4. Hemoglobin 17.0. Platelets 249. Sodium 134. Potassium 5.5. Bicarb 30. BUN 31. Creatinine 0.70. The patient is seen today 01/02/2023 in follow-up on the regular medical floor. He is awake and alert in no acute distress. Resting comfortably in bed. Denies any worsening shortness of breath, cough or congestion. Still not feeling back to his baseline. He is continued on DuoNeb inhalations, Symbicort, Solu-Medrol, empiric antibiotics in the form of doxycycline. He is on oral diuretics. NicoDerm patches in place. White count 12.3. Hemoglobin 16.3. Platelets 266. Sodium 135. Potassium 5.0. Bicarb 39. BUN 29. Creatinine 0.70. Glucose 147. The patient is seen today 01/03/2023 in follow-up on the regular medical floor. He is awake and alert in no acute distress. Family feeling a bit better. Denies any worsening shortness of breath, cough or congestion. Currently on 4 L nasal cannula. He wears 2 L at home. He remains on DuoNeb inhalations, Symbicort, Solu-Medrol. Empiric antibiotics in the form of doxycycline. Oral diuretics. NicoDerm patch in place. Objective - Vital Signs Vital signs: Vital Signs Temp 98.0 F 01/03/23 13:27 Pulse 87 01/03/23 14:50 Resp 17 01/03/23 13:27 BP 124/75 01/03/23 13:27 Pulse Ox 94 L 01/03/23 13:27 FiO2 50 01/01/23 00:00 Intake & Output 01/02/23 01/03/23 01/03/23 18:59 06:59 18:59 Intake Total 3240 Balance 3240 Weight 132.7 kg Intake: Oral 3240 Other: Voiding Method Toilet Toilet Toilet Urinal Urinal Urinal # Voids 7 3 - Exam GENERAL EXAM: Alert, 47-year-old morbidly obese male, resting in bed, on 4 L nasal cannula, in no apparent distress. HEAD: Normocephalic and atraumatic EYES: Normal reaction of pupils, equal size. NOSE: Clear with pink turbinates. THROAT: No erythema or exudates. NECK: No masses, no JVD. CHEST: No chest wall deformity. LUNGS: Equal air entry with bilateral expiratory wheezing, diminished. CVS: S1 and S2 normal with no audible murmur, regular rhythm. No extra heart sounds ABDOMEN: obese abdomen, no hepatosplenomegaly, active bowel sounds, no guarding or rigidity. SPINE: No scoliosis or deformity SKIN: No rashes CENTRAL NERVOUS SYSTEM: No focal deficits, tone is normal in all 4 extremities. EXTREMITIES: There is trace peripheral edema, clubbing, or cyanosis. Peripheral pulses are intact. - Labs CBC & Chem 7: 01/02/23 06:03 01/02/23 06:03 Assessment and Plan Assessment: Suspected acute COPD exacerbation, Chest CTA on arrival did not show any pulmonary embolism or aortic aneurysm/dissection. There is mild prominence of the bronchial [place] which may represent bronchitis and chronic emphysematous changes. Procalcitonin within normal limits Acute on chronic hypoxemic respiratory failure, secondary to above Chronic ongoing tobacco dependence, continues to smoke 1 pack per day Fall and generalized weakness History of pulmonary hypertension Benign essential hypertension Hyperlipidemia Previous history of alcoholism Obesity, with a BMI of 44 kg/m Plan: The patient was seen and evaluated Medications reviewed Could be considered for discharge from the pulmonary standpoint Continue his home pulmonary medications, prednisone taper Continue on oxygen at 4 L at home until he feels improved and could titrate down to 2 L Follow-up in our office in 1 week I have personally seen and examined the patient, performed the documentation and the assessment and plan as written. Number of minutes spent on the visit: 10.
[2023-01-03] MEDS: ATORVASTATIN 10 MG TAB PO SCH (20:25)
[2023-01-04] MEDS: methylPREDNISolone SOD SUCCI 125 MG/2 ML VIAL IV SCH (05:21)
[2023-01-04] MEDS: SYMBICORT 160-4.5 MCG INHALER INHALATION SCH ×2 (07:41→20:01)
[2023-01-04] MEDS: IPRATROPIUM-ALBUTEROL 3 ML NEB INHALATION SCH ×4 (07:41→20:02)
[2023-01-04] MEDS: amLODIPine 5 MG TAB PO SCH ×2 (08:07→21:25)
[2023-01-04] MEDS: NICOTINE 21MG/24HR PATCH TRANSDERM SCH (08:07)
[2023-01-04] MEDS: FUROSEMIDE 20 MG TAB PO SCH (08:07)
[2023-01-04] MEDS: PANTOPRAZOLE 40 MG/10 ML VIAL IV SCH (08:07)
[2023-01-04] MEDS: DOXYCYCLINE 100 MG CAP PO SCH (08:07)
[2023-01-04 08:48] LABS: HCT 50.6 % (39.6-50.0); HGB 16.4 g/dL (13.0-17.0); MCH 32.7 pg (27.0-32.0); MCHC 32.4 g/dL (32.0-37.0); Mean Platelet Volume 10.2 FL (9.5-12.2); NRBC Per 100 WBC 0 X 10*3/uL (0.00-0.01); Platelet Count 259 X 10*3/uL (140-440); RBC 5.01 X 10*6/uL (4.40-5.60); RDW 15.6 % (11.5-14.5); WBC 10.06 X 10*3/uL (4.50-10.00)
[2023-01-04 08:54] LABS: ALT 82 U/L (10-49); AST 33 U/L (14-35); Albumin 4.1 g/dL (3.8-4.9); Albumin/Globulin Ratio 1.95 Ratio (1.60-3.17); Alkaline Phosphatase 51 U/L (41-126); BUN/Creat Ratio 34.38 Ratio (12.00-20.00); Blood Urea Nitrogen 27.5 mg/dL (9.0-27.0); Carbon Dioxide 35.3 mmol/L (21.6-31.8); Chloride 93 mmol/L (96-109); Globulin 2.1 g/dL (1.6-3.3); Glucose 151 mg/dL (70-110); Potassium 5.5 mmol/L (3.5-5.5); Sodium 137 mmol/L (135-145); Total Bilirubin 0.5 mg/dL (0.3-1.2); Total Protein 6.2 g/dL (6.2-8.2)
[2023-01-04 13:29] VITALS: BMI 44.2
--- NOTE | 2023-01-04 13:48 | P.PN ---
Subjective Progress Note Date: 01/04/23 Patient is a 47-year-old gentleman with past medical history significant for severe COPD, chronic hypoxic respiratory failure, chronic ongoing tobacco dependence, hypertension, hyperlipidemia, pulmonary hypertension and alcoholism Who presented to the ER for worsening shortness of breath for the last few weeks. Patient stated that he has been noticing increasing shortness of breath on rest as well as exertion. Patient is using oxygen at home but even with oxygen his oxygen saturation is dipping into the 70s. Denies any chest pain. no fever or chills. Denies any complaint of nausea vomiting or abdominal pain. Patient stated that he was so weak because of shortness of breath that he fell in his bathroom at home. Because of these symptoms, patient came to the ER Initial lab work done in the ER showed WBC 9.1, hemoglobin 17.5, platelet count 266, sodium 135, potassium 5, BUN 14, creatinine 0.86, troponin 0.012 EKG done in the ER heart rate 93, normal sinus rhythm, no ST segment elevation, no T-wave inversion. Chest CTA done showed no aortic aneurysm or dissection, no definite PE. Chest x-ray done in the ER showed no acute cardiopulmonary disease Patient admitted to medicine service 12/31. Patient seen and examined. Lab work done this morning shows sodium 134, potassium 5.9, BUN 31, creatinine 0.83. States breathing has improved. Continues to be on 5 L of oxygen. Vital signs stable 01/01. Patient seen and examined. Breathing is improving. States he feels better compared to yesterday. Denies any chest pain. Lab work done this morning showed WBC 15.4, hemoglobin 17, sodium 134, potassium 5.5, currently on 5 L of oxygen. 01/02. Patient seen and examined. WBC 12.3, hemoglobin 16.3, platelet count was 2, sodium 135, potassium 5, BUN 29, creatinine 0.7. Continues to be on 5 L of oxygen. States breathing is improving, gets more short of breath on exertion. 01/03. Patient seen and examined. States breathing remains unchanged compared to yesterday. No shortness of breath at rest. Encourage patient to ambulate and get out of the bed. Vital signs stable, oxygen at 5 L 01/04. Patient seen and examined. Blood work showed WBC 10.06, hemoglobin 16.4, sodium 137, potassium 5.5, BUN 27.5 creatinine 0.8. Oxygen has improved to 4 L, wears 2 L of oxygen at home, try to wean down oxygen to home O2 levels. Possible discharge in next 24 hours REVIEW OF SYSTEMS: CONSTITUTIONAL: No fever, no malaise,. CARDIOVASCULAR: No chest pain, no palpitations, no syncope. PULMONARY: As mentioned above GASTROINTESTINAL: No diarrhea, no nausea, no vomiting, no abdominal pain. NEUROLOGICAL: No headaches, no weakness, PHYSICAL EXAMINATION: GENERAL: The patient is alert and oriented x3, not in any acute distress. Well developed, well nourished. HEENT: Pupils are round and equally reacting to light. EOMI. No scleral icterus. No conjunctival pallor. Normocephalic, atraumatic. No pharyngeal erythema. No t hyromegaly. CARDIOVASCULAR: S1 and S2 present. No murmurs, rubs, or gallops. PULMONARY: Coarse breath sounds bilaterally, no wheezing or crackles. ABDOMEN: Soft, nontender, nondistended, normoactive bowel sounds. No palpable organomegaly. MUSCULOSKELETAL: No joint swelling or deformity. EXTREMITIES: No cyanosis, clubbing, or pedal edema. NEUROLOGICAL: Gross neurological examination did not reveal any focal deficits. SKIN: No rashes. Assessment and plan Acute on chronic hypoxic respiratory failure Acute COPD exacerbation Hypertension Hyperlipidemia Fall Generalized weakness History of pulmonary hypertension History of alcoholism Monitor vital signs Monitor CBC Monitor CMP Encourage use of I-S Aggressive bronchopulmonary hygiene Continue breathing treatment DC Solu-Medrol, switched to oral prednisone Continue doxycycline Regarding hyperkalemia, hyperkalemia improved In regards to hypertension, DC lisinopril because of hyperkalemia. Continue amlodipine Regards to hyperlipidemia , continue Lipitor Pulmonology following Labs and medication were reviewed.. Continue same treatment. Continue with symptomatic treatment. Resume home medication. Monitor labs and vitals. DVT and GI prophylaxis. Further recommendations as per clinical course of the patient Dictation was produced using [employer] dictation software. please excuse any grammatical, word or spelling errors. Objective - Vital Signs Vital signs: Vital Signs Temp 98.3 F 01/04/23 07:04 Pulse 86 01/04/23 07:57 Resp 18 01/04/23 07:04 BP 118/72 01/04/23 07:04 Pulse Ox 93 L 01/04/23 07:43 FiO2 50 01/01/23 00:00 Intake & Output 01/03/23 01/04/23 01/04/23 18:59 06:59 18:59 Intake Total 1080 Balance 1080 Weight 132 kg Intake: Oral 1080 Other: Voiding Method Toilet Toilet Urinal Urinal # Voids 3 3 # Bowel Movements 1 - Labs CBC & Chem 7: 01/04/23 05:35 01/04/23 05:35 Labs: Abnormal Lab Results - Last 24 Hours (Table) 01/04/23 01/04/23 Range/Units 05:35 05:35 WBC 10.06 H (4.50-10.00) X 10*3/uL Hct 50.6 H (39.6-50.0) % MCV 101.0 H (80.0-97.0) FL MCH 32.7 H (27.0-32.0) pg RDW 15.6 H (11.5-14.5) % Chloride 93 L (96-109) mmol/L Carbon Dioxide 35.3 H (21.6-31.8) mmol/L BUN 27.5 H (9.0-27.0) mg/dL BUN/Creatinine Ratio 34.38 H (12.00-20.00) Ratio Glucose 151 H (70-110) mg/dL ALT 82 H (10-49) U/L
--- NOTE | 2023-01-04 14:47 | P.PN ---
Subjective Progress Note Date: 01/04/23 I am seeing this patient in new consultation today 12/30/2022 in the emergency room for shortness of breath and hypoxia. Patient is a 47-year-old white male with past medical history significant for severe oxygen dependent COPD, chronic ongoing tobacco dependence, hypertension, hyperlipidemia, pulmonary hypertension, "leaky valve", and alcoholism. He does follow in the pulmonary office with Dr. Fish for management of his severe COPD, he has an FEV1 36% of predicted. His PCP is Dr. Omalley. Patient states that yesterday evening, he fell in the bathroom and could not get up. He denies losing consciousness or hitting his head. He states that his legs "just gave out" and he was lightheaded. He was also short of breath and apparently hypoxic. Patient is currently sitting up in bed, on 5 L/m nasal cannula, in no acute distress. He denies any change in his chronic cough, hemoptysis, chest pain. Denies sick contacts. Chest CTA on arrival did not show any pulmonary embolism or aortic aneurysm/dissection. There is mild prominence of the bronchial [place] which may represent bronchitis and chronic emphysematous changes. There is also nonspecific nodular density along the proximal stomach, slightly decreased in size compared to prior exam.CBC on arrival is unremarkable. No leukocytosis. BMP on arrival shows sodium 135, potassium 5, chloride 85, serum bicarbonate 38, BUN 14, creatinine 0.86, glucose 103. Normal saline is infusing at 75 ML's per hour. Troponins less than 0.0122. NT proBNP not elevated. ECG shows normal sinus rhythm without any acute ischemic changes. Vital signs are stable. Patient will be admitted to the cardiac stepdown unit. The patient is seen today 12/31/2022 in follow-up on the selective care unit. He is currently resting in bed. Awake and alert in no acute distress. He is still short of breath with conversation, shortness of breath with exertion. He is utilizing BiPAP 14/6 and 50% FiO2 throughout the night and during the day while napping. Currently with O2 saturations in the 90s on 5 L/m per nasal cannula. Afebrile. Hemodynamically stable. Sodium 134. Potassium 5.9. Bicarb 39. BUN 31. Creatinine 0.83. Glucose 154. Viral screen was negative. Pro-calcitonin negative at 0.07. He is continued on DuoNeb inhalations, Symbicort, Solu-Medrol. Empiric antibiotics in the form of doxycycline. NicoDerm patch in place. Remains on oral diuretics. The patient is seen today 01/01/2023 in follow-up on the selective care unit. He is currently resting comfortably in bed. Awake and alert in no acute distress. Feeling a bit better today compared to yesterday. Still requiring 6 L high flow nasal cannula to maintain O2 saturation in the 90s. He does have home oxygen at 2 L/m per nasal cannula. He has utilized the BiPAP in the [facility] ngs / and 50% FiO2. He is continued on DuoNeb inhalations, Symbicort, Solu- Medrol. Empiric antibiotics in the form of doxycycline. Remains on oral diuretics. NicoDerm patch in place. White count 15.4. Hemoglobin 17.0. Platelets 249. Sodium 134. Potassium 5.5. Bicarb 30. BUN 31. Creatinine 0.70. The patient is seen today 01/02/2023 in follow-up on the regular medical floor. He is awake and alert in no acute distress. Resting comfortably in bed. Denies any worsening shortness of breath, cough or congestion. Still not feeling back to his baseline. He is continued on DuoNeb inhalations, Symbicort, Solu-Medrol, empiric antibiotics in the form of doxycycline. He is on oral diuretics. NicoDerm patches in place. White count 12.3. Hemoglobin 16.3. Platelets 266. Sodium 135. Potassium 5.0. Bicarb 39. BUN 29. Creatinine 0.70. Glucose 147. The patient is seen today 01/03/2023 in follow-up on the regular medical floor. He is awake and alert in no acute distress. Family feeling a bit better. Denies any worsening shortness of breath, cough or congestion. Currently on 4 L nasal cannula. He wears 2 L at home. He remains on DuoNeb inhalations, Symbicort, Solu-Medrol. Empiric antibiotics in the form of doxycycline. Oral diuretics. NicoDerm patch in place. The patient is seen today 01/04/2023 in follow-up on the regular medical floor. He is currently resting comfortably in bed. Awake and alert in no acute distress. Radiating O2 saturations in the 90s on 5 L high flow nasal cannula. He is continued on Symbicort, DuoNeb inhalations, IV Solu-Medrol. Remains on oral diuretics. White count 10.0. Hemoglobin 16.4. Sodium 137. Potassium 5.5. Bicarb 35. BUN 28. Creatinine 0.8. Glucose 151. NicoDerm patch in place. Objective - Vital Signs Vital signs: Vital Signs Temp 98.3 F 01/04/23 07:04 Pulse 86 01/04/23 11:44 Resp 18 01/04/23 07:04 BP 118/72 01/04/23 07:04 Pulse Ox 93 L 01/04/23 07:43 FiO2 50 01/01/23 00:00 Intake & Output 01/03/23 01/04/23 01/04/23 18:59 06:59 18:59 Intake Total 1080 Balance 1080 Weight 132 kg 132 kg Intake: Oral 1080 Other: Voiding Method Toilet Toilet Urinal Urinal # Voids 3 3 # Bowel Movements 1 - Exam GENERAL EXAM: Alert, 47-year-old morbidly obese male, on 5 L nasal cannula, in no apparent distress. HEAD: Normocephalic and atraumatic EYES: Normal reaction of pupils, equal size. NOSE: Clear with pink turbinates. THROAT: No erythema or exudates. NECK: No masses, no JVD. CHEST: No chest wall deformity. LUNGS: Equal air entry with bilateral expiratory wheezing, diminished. CVS: S1 and S2 normal with no audible murmur, regular rhythm. No extra heart sounds ABDOMEN: obese abdomen, no hepatosplenomegaly, active bowel sounds, no guarding or rigidity. SPINE: No scoliosis or deformity SKIN: No rashes CENTRAL NERVOUS SYSTEM: No focal deficits, tone is normal in all 4 extremities. EXTREMITIES: There is trace peripheral edema, clubbing, or cyanosis. Peripheral pulses are intact. - Labs CBC & Chem 7: 01/04/23 05:35 01/04/23 05:35 Labs: Abnormal Lab Results - Last 24 Hours (Table) 01/04/23 01/04/23 Range/Units 05:35 05:35 WBC 10.06 H (4.50-10.00) X 10*3/uL Hct 50.6 H (39.6-50.0) % MCV 101.0 H (80.0-97.0) FL MCH 32.7 H (27.0-32.0) pg RDW 15.6 H (11.5-14.5) % Chloride 93 L (96-109) mmol/L Carbon Dioxide 35.3 H (21.6-31.8) mmol/L BUN 27.5 H (9.0-27.0) mg/dL BUN/Creatinine Ratio 34.38 H (12.00-20.00) Ratio Glucose 151 H (70-110) mg/dL ALT 82 H (10-49) U/L Assessment and Plan Assessment: Suspected acute COPD exacerbation, Chest CTA on arrival did not show any pulmonary embolism or aortic aneurysm/dissection. There is mild prominence of the bronchial [place] which may represent bronchitis and chronic emphysematous changes. Procalcitonin within normal limits Acute on chronic hypoxemic respiratory failure, secondary to above Chronic ongoing tobacco dependence, continues to smoke 1 pack per day Fall and generalized weakness History of pulmonary hypertension Benign essential hypertension Hyperlipidemia Previous history of alcoholism Obesity, with a BMI of 44 kg/m Plan: The patient was seen and evaluated Medications and labs reviewed Feeling back to his baseline Could be discharged from the pulmonary standpoint Continue his home pulmonary medications, prednisone taper Continue on oxygen at 4 L at home until he feels improved and could titrate down to 2 L Follow-up in our office in 1 week I have personally seen and examined the patient, performed the documentation and the assessment and plan as written. Number of minutes spent on the visit: 10.
[2023-01-04] MEDS: ATORVASTATIN 10 MG TAB PO SCH (21:25)
[2023-01-05 08:00] VITALS: BP 117/74; RESP 17; TEMP 98.5
[2023-01-05] MEDS: FUROSEMIDE 20 MG TAB PO SCH (08:13)
[2023-01-05] MEDS: amLODIPine 5 MG TAB PO SCH (08:14)
[2023-01-05] MEDS: NICOTINE 21MG/24HR PATCH TRANSDERM SCH (08:14)
[2023-01-05] MEDS: PANTOPRAZOLE 40 MG/10 ML VIAL IV SCH (08:14)
[2023-01-05] MEDS ORDERED: predniSONE 20 MG TAB PO SCH (09:00)
[2023-01-05] MEDS: SYMBICORT 160-4.5 MCG INHALER INHALATION SCH (09:07)
[2023-01-05] MEDS: IPRATROPIUM-ALBUTEROL 3 ML NEB INHALATION SCH (09:07)
[2023-01-05 09:32] VITALS: PULSE 92
--- NOTE | 2023-01-05 13:33 | P.PN ---
Subjective Progress Note Date: 01/05/23 Principal diagnosis: Shortness of breath. The patient is seen today 01/01/2023 in follow-up on the selective care unit. He is currently resting comfortably in bed. Awake and alert in no acute distress. Feeling a bit better today compared to yesterday. Still requiring 6 L high flow nasal cannula to maintain O2 saturation in the 90s. He does have home oxygen at 2 L/m per nasal cannula. He has utilized the BiPAP in the evenings 14/6 and 50% FiO2. He is continued on DuoNeb inhalations, Symbicort, Solu-Medrol. Empiric antibiotics in the form of doxycycline. Remains on oral diuretics. NicoDerm patch in place. White count 15.4. Hemoglobin 17.0. Platelets 249. Sodium 134. Potassium 5.5. Bicarb 30. BUN 31. Creatinine 0.70. The patient is seen today 01/02/2023 in follow-up on the regular medical floor. He is awake and alert in no acute distress. Resting comfortably in bed. Denies any worsening shortness of breath, cough or congestion. Still not feeling back to his baseline. He is continued on DuoNeb inhalations, Symbicort, Solu-Medrol, empiric antibiotics in the form of doxycycline. He is on oral diuretics. NicoDerm patches in place. White count 12.3. Hemoglobin 16.3. Platelets 266. Sodium 135. Potassium 5.0. Bicarb 39. BUN 29. Creatinine 0.70. Glucose 147. The patient is seen today 01/03/2023 in follow-up on the regular medical floor. He is awake and alert in no acute distress. Family feeling a bit better. Denies any worsening shortness of breath, cough or congestion. Currently on 4 L nasal cannula. He wears 2 L at home. He remains on DuoNeb inhalations, Symbicort, Solu-Medrol. Empiric antibiotics in the form of doxycycline. Oral diuretics. NicoDerm patch in place. The patient is seen today 01/04/2023 in follow-up on the regular medical floor. He is currently resting comfortably in bed. Awake and alert in no acute distress. Radiating O2 saturations in the 90s on 5 L high flow nasal cannula. He is continued on Symbicort, DuoNeb inhalations, IV Solu-Medrol. Remains on oral diuretics. White count 10.0. Hemoglobin 16.4. Sodium 137. Potassium 5.5. Bicarb 35. BUN 28. Creatinine 0.8. Glucose 151. NicoDerm patch in place. Progress note dated 01/05/2023. 47-year-old male who was seen today in room 453. Currently, he's on 3 L of oxygen. Saturations are 93%. He's not receiving any IV fluids. The patient was hoping to be discharged, in yesterday we saw him, we thought he was stable for discharge. The patient feels like his breathing is much improved. He denies any significant coughing, or wheezing. He is not producing any phlegm. There is no fever or chills. No new laboratory data today. Objective - Vital Signs Vital signs: Vital Signs Temp 98.5 F 01/05/23 07:04 Pulse 92 01/05/23 09:21 Resp 17 01/05/23 07:04 BP 117/74 01/05/23 07:04 Pulse Ox 93 L 01/05/23 09:07 FiO2 50 01/01/23 00:00 Intake & Output 01/04/23 01/05/23 01/05/23 18:59 06:59 18:59 Weight 132 kg 132.6 kg Other: # Voids 2 2 - Exam No acute distress, oriented 3. Currently on 2 L of oxygen. Saturations are 93-94%. HEENT examination is grossly unremarkable. Mucous membranes are moist. No oral lesions. Neck supple. Full range of motion. No adenopathy thyromegaly or neck vein distention. Cardiovascular examination reveals regular rhythm rate. S1-S2 normal. No S3 or S4. No discernible murmur noted. Heart sounds are distant. Heart rate 92 bpm. Lungs reveal scattered rhonchi. No wheezes or crackles. Breath sounds equal bilaterally. Saturations are in the low 90s. Abdomen soft bowel sounds are heard. No masses or tenderness. Extremities are intact. No cyanosis clubbing or edema. Skin is without rash or lesion. Neurologic examination is brief but nonfocal. - Labs CBC & Chem 7: 01/04/23 05:35 01/04/23 05:35 Assessment and Plan Assessment: Suspected acute COPD exacerbation, Chest CTA on arrival did not show any pulmonary embolism or aortic aneurysm/dissection. There is mild prominence of the bronchial [place] which may represent bronchitis and chronic emphysematous changes. Procalcitonin within normal limits . Acute on chronic hypoxemic respiratory failure, secondary to above. Chronic ongoing tobacco dependence, continues to smoke 1 pack per day. Fall and generalized weakness. History of pulmonary hypertension. Benign essential hypertension. Hyperlipidemia. Previous history of alcoholism. Obesity, with a BMI of 44 kg/m. Plan: Plan dated 01/05/2023. The patient appears to be relatively stable. He currently uses home O2 between 2-3 L. That is what he is on here. His saturations are in the low to mid 90s. The patient would like to be discharged home with a nicotine patch. Labs, x- rays, and medications are reviewed. We will continue to follow make recommendations along the way. We will leave it up to the primary service, to decide whether the patient should be discharged. Prognosis is guarded. The patient is counseled about the importance of smoking cessation. Time with Patient: Less than 30
--- NOTE | 2023-01-06 07:03 | P.DS ---
Providers Date of admission: 12/29/22 22:23 Expected date of discharge: 01/05/23 Attending physician: Richard Khalil Consults: 12/29/22 22:21 Consult Physician Routine Consulting Provider: Alphonse Fish Consult Reason/Comments: hypoxia Do you want consulting provider notified?: Yes Primary care physician: Durga Omalley Hospital Course: Final diagnosis Acute on chronic hypoxic respiratory failure secondary to COPD Acute COPD exacerbation Hypertension Hyperlipidemia Fall Generalized weakness History of pulmonary hypertension Morbid obesity with BMI of 44.4 History of alcoholism Discharge disposition Patient is being discharged in a stable condition with guarded prognosis to home. Patient will follow-up with Dr. Omalley in the outpatient setting upon discharge. Patient is to continue with a prednisone taper and close outpatient follow-up with pulmonary as scheduled. Total time taken is greater than 35 minutes. Hospital course This is a 47-year-old male who was recently admitted with increasing shortness of breath with acute on chronic hypoxic respiratory failure secondary to COPD exacerbation. Patient being monitored maintained on IV steroids with breathing inhalational treatments and continued oxygen. Patient does have normally 2 L of oxygen outpatient although was requiring increased oxygen demand and has been weaned down to 2-3 L. Patient being evaluated by pulmonary recommending prednisone taper and close outpatient follow-up. Patient has been cleared by consultations for discharge. Please refer to consultation notes for further HPI. Patient reports feeling well and would like to go home. Currently no reports of chest pain, shortness of breath, or palpitations. Patient is afebrile. No reports of nausea or vomiting and patient is tolerating diet. Patient will be discharged home today. Physical exam: Gen: This is a 47-year-old male who is awake, alert and oriented 3, well- developed, well-nourished, morbidly obese HEENT: Head is atraumatic, normocephalic. Pupils equal, round. Sclerae is anicteric. NECK: Supple. No JVD. No lymphadenopathy. No thyromegaly. LUNGS: Diminished breath sounds bilaterally with some scattered wheezes , coarse rhonchi. No intercostal retractions. HEART: Regular rate and rhythm. No murmur. ABDOMEN: Soft. Obese Bowel sounds are present. No masses. No tenderness. EXTREMITIES: No pedal edema. No calf tenderness. NEUROLOGICAL: Patient is awake, alert and oriented x3. Cranial nerves 2 through 12 are grossly intact. Please refer to medication reconciliation sheet for a list of medications. The impression and plan of care has been dictated by Anju Mckay, Nurse Practitioner as directed. Dr. Dior MD I have performed a history and examination and MDM of this patient, discussed the same with the dictator, and agree with the dictator's assessment and plan as written ,documented as a scribe. Based on total visit time, I have performed more than 50% of the visit. Patient Condition at Discharge: Fair Plan - Discharge Summary Discharge Rx Participant: No New Discharge Prescriptions: New Nicotine 21Mg/24Hr Patch [Habitrol] 1 patch TRANSDERM DAILY 30 Days #30 patch Acetaminophen Tab [Tylenol] 650 mg PO Q6HR PRN tab PRN Reason: Fever And/ Or Pain amLODIPine [Norvasc] 5 mg PO DAILY #30 tab predniSONE 10 mg PO DIRECTED #30 tab Continue Ipratropium-Albuterol Nebulize [Duoneb 0.5 mg-3 mg/3 ml Soln] 3 ml INHALATION RT-QID Ipratropium-Albuterol Nebulize [Duoneb 0.5 mg-3 mg/3 ml Soln] 3 ml INHALATION RT-QID PRN ml PRN Reason: Shortness Of Breath Or Wheezing Furosemide [Lasix] 20 mg PO DAILY Tiotropium [place] [Spiriva Handihaler] 18 mcg INHALATION RT-DAILY Omeprazole [PriLOSEC] 20 mg PO DAILY Budesonide/Formoterol Fumarate [Symbicort 160-4.5 Mcg Inhaler] 2 puff INHALATION RT-BID Atorvastatin [Lipitor] 10 mg PO HS Discontinued amLODIPine BESYLATE/BENAZEPRIL [Lotrel 5-20 MG] 1 cap PO BID Discharge Medication List Ipratropium-Albuterol Nebulize [Duoneb 0.5 mg-3 mg/3 ml Soln] 3 ml INHALATION RT-QID 09/13/19 [History] Ipratropium-Albuterol Nebulize [Duoneb 0.5 mg-3 mg/3 ml Soln] 3 ml INHALATION RT-QID PRN ml 09/15/19 [Rx] Atorvastatin [Lipitor] 10 mg PO HS 12/29/22 [History] Budesonide/Formoterol Fumarate [Symbicort 160-4.5 Mcg Inhaler] 2 puff INHALATION RT-BID 12/29/22 [History] Furosemide [Lasix] 20 mg PO DAILY 12/29/22 [History] Omeprazole [PriLOSEC] 20 mg PO DAILY 12/29/22 [History] Tiotropium [place] [Spiriva Handihaler] 18 mcg INHALATION RT-DAILY 12/29/22 [History] Acetaminophen Tab [Tylenol] 650 mg PO Q6HR PRN tab 01/05/23 [Rx] Nicotine 21Mg/24Hr Patch [Habitrol] 1 patch TRANSDERM DAILY 30 Days #30 patch 01/05/23 [Rx] amLODIPine [Norvasc] 5 mg PO DAILY #30 tab 01/05/23 [Rx] predniSONE 10 mg PO DIRECTED #30 tab 01/05/23 [Rx] Follow up Appointment(s)/Referral(s): Durga Omalley DO [Primary Care Provider] - 01/11/23 11:40 am Andrey Carty DO [Doctor of Osteopathic Medicine] - 01/28/23 11:15 am Patient Instructions/Handouts: COPD (Chronic Obstructive Pulmonary Disease) (DC) Activity/Diet/Wound Care/Special Instructions: Activity Limited until follow-up follow-up with pulmonary outpatient Continue prednisone taper until finished Continued nebulized treatments Continue nicotine patch and avoid all tobacco use and exposure Follow-up primary care provider on discharge Discharge Disposition: HOME SELF-CARE
== END 2023-01-05 11:20 | disposition home or self-care (01) | DRG 189 ==
LOC: EC 19:40 → 3SCARD 22:23 → 4SSUR 12-30 14:09 → 3SCARD 12-30 15:07 → 4SSUR 12-30 20:57 → 3SCARD 12-30 21:00 → 4SSUR 01-01 23:30
PROVIDERS: ADMIT Hospitalist; ATTEND Hospitalist
DX: J96.21 Acute and chronic respiratory failure with hypoxia (principal); J44.1 Chronic obstructive pulmonary disease with (acute) exacerbation; Z68.41 Body mass index [BMI] 40.0-44.9, adult; F17.210 Nicotine dependence, cigarettes, uncomplicated; Z91.81 History of falling; Z79.51 Long term (current) use of inhaled steroids; Z79.52 Long term (current) use of systemic steroids; Z79.899 Other long term (current) drug therapy; E66.01 Morbid (severe) obesity due to excess calories; E78.5 Hyperlipidemia, unspecified; E87.5 Hyperkalemia; F10.21 Alcohol dependence, in remission; F41.9 Anxiety disorder, unspecified; G40.909 Epilepsy, unspecified, not intractable, without status epilepticus; I11.0 Hypertensive heart disease with heart failure; I27.20 Pulmonary hypertension, unspecified; I50.9 Heart failure, unspecified; Z82.49 Family history of ischemic heart disease and other diseases of the circulatory system; Z87.01 Personal history of pneumonia (recurrent); Z99.81 Dependence on supplemental oxygen; Z71.3 Dietary counseling and surveillance; Z88.0 Allergy status to penicillin; Z88.8 Allergy status to other drugs, medicaments and biological substances; Z11.52 Encounter for screening for COVID-19
CPT/HCPCS: 36415; 71045; 71275; 80048; 80053; 83735; 83880; 84100; 84132; 84145; 84484; 85025; 85027; 85379; 85610; 85730; 87636; 93005; 93306; 94640; 94660; 94760; 96374; 96375; 96376; 99291

== ENCOUNTER 2023-02-07 19:13 | Observation (INO) | payer MEDICARE ==
[2023-02-07 20:08] LABS: Basophils # (A) 0.1 k/uL (0-0.2); Basophils % (A) 1 %; Eosinophils # (A) 0.1 k/uL (0-0.7); Eosinophils % (A) 1 %; HCT 48.6 % (39.0-53.0); HGB 16.1 gm/dL (13.0-17.5); Lymphocytes # (A) 2.6 k/uL (1.0-4.8); Lymphocytes % (A) 21 %; MCH 33.8 pg (25.0-35.0); MCHC 33.1 g/dL (31.0-37.0); MCV 102.2 fL (80.0-100.0); Macrocytosis Slight; Mean Platelet Volume 7.6; Monocytes # (A) 0.7 k/uL (0-1.0); Monocytes % (A) 5 %; Neutrophils # (A) 8.6 k/uL (1.3-7.7); Neutrophils % (A) 69 %; Platelet Count 297 k/uL (150-450); RBC 4.76 m/uL (4.30-5.90); RDW 14.5 % (11.5-15.5); WBC 12.4 k/uL (3.8-10.6)
[2023-02-07 20:14] LABS: INR 0.9 (<1.2)
--- NOTE | 2023-02-07 20:36 | XR ---
EXAMINATION TYPE: XR chest 2V DATE OF EXAM: 02/07/2023 8:12 PM CLINICAL INDICATION:Male, 47 years old with history of difficulty breathing; [facility] COMPARISON: Chest radiographs from 12/29/2022 TECHNIQUE: XR chest 2V Frontal and lateral views of the chest. FINDINGS: Lungs/Pleura: There is flattening of the diaphragm with increased lucency of the lungs. No evidence o f pneumothorax, pleural effusion or focal consolidation. Pulmonary vascularity: Unremarkable. Heart/mediastinum: Cardiomediastinal silhouette is unremarkable. Musculoskeletal: No acute osseous pathology. IMPRESSION: 1. No acute cardiopulmonary disease process. 2. COPD changes.
[2023-02-07 20:42] LABS: ALT 32 U/L (4-49); AST 28 U/L (17-59); African American GFR (CKD) >90 (>60 ml/min/1.73 sqM); Albumin 4.3 g/dL (3.5-5.0); Alkaline Phosphatase 71 U/L (38-126); Blood Urea Nitrogen 10 mg/dL (9-20); Calcium 9.1 mg/dL (8.4-10.2); Chloride 89 mmol/L (98-107); Glucose 87 mg/dL (74-99); Magnesium 1.9 mg/dL (1.6-2.3); Non-African American GFR(CKD) >90 (>60 ml/min/1.73 sqM); Potassium 4.3 mmol/L (3.5-5.1); Sodium 138 mmol/L (137-145); Total Bilirubin 0.4 mg/dL (0.2-1.3); Total Protein 7.1 g/dL (6.3-8.2)
[2023-02-07 20:48] LABS: Anion Gap 11 mmol/L; Carbon Dioxide 38 mmol/L (22-30)
[2023-02-07 20:50] LABS: NT-Pro-B-Type Natriuretic Pept 29 pg/mL
--- NOTE | 2023-02-07 21:19 | ED ---
General Adult HPI - General Source: patient, RN notes reviewed Mode of arrival: ambulatory Limitations: no limitations <Komal Webster - Last Filed: 02/07/23 23:15> <Andrey Ma - Last Filed: 02/07/23 23:44> - General Chief complaint: Shortness of Breath Stated complaint: Coughing up Blood Time Seen by Provider: 02/07/23 19:26 - History of Present Illness Initial comments: 47-year-old male with a past medical history of COPD presents to the emergency department for evaluation of hemoptysis exudates. Patient states that he wears 2 L of oxygen at baseline. He denies any worsening shortness of breath, chest pain. He does admit to cough with bloody sputum. He denies recent fever, chills, nausea, vomiting. He states he overall feels well but was concerned that he was coughing up blood. (Komal Webster) - Related Data Home Medications Medication Instructions Recorded Confirmed Ipratropium-Albuterol Nebulize 3 ml INHALATION RT-QID 09/13/19 02/07/23 [Duoneb 0.5 mg-3 mg/3 ml Soln] Atorvastatin [Lipitor] 10 mg PO HS 12/29/22 02/07/23 Budesonide/Formoterol Fumarate 2 puff INHALATION RT-BID 12/29/22 02/07/23 [Symbicort 160-4.5 Mcg Inhaler] Furosemide [Lasix] 20 mg PO DAILY 12/29/22 02/07/23 Omeprazole [PriLOSEC] 20 mg PO DAILY 12/29/22 02/07/23 Tiotropium [place] [Spiriva 18 mcg INHALATION RT-DAILY 12/29/22 02/07/23 Handihaler] Multivitamins, Thera [Multivitamin 1 tab PO DAILY 02/07/23 02/07/23 (formulary)] Nicotine 21Mg/24Hr Patch [Habitrol] 1 patch TRANSDERM DAILY PRN 02/07/23 02/07/23 Previous Rx's Medication Instructions Recorded Ipratropium-Albuterol Nebulize 3 ml INHALATION RT-QID PRN ml 09/15/19 [Duoneb 0.5 mg-3 mg/3 ml Soln] Acetaminophen Tab [Tylenol] 650 mg PO Q6HR PRN tab 01/05/23 amLODIPine [Norvasc] 5 mg PO DAILY #30 tab 01/05/23 Allergies Allergy/AdvReac Type Severity Reaction Status Date / Time fexofenadine HCl AdvReac HIGH BP Verified 12/29/22 23:44 [From [facility]] Penicillins AdvReac Unknown Verified 12/29/22 23:44 pseudoephedrine HCl AdvReac High BP Verified 12/29/22 23:44 [From [facility]] Review of Systems ROS Other: All systems not noted in ROS Statement are negative. <Komal Webster - Last Filed: 02/07/23 23:15> ROS Other: All systems not noted in ROS Statement are negative. <Andrey Ma - Last Filed: 02/07/23 23:44> ROS Statement: Those systems with pertinent positive or pertinent negative responses have been documented in the HPI. Past Medical History Past Medical History: Heart Failure, COPD, GERD/Reflux, GI Bleed, Hypertension, Pneumonia, Respiratory Disorder, Seizure Disorder Additional Past Medical History / Comment(s): Pt recently admitted to [facility] on 08/21 19 with acute on chronic hypoxic/hypercapnic respiratory failure multifactoral 2ndary to acute on chronic COPD/possible acute on chronic CHF exacerbation/pneumonia/moderate pulmonary htn/alcohol abuse/pt was vented/breakthrough or alcohol withdrawal seizure/possible DTs/polycythemia/hypoerkalemia/hyponatremia/supratentorial lesion per cat scan. Other hx: Home oxygen prn during day and wear oxygen with concentrator at HS, past pneumonia, lower GI bleed, seizure once as a child and possible alcohol withdrawal/breakthrough seizure August 2019 admission History of Any Multi-Drug Resistant Organisms: None Reported Past Surgical History: Orthopedic Surgery Additional Past Surgical History / Comment(s): right knee arthroscopy, colonoscopy/benign polypectomy Past Anesthesia/Blood Transfusion Reactions: No Reported Reaction Past Psychological History: No Psychological Hx Reported Smoking Status: Current every day smoker Past Alcohol Use History: None Reported Past Drug Use History: None Reported - Past Family History Mother Family Medical History: Cancer, Hypertension Additional Family Medical History / Comment(s): from ovarian cancer Father Family Medical History: No Reported History Additional Family Medical History / Comment(s): Father is healthy <Komal Webster - Last Filed: 02/07/23 23:15> General Exam Limitations: no limitations General appearance: alert, in no apparent distress Head exam: Present: atraumatic, normocephalic, normal inspection Eye exam: Present: normal appearance, PERRL, EOMI. Absent: scleral icterus, conjunctival injection, periorbital swelling ENT exam: Present: normal exam, mucous membranes moist Respiratory exam: Present: wheezes. Absent: respiratory distress, rales, rhonchi, stridor, chest wall tenderness Cardiovascular Exam: Present: regular rate, normal rhythm, normal heart sounds. Absent: systolic murmur, diastolic murmur, rubs, gallop, clicks GI/Abdominal exam: Present: soft, normal bowel sounds. Absent: distended, tenderness, guarding, rebound, rigid Extremities exam: Present: normal capillary refill, pedal edema (minimal), other (DP and PT pulses 2+). Absent: calf tenderness Back exam: Present: normal inspection Neurological exam: Present: alert, oriented X3 Psychiatric exam: Present: normal affect, normal mood Skin exam: Present: warm, dry, intact, normal color. Absent: rash <Komal Webster - Last Filed: 02/07/23 23:15> Course Vital Signs 02/07/23 02/07/23 02/07/23 19:15 19:41 20:36 Temperature 98.4 F Pulse Rate 119 H 111 H 94 Respiratory 22 20 20 Rate Blood Pressure 169/97 149/110 140/95 O2 Sat by Pulse 89 L 92 L 93 L Oximetry 02/07/23 23:27 Temperature Pulse Rate 93 Respiratory 18 Rate Blood Pressure 121/92 O2 Sat by Pulse 92 L Oximetry Medical Decision Making - Lab Data Result diagrams: 02/07/23 19:50 02/07/23 19:50 <Komal Webster - Last Filed: 02/07/23 23:15> - Lab Data Result diagrams: 02/07/23 19:50 02/07/23 19:50 <Andrey Ma - Last Filed: 02/07/23 23:44> - Medical Decision Making Was pt. sent in by a medical professional or institution (, PA, RECOATER, urgent care, hospital, or long-term...) When possible be specific @ -[No] Did you speak to anyone other than the patient for history (EMS, parent, family, police, friend...)? What history was obtained from this source @ -[No] Did you review nursing and triage notes (agree or disagree)? Why? @ -[I reviewed and agree with nursing and triage notes] Were old charts reviewed (outside hosp., previous admission, EMS record, old EKG, old radiological studies, urgent care reports/EKG's, long-term records)? Report findings @ -[No old charts were reviewed] Differential Diagnosis (chest pain, altered mental status, abdominal pain women, abdominal pain men, vaginal bleeding, weakness, fever, dyspnea, syncope, headache, dizziness, GI bleed, back pain, seizure, CVA, palpatations, mental health, musculoskeletal)? @ -[Differential Dyspnea: Coronary syndrome, arrhythmia, tamponade, asthma, COPD, pulmonary embolism, pneu monia, pneumothorax, pulmonary effusion, anaphylaxis, diabetic ketoacidosis, flailed chest, pulmonary contusion, diaphragmatic rupture, anemia, neuromuscular, this is not meant to be an all-inclusive list. ] EKG interpreted by me (3pts min.). @ -[EKG at 1924 shows sinus tachycardia rate 104, MI 144, QRS 100, QTQTc 195332] X-rays interpreted by me (1pt min.). @ -[ chest xr shows COPD changes without acute infiltrate] CT interpreted by me (1pt min.). @ -[CT angio of chest pending at time of sign out] U/S interpreted by me (1pt. min.). @ -[None done] What testing was considered but not performed or refused? (CT, X-rays, U/S, labs)? Why? @ -[None] What meds were considered but not given or refused? Why? @ -[None] Did you discuss the management of the patient with other professionals (professionals i.e. , PA, RECOATER, lab, RT, psych nurse, social sciences professor, synthetic staple extruder, teacher, uniform patrol police officer, onsite case manager)? Give summary @ -[No] Was smoking cessation discussed for >3mins.? @ -[No] Was critical care preformed (if so, how long)? @ -[No] Were there social determinants of health that impacted care today? How? (Homelessness, low income, unemployed, alcoholism, drug addiction, transportation, low edu. Level, literacy, decrease access to med. care, nursing home, rehab)? @ -[No] Was there de-escalation of care discussed even if they declined (Discuss DNR or withdrawal of care, Hospice)? DNR status @ -[No] What co-morbidities impacted this encounter? (DM, HTN, Smoking, COPD, CAD, Cancer, CVA, ARF, Chemo, Hep., AIDS, mental health diagnosis, sleep apnea, morbid obesity)? @ -[COPD] Was patient admitted / discharged? Hospital course, mention meds given and route, prescriptions, significant lab abnormalities, going to OR and other pertinent info. @ -[Patient presented to the emergency department for hemoptysis 2 days. Patient denies any increased shortness of breath. Patient does wear 2 L of oxygen at baseline. Patient states that he became concerned because he is coughing up blood. He denies any associated symptoms including fever, chills, nausea, vomiting. Laboratory studies obtained. CBC shows a CBC 12.4, hemoglobin 16.1; platelet and studies within normal limits; CMP shows sodium 138, potas sium 4.3, CO2 38 which is baseline for the patient and consistent with patient's COPD. Creatinine 0.61, negative troponin, BNP 29. Covid, influenza, RSV negative. Chest x-ray shows no acute infiltrate. CT chest for PE was obtained pending results at sign out to Dr. Ma who is going to follow up on results] Undiagnosed new problem with uncertain prognosis? @ -[No] Drug Therapy requiring intensive monitoring for toxicity (Heparin, Nitro, Insulin, Cardizem)? @ -[No] Were any procedures done? @ -[No] Diagnosis/symptom? @ -[default] Acute, or Chronic, or Acute on Chronic? @ -[default] Uncomplicated (without systemic symptoms) or Complicated (systemic symptoms)? @ -[default] Side effects of treatment? @ -[No] Exacerbation, Progression, or Severe Exacerbation? @ -[No] Poses a threat to life or bodily function? How? (Chest pain, USA, AR, pneumonia, PE, COPD, DKA, ARF, appy, cholecystitis, CVA, Diverticulitis, Homicidal, Suicidal, threat to staff... and all critical care pts) @ -[No] (Komal Webster) - Lab Data Lab Results 02/07/23 02/07/23 02/07/23 Range/Units 19:50 19:50 19:50 WBC 12.4 H (3.8-10.6) k/uL RBC 4.76 (4.30-5.90) m/uL Hgb 16.1 (13.0-17.5) gm/dL Hct 48.6 (39.0-53.0) % MCV 102.2 H (80.0-100.0) fL MCH 33.8 (25.0-35.0) pg MCHC 33.1 (31.0-37.0) g/dL RDW 14.5 (11.5-15.5) % Plt Count 297 (150-450) k/uL MPV 7.6 Neutrophils % 69 % Lymphocytes % 21 % Monocytes % 5 % Eosinophils % 1 % Basophils % 1 % Neutrophils # 8.6 H (1.3-7.7) k/uL Lymphocytes # 2.6 (1.0-4.8) k/uL Monocytes # 0.7 (0-1.0) k/uL Eosinophils # 0.1 (0-0.7) k/uL Basophils # 0.1 (0-0.2) k/uL Macrocytosis Slight PT 10.0 (10.0-12.5) sec INR 0.9 (<1.2) APTT 26.0 (22.0-30.0) sec Sodium 138 (137-145) mmol/L Potassium 4.3 (3.5-5.1) mmol/L Chloride 89 L (98-107) mmol/L Carbon Dioxide 38 H (22-30) mmol/L Anion Gap 11 mmol/L BUN 10 (9-20) mg/dL Creatinine 0.61 L (0.66-1.25) mg/dL Est GFR (CKD-EPI)AfAm >90 (>60 ml/min/1.73 sqM) Est GFR (CKD-EPI)NonAf >90 (>60 ml/min/1.73 sqM) Glucose 87 (74-99) mg/dL Plasma Lactic Acid Tk (0.7-2.0) mmol/L Calcium 9.1 (8.4-10.2) mg/dL Magnesium 1.9 (1.6-2.3) mg/dL Total Bilirubin 0.4 (0.2-1.3) mg/dL AST 28 (17-59) U/L ALT 32 (4-49) U/L Alkaline Phosphatase 71 (38-126) U/L Troponin I (0.000-0.034) ng/mL NT-Pro-B Natriuret Pep 29 pg/mL Total Protein 7.1 (6.3-8.2) g/dL Albumin 4.3 (3.5-5.0) g/dL Influenza Type A (PCR) (Not Detectd) Influenza Type B (PCR) (Not Detectd) RSV (PCR) (Not Detectd) SARS-CoV-2 (PCR) (Not Detectd) 02/07/23 02/07/23 02/07/23 Range/Units 19:50 19:50 20:11 WBC (3.8-10.6) k/uL RBC (4.30-5.90) m/uL Hgb (13.0-17.5) gm/dL Hct (39.0-53.0) % MCV (80.0-100.0) fL MCH (25.0-35.0) pg MCHC (31.0-37.0) g/dL RDW (11.5-15.5) % Plt Count (150-450) k/uL MPV Neutrophils % % Lymphocytes % % Monocytes % % Eosinophils % % Basophils % % Neutrophils # (1.3-7.7) k/uL Lymphocytes # (1.0-4.8) k/uL Monocytes # (0-1.0) k/uL Eosinophils # (0-0.7) k/uL Basophils # (0-0.2) k/uL Macrocytosis PT (10.0-12.5) sec INR (<1.2) APTT (22.0-30.0) sec Sodium (137-145) mmol/L Potassium (3.5-5.1) mmol/L Chloride (98-107) mmol/L Carbon Dioxide (22-30) mmol/L Anion Gap mmol/L BUN (9-20) mg/dL Creatinine (0.66-1.25) mg/dL Est GFR (CKD-EPI)AfAm (>60 ml/min/1.73 sqM) Est GFR (CKD-EPI)NonAf (>60 ml/min/1.73 sqM) Glucose (74-99) mg/dL Plasma Lactic Acid Tk 1.2 (0.7-2.0) mmol/L Calcium (8.4-10.2) mg/dL Magnesium (1.6-2.3) mg/dL Total Bilirubin (0.2-1.3) mg/dL AST (17-59) U/L ALT (4-49) U/L Alkaline Phosphatase (38-126) U/L Troponin I <0.012 (0.000-0.034) ng/mL NT-Pro-B Natriuret Pep pg/mL Total Protein (6.3-8.2) g/dL Albumin (3.5-5.0) g/dL Influenza Type A (PCR) Not Detected (Not Detectd) Influenza Type B (PCR) Not Detected (Not Detectd) RSV (PCR) Not Detected (Not Detectd) SARS-CoV-2 (PCR) Not Detected (Not Detectd) Disposition <Komal Webster - Last Filed: 02/07/23 23:15> Is patient prescribed a controlled substance at d/c from ED?: No Time of Disposition: 23:44 <Andrey Ma - Last Filed: 02/07/23 23:44> Clinical Impression: COPD exacerbation, Hemoptysis Disposition: ADMITTED IP TO THIS HOSP Condition: Stable Referrals: Durga Omalley DO [Primary Care Provider] - 1-2 days
[2023-02-07] MEDS ORDERED: ALBUTEROL NEBULIZED 2.5 MG/3 ML INHALATION STA (23:41)
[2023-02-07] MEDS ORDERED: IPRATROPIUM-ALBUTEROL 3 ML NEB INHALATION STA (23:41)
[2023-02-07] MEDS ORDERED: NALOXONE 0.4 MG/ML 1 ML VIAL IVP PRN (23:42)
[2023-02-07] MEDS ORDERED: IPRATROPIUM-ALBUTEROL 3 ML NEB INHALATION PRN (23:42)
--- NOTE | 2023-02-07 23:53 | CT ---
EXAMINATION TYPE: CT chest angio for PE CT DLP: 1052.4 mGycm, Automated exposure control for dose reduction was used. DATE OF EXAM: 02/07/2023 10:23 PM COMPARISON: 12/29/2022. CLINICAL INDICATION:Male, 47 years old with history of hemoptysis, dyspnea; Hemoptysis, dyspnea, Hx C OPD. TECHNIQUE/CONTRAST: CTA scan of the thorax is performed with IV Contrast, patient injected with 100 mL of Isovue 300, MIP images are created and reviewed these are created on a separate workstation.. FINDINGS: Pulmonary Artery: There is no evidence for a filling defect within the pulmonary vasculature to sugge st acute pulmonary embolism. The pulmonary artery is of normal size. Lungs/Pleura: No evidence of focal consolidation, pleural effusion or pneumothorax. Mild centrilobula r emphysema changes throughout the lungs. There is atelectasis and/or scarring present. Airway: Large airways are patent. Heart: Heart is within normal limits for size. Vasculature: No evidence of aortic aneurysm. Mediastinum: No gross evidence of adenopathy. Musculoskeletal: Mild degenerative disc disease changes are present throughout the thoracolumbar spin e. Soft Tissues: Unremarkable. Lower neck: No significant findings. Upper Abdomen: No significant findings. IMPRESSION: 1. No evidence of pulmonary embolism. 2. Mild emphysema.
[2023-02-08] MEDS: methylPREDNISolone SOD SUCCI 125 MG/2 ML VIAL IV SCH ×3 (00:08→11:11)
[2023-02-08] MEDS: IPRATROPIUM-ALBUTEROL 3 ML NEB INHALATION SCH ×3 (07:59→15:35)
[2023-02-08] MEDS ORDERED: SYMBICORT 160-4.5 MCG INHALER INHALATION SCH (08:00)
[2023-02-08] MEDS ORDERED: AZITHROMYCIN 500 MG TAB PO SCH (09:00)
[2023-02-08] MEDS ORDERED: FUROSEMIDE 20 MG TAB PO SCH (09:00)
[2023-02-08] MEDS ORDERED: amLODIPine 5 MG TAB PO SCH (09:00)
[2023-02-08 09:15] VITALS: RESP 16
[2023-02-08] MEDS ORDERED: NICOTINE 21MG/24HR PATCH TRANSDERM PRN (10:33)
--- NOTE | 2023-02-08 10:34 | P.HPIM ---
History of Present Illness This is a pleasant 47 years old male with past medical history of heart failure, COPD, GI bleed, hypertension, seizure disorder. He has chronic hypoxic respiratory later on tonight oxygen via nasal cannula. He follows up with pulm onologist Dr. Fish. Present because of hemoptysis 3 days, it was of little amount 2 days ago and this morning however yesterday history of benign follow-up without specification. Patient denies chest pain or dyspnea, not using any blood thinner Patient also he smokes about 1 pack per 2.5 days. He was counseled to quit he agrees and he agrees to the nicotine patch He quit drinking alcohol 2 months ago occasional use marijuana. In denies change in urine or bowel habits. No fever. No headache or dizziness. Patient's hemoglobin on the presentation was 16, WBC 12th thousand, rest of flaps and vitals are unremarkable. His saturating 93% on 2 L oxygen via nasal cannula. He has aren't remarkable BMP, LFT, INR. Influenza A and type B, RSV, SARS (coronavirus) are and detected CTA of the chest: Negative for pulmonary embolism. No consolidation. EKG showing sinus tachycardia at 104. Chest x-ray: No acute process. Assessment admitted to the hospital consult Review of Systems Review of systems CONSTITUTIONAL: No fever, no malaise, no fatigue. HEENT: No recent visual problems or hearing problems. Denied any sore throat. CARDIOVASCULAR: No orthopnea, PND, no palpitations, no syncope. PULMONARY: No shortness of breath, no cough, GASTROINTESTINAL: No diarrhea, no nausea, no vomiting, no abdominal pain. Normoactive bowel sounds. NEUROLOGICAL: No headaches, no weakness, no numbness. HEMATOLOGICAL: Denies any bleeding or petechiae. GENITOURINARY: Denies any burning micturition, frequency, or urgency. MUSCULOSKELETAL/RHEUMATOLOGICAL: Denies any joint pain, swelling, or any muscle pain. ENDOCRINE: Denies any polyuria or polydipsia. Past Medical History Past Medical History: Heart Failure, COPD, GERD/Reflux, GI Bleed, Hypertension, Pneumonia, Respiratory Disorder, Seizure Disorder Additional Past Medical History / Comment(s): Pt recently admitted to [facility] on 08/21 19 with acute on chronic hypoxic/hypercapnic respiratory failure multifactoral 2ndary to acute on chronic COPD/possible acute on chronic CHF exacerbation/pneumonia/moderate pulmonary htn/alcohol abuse/pt was vented/breakthrough or alcohol withdrawal seizure/possible DTs/polycythemia/hypoerkalemia/hyponatremia/supratentorial lesion per cat scan. Other hx: Home oxygen prn during day and wear oxygen with concentrator at HS, past pneumonia, lower GI bleed, seizure once as a child and possible alcohol withdrawal/breakthrough seizure August 2019 admission History of Any Multi-Drug Resistant Organisms: None Reported Past Surgical History: Orthopedic Surgery Additional Past Surgical History / Comment(s): right knee arthroscopy, colonoscopy/benign polypectomy Past Anesthesia/Blood Transfusion Reactions: No Reported Reaction Past Psychological History: No Psychological Hx Reported Additional Psychological History / Comment(s): Pt resides with his grandmother. He helps with chores. He has home oxygen and a nebulizer. He works in [employer] but has not been able to work since last hospital admission 08/2019 Smoking Status: Current every day smoker Past Alcohol Use History: None Reported Additional Past Alcohol Use History / Comment(s): Pt started smoking in 1989. Pt drank 8-12 beers a day/several days a week but quit 08/2019. Past Drug Use History: None Reported Additional Drug Use History / Comment(s): Pt states he smoked marijuana every once in awghile - Past Family History Mother Family Medical History: Cancer, Hypertension Additional Family Medical History / Comment(s): from ovarian cancer Father Family Medical History: No Reported History Additional Family Medical History / Comment(s): Father is healthy Medications and Allergies Home Medications Medication Instructions Recorded Confirmed Type Ipratropium-Albuterol Nebulize 3 ml INHALATION RT-QID 09/13/19 02/07/23 History [Duoneb 0.5 mg-3 mg/3 ml Soln] Ipratropium-Albuterol Nebulize 3 ml INHALATION RT-QID PRN ml 09/15/19 02/07/23 Rx [Duoneb 0.5 mg-3 mg/3 ml Soln] Atorvastatin [Lipitor] 10 mg PO HS 12/29/22 02/07/23 History Budesonide/Formoterol Fumarate 2 puff INHALATION RT-BID 12/29/22 02/07/23 History [Symbicort 160-4.5 Mcg Inhaler] Furosemide [Lasix] 20 mg PO DAILY 12/29/22 02/07/23 History Omeprazole [PriLOSEC] 20 mg PO DAILY 12/29/22 02/07/23 History Tiotropium [place] [Spiriva 18 mcg INHALATION RT-DAILY 12/29/22 02/07/23 History Handihaler] Acetaminophen Tab [Tylenol] 650 mg PO Q6HR PRN tab 01/05/23 02/07/23 Rx amLODIPine [Norvasc] 5 mg PO DAILY #30 tab 01/05/23 02/07/23 Rx Multivitamins, Thera [Multivitamin 1 tab PO DAILY 02/07/23 02/07/23 History (formulary)] Nicotine 21Mg/24Hr Patch [Habitrol] 1 patch TRANSDERM DAILY PRN 02/07/23 02/07/23 History Allergies Allergy/AdvReac Type Severity Reaction Status Date / Time fexofenadine HCl AdvReac HIGH BP Verified 12/29/22 23:44 [From [employer]] Penicillins AdvReac Unknown Verified 12/29/22 23:44 pseudoephedrine HCl AdvReac High BP Verified 12/29/22 23:44 [From [employer]] Physical Exam Vitals: Vital Signs Temp Pulse Pulse Resp BP BP Pulse Ox 02/08/23 08:11 90 02/08/23 08:02 88 02/08/23 07:00 98.1 F 105 H 16 129/93 91 L 02/08/23 02:00 98.1 F 95 17 152/102 98 02/08/23 00:30 94 93 L 02/08/23 00:17 93 02/07/23 23:27 93 18 121/92 92 L 02/07/23 20:36 94 20 140/95 93 L 02/07/23 19:41 111 H 20 149/110 92 L 02/07/23 19:15 98.4 F 119 H 22 169/97 89 L Intake and Output 02/07/23 02/08/23 02/08/23 22:59 06:59 14:59 Other: # Voids 1 Weight 124.738 kg 124.738 kg -GENERAL: The patient is alert and oriented x3, not in any acute distress. Obese. HEENT: Pupils are round and equally reacting to light. EOMI. No scleral icterus. No conjunctival pallor. Normocephalic, atraumatic. No pharyngeal erythema. No thyromegaly. CARDIOVASCULAR: S1 and S2 present. No murmurs, rubs, or gallops. PULMONARY: Chest is clear to auscultation, no wheezing , no crackles. ABDOMEN: Soft, nontender, nondistended, normoactive bowel sounds. No palpable organomegaly. MUSCULOSKELETAL: No joint swelling or deformity. EXTREMITIES: No cyanosis, clubbing, or pedal edema. NEUROLOGICAL: Gross neurological examination did not reveal any focal deficits. SKIN: No rashes. no petechiae. Results CBC & Chem 7: 02/07/23 19:50 02/07/23 19:50 Labs: Abnormal Lab Results - Last 24 Hours (Table) 02/07/23 02/07/23 Range/Units 19:50 19:50 WBC 12.4 H (3.8-10.6) k/uL MCV 102.2 H (80.0-100.0) fL Neutrophils # 8.6 H (1.3-7.7) k/uL Chloride 89 L (98-107) mmol/L Carbon Dioxide 38 H (22-30) mmol/L Creatinine 0.61 L (0.66-1.25) mg/dL Assessment and Plan Assessment: Hemoptysis 3 days, present on admission COPD without exacerbation chronic nicotine dependence Obesity with BMI of 43. Hypertension History of GERD Hyperlipidemia Chronic heart failure, known ejection fraction history of seizure
--- NOTE | 2023-02-08 14:34 | P.CNPUL ---
History of Present Illness Consult date: 02/08/23 Reason for consult: dyspnea, COPD History of present illness: Patient is a 47-year-old white male with past medical history significant for severe oxygen dependent COPD, chronic ongoing tobacco dependence, hypertension, hyperlipidemia, pulmonary hypertension, "leaky valve", and alcoholism. He does follow in the pulmonary office with Dr. Fish for management of his severe COPD, he has an FEV1 36% of predicted. His PCP is Dr. Omalley. He came into the emergency and the patient was having some blood-tinged mucus. He thought this was cherelle blood and he came into the emergency. He did not complain of any significant shortness of breath. However he rest himself to the emergency and his breathing got labored and he was has less for an acute COPD exacerbation. History of any chest pain. No significant hemoptysis and I saw the mucus that he was coughing and was essentially mucoid without any significant blood with them. He was given a CT angiogram of the chest that showed no evidence of any pulmonary embolism. There is bilateral emphysematous changes. There is no airspace disease of consolidation. Denies having any fever. He has limited on a combination of Spiriva and Symbicort on outpatient basis. He also has home O2. He has albuterol nebulizer. Not diagnosed having sleep apnea he does not utilize any form of noninvasive positive pressure ventilator. Noted the patient also underwent a CTA of the chest and 12/30/2022 and the findings were again nonspecific. His echocardiogram shows a normal LV, mild pulmonary hypertension. Review of Systems CONSTITUTIONAL: Denies any recent significant weight loss or weight gain. EYES: Denies change in vision. EARS, NOSE, MOUTH, THROAT: Denies headaches, denies sore throat. CARDIOVASCULAR: Denies chest pain, palpitations or syncopal episodes. RESPIRATORY: see HPI GASTROINTESTINAL: Denies change in appetite, abdominal pain, nausea and vomiting, or diarrhea GENITOURINARY: Denies hematuria, denies infections. MUSKULOSKELETAL: Denies pain, denies swelling. INTEGUMENTARY: Denies rash, denies eczema. NEUROLOGICAL: Denies recent memory loss, no recent seizure activity. reports occasional tremors PSYCHIATRIC: Denies anxiety, denies depression. HEMATOLOGIC/LYMPHATIC: Denies anemia, denies enlarged lymph node Past Medical History Past Medical History: Heart Failure, COPD, GERD/Reflux, GI Bleed, Hypertension, Pneumonia, Respiratory Disorder, Seizure Disorder Additional Past Medical History / Comment(s): Pt recently admitted to [facility] on 08/21 19 with acute on chronic hypoxic/hypercapnic respiratory failure multifactoral 2ndary to acute on chronic COPD/possible acute on chronic CHF exacerbation/pneumonia/moderate pulmonary htn/alcohol abuse/pt was vented/breakthrough or alcohol withdrawal seizure/possible DTs/polycythemia/hypoerkalemia/hyponatremia/supratentorial lesion per cat scan. Other hx: Home oxygen prn during day and wear oxygen with concentrator at HS, past pneumonia, lower GI bleed, seizure once as a child and possible alcohol withdrawal/breakthrough seizure August 2019 admission History of Any Multi-Drug Resistant Organisms: None Reported Past Surgical History: Orthopedic Surgery Additional Past Surgical History / Comment(s): right knee arthroscopy, colonoscopy/benign polypectomy Past Anesthesia/Blood Transfusion Reactions: No Reported Reaction Past Psychological History: No Psychological Hx Reported Additional Psychological History / Comment(s): Pt resides with his grandmother. He helps with chores. He has home oxygen and a nebulizer. He works in [employer] but has not been able to work since last hospital admission 08/2019 Smoking Status: Current every day smoker Past Alcohol Use History: None Reported Additional Past Alcohol Use History / Comment(s): Pt started smoking in 1989. Pt drank 8-12 beers a day/several days a week but quit 08/2019. Past Drug Use History: None Reported Additional Drug Use History / Comment(s): Pt states he smoked marijuana every once in awghile - Past Family History Mother Family Medical History: Cancer, Hypertension Additional Family Medical History / Comment(s): from ovarian cancer Father Family Medical History: No Reported History Additional Family Medical History / Comment(s): Father is healthy Medications and Allergies Home Medications Medication Instructions Recorded Confirmed Type Ipratropium-Albuterol Nebulize 3 ml INHALATION RT-QID 09/13/19 02/07/23 History [Duoneb 0.5 mg-3 mg/3 ml Soln] Ipratropium-Albuterol Nebulize 3 ml INHALATION RT-QID PRN ml 09/15/19 02/07/23 Rx [Duoneb 0.5 mg-3 mg/3 ml Soln] Atorvastatin [Lipitor] 10 mg PO HS 12/29/22 02/07/23 History Budesonide/Formoterol Fumarate 2 puff INHALATION RT-BID 12/29/22 02/07/23 History [Symbicort 160-4.5 Mcg Inhaler] Furosemide [Lasix] 20 mg PO DAILY 12/29/22 02/07/23 History Omeprazole [PriLOSEC] 20 mg PO DAILY 12/29/22 02/07/23 History Tiotropium [place] [Spiriva 18 mcg INHALATION RT-DAILY 12/29/22 02/07/23 History Handihaler] Acetaminophen Tab [Tylenol] 650 mg PO Q6HR PRN tab 01/05/23 02/07/23 Rx amLODIPine [Norvasc] 5 mg PO DAILY #30 tab 01/05/23 02/07/23 Rx Multivitamins, Thera [Multivitamin 1 tab PO DAILY 02/07/23 02/07/23 History (formulary)] Nicotine 21Mg/24Hr Patch [Habitrol] 1 patch TRANSDERM DAILY PRN 02/07/23 02/07/23 History Allergies Allergy/AdvReac Type Severity Reaction Status Date / Time fexofenadine HCl AdvReac HIGH BP Verified 12/29/22 23:44 [From [facility]] Penicillins AdvReac Unknown Verified 12/29/22 23:44 pseudoephedrine HCl AdvReac High BP Verified 12/29/22 23:44 [From [facility]] Physical Exam Vitals: Vital Signs Temp Pulse Pulse Resp BP BP Pulse Ox 02/08/23 12:24 91 02/08/23 12:14 88 02/08/23 08:11 90 02/08/23 08:02 88 02/08/23 07:00 98.1 F 105 H 16 129/93 91 L 02/08/23 02:00 98.1 F 95 17 152/102 98 02/08/23 00:30 94 93 L 02/08/23 00:17 93 02/07/23 23:27 93 18 121/92 92 L 02/07/23 20:36 94 20 140/95 93 L 02/07/23 19:41 111 H 20 149/110 92 L 02/07/23 19:15 98.4 F 119 H 22 169/97 89 L Intake and Output 02/07/23 02/08/23 02/08/23 22:59 06:59 14:59 Other: # Voids 1 Weight 124.738 kg 124.738 kg GENERAL EXAM: Alert, 47-year-old obese white male, comfortable in no apparent distress. The patient is currently on 2 L of oxygen by nasal cannula, sitting up on a chair and having lunch. HEAD: Normocephalic and atraumatic EYES: Normal reaction of pupils, equal size. NOSE: Clear with pink turbinates. THROAT: No erythema or exudates. NECK: No masses, no JVD. CHEST: No chest wall deformity. LUNGS: Equal air entry with no crackles, wheeze, rhonchi or dullness No c onversational dyspnea or accessory muscle use. CVS: S1 and S2 normal with no audible murmur, regular rhythm. No extra heart sounds ABDOMEN: obese abdomen, no hepatosplenomegaly, active bowel sounds, no guarding or rigidity. SPINE: No scoliosis or deformity SKIN: No rashes CENTRAL NERVOUS SYSTEM: No focal deficits, tone is normal in all 4 extremities. EXTREMITIES: There is no peripheral edema, clubbing, or cyanosis. Peripheral pulses are intact. Results - Laboratory Findings CBC and BMP: 02/07/23 19:50 02/07/23 19:50 PT/INR, D-dimer PT 10.0 sec (10.0-12.5) 02/07/23 19:50 INR 0.9 (<1.2) 02/07/23 19:50 Abnormal lab findings: Abnormal Labs 02/07/23 02/07/23 19:50 19:50 WBC 12.4 H MCV 102.2 H Neutrophils # 8.6 H Chloride 89 L Carbon Dioxide 38 H Creatinine 0.61 L - Diagnostic Findings Chest x-ray: image reviewed CT scan - chest: image reviewed Assessment and Plan Plan: acute COPD exacerbation, Chest CTA was consistent with COPD. No evidence of any pneumonia. There is mild prominence of the bronchial [place] which may represent bronchitis and chronic emphysematous changes. Questionable hemoptysis, could be related to bronchitis. No clear signs of any COPD exacerbation of this point in time. Chronic dyspnea, unchanged Chronic hypoxic respiratory failure and he has home 02 2 liters/min Severe COPD and he has been on Spiriva and Symbicrt and he has a home nebulizer Chronic ongoing tobacco dependence, continues to smoke 1 pack per day Fall and generalized weakness History of pulmonary hypertension Benign essential hypertension Hyperlipidemia Previous history of alcoholism Obesity, with a BMI of 44 kg/m Plan Give the patient course of Zithromax and a prednisone burst taper. He can resume his outpatient respiratory medication refills a combination of Advair and Spiriva. Continue albuterol updrafts, smoking cessation counseling was done. He can be discharged home today.
[2023-02-08] MEDS ORDERED: predniSONE 20 MG TAB PO STA (15:46)
[2023-02-08 16:15] VITALS: BP 115/75; PULSE 112; TEMP 97.9
[2023-02-08] MEDS ORDERED: ATORVASTATIN 10 MG TAB PO SCH (21:00)
[2023-02-09] MEDS ORDERED: NON FORMULARY DRUG (Tiotropium Bromide [Spiriva Handihaler] 18 MCG Cap.W.Dev) INHALATION SCH (08:00)
== END 2023-02-08 16:39 | disposition home or self-care (01) ==
LOC: EC 19:13 → 6NMEDSUR 23:43
PROVIDERS: ADMIT Hospitalist; ATTEND Hospitalist
DX: R04.2 Hemoptysis (principal); J44.1 Chronic obstructive pulmonary disease with (acute) exacerbation; I11.0 Hypertensive heart disease with heart failure; I50.9 Heart failure, unspecified; K21.9 Gastro-esophageal reflux disease without esophagitis; J96.12 Chronic respiratory failure with hypercapnia; J96.11 Chronic respiratory failure with hypoxia; E78.5 Hyperlipidemia, unspecified; I27.20 Pulmonary hypertension, unspecified; F10.20 Alcohol dependence, uncomplicated; F17.200 Nicotine dependence, unspecified, uncomplicated; E66.9 Obesity, unspecified; Z68.41 Body mass index [BMI] 40.0-44.9, adult; Z20.822 Contact with and (suspected) exposure to COVID-19; Z99.81 Dependence on supplemental oxygen; Z79.51 Long term (current) use of inhaled steroids; Z79.899 Other long term (current) drug therapy; Z88.0 Allergy status to penicillin
CPT/HCPCS: 96376; 96374; 99285; 36415; 94640 ×2; 93005; 83880; 80053; 83605; 83735; 84484; 85025; 85610; 85730; 87636; 71046; 71275; G0378 ×2; J2930; J7512; Q9967

== ENCOUNTER 2023-06-03 00:21 | Inpatient (IN) | payer MEDICARE ==
[2023-06-03] MEDS: predniSONE 20 MG TAB PO STA (00:42)
[2023-06-03 00:47] LABS: ABG Base Excess 22.1 mmol/L; ABG Oxygen Saturation 98.4 % (94-97); ABG PH 7.27 (7.35-7.45); ABG PO2 100 mmHg (83-108); ABG TCO2 52 mmol/L (19-24); Allen Test Performed? Yes
[2023-06-03 00:51] LABS: ABG PCO2 107 mmHg (35-45)
[2023-06-03 00:52] LABS: ABG HCO3 49 mmol/L (21-25)
[2023-06-03 01:15] LABS: INR 0.9 (<1.2); Partial Thromboplastin Time 22.7 sec (22.0-30.0); Prothrombin Time 10.2 sec (10.0-12.5)
--- NOTE | 2023-06-03 01:16 | ED ---
SOB HPI - General Chief Complaint: Shortness of Breath Stated Complaint: maryam Time Seen by Provider: 06/03/23 00:27 Source: patient, EMS Mode of arrival: EMS Limitations: altered mental status - History of Present Illness Initial Comments: Patient is a 48-year-old man who arrives by ambulance to have evaluation for shortness of breath. The patient is very dyspneic on arrival not able to give much history. EMS states they were called and found patient to have initial pulse oximetry approximately 70%. They found patient dyspneic and did administer albuterol. On arrival patient denies chest pain. MD Complaint: shortness of breath -: unknown Severity scale (1-10): 0 Consistency: constant Improves With: nothing Worsens With: exertion Known History Of: COPD Associated Symptoms: denies other symptoms - Related Data Home Medications Medication Instructions Recorded Confirmed Atorvastatin [Lipitor] 10 mg PO HS 12/29/22 06/03/23 Budesonide/Formoterol Fumarate 2 puff INHALATION RT-BID 12/29/22 06/03/23 [Symbicort 160-4.5 Mcg Inhaler] Furosemide [Lasix] 20 mg PO DAILY 12/29/22 06/03/23 Omeprazole [PriLOSEC] 20 mg PO DAILY 12/29/22 06/03/23 Tiotropium [place] [Spiriva 18 mcg INHALATION RT-DAILY 12/29/22 06/03/23 Handihaler] Previous Rx's Medication Instructions Recorded Ipratropium-Albuterol Nebulize 3 ml INHALATION RT-QID PRN ml 09/15/19 [Duoneb 0.5 mg-3 mg/3 ml Soln] amLODIPine [Norvasc] 5 mg PO DAILY #30 tab 01/05/23 Formoterol Fumarate [Perforomist] 20 mcg INHALATION RT-BID #60 ml 06/08/23 Nicotine 14Mg/24Hr Patch [Habitrol] 14 patch TRANSDERM DAILY #30 mcg 06/08/23 predniSONE [Deltasone] 40 mg PO DAILY #10 tab 06/08/23 Allergies Allergy/AdvReac Type Severity Reaction Status Date / Time fexofenadine HCl AdvReac HIGH BP Verified 12/29/22 23:44 [From Molly-D] Penicillins AdvReac Unknown Verified 12/29/22 23:44 pseudoephedrine HCl AdvReac High BP Verified 12/29/22 23:44 [From Molly-D] Review of Systems ROS Statement: Those systems with pertinent positive or pertinent negative responses have been documented in the HPI. ROS Other: All systems not noted in ROS Statement are negative. Limitations: ROS unobtainable due to patients medical condition Constitutional: Reports: weakness. Denies: fever Respiratory: Reports: dyspnea Cardiovascular: Denies: chest pain Gastrointestinal: Denies: abdominal pain, vomiting Musculoskeletal: Denies: back pain Neurological: Denies: headache Past Medical History Past Medical History: Heart Failure, COPD, GERD/Reflux, GI Bleed, Hypertension, Pneumonia, Respiratory Disorder, Seizure Disorder Additional Past Medical History / Comment(s): Pt recently admitted to [facility] on 08/21 19 with acute on chronic hypoxic/hypercapnic respiratory failure multifactoral 2ndary to acute on chronic COPD/possible acute on chronic CHF exacerbation/pneumonia/moderate pulmonary htn/alcohol abuse/pt was vented/breakthrough or alcohol withdrawal seizure/possible DTs/polycythemia/hypoerkalemia/hyponatremia/supratentorial lesion per cat scan. Other hx: Home oxygen prn during day and wear oxygen with concentrator at HS, past pneumonia, lower GI bleed, seizure once as a child and possible alcohol withdrawal/breakthrough seizure August 2019 admission History of Any Multi-Drug Resistant Organisms: None Reported Past Surgical History: Orthopedic Surgery Additional Past Surgical History / Comment(s): right knee arthroscopy, colonoscopy/benign polypectomy Past Anesthesia/Blood Transfusion Reactions: No Reported Reaction Past Psychological History: No Psychological Hx Reported Smoking Status: Current every day smoker Past Alcohol Use History: None Reported Past Drug Use History: None Reported - Past Family History Mother Family Medical History: Cancer, Hypertension Additional Family Medical History / Comment(s): from ovarian cancer Father Family Medical History: No Reported History Additional Family Medical History / Comment(s): Father is healthy General Exam Limitations: no limitations General appearance: alert, in distress Head exam: Present: atraumatic, normocephalic Eye exam: Present: normal appearance. Absent: scleral icterus, conjunctival injection Neck exam: Present: normal inspection Respiratory exam: Present: respiratory distress, wheezes, accessory muscle use, decreased breath sounds. Absent: rales, rhonchi, stridor Cardiovascular Exam: Present: regular rate, normal rhythm, normal heart sounds. Absent: systolic murmur, diastolic murmur, rubs, gallop GI/Abdominal exam: Present: soft. Absent: distended, tenderness, guarding, rebound, rigid Extremities exam: Present: normal inspection, normal capillary refill. Absent: pedal edema, calf tenderness Back exam: Present: normal inspection Neurological exam: Present: alert Skin exam: Present: warm, dry, intact, normal color. Absent: rash Course Vital Signs 06/03/23 06/03/23 06/03/23 00:22 00:34 00:39 Temperature 98.9 F Pulse Rate 98 Pulse Rate [ Utility Operator Yarn ] Respiratory 28 H 30 H Rate Blood Pressure 100/90 Blood Pressure [Right Arm] O2 Sat by Pulse 85 L Oximetry Fraction of 80 Inspired Oxygen (FIO2) 06/03/23 06/03/23 06/03/23 00:46 00:50 01:47 Temperature Pulse Rate 106 H 79 Pulse Rate [ Utility Operator Yarn ] Respiratory 22 Rate Blood Pressure 113/70 Blood Pressure [Right Arm] O2 Sat by Pulse 97 Oximetry Fraction of 50 Inspired Oxygen (FIO2) 06/03/23 06/03/23 06/03/23 01:54 02:00 03:16 Temperature Pulse Rate 79 76 Pulse Rate [ Utility Operator Yarn ] Respiratory 22 Rate Blood Pressure 113/70 Blood Pressure [Right Arm] O2 Sat by Pulse 93 L Oximetry Fraction of 60 Inspired Oxygen (FIO2) 06/03/23 06/03/23 06/03/23 05:00 07:35 07:41 Temperature 98.9 F Pulse Rate 70 84 78 Pulse Rate [ Utility Operator Yarn ] Respiratory 20 20 Rate Blood Pressure 110/68 110/69 Blood Pressure [Right Arm] O2 Sat by Pulse 93 L 95 Oximetry Fraction of 55 Inspired Oxygen (FIO2) 06/03/23 06/03/23 06/03/23 07:48 09:00 10:00 Temperature Pulse Rate 80 84 77 Pulse Rate [ Utility Operator Yarn ] Respiratory 24 20 Rate Blood Pressure 125/64 125/60 Blood Pressure [Right Arm] O2 Sat by Pulse 92 L 94 L Oximetry Fraction of Inspired Oxygen (FIO2) 06/03/23 06/03/23 06/03/23 10:53 11:27 11:40 Temperature Pulse Rate 77 80 79 Pulse Rate [ Utility Operator Yarn ] Respiratory 20 Rate Blood Pressure 102/68 Blood Pressure [Right Arm] O2 Sat by Pulse 95 Oximetry Fraction of 50 Inspired Oxygen (FIO2) 06/03/23 06/03/23 06/03/23 12:00 13:00 14:00 Temperature Pulse Rate 75 68 65 Pulse Rate [ Utility Operator Yarn ] Respiratory 16 16 16 Rate Blood Pressure 108/71 110/60 110/60 Blood Pressure [Right Arm] O2 Sat by Pulse 93 L 96 96 Oximetry Fraction of Inspired Oxygen (FIO2) 06/03/23 06/03/23 06/03/23 15:00 15:37 15:46 Temperature Pulse Rate 85 76 78 Pulse Rate [ Utility Operator Yarn ] Respiratory 16 Rate Blood Pressure 117/79 Blood Pressure [Right Arm] O2 Sat by Pulse 94 L Oximetry Fraction of 50 Inspired Oxygen (FIO2) 06/03/23 06/03/23 06/03/23 17:00 18:00 18:41 Temperature Pulse Rate 73 68 Pulse Rate [ Utility Operator Yarn ] Respiratory 20 16 Rate Blood Pressure 117/77 117/70 Blood Pressure [Right Arm] O2 Sat by Pulse 94 L 94 L Oximetry Fraction of 60 Inspired Oxygen (FIO2) 06/03/23 06/03/23 06/03/23 20:00 20:04 20:23 Temperature 97.8 F Pulse Rate 66 93 Pulse Rate [ Utility Operator Yarn ] Respiratory 15 Rate Blood Pressure 112/73 Blood Pressure [Right Arm] O2 Sat by Pulse 96 Oximetry Fraction of 60 Inspired Oxygen (FIO2) 06/03/23 06/03/23 06/03/23 20:35 20:36 20:46 Temperature Pulse Rate 97 97 100 Pulse Rate [ Utility Operator Yarn ] Respiratory Rate Blood Pressure Blood Pressure [Right Arm] O2 Sat by Pulse Oximetry Fraction of Inspired Oxygen (FIO2) 06/03/23 06/03/23 06/03/23 22:30 23:34 23:52 Temperature 97.9 F Pulse Rate 80 83 Pulse Rate [ Utility Operator Yarn ] Respiratory 15 17 Rate Blood Pressure 118/76 Blood Pressure [Right Arm] O2 Sat by Pulse 96 96 Oximetry Fraction of 60 Inspired Oxygen (FIO2) 06/04/23 06/04/23 06/04/23 03:35 03:54 07:03 Temperature 97.5 F L Pulse Rate 76 67 Pulse Rate [ Utility Operator Yarn ] Respiratory 15 16 Rate Blood Pressure 118/82 127/81 Blood Pressure [Right Arm] O2 Sat by Pulse 97 97 Oximetry Fraction of 60 Inspired Oxygen (FIO2) 06/04/23 06/04/23 06/04/23 07:50 07:52 07:54 Temperature Pulse Rate 64 Pulse Rate [ Utility Operator Yarn ] Respiratory Rate Blood Pressure Blood Pressure [Right Arm] O2 Sat by Pulse 95 Oximetry Fraction of 60 60 Inspired Oxygen (FIO2) 06/04/23 06/04/23 06/04/23 08:01 08:02 08:10 Temperature Pulse Rate 70 70 67 Pulse Rate [ Utility Operator Yarn ] Respiratory Rate Blood Pressure Blood Pressure [Right Arm] O2 Sat by Pulse Oximetry Fraction of Inspired Oxygen (FIO2) 06/04/23 06/04/23 06/04/23 09:00 10:00 11:12 Temperature Pulse Rate 68 62 67 Pulse Rate [ Utility Operator Yarn ] Respiratory 16 16 Rate Blood Pressure 127/81 Blood Pressure [Right Arm] O2 Sat by Pulse 97 97 Oximetry Fraction of Inspired Oxygen (FIO2) 06/04/23 06/04/23 06/04/23 11:14 11:15 11:21 Temperature Pulse Rate 69 Pulse Rate [ Utility Operator Yarn ] Respiratory Rate Blood Pressure Blood Pressure [Right Arm] O2 Sat by Pulse 97 Oximetry Fraction of 55 55 Inspired Oxygen (FIO2) 06/04/23 06/04/23 06/04/23 15:21 15:23 15:24 Temperature Pulse Rate 70 Pulse Rate [ Utility Operator Yarn ] Respiratory Rate Blood Pressure Blood Pressure [Right Arm] O2 Sat by Pulse 94 L Oximetry Fraction of 50 55 Inspired Oxygen (FIO2) 06/04/23 06/04/23 06/04/23 15:31 16:00 17:32 Temperature 97.9 F Pulse Rate 75 74 Pulse Rate [ 76 Utility Operator Yarn ] Respiratory 18 19 Rate Blood Pressure 145/92 Blood Pressure 124/77 [Right Arm] O2 Sat by Pulse 92 L 97 Oximetry Fraction of 50 Inspired Oxygen (FIO2) Procedures - [place] Protocol (Time Out) Nurse: Anju Mckeon Medical Decision Making - Medical Decision Making Patient is 48-year-old man with history of oxygen dependent COPD as well as pulmonary hypertension. The patient severely dyspneic and history limited on arrival. The patient is placed on BiPAP, received steroids, will have nebulized treatments. The patient had chest x-ray which I interpreted as negative for acute infiltrate, pneumothorax, congestive heart failure Was pt. sent in by a medical professional or institution (, PA, MECHANICAL DESIGN TECHNICIAN, urgent care, hospital, or senior care...) When possible be specific @ -[No] Did you speak to anyone other than the patient for history (EMS, parent, family, police, friend...)? What history was obtained from this source @ -[No] Did you review nursing and triage notes (agree or disagree)? Why? @ -[I reviewed and agree with nursing and triage notes] Were old charts reviewed (outside hosp., previous admission, EMS record, old EKG, old radiological studies, urgent care reports/EKG's, senior care records)? Report findings @ -[Yes, old charts were reviewed Differential Diagnosis (chest pain, altered mental status, abdominal pain women, abdominal pain men, vaginal bleeding, weakness, fever, dyspnea, syncope, headache, dizziness, GI bleed, back pain, seizure, CVA, palpatations, mental health, musculoskeletal)? @ -[Differential Dyspnea: Coronary syndrome, arrhythmia, tamponade, asthma, COPD, pulmonary embolism, pneumonia, pneumothorax, pulmonary effusion, anaphylaxis, diabetic ketoacidosis, flailed chest, pulmonary contusion, diaphragmatic rupture, anemia, neuromuscular, this is not meant to be an all-inclusive list. EKG interpreted by me (3pts min.). @ -[I interpreted as above] X-rays interpreted by me (1pt min.). @ -[I interpreted as above CT interpreted by me (1pt min.). @ -[None done] U/S interpreted by me (1pt. min.). @ -[None done] What testing was considered but not performed or refused? (CT, X-rays, U/S, labs)? Why? @ -[None] What meds were considered but not given or refused? Why? @ -[None] Did you discuss the management of the patient with other professionals (professionals i.e. , PA, MECHANICAL DESIGN TECHNICIAN, lab, RT, psych nurse, social service technician, rotary engine assembler, teacher, fisheries technical officer, casework supervisor)? Give summary @ -[Case discussed with admitting physician and treatment recommendations are incorporated, including pulmonology consultation. Was smoking cessation discussed for >3mins.? @ -[No] Was critical care preformed (if so, how long)? @ -[Yes, 35 minutes Were there social determinants of health that impacted care today? How? (Homelessness, low income, unemployed, alcoholism, drug addiction, transportation, low edu. Level, literacy, decrease access to med. care, usp, rehab)? @ -[No] Was there de-escalation of care discussed even if they declined (Discuss DNR or withdrawal of care, Hospice)? DNR status @ -[No] What co-morbidities impacted this encounter? (DM, HTN, Smoking, COPD, CAD, Cancer, CVA, ARF, Chemo, Hep., AIDS, mental health diagnosis, sleep apnea, morbid obesity)? @ -[COPD, morbid obesity, smoking, hypertension Was patient admitted / discharged? Hospital course, mention meds given and route, prescriptions, significant lab abnormalities, going to OR and other pertinent info. @ -[Patient is 48-year-old man with history of COPD and pulmonary hypertension who arrives in acute respiratory failure. The patient placed on BiPAP and admitted for further evaluation and treatment. Undiagnosed new problem with uncertain prognosis? @ -[No] Drug Therapy requiring intensive monitoring for toxicity (Heparin, Nitro, Insulin, Cardizem)? @ -[No] Were any procedures done? @ -[No] Diagnosis/symptom? @ -[Acute dyspnea Acute exacerbation of COPD Hypercarbic respiratory failure, acute Acute acidosis Acute, or Chronic, or Acute on Chronic? @ -[Acute Uncomplicated (without systemic symptoms) or Complicated (systemic symptoms)? @ -[default] Side effects of treatment? @ -[No] Exacerbation, Progression, or Severe Exacerbation? @ -[Exacerbation Poses a threat to life or bodily function? How? (Chest pain, USA, NM, pneumonia, PE, COPD, DKA, ARF, appy, cholecystitis, CVA, Diverticulitis, Homicidal, Suicidal, threat to staff... and all critical care pts) @ -[Yes - Lab Data Result diagrams: 06/07/23 06:11 06/07/23 06:11 Lab Results 06/03/23 06/03/23 06/03/23 Range/Units 00:37 00:37 00:37 WBC 10.7 H (3.8-10.6) k/uL RBC 4.63 (4.30-5.90) m/uL Hgb 15.4 (13.0-17.5) gm/dL Hct 51.7 (39.0-53.0) % MCV 111.6 H (80.0-100.0) fL MCH 33.4 (25.0-35.0) pg MCHC 29.9 L (31.0-37.0) g/dL RDW 15.4 (11.5-15.5) % Plt Count 298 (150-450) k/uL MPV 7.9 Neutrophils % 77 % Lymphocytes % 15 % Monocytes % 6 % Eosinophils % 1 % Basophils % 1 % Neutrophils # 8.2 H (1.3-7.7) k/uL Lymphocytes # 1.6 (1.0-4.8) k/uL Monocytes # 0.6 (0-1.0) k/uL Eosinophils # 0.1 (0-0.7) k/uL Basophils # 0.1 (0-0.2) k/uL Hypochromasia Marked Macrocytosis Marked A PT 10.2 (10.0-12.5) sec INR 0.9 (<1.2) APTT 22.7 (22.0-30.0) sec Sample Site ABG pH (7.35-7.45) ABG pCO2 (35-45) mmHg ABG pO2 (83-108) mmHg ABG HCO3 (21-25) mmol/L ABG Total CO2 (19-24) mmol/L ABG O2 Saturation (94-97) % ABG Base Excess mmol/L Rod Test FiO2 % Sodium 136 L (137-145) mmol/L Potassium 5.5 H (3.5-5.1) mmol/L Chloride 88 L (98-107) mmol/L Carbon Dioxide 45 H* (22-30) mmol/L Anion Gap 3 mmol/L BUN 13 (9-20) mg/dL Creatinine 0.75 (0.66-1.25) mg/dL Est GFR (CKD-EPI)AfAm >90 (>60 ml/min/1.73 sqM) Est GFR (CKD-EPI)NonAf >90 (>60 ml/min/1.73 sqM) Glucose 120 H (74-99) mg/dL Plasma Lactic Acid Tk (0.7-2.0) mmol/L Calcium 8.7 (8.4-10.2) mg/dL Total Bilirubin 0.6 (0.2-1.3) mg/dL AST 45 (17-59) U/L ALT 28 (4-49) U/L Alkaline Phosphatase 85 (38-126) U/L Troponin I (0.000-0.034) ng/mL NT-Pro-B Natriuret Pep 119 pg/mL Total Protein 7.2 (6.3-8.2) g/dL Albumin 4.3 (3.5-5.0) g/dL Procalcitonin (0.02-0.09) ng/mL Serum Alcohol <10 mg/dL 06/03/23 06/03/23 06/03/23 Range/Units 00:37 00:37 00:37 WBC (3.8-10.6) k/uL RBC (4.30-5.90) m/uL Hgb (13.0-17.5) gm/dL Hct (39.0-53.0) % MCV (80.0-100.0) fL MCH (25.0-35.0) pg MCHC (31.0-37.0) g/dL RDW (11.5-15.5) % Plt Count (150-450) k/uL MPV Neutrophils % % Lymphocytes % % Monocytes % % Eosinophils % % Basophils % % Neutrophils # (1.3-7.7) k/uL Lymphocytes # (1.0-4.8) k/uL Monocytes # (0-1.0) k/uL Eosinophils # (0-0.7) k/uL Basophils # (0-0.2) k/uL Hypochromasia Macrocytosis PT (10.0-12.5) sec INR (<1.2) APTT (22.0-30.0) sec Sample Site ABG pH (7.35-7.45) ABG pCO2 (35-45) mmHg ABG pO2 (83-108) mmHg ABG HCO3 (21-25) mmol/L ABG Total CO2 (19-24) mmol/L ABG O2 Saturation (94-97) % ABG Base Excess mmol/L Rod Test FiO2 % Sodium (137-145) mmol/L Potassium (3.5-5.1) mmol/L Chloride (98-107) mmol/L Carbon Dioxide (22-30) mmol/L Anion Gap mmol/L BUN (9-20) mg/dL Creatinine (0.66-1.25) mg/dL Est GFR (CKD-EPI)AfAm (>60 ml/min/1.73 sqM) Est GFR (CKD-EPI)NonAf (>60 ml/min/1.73 sqM) Glucose (74-99) mg/dL Plasma Lactic Acid Tk 0.8 (0.7-2.0) mmol/L Calcium (8.4-10.2) mg/dL Total Bilirubin (0.2-1.3) mg/dL AST (17-59) U/L ALT (4-49) U/L Alkaline Phosphatase (38-126) U/L Troponin I <0.012 (0.000-0.034) ng/mL NT-Pro-B Natriuret Pep pg/mL Total Protein (6.3-8.2) g/dL Albumin (3.5-5.0) g/dL Procalcitonin 0.08 (0.02-0.09) ng/mL Serum Alcohol mg/dL 06/03/23 Range/Units 00:44 WBC (3.8-10.6) k/uL RBC (4.30-5.90) m/uL Hgb (13.0-17.5) gm/dL Hct (39.0-53.0) % MCV (80.0-100.0) fL MCH (25.0-35.0) pg MCHC (31.0-37.0) g/dL RDW (11.5-15.5) % Plt Count (150-450) k/uL MPV Neutrophils % % Lymphocytes % % Monocytes % % Eosinophils % % Basophils % % Neutrophils # (1.3-7.7) k/uL Lymphocytes # (1.0-4.8) k/uL Monocytes # (0-1.0) k/uL Eosinophils # (0-0.7) k/uL Basophils # (0-0.2) k/uL Hypochromasia Macrocytosis PT (10.0-12.5) sec INR (<1.2) APTT (22.0-30.0) sec Sample Site R radial ABG pH 7.27 L (7.35-7.45) ABG pCO2 107 H* (35-45) mmHg ABG pO2 100 (83-108) mmHg ABG HCO3 49 H* (21-25) mmol/L ABG Total CO2 52 H (19-24) mmol/L ABG O2 Saturation 98.4 H (94-97) % ABG Base Excess 22.1 mmol/L Rod Test Yes FiO2 80 % Sodium (137-145) mmol/L Potassium (3.5-5.1) mmol/L Chloride (98-107) mmol/L Carbon Dioxide (22-30) mmol/L Anion Gap mmol/L BUN (9-20) mg/dL Creatinine (0.66-1.25) mg/dL Est GFR (CKD-EPI)AfAm (>60 ml/min/1.73 sqM) Est GFR (CKD-EPI)NonAf (>60 ml/min/1.73 sqM) Glucose (74-99) mg/dL Plasma Lactic Acid Tk (0.7-2.0) mmol/L Calcium (8.4-10.2) mg/dL Total Bilirubin (0.2-1.3) mg/dL AST (17-59) U/L ALT (4-49) U/L Alkaline Phosphatase (38-126) U/L Troponin I (0.000-0.034) ng/mL NT-Pro-B Natriuret Pep pg/mL Total Protein (6.3-8.2) g/dL Albumin (3.5-5.0) g/dL Procalcitonin (0.02-0.09) ng/mL Serum Alcohol mg/dL - EKG Data -: EKG Interpreted by Me EKG shows normal: sinus rhythm, axis (Borderline right axis deviation), intervals (Normal), QRS complexes (Possible old anteroseptal infarct based on Q waves V1 to V3) Rate: normal (Rate 96 bpm) Disposition Clinical Impression: COPD exacerbation Disposition: ADMITTED IP TO THIS HOSP Condition: Fair Is patient prescribed a controlled substance at d/c from ED?: No
[2023-06-03 01:21] LABS: ALT 28 U/L (4-49); African American GFR (CKD) >90 (>60 ml/min/1.73 sqM); Albumin 4.3 g/dL (3.5-5.0); Alcohol <10 mg/dL; Blood Urea Nitrogen 13 mg/dL (9-20); Calcium 8.7 mg/dL (8.4-10.2); Chloride 88 mmol/L (98-107); Glucose 120 mg/dL (74-99); Non-African American GFR(CKD) >90 (>60 ml/min/1.73 sqM); Sodium 136 mmol/L (137-145); Total Bilirubin 0.6 mg/dL (0.2-1.3); Total Protein 7.2 g/dL (6.3-8.2)
[2023-06-03 01:22] LABS: Basophils # (A) 0.1 k/uL (0-0.2); Basophils % (A) 1 %; Eosinophils # (A) 0.1 k/uL (0-0.7); Eosinophils % (A) 1 %; HCT 51.7 % (39.0-53.0); HGB 15.4 gm/dL (13.0-17.5); Hypochromasia Marked; Lymphocytes # (A) 1.6 k/uL (1.0-4.8); Lymphocytes % (A) 15 %; MCH 33.4 pg (25.0-35.0); MCHC 29.9 g/dL (31.0-37.0); Macrocytosis Marked; Mean Platelet Volume 7.9; Monocytes # (A) 0.6 k/uL (0-1.0); Monocytes % (A) 6 %; Neutrophils # (A) 8.2 k/uL (1.3-7.7); Neutrophils % (A) 77 %; Platelet Count 298 k/uL (150-450); RBC 4.63 m/uL (4.30-5.90); RDW 15.4 % (11.5-15.5); WBC 10.7 k/uL (3.8-10.6)
[2023-06-03 01:24] LABS: MCV 111.6 fL (80.0-100.0)
[2023-06-03 01:27] LABS: Anion Gap 3 mmol/L
[2023-06-03 01:29] LABS: NT-Pro-B-Type Natriuretic Pept 119 pg/mL
[2023-06-03 01:33] LABS: Carbon Dioxide 45 mmol/L (22-30)
[2023-06-03 01:34] LABS: AST 45 U/L (17-59); Alkaline Phosphatase 85 U/L (38-126); Potassium 5.5 mmol/L (3.5-5.1)
[2023-06-03] MEDS: IPRATROPIUM-ALBUTEROL 3 ML NEB INHALATION STA (01:45)
--- NOTE | 2023-06-03 01:45 | XR ---
EXAM: XR Chest, 1 View CLINICAL HISTORY: ITS.REASON XR Reason: dyspnea TECHNIQUE: Frontal view of the chest. COMPARISON: No relevant prior studies available. IMPRESSION: Cardiomegaly. Slight bibasilar opacities.
[2023-06-03] MEDS ORDERED: ACETAMINOPHEN TAB 325 MG TAB PO PRN (05:28)
[2023-06-03] MEDS ORDERED: IPRATROPIUM-ALBUTEROL 3 ML NEB INHALATION PRN (05:28)
[2023-06-03] MEDS ORDERED: NALOXONE 0.4 MG/ML 1 ML VIAL IVP PRN (05:28)
[2023-06-03] MEDS: SYMBICORT 160-4.5 MCG INHALER INHALATION SCH (07:35)
[2023-06-03] MEDS: IPRATROPIUM-ALBUTEROL 3 ML NEB INHALATION SCH (07:35)
[2023-06-03] MEDS ORDERED: IPRATROPIUM 0.5 MG/2.5 ML NEBU INHALATION SCH (08:00)
[2023-06-03] MEDS ORDERED: predniSONE 20 MG TAB PO SCH (09:00)
[2023-06-03] MEDS: PANTOPRAZOLE 40 MG TABLET PO SCH (09:04)
[2023-06-03] MEDS: FUROSEMIDE 20 MG TAB PO SCH (09:04)
[2023-06-03] MEDS: NICOTINE 14MG/24HR PATCH TRANSDERM SCH (09:04)
[2023-06-03] MEDS: AZITHROMYCIN 500 MG TAB PO SCH (09:04)
[2023-06-03] MEDS: amLODIPine 5 MG TAB PO SCH (09:04)
[2023-06-03] MEDS: ENOXAPARIN 40 MG/0.4 ML SYRINGE SQ SCH (09:04)
--- NOTE | 2023-06-03 09:18 | US ---
EXAMINATION TYPE: US venous doppler duplex LE RT DATE OF EXAM: 06/03/2023 9:10 AM COMPARISON: NONE CLINICAL INDICATION: Male, 48 years old with history of new onset pain; rt post lat calf pain began y SIDE PERFORMED: Right TECHNIQUE: The lower extremity deep venous system is examined utilizing real time linear array sonog rohit with graded compression, doppler sonography and color-flow sonography. VESSELS IMAGED: Common Femoral Vein Deep Femoral Vein Greater Saphenous Vein * Femoral Vein Popliteal Vein Small Saphenous Vein * Proximal Calf Veins (* superficial vessels) Right Leg: Negative for DVT exam limited by body habitus, pt. movement IMPRESSION: Grayscale, color doppler, spectral doppler imaging performed of the deep veins of the lo wer extremities. There is normal flow, compressibility, vascular waveforms.
[2023-06-03] MEDS ORDERED: DEXTROSE 50% SYRINGE 50 ML IVP PRN ×2 (12:30)
[2023-06-03] MEDS: methylPREDNISolone SOD SUCCI 125 MG/2 ML VIAL IV SCH (12:42)
[2023-06-03] MEDS: INSULIN ASPART (NovoLOG) 100 UNIT/ML VIAL SQ SCH (12:43)
--- NOTE | 2023-06-03 13:24 | P.HPIM ---
History of Present Illness H&P Date: 06/03/23 Chief Complaint: Dyspnea This is a 48-year-old gentleman with past medical history significant for chronic hypoxic respiratory failure, COPD, ongoing nicotine dependence, pulmo nary hypertension, hypertension, hyperlipidemia, morbid obesity and multiple other medical issues brought into to the ER via EMS complaining of significant shortness of breath over the last week, accompanied by nonproductive cough. Denies chest pain, palpitations.troponin negative x 1. EKG reported , reports recent fall, complains of right lower extremity pain. Vague historian. EMS reported pulse ox in the 70s.Required CPAP during the night to maintain his O2 sats in the 90s. Witnessed spontaneous jerking, questionable myoclonus. States it has been going on nearly 1 month. EMR reports seizure once as a child and possible alcohol withdrawal breakthrough seizure in 2019. Reports no alcohol since 2019. Occasional marijuana use. Afebrile, normal WBC,, hemoglobin 15.4, platelets 298, INR 0.9. ABGs noted on admission with pH 7.27, pCO2 107, pO2 100, bicarb 49, total CO2 52 with O2 sat 98.4 on 80% FiO2. Sodium 136, potassium 5.5, chloride 88, bicarb 45 BUN 13, creatinine 0.75, glucose 120, lactic acid 0.8. Review of Systems ROS Statement: Those systems with pertinent positive or pertinent negative responses have been documented in the HPI. ROS Other: All systems not noted in ROS Statement are negative. Past Medical History Past Medical History: Heart Failure, COPD, GERD/Reflux, GI Bleed, Hypertension, Pneumonia, Respiratory Disorder, Seizure Disorder Additional Past Medical History / Comment(s): Pt recently admitted to [facility] on 08/20 20 with acute on chronic hypoxic/hypercapnic respiratory failure multifactoral 2ndary to acute on chronic COPD/possible acute on chronic CHF exacerbation/pneumonia/moderate pulmonary htn/alcohol abuse/pt was vented/breakthrough or alcohol withdrawal seizure/possible DTs/polycythemia/hypoerkalemia/hyponatremia/supratentorial lesion per cat scan. Other hx: Home oxygen prn during day and wear oxygen with concentrator at HS, past pneumonia, lower GI bleed, seizure once as a child and possible alcohol w ithdrawal/breakthrough seizure August 2019 admission History of Any Multi-Drug Resistant Organisms: None Reported Past Surgical History: Orthopedic Surgery Additional Past Surgical History / Comment(s): right knee arthroscopy, colonoscopy/benign polypectomy Past Anesthesia/Blood Transfusion Reactions: No Reported Reaction Past Psychological History: No Psychological Hx Reported Smoking Status: Current every day smoker Past Alcohol Use History: None Reported Past Drug Use History: None Reported - Past Family History Mother Family Medical History: Cancer, Hypertension Additional Family Medical History / Comment(s): from ovarian cancer Father Family Medical History: No Reported History Additional Family Medical History / Comment(s): Father is healthy Medications and Allergies Home Medications Medication Instructions Recorded Confirmed Type Ipratropium-Albuterol Nebulize 3 ml INHALATION RT-QID PRN ml 09/15/19 06/03/23 Rx [Duoneb 0.5 mg-3 mg/3 ml Soln] Atorvastatin [Lipitor] 10 mg PO HS 12/29/22 06/03/23 History Budesonide/Formoterol Fumarate 2 puff INHALATION RT-BID 12/29/22 06/03/23 History [Symbicort 160-4.5 Mcg Inhaler] Furosemide [Lasix] 20 mg PO DAILY 12/29/22 06/03/23 History Omeprazole [PriLOSEC] 20 mg PO DAILY 12/29/22 06/03/23 History Tiotropium [place] [Spiriva 18 mcg INHALATION RT-DAILY 12/29/22 06/03/23 History Handihaler] amLODIPine [Norvasc] 5 mg PO DAILY #30 tab 01/05/23 06/03/23 Rx Allergies Allergy/AdvReac Type Severity Reaction Status Date / Time fexofenadine HCl AdvReac HIGH BP Verified 12/29/22 23:44 [From Molly-D] Penicillins AdvReac Unknown Verified 12/29/22 23:44 pseudoephedrine HCl AdvReac High BP Verified 12/29/22 23:44 [From Molly-D] Physical Exam Vitals: Vital Signs Temp Pulse Resp BP Pulse Ox FiO2 06/03/23 11:40 79 06/03/23 11:27 80 50 06/03/23 10:53 77 20 102/68 95 06/03/23 10:00 77 20 125/60 94 L 06/03/23 09:00 84 24 125/64 92 L 06/03/23 07:48 80 04/25/24 07:41 78 55 06/03/23 07:35 84 20 110/69 95 06/03/23 05:00 98.9 F 70 20 110/68 93 L 06/03/23 03:16 60 06/03/23 02:00 76 22 113/70 93 L 06/03/23 01:54 79 06/03/23 01:47 79 06/03/23 00:50 50 06/03/23 00:46 106 H 22 113/70 97 06/03/23 00:39 80 06/03/23 00:34 30 H 06/03/23 00:22 98.9 F 98 28 H 100/90 85 L Intake and Output 06/02/23 06/03/23 06/03/23 22:59 06:59 14:59 Other: Weight 140.614 kg PHYSICAL EXAM: VITAL SIGNS: [As above GENERAL: Sitting up in bed, wearing CPAP, calm HEENT: Normocephalic conjunctivae normal. eyes normal. NECK: Supple no JVD. CARDIOVASCULAR: S1, S2 regular. No murmur RESPIRATION: Equal air entry with fine scattered crackles and expiratory wheezes. ABDOMEN: Soft, nontender . No guarding. no masses palpable. No ascites, No hepatosplenomegaly.Bowel sounds heard. LEGS: No edema. no swelling PSYCHIATRY: Alert and oriented X3, mood and affect normal. NERVOUS SYSTEM: Cranial N 2-12 grossly normal. Moves all 4 limbs. No focal deficits. Skin: Warm and dry, no rash Results CBC & Chem 7: 06/03/23 00:37 06/03/23 00:37 Labs: Abnormal Lab Results - Last 24 Hours (Table) 06/03/23 06/03/23 06/03/23 Range/Units 00:37 00:37 00:44 WBC 10.7 H (3.8-10.6) k/uL MCV 111.6 H (80.0-100.0) fL MCHC 29.9 L (31.0-37.0) g/dL Neutrophils # 8.2 H (1.3-7.7) k/uL Macrocytosis Marked A ABG pH 7.27 L (7.35-7.45) ABG pCO2 107 H* (35-45) mmHg ABG HCO3 49 H* (21-25) mmol/L ABG Total CO2 52 H (19-24) mmol/L ABG O2 Saturation 98.4 H (94-97) % Sodium 136 L (137-145) mmol/L Potassium 5.5 H (3.5-5.1) mmol/L Chloride 88 L (98-107) mmol/L Carbon Dioxide 45 H* (22-30) mmol/L Glucose 120 H (74-99) mg/dL Assessment and Plan Assessment: Acute COPD exacerbation Acute on chronic hypoxic respiratory failure Subacute spontaneous jerks reports x 1 month, possibly myoclonic, in a patient with history of possible alcohol withdrawal seizures in 2020 once as a child. Severe COPD Ongoing nicotine dependence Occasional marijuana use History of alcohol abuse, quit 2019 Recent fall with generalized weakness Pulmonary hypertension Hypertension Hyperlipidemia Morbid obesity, BMI 50 Plan: Continue on current medication using ,monitoring and symptomatic treatment. Maintain IV antibiotics, IV steroids, nebulized bronchodilators, Pulmicort. Smoking cessation reinforced, nicotine patch ordered. Pulmonary co nsult in place, neurology consult ordered. Doppler ultrasound of right lower extremity, ruling out DVT. PPI in place for GI prophylaxis. Lovenox for DVT prophylaxis. The impression and plan of care has been dictated as directed. : I performed a history and examination of this patient, discussed the same with the dictator. I agree with the dictator's note ,documented as a scribe. Any additional findings or plans will be noted.
--- NOTE | 2023-06-03 15:23 | P.CNPUL ---
History of Present Illness Consult date: 06/03/23 Requesting physician: Durga Omalley Chief complaint: Shortness of breath History of present illness: This is a 48-year-old male patient with a history of obesity, chronic obstructive pulmonary disease, chronic tobacco dependence, previous alcoholism, gastroesophageal reflux disease, hyperlipidemia. He has severe COPD on home oxygen at 2 L with FEV1 value 36% of predicted. He presented here to the emergency room early this morning with significant shortness of breath and hypoxemia with a pulse ox of 70%. Arterial blood gases on arrival revealed a PaO2 of 100, pCO2 of 107 and a pH of 7.27. He was placed on BiPAP 14/6 and 55% FiO2. Chest x-ray revealed cardiomegaly. Slight bibasilar opacities. White count 10.7. Hemoglobin 15.4. Platelets 298. INR 0.9. Sodium 136. Potassium 5.5. Bicarb 45. BUN 13. Creatinine 0.75. Troponin negative x 1. proBNP 119. Alcohol less than 10. Viral screen negative. He is seen today in consultation in the emergency department. He is currently sitting up on the stretcher. Awake and alert in mild respiratory distress. Dyspneic with conversation. Dyspneic with minimal exertion. He is initiated on DuoNeb ventilations, Pulmicort and Perforomist inhalations, IV Solu-Medrol, NicoDerm patch applied. Continued on oral diuretics. Lovenox for DVT prophylaxis. Review of Systems REVIEW OF SYSTEMS: CONSTITUTIONAL: Denies any recent significant weight loss or weight gain. EYES: Denies change in vision. EARS, NOSE, MOUTH, THROAT: Denies headaches, denies sore throat. CARDIOVASCULAR: Denies chest pain, palpitations or syncopal episodes. RESPIRATORY: Positive for shortness of breath, cough, congestion no hemoptysis. GASTROINTESTINAL: Denies change in appetite, denies abdominal pain GENITOURINARY: Denies hematuria, denies infections. MUSKULOSKELETAL: Denies pain, denies swelling. INTEGUMENTARY: Denies rash, denies eczema. NEUROLOGICAL: Denies recent memory loss, no recent seizure activity. PSYCHIATRIC: Denies anxiety, denies depression. HEMATOLOGIC/LYMPHATIC: Denies anemia, denies enlarged lymph nodes. Past Medical History Past Medical History: Heart Failure, COPD, GERD/Reflux, GI Bleed, Hypertension, Pneumonia, Respiratory Disorder, Seizure Disorder Additional Past Medical History / Comment(s): Pt recently admitted to [facility] on 08/21 19 with acute on chronic hypoxic/hypercapnic respiratory failure multifactoral 2ndary to acute on chronic COPD/possible acute on chronic CHF exacerbation/pneumonia/moderate pulmonary htn/alcohol abuse/pt was vented/breakthrough or alcohol withdrawal seizure/possible DTs/polycythemia/hypoerkalemia/hyponatremia/supratentorial lesion per cat scan. Other hx: Home oxygen prn during day and wear oxygen with concentrator at HS, past pneumonia, lower GI bleed, seizure once as a child and possible alcohol withdrawal/breakthrough seizure August 2019 admission History of Any Multi-Drug Resistant Organisms: None Reported Past Surgical History: Orthopedic Surgery Additional Past Surgical History / Comment(s): right knee arthroscopy, colonoscopy/benign polypectomy Past Anesthesia/Blood Transfusion Reactions: No Reported Reaction Past Psychological History: No Psychological Hx Reported Smoking Status: Current every day smoker Past Alcohol Use History: None Reported Past Drug Use History: None Reported - Past Family History Mother Family Medical History: Cancer, Hypertension Additional Family Medical History / Comment(s): from ovarian cancer Father Family Medical History: No Reported History Additional Family Medical History / Comment(s): Father is healthy Medications and Allergies Home Medications Medication Instructions Recorded Confirmed Type Ipratropium-Albuterol Nebulize 3 ml INHALATION RT-QID PRN ml 09/15/19 06/03/23 Rx [Duoneb 0.5 mg-3 mg/3 ml Soln] Atorvastatin [Lipitor] 10 mg PO HS 12/29/22 06/03/23 History Budesonide/Formoterol Fumarate 2 puff INHALATION RT-BID 12/29/22 06/03/23 History [Symbicort 160-4.5 Mcg Inhaler] Furosemide [Lasix] 20 mg PO DAILY 12/29/22 06/03/23 History Omeprazole [PriLOSEC] 20 mg PO DAILY 12/29/22 06/03/23 History Tiotropium [place] [Spiriva 18 mcg INHALATION RT-DAILY 12/29/22 06/03/23 History Handihaler] amLODIPine [Norvasc] 5 mg PO DAILY #30 tab 01/05/23 06/03/23 Rx Allergies Allergy/AdvReac Type Severity Reaction Status Date / Time fexofenadine HCl AdvReac HIGH BP Verified 12/29/22 23:44 [From [employer]] Penicillins AdvReac Unknown Verified 12/29/22 23:44 pseudoephedrine HCl AdvReac High BP Verified 12/29/22 23:44 [From [employer]] Physical Exam Vitals: Vital Signs Temp Pulse Resp BP Pulse Ox FiO2 06/03/23 14:00 65 16 110/60 96 06/03/23 13:00 68 16 110/60 96 06/03/23 12:00 75 16 108/71 93 L 06/03/23 11:40 79 06/03/23 11:27 80 50 06/03/23 10:53 77 20 102/68 95 06/03/23 10:00 77 20 125/60 94 L 06/03/23 09:00 84 24 125/64 92 L 06/03/23 07:48 80 06/03/23 07:41 78 55 06/03/23 07:35 84 20 110/69 95 06/03/23 05:00 98.9 F 70 20 110/68 93 L 06/03/23 03:16 60 06/03/23 02:00 76 22 113/70 93 L 06/03/23 01:54 79 06/03/23 01:47 79 06/03/23 00:50 50 06/03/23 00:46 106 H 22 113/70 97 06/03/23 00:39 80 06/03/23 00:34 30 H 06/03/23 00:22 98.9 F 98 28 H 100/90 85 L Intake and Output 06/03/23 06/03/23 06/03/23 06:59 14:59 22:59 Other: Weight 140.614 kg GENERAL EXAM: Alert, morbidly obese 48-year-old male patient on BiPAP 14/6 and 55% FiO2, fairly comfortable in no apparent distress. HEAD: Normocephalic. EYES: Normal reaction of pupils, equal size. NOSE: Clear with pink turbinates. THROAT: No erythema or exudates. NECK: No masses, no JVD. CHEST: No chest wall deformity. LUNGS: Equal air entry with bilateral end expiratory wheeze, diminished throughout. CVS: S1 and S2 normal with no audible murmur, regular rhythm. ABDOMEN: No hepatosplenomegaly, normal bowel sounds, no guarding or rigidity. SPINE: No scoliosis or deformity SKIN: No rashes CENTRAL NERVOUS SYSTEM: No focal deficits, tone is normal in all 4 extremities. EXTREMITIES: Changes of chronic venous stasis. There is no peripheral edema. No clubbing, no cyanosis. Peripheral pulses are intact. Results - Laboratory Findings CBC and BMP: 06/03/23 00:37 06/03/23 00:37 ABG ABG pH 7.27 (7.35-7.45) L 06/03/23 00:44 ABG pCO2 107 mmHg (35-45) H* 06/03/23 00:44 ABG pO2 100 mmHg (83-108) 06/03/23 00:44 ABG O2 Saturation 98.4 % (94-97) H 06/03/23 00:44 PT/INR, D-dimer PT 10.2 sec (10.0-12.5) 06/03/23 00:37 INR 0.9 (<1.2) 06/03/23 00:37 Abnormal lab findings: Abnormal Labs 06/03/23 06/03/23 06/03/23 00:37 00:37 00:44 WBC 10.7 H MCV 111.6 H MCHC 29.9 L Neutrophils # 8.2 H Macrocytosis Marked A ABG pH 7.27 L ABG pCO2 107 H* ABG HCO3 49 H* ABG Total CO2 52 H ABG O2 Saturation 98.4 H Sodium 136 L Potassium 5.5 H Chloride 88 L Carbon Dioxide 45 H* Glucose 120 H - Diagnostic Findings Chest x-ray: image reviewed Assessment and Plan Assessment: Acute on chronic hypercapnic and hypoxemic respiratory failure secondary to an acute exacerbation of chronic obstructive pulmonary disease Severe chronic obstructive pulmonary disease, oxygen dependent on 2 L at home normally, FEV1 value 36% of predicted Chronic and ongoing tobacco dependence Morbid obesity with a BMI of 50.0 kg/m History of pulmonary hypertension Benign essential hypertension Hyperlipidemia Previous history of alcoholism Plan: The patient was seen and evaluated Chest x-ray, labs and medications reviewed Initiate DuoNeb inhalations, Pulmicort and Perforomist inhalations Initiate IV Solu-Medrol Check ag procalcitonin Continue diuretics Titrate down the FiO2 as tolerated Educated regarding the importance of complete smoking cessation NicoDerm patch will be offered We will continue to follow and make further recommendations based on his clinical status I have personally seen and examined the patient, performed the documentation and the assessment and plan as written. Number of minutes spent on the visit: 20.
--- NOTE | 2023-06-03 15:24 | P.CNNES ---
History of Present Illness Consult date: 06/03/23 Requesting physician: Keerthi Bolivar Reason for Consult: myoclonus jerks, recent fall History of Present Illness: this is a 48-year-old gentleman who presented emergency department because of shortness of breath. Patient stated that that he has underlying COPD on he is on 2 L of oxygen is seems that he has worsening of shortness of breath and his pulse oxygen was high 80s. He stated that the one he was trying to walk to the bathroom he just passed out. He stated that he did have urinary incontinence since she was a on his way to the bathroom but denies any bowel incontinence or tongue bite. He stated that he had the remote history of seizure as a teenager and does not recall exact details but denies any history of seizures as an adult. he denies any head trauma. Denies any current headache. It seems that he is having myoclonic jerk and he could not give me the an answer with this new or old.patient had limitation in providing history since she was on BiPAP. Some of the workup during his hospital visit consisted of: on presentation patient's pulse ox was 85% on 4 L of nasal cannula and respiratory rate was 28 got as high as 30. carbon dioxide on the chemistry panels 45. Sodium is 136, potassium 5.5, chloride is 88. Serum glucose is 120 Calcium is 8.7 AST and ALT is within normal limits ABG is pH is 7.27, pCO2 is 107. serum alcohol was less than 10 Review of Systems Limited but the positive and negative as per HPI. Past Medical History Past Medical History: Heart Failure, COPD, GERD/Reflux, GI Bleed, Hypertension, Pneumonia, Respiratory Disorder, Seizure Disorder Additional Past Medical History / Comment(s): Pt recently admitted to [facility] on 08/21 19 with acute on chronic hypoxic/hypercapnic respiratory failure multifactoral 2ndary to acute on chronic COPD/possible acute on chronic CHF exac erbation/pneumonia/moderate pulmonary htn/alcohol abuse/pt was vented/breakthrough or alcohol withdrawal seizure/possible DTs/polycythemia/hypoerkalemia/hyponatremia/supratentorial lesion per cat scan. Other hx: Home oxygen prn during day and wear oxygen with concentrator at HS, past pneumonia, lower GI bleed, seizure once as a child and possible alcohol withdrawal/breakthrough seizure August 2019 admission History of Any Multi-Drug Resistant Organisms: None Reported Past Surgical History: Orthopedic Surgery Additional Past Surgical History / Comment(s): right knee arthroscopy, colonoscopy/benign polypectomy Past Anesthesia/Blood Transfusion Reactions: No Reported Reaction Past Psychological History: No Psychological Hx Reported Smoking Status: Current every day smoker Past Alcohol Use History: None Reported Past Drug Use History: None Reported - Past Family History Mother Family Medical History: Cancer, Hypertension Additional Family Medical History / Comment(s): from ovarian cancer Father Family Medical History: No Reported History Additional Family Medical History / Comment(s): Father is healthy Medications and Allergies Home Medications Medication Instructions Recorded Confirmed Type Ipratropium-Albuterol Nebulize 3 ml INHALATION RT-QID PRN ml 09/15/19 06/03/23 Rx [Duoneb 0.5 mg-3 mg/3 ml Soln] Atorvastatin [Lipitor] 10 mg PO HS 12/29/22 06/03/23 History Budesonide/Formoterol Fumarate 2 puff INHALATION RT-BID 12/29/22 06/03/23 History [Symbicort 160-4.5 Mcg Inhaler] Furosemide [Lasix] 20 mg PO DAILY 12/29/22 06/03/23 History Omeprazole [PriLOSEC] 20 mg PO DAILY 12/29/22 06/03/23 History Tiotropium [place] [Spiriva 18 mcg INHALATION RT-DAILY 12/29/22 06/03/23 History Handihaler] amLODIPine [Norvasc] 5 mg PO DAILY #30 tab 01/05/23 06/03/23 Rx Allergies Allergy/AdvReac Type Severity Reaction Status Date / Time fexofenadine HCl AdvReac HIGH BP Verified 12/29/22 23:44 [From Molly-D] Penicillins AdvReac Unknown Verified 12/29/22 23:44 pseudoephedrine HCl AdvReac High BP Verified 12/29/22 23:44 [From Molly-D] Physical Examination - Vital Signs Vital Signs: Vital Signs Temp Pulse Resp BP Pulse Ox FiO2 06/03/23 14:00 65 16 110/60 96 06/03/23 13:00 68 16 110/60 96 06/03/23 12:00 75 16 108/71 93 L 06/03/23 11:40 79 06/03/23 11:27 80 50 06/03/23 10:53 77 20 102/68 95 06/03/23 10:00 77 20 125/60 94 L 06/03/23 09:00 84 24 125/64 92 L 06/03/23 07:48 80 06/03/23 07:41 78 55 06/03/23 07:35 84 20 110/69 95 06/03/23 05:00 98.9 F 70 20 110/68 93 L 06/03/23 03:16 60 06/03/23 02:00 76 22 113/70 93 L 06/03/23 01:54 79 06/03/23 01:47 79 06/03/23 00:50 50 06/03/23 00:46 106 H 22 113/70 97 06/03/23 00:39 80 06/03/23 00:34 30 H 06/03/23 00:22 98.9 F 98 28 H 100/90 85 L Intake and Output 06/03/23 06/03/23 06/03/23 06:59 14:59 22:59 Other: Weight 140.614 kg General: Lying in bed is not in acute distress. Resp: on BiPAP Neuro: somewhat limited since the patient is on BiPAP. The patient is awake alert oriented to self place and time. The patient is following simple commands. Language is limited since he is on BiPAP Pupils are round equal and reactive to light. Pupils are round 4 mm bilaterally. Visual [place] are full to confrontation. Extraocular movement is intact and no nystagmus.. Motor the strength is 5 out of 5 throughout. Patient does have myoclonic jerks of the shoulder are very brief and rare. Sensation is normal to touch Cerebellar is normal finger to nose Reflexes 2 positive throughout. Results - Laboratory Findings CBC and BMP: 06/03/23 00:37 06/03/23 00:37 Abnormal Lab Findings: Abnormal Labs 06/03/23 06/03/23 06/03/23 00:37 00:37 00:44 WBC 10.7 H MCV 111.6 H MCHC 29.9 L Neutrophils # 8.2 H Macrocytosis Marked A ABG pH 7.27 L ABG pCO2 107 H* ABG HCO3 49 H* ABG Total CO2 52 H ABG O2 Saturation 98.4 H Sodium 136 L Potassium 5.5 H Chloride 88 L Carbon Dioxide 45 H* Glucose 120 H Assessment and Plan Assessment: this is a 48-year-old gentleman with history of COPD was on 2 L of oxygen was having worsening shortness of breath and passed out while going to the bathroom. He stated that his pulse ox was in the high 88. In our facility was 85 on 4 L and the respiratory was 30. His CO2 was elevatedof ABG CO2 of 107 bicarb a 49. He is having myoclonic jerks. Myoclonic jerks likely due to metabolic derangement/hypoxia and hypercapnia Recent fall appears to be probable due to his hypoxia shortness of breath due to Hypoxia and hypercapnia and is on BiPAP history of remote seizure history of COPD on 2 L nasal cannula Plan: I ordered CT of the head, routine EEG. the EEG will be completed tomorrow and not today since the crown and bridge technician attempted to perform the exam but the patient is on BiPAP. I ordered TSH, vitamin B-12. pulmonary team is consulted We'll defer the rest of the medical measure the primary and other specialists Thank you for the consultation Time with Patient: Greater than 30
[2023-06-03 17:39] LABS: Glucose,Whole Blood 147 mg/dL (70-110)
[2023-06-03] MEDS: FORMOTEROL FUMARATE 20 MCG/2 ML NEBU INHALATION SCH (20:21)
[2023-06-03] MEDS: BUDESONIDE 1 MG/2 ML NEBU INHALATION SCH (20:21)
--- NOTE | 2023-06-03 21:15 | CT ---
EXAMINATION TYPE: CT brain wo con CT DLP: 1230.4 mGycm, Automated exposure control for dose reduction was used. DATE OF EXAM: 06/03/2023 8:54 PM COMPARISON: None.. CLINICAL INDICATION:Male, 48 years old with history of body jerks, elevated CO2 levels, confusion. TECHNIQUE: Brain: Axial CT images of the brain were obtained with coronal and sagittal reformats created and rev iewed. Contrast used: None. Oral contrast used: None. FINDINGS: Extra-axial spaces: No abnormal extra-axial fluid collections. Basilar cisterns are patent. Ventricular system: Within normal limits. Cerebral parenchyma: No increased attenuation to suggest acute intraparenchymal hemorrhage. The gra y-white matter interface appears maintained. No significant atrophy. White matter unremarkable by C T. Cerebellum: No acute abnormality. Mass effect: No evidence of mass effect or midline shift. Intracranial vasculature: Unremarkable Soft tissues: No acute or concerning abnormality. Visualized orbits: Orbital contents appear grossly intact. Calvarium/osseous structures: No evidence of calvarial fracture. Paranasal sinuses and mastoid air cells: Clear. MRI is more sensitive for detecting acute processes such as infarct, and may be considered if clinica lly warranted. IMPRESSION: No acute intracranial CT abnormality.
[2023-06-03] MEDS: ATORVASTATIN 10 MG TAB PO SCH (21:34)
[2023-06-03 21:35] LABS: Glucose,Whole Blood 157 mg/dL (70-110)
[2023-06-04 07:47] LABS: Glucose,Whole Blood 155 mg/dL (70-110)
[2023-06-04 07:59] LABS: African American GFR (CKD) >90 (>60 ml/min/1.73 sqM); Blood Urea Nitrogen 28 mg/dL (9-20); Calcium 9.2 mg/dL (8.4-10.2); Chloride 83 mmol/L (98-107); Glucose 141 mg/dL (74-99); Non-African American GFR(CKD) >90 (>60 ml/min/1.73 sqM); Potassium 4.5 mmol/L (3.5-5.1); Sodium 134 mmol/L (137-145)
[2023-06-04 08:07] LABS: Anion Gap 7 mmol/L; Carbon Dioxide 44 mmol/L (22-30)
[2023-06-04 12:22] LABS: Glucose,Whole Blood 150 mg/dL (70-110)
--- NOTE | 2023-06-04 14:24 | P.PN ---
Subjective Progress Note Date: 06/04/23 Principal diagnosis: Shortness of breath. This is a 48-year-old male patient with a history of obesity, chronic obstructive pulmonary disease, chronic tobacco dependence, previous alcoholism, gastroesophageal reflux disease, hyperlipidemia. He has severe COPD on home oxygen at 2 L with FEV1 value 36% of predicted. He presented here to the emergency room early this morning with significant shortness of breath and hypoxemia with a pulse ox of 70%. Arterial blood gases on arrival revealed a PaO2 of 100, pCO2 of 107 and a pH of 7.27. He was placed on BiPAP 14/6 and 55% FiO2. Chest x-ray revealed cardiomegaly. Slight bibasilar opacities. White count 10.7. Hemoglobin 15.4. Platelets 298. INR 0.9. Sodium 136. Potassium 5.5. Bicarb 45. BUN 13. Creatinine 0.75. Troponin negative x 1. proBNP 119. Alcohol less than 10. Viral screen negative. He is seen today in consultation in the emergency department. He is currently sitting up on the stretcher. Awake and alert in mild respiratory distress. Dyspneic with conversation. Dyspneic with minimal exertion. He is initiated on DuoNeb ventilations, Pulmicort and Perforomist inhalations, IV Solu-Medrol, NicoDerm patch applied. Continued on oral diuretics. Lovenox for DVT prophylaxis. Progress note dated June 04, 2023. This is a 48-year-old male that we saw yesterday in consultation. He remains in the emergency department, room #1. He has a history of COPD, chronic tobacco dependence, alcoholism, gastroesophageal reflux disease, and hyperlipidemia. The patient's COPD is quite severe. His FEV1 is 36% of predicted. He does have chronic hypoxemic respiratory failure, and uses oxygen at home at 2 L. Unfortunately, the patient does continue to smoke. Today in the emergency department, he continues on BiPAP, with settings of 14/6 and 60%. He is not receiving any IV fluids. Laboratory data includes a sodium 134, potassium 4.5, chloride 83, CO2 44, anion gap 7, BUN 28, creatinine 0.70. Glucose is 150. Calcium is 9.2. A CT scan of the brain shows no acute abnormality. Objective - Vital Signs Vital signs: Vital Signs Temp 97.5 F L 06/04/23 03:35 Pulse 69 06/04/23 11:21 Resp 16 06/04/23 10:00 BP 127/81 06/04/23 09:00 Pulse Ox 97 06/04/23 11:15 FiO2 55 06/04/23 11:15 Intake & Output 06/03/23 06/04/23 06/04/23 18:59 06:59 18:59 Output Total 1100 500 Balance -1100 -500 Output: Urine 1100 500 - Exam No acute distress, currently on BiPAP, the patient is somnolent, without obvious respiratory difficulty. HEENT examination is grossly unremarkable. Neck supple. Full range of motion. No adenopathy thyromegaly or neck vein distention. Cardiovascular examination reveals regular rhythm rate. S1-S2 normal. No S3 or S4. No discernible murmur noted. Heart rate 69 bpm. Heart sounds are distant. Lungs reveal scattered bilateral rhonchi. Expiratory wheezes. Breath sounds equal but diminished throughout. Saturations are 97%. Abdomen soft, but obese. Bowel sounds are noted. No masses. Extremities are intact. No cyanosis or clubbing. Edema is noted. Skin is without rash or lesion. Neurologic examination is brief but nonfocal. - Labs CBC & Chem 7: 06/03/23 00:37 06/04/23 06:30 Labs: Abnormal Lab Results - Last 24 Hours (Table) 06/03/23 06/03/23 06/04/23 Range/Units 17:38 21:33 06:30 Sodium 134 L (137-145) mmol/L Chloride 83 L (98-107) mmol/L Carbon Dioxide 44 H* (22-30) mmol/L BUN 28 H (9-20) mg/dL Glucose 141 H (74-99) mg/dL POC Glucose (mg/dL) 147 H 157 H (70-110) mg/dL 06/04/23 06/04/23 Range/Units 07:46 12:21 Sodium (137-145) mmol/L Chloride (98-107) mmol/L Carbon Dioxide (22-30) mmol/L BUN (9-20) mg/dL Glucose (74-99) mg/dL POC Glucose (mg/dL) 155 H 150 H (70-110) mg/dL Assessment and Plan Assessment: Acute on chronic hypercapnic and hypoxemic respiratory failure secondary to an acute exacerbation of chronic obstructive pulmonary disease. Severe chronic obstructive pulmonary disease, oxygen dependent on 2 L at home normally, FEV1 value 36% of predicted. Chronic and ongoing tobacco dependence. Morbid obesity with a BMI of 50.0 kg/m. History of pulmonary hypertension. Benign essential hypertension. Hyperlipidemia. Previous history of alcoholism. Plan: Plan dated June 04, 2023. The patient is seen today in the emergency department, room #1. This is where we saw him yesterday, or we did the consultation. The patient is currently on updrafts with albuterol sulfate, and ipratropium bromide. In addition, we added budesonide, and formoterol, twice a day. The patient also continues on Solu- Medrol. The patient's procalcitonin level was normal at 0.08. The patient continues on BiPAP, with settings of 14/6 and 60%. The patient does continue to smoke, and is counseled about the importance of smoking cessation. Overall prognosis remains guarded. We will continue to follow the patient, and make recommendations along the way. Time with Patient: Less than 30
--- NOTE | 2023-06-04 16:11 | P.PN ---
Subjective Progress Note Date: 06/04/23 I am following-up with patient and he continues to be on BiPAP. He is sleepy but woke up and states myoclonic jerks are better today. Objective - Vital Signs Vital signs: Vital Signs Temp 97.5 F L 06/04/23 03:35 Pulse 75 06/04/23 15:31 Resp 16 06/04/23 10:00 BP 127/81 06/04/23 09:00 Pulse Ox 94 L 06/04/23 15:24 FiO2 55 06/04/23 15:24 Intake & Output 06/03/23 06/04/23 06/04/23 18:59 06:59 18:59 Output Total 1100 500 Balance -1100 -500 Output: Urine 1100 500 - Exam General: Lying in bed and does not appear in acute distress. Lung: On BiPAP. Neuro: very limited since sleepy. No further myoclonic jerks. Some of the workup during his hospital visit consisted of: on presentation patient's pulse ox was 85% on 4 L of nasal cannula and respiratory rate was 28 got as high as 30. carbon dioxide on the chemistry panels 45. Sodium is 136, potassium 5.5, chloride is 88. Serum glucose is 120 Calcium is 8.7 AST and ALT is within normal limits ABG is pH is 7.27, pCO2 is 107. serum alcohol was less than 10 B12: 509 TSH: 0.771 CT head: Is reported ad no acute intracranial abnormality. - Labs CBC & Chem 7: 06/03/23 00:37 06/04/23 06:30 Labs: Abnormal Lab Results - Last 24 Hours (Table) 06/03/23 06/03/23 06/04/23 Range/Units 17:38 21:33 06:30 Sodium 134 L (137-145) mmol/L Chloride 83 L (98-107) mmol/L Carbon Dioxide 44 H* (22-30) mmol/L BUN 28 H (9-20) mg/dL Glucose 141 H (74-99) mg/dL POC Glucose (mg/dL) 147 H 157 H (70-110) mg/dL 06/04/23 06/04/23 Range/Units 07:46 12:21 Sodium (137-145) mmol/L Chloride (98-107) mmol/L Carbon Dioxide (22-30) mmol/L BUN (9-20) mg/dL Glucose (74-99) mg/dL POC Glucose (mg/dL) 155 H 150 H (70-110) mg/dL Assessment and Plan Assessment: this is a 48-year-old gentleman with history of COPD was on 2 L of oxygen was having worsening shortness of breath and passed out while going to the bathroom. He stated that his pulse ox was in the high 88. In our facility was 85 on 4 L and the respiratory was 30. His CO2 was elevatedof ABG CO2 of 107 bicarb a 49. He is having myoclonic jerks. Myoclonic jerks likely due to metabolic derangement/hypoxia and hypercapnia---improving Recent fall appears to be probable due to his hypoxia shortness of breath due to Hypoxia and hypercapnia and is on BiPAP history of remote seizure history of COPD on 2 L nasal cannula Plan: EEG is not completed since on BiPAP. Once off BiPAP will pursue with EEG. pulmonary team is consulted We'll defer the rest of the medical measure the primary and other specialists Will follow-up sporadically. Dr. duncan will resume neurology service on 06/07/23 A.M. Time with Patient: Less than 30
[2023-06-04 17:46] LABS: Glucose,Whole Blood 151 mg/dL (70-110)
[2023-06-04 21:19] LABS: Glucose,Whole Blood 164 mg/dL (70-110)
[2023-06-05 06:23] LABS: Glucose,Whole Blood 168 mg/dL (70-110)
[2023-06-05 11:43] LABS: Glucose,Whole Blood 180 mg/dL (70-110)
--- NOTE | 2023-06-05 12:44 | P.PN ---
Subjective Progress Note Date: 06/05/23 * 48-year-old male patient with a history of obesity, chronic obstructive pulmonary disease, chronic tobacco dependence, previous alcoholism, gastroesophageal reflux disease, hyperlipidemia. severe COPD on home oxygen at 2 L with FEV1 value 36% of predicted. * He presented here to the emergency room significant shortness of breath and hypoxemia with a pulse ox of 70%. Arterial blood gases on arrival revealed a PaO2 of 100, pCO2 of 107 and a pH of 7.27. He was placed on BiPAP 14/6 and 55% FiO2. Chest x-ray revealed cardiomegaly. Slight bibasilar opacities. White count 10.7. Hemoglobin 15.4. Platelets 298. INR 0.9. Sodium 136. Potassium 5.5. Bicarb 45. BUN 13. Creatinine 0.75. Troponin negative x 1. proBNP 119. Alcohol less than 10. Viral screen negative. * 06/05/23 : Jose Martin Degroot assumed care ; patient seen and evaluated at bedside, oxygen requirements have improved patient on 3 L of oxygen, follow-up on serum chemistry seen by pulmonary medicine appreciate input PHYSICAL EXAMINATION: GENERAL: The patient is alert and oriented x3, ill appearance, nasal cannula in place HEENT: Pupils are round and equally reacting to light. EOMI. CARDIOVASCULAR: S1 and S2 present. No murmurs, rubs, or gallops. PULMONARY: Chest is clear to auscultation, no wheezing or crackles. ABDOMEN: Soft, nontender, nondistended, normoactive bowel sounds. No palpable o rganomegaly. MUSCULOSKELETAL: No joint swelling or deformity. EXTREMITIES: No cyanosis, clubbing, or pedal edema. NEUROLOGICAL: Gross neurological examination did not reveal any focal deficits. SKIN: No rashes. Assessment and plan * Acute on chronic hypoxemic hypercapnic respiratory failure * Acute exacerbation of COPD, severe obstructive lung disease * Baseline oxygen requirement of 2 L at home * Morbid obesity * Pulmonary hypertension * Hyperlipidemia * Appreciate input from pulmonary medicine, continue patient on breathing treatments, on DuoNeb as needed, continue azithromycin, continue formoterol/on IV Solu-Medrol * In regards to COPD exacerbation continue steroids, breathing treatment, and azithromycin * in regards to history of pulmonary hypertension continue patient on Lasix * Continue to wean down on oxygen requirement Objective - Vital Signs Vital signs: Vital Signs Temp 98.2 F 06/05/23 09:28 Pulse 77 04/27/24 10:15 Resp 18 06/05/23 10:15 BP 126/68 06/05/23 09:28 Pulse Ox 91 L 06/05/23 09:28 FiO2 50 06/05/23 05:30 Intake & Output 06/04/23 06/05/23 06/05/23 18:59 06:59 18:59 Output Total 500 1150 Balance -500 -1150 Weight 140.614 kg 131.1 kg Output: Urine 500 1150 Other: Voiding Method Urinal Urinal - Labs CBC & Chem 7: 06/03/23 00:37 06/04/23 06:30 Labs: Abnormal Lab Results - Last 24 Hours (Table) 06/04/23 06/04/23 06/04/23 Range/Units 12:21 17:43 21:06 POC Glucose (mg/dL) 150 H 151 H 164 H (70-110) mg/dL 06/05/23 Range/Units 06:21 POC Glucose (mg/dL) 168 H (70-110) mg/dL
--- NOTE | 2023-06-05 15:27 | P.PN ---
Subjective Progress Note Date: 06/05/23 This is a 48-year-old male patient with a history of obesity, chronic obstructive pulmonary disease, chronic tobacco dependence, previous alcoholism, gastroesophageal reflux disease, hyperlipidemia. He has severe COPD on home oxygen at 2 L with FEV1 value 36% of predicted. He presented here to the [facility] room early this morning with significant shortness of breath and hypoxemia with a pulse ox of 70%. Arterial blood gases on arrival revealed a PaO2 of 100, pCO2 of 107 and a pH of 7.27. He was placed on BiPAP 14/6 and 55% FiO2. Chest x-ray revealed cardiomegaly. Slight bibasilar opacities. White count 10.7. Hemoglobin 15.4. Platelets 298. INR 0.9. Sodium 136. Potassium 5.5. Bicarb 45. BUN 13. Creatinine 0.75. Troponin negative x 1. proBNP 119. Alcohol less than 10. Viral screen negative. He is seen today in consultation in the emergency department. He is currently sitting up on the stretcher. Awake and alert in mild respiratory distress. Dyspneic with conversation. Dyspneic with minimal exertion. He is initiated on DuoNeb ventilations, Pulmicort and Perforomist inhalations, IV Solu-Medrol, NicoDerm patch applied. Continued on oral diuretics. Lovenox for DVT prophylaxis. Progress note dated June 04, 2023. This is a 48-year-old male that we saw yesterday in consultation. He remains in the emergency department, room #1. He has a history of COPD, chronic tobacco dependence, alcoholism, gastroesophageal reflux disease, and hyperlipidemia. The patient's COPD is quite severe. His FEV1 is 36% of predicted. He does have chronic hypoxemic respiratory failure, and uses oxygen at home at 2 L. Unfortunately, the patient does continue to smoke. Today in the emergency department, he continues on BiPAP, with settings of 14/6 and 60%. He is not receiving any IV fluids. Laboratory data includes a sodium 134, potassium 4.5, chloride 83, CO2 44, anion gap 7, BUN 28, creatinine 0.70. Glucose is 150. Calcium is 9.2. A CT scan of the brain shows no acute abnormality. The patient is seen today June 05, 2023 in follow-up on the selective care unit. He is currently resting comfortably in bed. Awake and alert in no acute distress. He is on 3 L nasal cannula alternating with BiPAP 14/6 and 50% FiO2. Glucose 180. He is continued on DuoNeb ventilations, Pulmicort and performing scintillations, Solu-Medrol. NicoDerm patch in place. Remains on oral diuretics. Remains on azithromycin. Lovenox for DVT prophylaxis. Objective - Vital Signs Vital signs: Vital Signs Temp 98.2 F 06/05/23 09:28 Pulse 97 06/05/23 14:14 Resp 18 06/05/23 14:14 BP 148/78 06/05/23 11:58 Pulse Ox 93 L 06/05/23 11:58 FiO2 50 06/05/23 05:30 Intake & Output 06/04/23 06/05/23 06/05/23 18:59 06:59 18:59 Output Total 500 1150 Balance -500 -1150 Weight 140.614 kg 131.1 kg Output: Urine 500 1150 Other: Voiding Method Urinal Urinal - Exam GENERAL EXAM: Alert, pleasant, obese 48-year-old male patient on 3 L nasal cannula, comfortable in no apparent distress. HEAD: Normocephalic. EYES: Normal reaction of pupils, equal size. NOSE: Clear with pink turbinates. THROAT: No erythema or exudates. NECK: No masses, no JVD. CHEST: No chest wall deformity. LUNGS: Equal air entry with end expiratory wheeze, diminished. CVS: S1 and S2 normal with no audible murmur, regular rhythm. ABDOMEN: No hepatosplenomegaly, normal bowel sounds, no guarding or rigidity. SPINE: No scoliosis or deformity SKIN: No rashes CENTRAL NERVOUS SYSTEM: No focal deficits, tone is normal in all 4 extremities. EXTREMITIES: Changes of chronic venous stasis, there is 1-2+ peripheral edema. No clubbing, no cyanosis. Peripheral pulses are intact. - Labs CBC & Chem 7: 06/03/23 00:37 06/04/23 06:30 Labs: Abnormal Lab Results - Last 24 Hours (Table) 06/04/23 06/04/23 06/05/23 Range/Units 17:43 21:06 06:21 POC Glucose (mg/dL) 151 H 164 H 168 H (70-110) mg/dL 06/05/23 Range/Units 11:43 POC Glucose (mg/dL) 180 H (70-110) mg/dL Assessment and Plan Assessment: Acute on chronic hypercapnic and hypoxemic respiratory failure secondary to an acute exacerbation of chronic obstructive pulmonary disease Severe chronic obstructive pulmonary disease, oxygen dependent on 2 L at home normally, FEV1 value 36% of predicted Chronic and ongoing tobacco dependence Morbid obesity with a BMI of 50.0 kg/m History of pulmonary hypertension Benign essential hypertension Hyperlipidemia Previous history of alcoholism Plan: The patient was seen and evaluated Labs and medications reviewed Continue the current treatment plan Titrate down the FiO2 as tolerated Again educated regarding smoking cessation NicoDerm patch in place We will continue to follow I have personally seen and examined the patient, performed the documentation and the assessment and plan as written. Number of minutes spent on the visit: 10.
[2023-06-05 16:57] LABS: Glucose,Whole Blood 156 mg/dL (70-110)
[2023-06-05 20:04] LABS: Glucose,Whole Blood 186 mg/dL (70-110)
[2023-06-06 06:29] LABS: Glucose,Whole Blood 157 mg/dL (70-110)
[2023-06-06 08:32] LABS: African American GFR (CKD) >90 (>60 ml/min/1.73 sqM); Blood Urea Nitrogen 32 mg/dL (9-20); Calcium 8.7 mg/dL (8.4-10.2); Chloride 90 mmol/L (98-107); Glucose 137 mg/dL (74-99); Non-African American GFR(CKD) >90 (>60 ml/min/1.73 sqM); Potassium 4.2 mmol/L (3.5-5.1); Sodium 133 mmol/L (137-145)
[2023-06-06 08:39] LABS: Anion Gap 9 mmol/L
[2023-06-06 08:40] LABS: Carbon Dioxide 34 mmol/L (22-30)
[2023-06-06 10:06] LABS: HCT 47.1 % (39.0-53.0); HGB 14.5 gm/dL (13.0-17.5); Hypochromasia Slight; MCH 32.5 pg (25.0-35.0); MCHC 30.8 g/dL (31.0-37.0); Macrocytosis Moderate; Mean Platelet Volume 8.4; Platelet Count 324 k/uL (150-450); RBC 4.47 m/uL (4.30-5.90); RDW 15.7 % (11.5-15.5); WBC 13.2 k/uL (3.8-10.6)
[2023-06-06 10:46] LABS: MCV 105.3 fL (80.0-100.0)
[2023-06-06 11:55] LABS: Glucose,Whole Blood 161 mg/dL (70-110)
--- NOTE | 2023-06-06 13:32 | P.PN ---
Subjective Progress Note Date: 06/06/23 Principal diagnosis: Shortness of breath. This is a 48-year-old male patient with a history of obesity, chronic obstructive pulmonary disease, chronic tobacco dependence, previous alcoholism, gastroesophageal reflux disease, hyperlipidemia. He has severe COPD on home oxygen at 2 L with FEV1 value 36% of predicted. He presented here to the emergency room early this morning with significant shortness of breath and hypoxemia with a pulse ox of 70%. Arterial blood gases on arrival revealed a PaO2 of 100, pCO2 of 107 and a pH of 7.27. He was placed on BiPAP 14/6 and 55% FiO2. Chest x-ray revealed cardiomegaly. Slight bibasilar opacities. White count 10.7. Hemoglobin 15.4. Platelets 298. INR 0.9. Sodium 136. Potassium 5.5. Bicarb 45. BUN 13. Creatinine 0.75. Troponin negative x 1. proBNP 119. Alcohol less than 10. Viral screen negative. He is seen today in consultation in the emergency department. He is currently sitting up on the stretcher. Awake and alert in mild respiratory distress. Dyspneic with conversation. Dyspneic with minimal exertion. He is initiated on DuoNeb ventilations, Pulmicort and Perforomist inhalations, IV Solu-Medrol, NicoDerm patch applied. Continued on oral diuretics. Lovenox for DVT prophylaxis. Progress note dated June 04, 2023. This is a 48-year-old male that we saw yesterday in consultation. He remains in the emergency department, room #1. He has a history of COPD, chronic tobacco dependence, alcoholism, gastroesophageal reflux disease, and hyperlipidemia. The patient's COPD is quite severe. His FEV1 is 36% of predicted. He does have chronic hypoxemic respiratory failure, and uses oxygen at home at 2 L. Unfortunately, the patient does continue to smoke. Today in the emergency department, he continues on BiPAP, with settings of 14/6 and 60%. He is not receiving any IV fluids. Laboratory data includes a sodium 134, potassium 4.5, chloride 83, CO2 44, anion gap 7, BUN 28, creatinine 0.70. Glucose is 150. Calcium is 9.2. A CT scan of the brain shows no acute abnormality. Progress note dated June 06, 2023. The patient is seen today in room 383. The patient is currently on 3 L of ox ygen by nasal cannula. At nighttime, the patient is using BiPAP, with settings of 14/6, and 60%. Clinically, he is stable. He has no specific complaints today. Current laboratory data includes a white count 13.2, hemoglobin 14.5, hematocrit 47.1, and a normal platelet count. Sodium 133, potassium 4.2, chloride 90, CO2 34, BUN 32, creatinine 0.7. Glucose was 161. Calcium is 8.7. Objective - Vital Signs Vital signs: Vital Signs Temp 98.3 F 06/06/23 12:39 Pulse 92 06/06/23 12:39 Resp 20 06/06/23 12:39 BP 111/65 06/06/23 12:39 Pulse Ox 94 L 06/06/23 12:39 FiO2 50 06/06/23 00:00 Intake & Output 06/05/23 06/06/23 06/06/23 18:59 06:59 18:59 Intake Total 236 240 Output Total 325 1475 325 Balance -325 -1239 -85 Weight 130.2 kg Intake: Oral 236 240 Output: Urine 325 1475 325 Other: Voiding Method Urinal Urinal Urinal - Exam No acute distress, currently on nasal O2, the patient is somnolent, without ob vious respiratory difficulty. HEENT examination is grossly unremarkable. Neck supple. Full range of motion. No adenopathy thyromegaly or neck vein distention. Cardiovascular examination reveals regular rhythm rate. S1-S2 normal. No S3 or S4. No discernible murmur noted. Heart rate 89 bpm. Heart sounds are distant. Lungs reveal scattered bilateral rhonchi. Expiratory wheezes. Breath sounds equal but diminished throughout. Saturations are 94 %. The patient is currently on 3 L by nasal cannula. Abdomen soft, but obese. Bowel sounds are noted. No masses. Extremities are intact. No cyanosis or clubbing. Edema is noted. Skin is without rash or lesion. Neurologic examination is brief but nonfocal. - Labs CBC & Chem 7: 06/06/23 06:13 06/06/23 06:13 Labs: Abnormal Lab Results - Last 24 Hours (Table) 06/05/23 06/05/23 06/06/23 Range/Units 16:55 20:02 06:13 WBC 13.2 H (3.8-10.6) k/uL MCV 105.3 H D (80.0-100.0) fL MCHC 30.8 L (31.0-37.0) g/dL RDW 15.7 H (11.5-15.5) % Sodium (137-145) mmol/L Chloride (98-107) mmol/L Carbon Dioxide (22-30) mmol/L BUN (9-20) mg/dL Glucose (74-99) mg/dL POC Glucose (mg/dL) 156 H 186 H (70-110) mg/dL 06/06/23 06/06/23 06/06/23 Range/Units 06:13 06:27 11:52 WBC (3.8-10.6) k/uL MCV (80.0-100.0) fL MCHC (31.0-37.0) g/dL RDW (11.5-15.5) % Sodium 133 L (137-145) mmol/L Chloride 90 L (98-107) mmol/L Carbon Dioxide 34 H (22-30) mmol/L BUN 32 H (9-20) mg/dL Glucose 137 H (74-99) mg/dL POC Glucose (mg/dL) 157 H 161 H (70-110) mg/dL Assessment and Plan Assessment: Acute on chronic hypercapnic and hypoxemic respiratory failure secondary to an a cute exacerbation of chronic obstructive pulmonary disease. Severe chronic obstructive pulmonary disease, oxygen dependent on 2 L at home normally, FEV1 value 36% of predicted. Chronic and ongoing tobacco dependence. Morbid obesity with a BMI of 50.0 kg/m. History of pulmonary hypertension. Benign essential hypertension. Hyperlipidemia. Previous history of alcoholism. Plan: Plan dated June 04, 2023. The patient is seen today in the emergency department, room #1. This is where we saw him yesterday, or we did the consultation. The patient is currently on updrafts with albuterol sulfate, and ipratropium bromide. In addition, we added budesonide, and formoterol, twice a day. The patient also continues on Solu- Medrol. The patient's procalcitonin level was normal at 0.08. The patient continues on BiPAP, with settings of 14/6 and 60%. The patient does continue to smoke, and is counseled about the importance of smoking cessation. Overall prognosis remains guarded. We will continue to follow the patient, and make recommendations along the way. Plan dated June 06, 2023. The patient appears to be doing relatively well. He seems to be moving in the correct direction. The patient's procalcitonin level was normal at 0.08. The patient does have the BiPAP device in the room, which he uses at nighttime, with settings of 14/6, and 60%. He is not receiving any IV fluids. Labs, x-rays, and medications are reviewed. We will continue to follow the patient, and make recommendations were appropriate. Vital signs are stable. Prognosis is certainly guarded. Time with Patient: Less than 30
--- NOTE | 2023-06-06 14:15 | P.PN ---
Subjective Progress Note Date: 06/06/23 * 48-year-old male patient with a history of obesity, chronic obstructive pulmonary disease, chronic tobacco dependence, previous alcoholism, gastroesophageal reflux disease, hyperlipidemia. severe COPD on home oxygen at 2 L with FEV1 value 36% of predicted. * He presented here to the emergency room significant shortness of breath and hypoxemia with a pulse ox of 70%. Arterial blood gases on arrival revealed a PaO2 of 100, pCO2 of 107 and a pH of 7.27. He was placed on BiPAP 14/6 and 55% FiO2. Chest x-ray revealed cardiomegaly. Slight bibasilar opacities. White count 10.7. Hemoglobin 15.4. Platelets 298. INR 0.9. Sodium 136. Potassium 5.5. Bicarb 45. BUN 13. Creatinine 0.75. Troponin negative x 1. proBNP 119. Alcohol less than 10. Viral screen negative. * 06/05/23 : Dr Degroot assumed care ; patient seen and evaluated at bedside, oxygen requirements have improved patient on 3 L of oxygen, follow-up on serum chemistry seen by pulmonary medicine appreciate input * 06/06/23 : Patient seen and evaluated bedside, patient remains on 3 L of oxygen saturating around 90%. Blood work reviewed. Sodium 133 potassium 4.2 BUN 32 creatinine 0.7 blood glucose 1 37-1 57 PHYSICAL EXAMINATION: GENERAL: The patient is alert and oriented x3, ill appearance, nasal cannula in place 3 L of oxygen HEENT: Pupils are round and equally reacting to light. EOMI. CARDIOVASCULAR: S1 and S2 present. No murmurs, rubs, or gallops. PULMONARY: Chest is clear to auscultation, no wheezing or crackles. ABDOMEN: Soft, nontender, nondistended, normoactive bowel sounds. No palpable organomegaly. MUSCULOSKELETAL: No joint swelling or deformity. EXTREMITIES: No cyanosis, clubbing, or pedal edema. NEUROLOGICAL: Gross neurological examination did not reveal any focal deficits. SKIN: No rashes. Assessment and plan * Acute on chronic hypoxemic hypercapnic respiratory failure * Acute exacerbation of COPD, severe obstructive lung disease * Baseline oxygen requirement of 2 L at home * Morbid obesity * Pulmonary hypertension * Hyperlipidemia * Appreciate input from pulmonary medicine, continue patient on breathing treatments, on DuoNeb as needed, continue azithromycin, continue formoterol/on IV Solu-Medrol * In regards to COPD exacerbation continue steroids, breathing treatment, completed azithromycin * in regards to history of pulmonary hypertension continue patient on Lasix * Continue to wean down on oxygen requirement Objective - Vital Signs Vital signs: Vital Signs Temp 97.6 F 06/06/23 08:48 Pulse 91 06/06/23 10:32 Resp 18 06/06/23 10:32 BP 137/80 06/06/23 08:48 Pulse Ox 90 L 06/06/23 08:48 FiO2 50 06/06/23 00:00 Intake & Output 06/05/23 06/06/23 06/06/23 18:59 06:59 18:59 Intake Total 236 Output Total 325 1475 Balance -325 -1239 Weight 130.2 kg Intake: Oral 236 Output: Urine 325 1475 Other: Voiding Method Urinal Urinal Urinal - Labs CBC & Chem 7: 06/06/23 06:13 06/06/23 06:13 Labs: Abnormal Lab Results - Last 24 Hours (Table) 06/05/23 06/05/23 06/05/23 Range/Units 11:43 16:55 20:02 Sodium (137-145) mmol/L Chloride (98-107) mmol/L Carbon Dioxide (22-30) mmol/L BUN (9-20) mg/dL Glucose (74-99) mg/dL POC Glucose (mg/dL) 180 H 156 H 186 H (70-110) mg/dL 06/06/23 06/06/23 Range/Units 06:13 06:27 Sodium 133 L (137-145) mmol/L Chloride 90 L (98-107) mmol/L Carbon Dioxide 34 H (22-30) mmol/L BUN 32 H (9-20) mg/dL Glucose 137 H (74-99) mg/dL POC Glucose (mg/dL) 157 H (70-110) mg/dL
[2023-06-06 17:07] LABS: Glucose,Whole Blood 167 mg/dL (70-110)
[2023-06-06 21:21] LABS: Glucose,Whole Blood 192 mg/dL (70-110)
[2023-06-07 05:42] LABS: Glucose,Whole Blood 139 mg/dL (70-110)
[2023-06-07 07:07] LABS: HCT 45.4 % (39.0-53.0); HGB 14.4 gm/dL (13.0-17.5); MCHC 31.7 g/dL (31.0-37.0); Macrocytosis Moderate; Mean Platelet Volume 7.6; Platelet Count 312 k/uL (150-450); RBC 4.37 m/uL (4.30-5.90); RDW 15.2 % (11.5-15.5)
[2023-06-07 07:18] LABS: African American GFR (CKD) >90 (>60 ml/min/1.73 sqM); Anion Gap 5 mmol/L; Blood Urea Nitrogen 29 mg/dL (9-20); Calcium 8.6 mg/dL (8.4-10.2); Carbon Dioxide 37 mmol/L (22-30); Chloride 93 mmol/L (98-107); Glucose 124 mg/dL (74-99); Non-African American GFR(CKD) >90 (>60 ml/min/1.73 sqM); Sodium 135 mmol/L (137-145)
[2023-06-07 11:45] LABS: Glucose,Whole Blood 196 mg/dL (70-110)
--- NOTE | 2023-06-07 16:51 | P.PN ---
Subjective Progress Note Date: 06/07/23 This is a 48-year-old male patient with a history of obesity, chronic obstructive pulmonary disease, chronic tobacco dependence, previous alcoholism, gastroesophageal reflux disease, hyperlipidemia. He has severe COPD on home oxygen at 2 L with FEV1 value 36% of predicted. He presented here to the doctors hospital room early this morning with significant shortness of breath and hypoxemia with a pulse ox of 70%. Arterial blood gases on arrival revealed a PaO2 of 100, pCO2 of 107 and a pH of 7.27. He was placed on BiPAP 14/6 and 55% FiO2. Chest x-ray revealed cardiomegaly. Slight bibasilar opacities. White count 10.7. Hemoglobin 15.4. Platelets 298. INR 0.9. Sodium 136. Potassium 5.5. Bicarb 45. BUN 13. Creatinine 0.75. Troponin negative x 1. proBNP 119. Alcohol less than 10. Viral screen negative. He is seen today in consultation in the emergency department. He is currently sitting up on the stretcher. Awake and alert in mild respiratory distress. Dyspneic with conversation. Dyspneic with minimal exertion. He is initiated on DuoNeb ventilations, Pulmicort and Perforomist inhalations, IV Solu-Medrol, NicoDerm patch applied. Continued on oral diuretics. Lovenox for DVT prophylaxis. Progress note dated June 04, 2023. This is a 48-year-old male that we saw yesterday in consultation. He remains in the emergency department, room #1. He has a history of COPD, chronic tobacco dependence, alcoholism, gastroesophageal reflux disease, and hyperlipidemia. The patient's COPD is quite severe. His FEV1 is 36% of predicted. He does have chronic hypoxemic respiratory failure, and uses oxygen at home at 2 L. Unfortunately, the patient does continue to smoke. Today in the emergency department, he continues on BiPAP, with settings of 14/6 and 60%. He is not receiving any IV fluids. Laboratory data includes a sodium 134, potassium 4.5, chloride 83, CO2 44, anion gap 7, BUN 28, creatinine 0.70. Glucose is 150. Calcium is 9.2. A CT scan of the brain shows no acute abnormality. Progress note dated June 06, 2023. The patient is seen today in room 383. The patient is currently on 3 L of oxygen by nasal cannula. At nighttime, the patient is using BiPAP, with settings of 14/6, and 60%. Clinically, he is stable. He has no specific complaints today. Current laboratory data includes a white count 13.2, hemoglobin 14.5, hematocrit 47.1, and a normal platelet count. Sodium 133, potassium 4.2, chloride 90, CO2 34, BUN 32, creatinine 0.7. Glucose was 161. Calcium is 8.7. On today's evaluation of 06/07/2023, seen the patient for a follow-up. Still b ronchospastic and wheezy. Limited improvement since yesterday. The patient remains on a combination of bronchodilators and steroids. He remains on 2 L of oxygen by nasal cannula with a pulse ox of 91%. He has a nicotine patch. No chest pain. No other new complaints otherwise for now. No signs of any CO2 narcosis. Remains on IV Solu-Medrol 60 mg every 6 hours. Labs from today shows a WBC count of 12 with a hemoglobin 14.4, BUN is 29 with a creatinine of 0.69 and a sodium levels at 135 with a potassium level of 4.0. Objective - Vital Signs Vital signs: Vital Signs Temp 98.5 F 06/07/23 08:00 Pulse 64 06/07/23 11:54 Resp 20 06/07/23 11:38 BP 116/72 06/07/23 11:38 Pulse Ox 94 L 06/07/23 11:38 FiO2 50 06/06/23 00:00 Intake & Output 06/06/23 06/07/23 06/07/23 18:59 06:59 18:59 Intake Total 240 240 240 Output Total 825 400 Balance -585 -160 240 Weight 131.5 kg Intake: Oral 240 240 240 Output: Urine 825 400 Other: Voiding Method Urinal Urinal Urinal - Exam No acute distress, currently on nasal O2, the patient is somnolent, without obvious respiratory difficulty. The patient is currently on 2 L of oxygen by nasal cannula. HEENT examination is grossly unremarkable. Neck supple. Full range of motion. No adenopathy thyromegaly or neck vein distention. Cardiovascular examination reveals regular rhythm rate. S1-S2 normal. No S3 or S4. No discernible murmur noted. Heart sounds are distant. Lungs reveal scattered bilateral rhonchi. Expiratory wheezes. Breath sounds equal but diminished throughout. Saturations are 94 %. Abdomen soft, but obese. Bowel sounds are noted. No masses. Extremities are intact. No cyanosis or clubbing. Edema is noted. Skin is without rash or lesion. Neurologic examination is brief but nonfocal. - Labs CBC & Chem 7: 06/07/23 06:11 06/07/23 06:11 Labs: Abnormal Lab Results - Last 24 Hours (Table) 06/06/23 06/06/23 06/07/23 Range/Units 17:03 21:19 05:41 WBC (3.8-10.6) k/uL MCV (80.0-100.0) fL Sodium (137-145) mmol/L Chloride (98-107) mmol/L Carbon Dioxide (22-30) mmol/L BUN (9-20) mg/dL Glucose (74-99) mg/dL POC Glucose (mg/dL) 167 H 192 H 139 H (70-110) mg/dL 06/07/23 06/07/23 06/07/23 Range/Units 06:11 06:11 11:43 WBC 12.0 H (3.8-10.6) k/uL MCV 104.0 H (80.0-100.0) fL Sodium 135 L (137-145) mmol/L Chloride 93 L (98-107) mmol/L Carbon Dioxide 37 H (22-30) mmol/L BUN 29 H (9-20) mg/dL Glucose 124 H (74-99) mg/dL POC Glucose (mg/dL) 196 H (70-110) mg/dL Assessment and Plan Plan: Acute on chronic hypercapnic and hypoxemic respiratory failure secondary to an acute exacerbation of chronic obstructive pulmonary disease. Clinically stable and slightly improved compared to yesterday. Severe chronic obstructive pulmonary disease, oxygen dependent on 2 L at home normally, FEV1 value 36% of predicted. Chronic and ongoing tobacco dependence. Morbid obesity with a BMI of 50.0 kg/m. History of pulmonary hypertension. Benign essential hypertension. Hyperlipidemia. Previous history of alcoholism. Plan: No need for BiPAP therapy at this point in time. Continue O2 at 2 L/min nasal cannula Continue bronchodilators and steroids and the patient remains on IV Solu-Medrol Labs are stable Vital signs are stable. Prognosis is certainly guarded.
[2023-06-07 17:05] LABS: Glucose,Whole Blood 299 mg/dL (70-110)
--- NOTE | 2023-06-07 17:46 | P.PN ---
Subjective Progress Note Date: 06/04/23 Patient was seen on Wednesday doing slightly better than yesterday still on BiPAP and requiring oxygen with low oxygenation. Denies any fever nausea vomiting or chest pain being treated by pulmonary group. Objective - Vital Signs Vital signs: Vital Signs Temp 98.2 F 06/07/23 16:00 Pulse 76 06/07/23 16:06 Resp 20 06/07/23 16:00 BP 126/76 06/07/23 16:00 Pulse Ox 91 L 06/07/23 16:00 FiO2 50 06/06/23 00:00 Intake & Output 06/06/23 06/07/23 06/07/23 18:59 06:59 18:59 Intake Total 806 218 1214 Output Total 825 400 Balance -585 -160 1500 Weight 131.5 kg Intake: Oral 513 291 4921 Output: Urine 825 400 Other: Voiding Method Urinal Urinal Toilet # Voids 4 # Bowel Movements 1 - Exam PHYSICAL EXAM: VITAL SIGNS: [As above GENERAL: Sitting up in bed, wearing CPAP, calm HEENT: Normocephalic conjunctivae normal. eyes normal. NECK: Supple no JVD. CARDIOVASCULAR: S1, S2 regular. No murmur RESPIRATION: Equal air entry with fine scattered crackles and expiratory wheezes. ABDOMEN: Soft, nontender . No guarding. no masses palpable. No ascites, No hepatosplenomegaly.Bowel sounds heard. LEGS: No edema. no swelling PSYCHIATRY: Alert and oriented X3, mood and affect normal. NERVOUS SYSTEM: Cranial N 2-12 grossly normal. Moves all 4 limbs. No focal deficits. Skin: Warm and dry, no rash - Labs CBC & Chem 7: 06/07/23 06:11 06/07/23 06:11 Labs: Abnormal Lab Results - Last 24 Hours (Table) 06/06/23 06/07/23 06/07/23 Range/Units 21:19 05:41 06:11 WBC 12.0 H (3.8-10.6) k/uL MCV 104.0 H (80.0-100.0) fL Sodium (137-145) mmol/L Chloride (98-107) mmol/L Carbon Dioxide (22-30) mmol/L BUN (9-20) mg/dL Glucose (74-99) mg/dL POC Glucose (mg/dL) 192 H 139 H (70-110) mg/dL 06/07/23 06/07/23 06/07/23 Range/Units 06:11 11:43 17:01 WBC (3.8-10.6) k/uL MCV (80.0-100.0) fL Sodium 135 L (137-145) mmol/L Chloride 93 L (98-107) mmol/L Carbon Dioxide 37 H (22-30) mmol/L BUN 29 H (9-20) mg/dL Glucose 124 H (74-99) mg/dL POC Glucose (mg/dL) 196 H 299 H (70-110) mg/dL Assessment and Plan (1) COPD exacerbation Current Visit: Yes Status: Acute Code(s): J44.1 - CHRONIC OBSTRUCTIVE PULMONARY DISEASE W (ACUTE) EXACERBATION SNOMED Code(s): 132271715 (2) Acute exacerbation of COPD with asthma Current Visit: No Status: Acute Code(s): J44.1 - CHRONIC OBSTRUCTIVE PULMONARY DISEASE W (ACUTE) EXACERBATION; J45.901 - UNSPECIFIED ASTHMA WITH (ACUTE) EXACERBATION SNOMED Code(s): 0509184259462 (3) Hypoxia Narrative/Plan: Continue IV medication continue hydration continue BiPAP and oxygen therapy will recheck chest x-ray as ordered by pulmonary patient will be in for the weekend [facility] to cover. Current Visit: No Status: Acute Code(s): R09.02 - HYPOXEMIA SNOMED Code(s): 671626498 (4) Pneumonia Current Visit: No Status: Acute Code(s): J18.9 - PNEUMONIA, UNSPECIFIED ORGANISM SNOMED Code(s): 081316530 (5) Sepsis Current Visit: No Status: Acute Code(s): A41.9 - SEPSIS, UNSPECIFIED ORGANISM SNOMED Code(s): 66279995
--- NOTE | 2023-06-07 17:48 | P.PN ---
Subjective Progress Note Date: 06/07/23 Patient was seen on Wednesday doing slightly better than yesterday still on BiPAP and requiring oxygen with low oxygenation. Denies any fever nausea vomiting or chest pain being treated by pulmonary group. Patient continues to improve his down to 2 L nasal cannula he has not been using the CPAP device overnight and is starting to ambulate. Objective - Vital Signs Vital signs: Vital Signs Temp 98.2 F 06/07/23 16:00 Pulse 76 06/07/23 16:06 Resp 20 06/07/23 16:00 BP 126/76 06/07/23 16:00 Pulse Ox 91 L 06/07/23 16:00 FiO2 50 06/06/23 00:00 Intake & Output 06/06/23 06/07/23 06/07/23 18:59 06:59 18:59 Intake Total 701 647 0080 Output Total 825 400 Balance -585 -160 1500 Weight 131.5 kg Intake: Oral 811 117 9608 Output: Urine 825 400 Other: Voiding Method Urinal Urinal Toilet # Voids 4 # Bowel Movements 1 - Exam PHYSICAL EXAM: VITAL SIGNS: [As above GENERAL: Sitting up in bed, wearing CPAP, calm HEENT: Normocephalic conjunctivae normal. eyes normal. NECK: Supple no JVD. CARDIOVASCULAR: S1, S2 regular. No murmur RESPIRATION: Equal air entry with fine scattered crackles and expiratory wheezes. ABDOMEN: Soft, nontender . No guarding. no masses palpable. No ascites, No hepatosplenomegaly.Bowel sounds heard. LEGS: No edema. no swelling PSYCHIATRY: Alert and oriented X3, mood and affect normal. NERVOUS SYSTEM: Cranial N 2-12 grossly normal. Moves all 4 limbs. No focal deficits. Skin: Warm and dry, no rash - Labs CBC & Chem 7: 06/07/23 06:11 06/07/23 06:11 Labs: Abnormal Lab Results - Last 24 Hours (Table) 06/06/23 06/07/23 06/07/23 Range/Units 21:19 05:41 06:11 WBC 12.0 H (3.8-10.6) k/uL MCV 104.0 H (80.0-100.0) fL Sodium (137-145) mmol/L Chloride (98-107) mmol/L Carbon Dioxide (22-30) mmol/L BUN (9-20) mg/dL Glucose (74-99) mg/dL POC Glucose (mg/dL) 192 H 139 H (70-110) mg/dL 06/07/23 06/07/23 06/07/23 Range/Units 06:11 11:43 17:01 WBC (3.8-10.6) k/uL MCV (80.0-100.0) fL Sodium 135 L (137-145) mmol/L Chloride 93 L (98-107) mmol/L Carbon Dioxide 37 H (22-30) mmol/L BUN 29 H (9-20) mg/dL Glucose 124 H (74-99) mg/dL POC Glucose (mg/dL) 196 H 299 H (70-110) mg/dL Assessment and Plan (1) COPD exacerbation Current Visit: Yes Status: Acute Code(s): J44.1 - CHRONIC OBSTRUCTIVE PUL MONARY DISEASE W (ACUTE) EXACERBATION SNOMED Code(s): 670710737 (2) Acute exacerbation of COPD with asthma Current Visit: No Status: Acute Code(s): J44.1 - CHRONIC OBSTRUCTIVE PULMONARY DISEASE W (ACUTE) EXACERBATION; J45.901 - UNSPECIFIED ASTHMA WITH (ACUTE) EXACERBATION SNOMED Code(s): 3816209172232 (3) Hypoxia Current Visit: No Status: Acute Code(s): R09.02 - HYPOXEMIA SNOMED Code(s): 486013089 (4) Pneumonia Current Visit: No Status: Acute Code(s): J18.9 - PNEUMONIA, UNSPECIFIED ORGANISM SNOMED Code(s): 350372332 (5) Sepsis Current Visit: No Status: Acute Code(s): A41.9 - SEPSIS, UNSPECIFIED OR GANISM SNOMED Code(s): 47826134 Plan: Continue to monitor as patient's condition increase ambulation wean oxygen continue IVs hopeful to get this patient home in 24 to 36 hours back to baseline. Time with Patient: Greater than 30
[2023-06-07 20:12] LABS: Glucose,Whole Blood 275 mg/dL (70-110)
--- NOTE | 2023-06-07 23:35 | EEG ---
ELECTROENCEPHALOGRAM REPORT PREAMBLE: This is a 48-year-old male with myoclonus, rule out any seizure activity. EEG FINDINGS: This is a 21-channel digital EEG recorded with video component, utilizing 10/20 international system with referential and bipolar montages. Background consists of well developed, well regulated moderate voltage activity in 8-9 hertz alpha. Background is posterior dominant and reactive to eye opening and closing. Very frequent frontal eye blink artifacts were seen during the study. Drowsiness was seen with appearance of bilaterally symmetric theta frequency rhythm. Deeper stages of sleep were not seen. Occasional myoclonic jerks were seen, during which there was no electrographic abnormality noted. No focal or generalized epileptiform activity was seen. IMPRESSION: This is a normal awake and drowsy EEG. No focal, lateralized, or epileptiform activity was seen. MMODL / IJN: [id number] / MTDD
[2023-06-08 06:22] LABS: Glucose,Whole Blood 126 mg/dL (70-110)
[2023-06-08 10:21] VITALS: TEMP 98
[2023-06-08 11:45] LABS: Glucose,Whole Blood 198 mg/dL (70-110)
--- NOTE | 2023-06-08 15:22 | P.PN ---
Subjective Progress Note Date: 06/08/23 This is a 48-year-old male patient with a history of obesity, chronic obstructive pulmonary disease, chronic tobacco dependence, previous alcoholism, gastroesophageal reflux disease, hyperlipidemia. He has severe COPD on home oxygen at 2 L with FEV1 value 36% of predicted. He presented here to the [facility] room early this morning with significant shortness of breath and hypoxemia with a pulse ox of 70%. Arterial blood gases on arrival revealed a PaO2 of 100, pCO2 of 107 and a pH of 7.27. He was placed on BiPAP 14/6 and 55% FiO2. Chest x-ray revealed cardiomegaly. Slight bibasilar opacities. White count 10.7. Hemoglobin 15.4. Platelets 298. INR 0.9. Sodium 136. Potassium 5.5. Bicarb 45. BUN 13. Creatinine 0.75. Troponin negative x 1. proBNP 119. Alcohol less than 10. Viral screen negative. He is seen today in consultation in the emergency department. He is currently sitting up on the stretcher. Awake and alert in mild respiratory distress. Dyspneic with conversation. Dyspneic with minimal exertion. He is initiated on DuoNeb ventilations, Pulmicort and Perforomist inhalations, IV Solu-Medrol, NicoDerm patch applied. Continued on oral diuretics. Lovenox for DVT prophylaxis. Progress note dated June 04, 2023. This is a 48-year-old male that we saw yesterday in consultation. He remains in the emergency department, room #1. He has a history of COPD, chronic tobacco dependence, alcoholism, gastroesophageal reflux disease, and hyperlipidemia. The patient's COPD is quite severe. His FEV1 is 36% of predicted. He does have chronic hypoxemic respiratory failure, and uses oxygen at home at 2 L. Unfortunately, the patient does continue to smoke. Today in the emergency department, he continues on BiPAP, with settings of 14/6 and 60%. He is not receiving any IV fluids. Laboratory data includes a sodium 134, potassium 4.5, chloride 83, CO2 44, anion gap 7, BUN 28, creatinine 0.70. Glucose is 150. Calcium is 9.2. A CT scan of the brain shows no acute abnormality. Progress note dated June 06, 2023. The patient is seen today in room 383. The patient is currently on 3 L of oxygen by nasal cannula. At nighttime, the patient is using BiPAP, with settings of 14/6, and 60%. Clinically, he is stable. He has no specific complaints today. Current laboratory data includes a white count 13.2, hemoglobin 14.5, hematocrit 47.1, and a normal platelet count. Sodium 133, potassium 4.2, chloride 90, CO2 34, BUN 32, creatinine 0.7. Glucose was 161. Calcium is 8.7. On today's evaluation of 06/07/2023, seen the patient for a follow-up. Still b ronchospastic and wheezy. Limited improvement since yesterday. The patient remains on a combination of bronchodilators and steroids. He remains on 2 L of oxygen by nasal cannula with a pulse ox of 91%. He has a nicotine patch. No chest pain. No other new complaints otherwise for now. No signs of any CO2 narcosis. Remains on IV Solu-Medrol 60 mg every 6 hours. Labs from today shows a WBC count of 12 with a hemoglobin 14.4, BUN is 29 with a creatinine of 0.69 and a sodium levels at 135 with a potassium level of 4.0. On today's evaluation of 06/08/2023, the patient is being seen for a follow-up. Less bronchospastic and wheezy on today's evaluation. No significant chest pain. Remains on DuoNeb. Remains on IV Solu-Medrol 60 mg every 6 hours and the patient is awaiting a nicotine patch. No new labs are available from today. No new complaints otherwise for now. Objective - Vital Signs Vital signs: Vital Signs Temp 98 F 06/08/23 08:50 Pulse 96 06/08/23 11:28 Resp 18 06/08/23 08:50 BP 123/75 06/08/23 08:50 Pulse Ox 93 L 06/08/23 08:50 FiO2 50 06/06/23 00:00 Intake & Output 06/07/23 06/08/23 06/08/23 18:59 06:59 18:59 Intake Total 1860 237 340 Balance 1860 237 340 Weight 132.4 kg Intake: Oral 1860 237 340 Other: Voiding Method Toilet Toilet Toilet # Voids 4 1 3 # Bowel Movements 1 - Exam No acute distress, currently on nasal O2, the patient is somnolent, without obvious respiratory difficulty. The patient is currently on 2 L of oxygen by nasal cannula. HEENT examination is grossly unremarkable. Neck supple. Full range of motion. No adenopathy thyromegaly or neck vein distention. Cardiovascular examination reveals regular rhythm rate. S1-S2 normal. No S3 or S4. No discernible murmur noted. Heart sounds are distant. Lungs reveal scattered bilateral rhonchi. Expiratory wheezes. Breath sounds equal but diminished throughout. Saturations are 94 %. Abdomen soft, but obese. Bowel sounds are noted. No masses. Extremities are intact. No cyanosis or clubbing. Edema is noted. Skin is without rash or lesion. Neurologic examination is brief but nonfocal. - Labs CBC & Chem 7: 06/07/23 06:11 06/07/23 06:11 Labs: Abnormal Lab Results - Last 24 Hours (Table) 06/07/23 06/07/23 06/08/23 Range/Units 17:01 20:10 06:18 POC Glucose (mg/dL) 299 H 275 H 126 H (70-110) mg/dL 06/08/23 Range/Units 11:41 POC Glucose (mg/dL) 198 H (70-110) mg/dL Assessment and Plan Plan: Acute on chronic hypercapnic and hypoxemic respiratory failure secondary to an acute exacerbation of chronic obstructive pulmonary disease. Continues to improve clinically and less bronchospastic and wheezy compared to yesterday. Severe chronic obstructive pulmonary disease, oxygen dependent on 2 L at home normally, FEV1 value 36% of predicted. Chronic and ongoing tobacco dependence. Morbid obesity with a BMI of 50.0 kg/m. History of pulmonary hypertension. Benign essential hypertension. Hyperlipidemia. Previous history of alcoholism. Plan: No need for BiPAP therapy at this point in time. Continue O2 at 2 L/min nasal cannula Continue bronchodilators Start IV Solu-Medrol start the patient on prednisone burst taper Labs are stable from yesterday Vital signs are stable. Prognosis is certainly guarded. Discharge per medicine. Overall condition is stable.
[2023-06-08 16:57] LABS: Glucose,Whole Blood 235 mg/dL (70-110)
[2023-06-08] MEDS: predniSONE 20 MG TAB PO SCH (17:00)
[2023-06-08 17:32] VITALS: BP 122/80; PULSE 97; RESP 18
== END 2023-06-08 18:23 | disposition home or self-care (01) | DRG 189 ==
LOC: EC 00:21 → 3SCARD 05:28
PROVIDERS: ADMIT Family Medicine; ATTEND Family Medicine
PROC: 5A09357 Assistance with Respiratory Ventilation, Less than 24 Consecutive Hours, Continuous Positive Airway Pressure (ICD-10-PCS; principal; 2023-06-03)
DX: J96.21 Acute and chronic respiratory failure with hypoxia (principal); J18.9 Pneumonia, unspecified organism; J44.1 Chronic obstructive pulmonary disease with (acute) exacerbation; Z68.43 Body mass index [BMI] 50.0-59.9, adult; J45.901 Unspecified asthma with (acute) exacerbation; J44.0 Chronic obstructive pulmonary disease with (acute) lower respiratory infection; J96.22 Acute and chronic respiratory failure with hypercapnia; I27.20 Pulmonary hypertension, unspecified; I11.0 Hypertensive heart disease with heart failure; I50.9 Heart failure, unspecified; F10.21 Alcohol dependence, in remission; E66.01 Morbid (severe) obesity due to excess calories; G25.3 Myoclonus; Z99.81 Dependence on supplemental oxygen; F17.210 Nicotine dependence, cigarettes, uncomplicated; E78.5 Hyperlipidemia, unspecified; R32 Unspecified urinary incontinence; Z91.81 History of falling; Z79.51 Long term (current) use of inhaled steroids; Z79.899 Other long term (current) drug therapy; Z88.8 Allergy status to other drugs, medicaments and biological substances; Z88.0 Allergy status to penicillin
CPT/HCPCS: 36415; 36600; 70450; 71045; 80048; 80053; 80320; 82607; 82805; 83036; 83605; 83880; 84145; 84443; 84484; 85025; 85027; 85610; 85730; 93005; 94640; 94660; 94760; 95816; 96372; 96374; 96376; 99291

== ENCOUNTER 2023-09-23 20:50 | Inpatient (IN) | payer MEDICARE, OTHER ==
[~2023-09-23 20:50] MED LIST: ALBUTEROL NEBULIZED 2.5 MG/3 ML INHALATION ONE; IPRATROPIUM 0.5 MG/2.5 ML NEBU INHALATION ONE; cefTRIAXone IN SWFI 1,000 MG/10 ML SYRINGE IVP ONE; methylPREDNISolone SOD SUCCI 125 MG/2 ML VIAL ONE
[2023-09-23] MEDS ORDERED: SYMBICORT 160-4.5 MCG INHALER INHALATION ONE (22:20)
[2023-09-24] MEDS ORDERED: methylPREDNISolone SOD SUCCI 125 MG/2 ML VIAL ONE ×3 (05:34→23:59)
[2023-09-24] MEDS ORDERED: AMOXIC-POT CLAV 875-125MG 1 EACH TAB ONE (09:57)
[2023-09-24] MEDS ORDERED: IPRATROPIUM-ALBUTEROL 3 ML NEB ONE (22:12)
[2023-09-24] MEDS ORDERED: HEPARIN SODIUM,PORCINE 5,000 UNIT/ML 1 ML VIAL ONE (22:57)
[2023-09-24] MEDS ORDERED: ATORVASTATIN 10 MG TAB ONE (22:58)
[2023-09-24] MEDS ORDERED: SYMBICORT 160-4.5 MCG INHALER INHALATION ONE (23:59)
[2023-09-25] MEDS ORDERED: IPRATROPIUM-ALBUTEROL 3 ML NEB ONE (04:05)
[2023-09-25] MEDS ORDERED: methylPREDNISolone SOD SUCCI 125 MG/2 ML VIAL ONE ×3 (06:06→17:22)
[2023-09-25] MEDS ORDERED: MULTIVITAMINS, THERA 1 EACH TAB ONE (09:58)
[2023-09-25] MEDS ORDERED: HEPARIN SODIUM,PORCINE 5,000 UNIT/ML 1 ML VIAL ONE ×2 (09:58→22:02)
[2023-09-25] MEDS ORDERED: FUROSEMIDE 20 MG TAB ONE (09:58)
[2023-09-25] MEDS ORDERED: INSULIN ASPART (NovoLOG) 100 UNIT/ML VIAL SQ ONE ×2 (12:05→17:22)
[2023-09-25] MEDS ORDERED: SYMBICORT 160-4.5 MCG INHALER INHALATION ONE (19:46)
[2023-09-26] MEDS ORDERED: IPRATROPIUM-ALBUTEROL 3 ML NEB ONE ×2 (07:52→16:56)
[2023-09-26] MEDS ORDERED: MULTIVITAMINS, THERA 1 EACH TAB ONE (10:00)
[2023-09-26] MEDS ORDERED: FUROSEMIDE 20 MG TAB ONE ×2 (10:01→18:21)
[2023-09-26] MEDS ORDERED: HEPARIN SODIUM,PORCINE 5,000 UNIT/ML 1 ML VIAL ONE ×2 (10:01→21:12)
[2023-09-26] MEDS ORDERED: methylPREDNISolone SOD SUCCI 125 MG/2 ML VIAL ONE ×3 (10:01→23:18)
[2023-09-26] MEDS ORDERED: INSULIN ASPART (NovoLOG) 100 UNIT/ML VIAL SQ ONE ×2 (10:11→18:21)
[2023-09-26] MEDS ORDERED: ATORVASTATIN 10 MG TAB ONE (21:12)
[2023-09-26] MEDS ORDERED: AMOXIC-POT CLAV 875-125MG 1 EACH TAB ONE (23:59)
[2023-09-27] MEDS ORDERED: INSULIN ASPART (NovoLOG) 100 UNIT/ML VIAL SQ ONE (06:14)
[2023-09-27] MEDS ORDERED: methylPREDNISolone SOD SUCCI 125 MG/2 ML VIAL ONE ×2 (06:14→14:13)
[2023-09-27] MEDS ORDERED: amLODIPine 5 MG TAB ONE (07:27)
[2023-09-27] MEDS ORDERED: MULTIVITAMINS, THERA 1 EACH TAB ONE (07:27)
[2023-09-27] MEDS ORDERED: HEPARIN SODIUM,PORCINE 5,000 UNIT/ML 1 ML VIAL ONE (07:28)
[2023-09-27] MEDS ORDERED: FUROSEMIDE 20 MG TAB ONE (07:28)
[2023-09-27] MEDS ORDERED: lisinopriL 20 MG TAB ONE (07:28)
[2023-09-27] MEDS ORDERED: AMOXIC-POT CLAV 875-125MG 1 EACH TAB ONE (12:00)
--- NOTE | 2023-10-27 07:53 | XR ---
Patient Rigoberto Starr ID [id number] Order # EXAMINATION TYPE: XR chest 2V DATE OF EXAM: 09/23/2023 COMPARISON: No comparison available on downtime PACS. INDICATION: Short of breath TECHNIQUE: Frontal and lateral views of the chest are obtained. FINDINGS: The heart size is normal. The pulmonary vasculature is normal. The lungs are clear. There is hyperinflation flattening of the diaphragms. Correlate for COPD IMPRESSION: 1. No acute pulmonary process. 2. Consider COPD
== END 2023-09-27 16:08 | disposition home or self-care (01) | DRG 190 ==
LOC: 4SSUR 20:50 → UNDOADMIN 10-01 16:11
PROVIDERS: ADMIT Family Medicine; ATTEND Family Medicine
DX: J44.1 Chronic obstructive pulmonary disease with (acute) exacerbation (principal); J96.21 Acute and chronic respiratory failure with hypoxia; I10 Essential (primary) hypertension; I27.20 Pulmonary hypertension, unspecified; E78.5 Hyperlipidemia, unspecified; F17.210 Nicotine dependence, cigarettes, uncomplicated; Z99.81 Dependence on supplemental oxygen; Z86.59 Personal history of other mental and behavioral disorders; Z88.0 Allergy status to penicillin; Z88.8 Allergy status to other drugs, medicaments and biological substances; E66.01 Morbid (severe) obesity due to excess calories; R25.1 Tremor, unspecified
CPT/HCPCS: 71046; 84145; 94640; 94760; 96374; 96375; 99285; 99406